=== PATIENT | male | born 1975 | race Caucasian/White ===

== ENCOUNTER 2023-06-23 09:43 | Day surgery (SDC) | payer OTHER, SELFPAY ==
[2023-06-18 10:35] VITALS: BMI 22.9
--- NOTE | 2023-06-20 07:56 | MHC.SHP ---
Pre-Procedural Eval Section A Date of Service: 06/20/23 The patient is an INPATIENT: No Changes since office visit: No Cold of Flu in the past 2 weeks, No New Medical Problems, No Changes in Medication and No Patient answered all questions The History & Physical has been completed within 30 days and I have reviewed it.: Yes Section B Chief Complaint: Age-related nuclear cataract, left eye Allergies: Allergies Allergy/AdvReac Type Severity Reaction Status Date / Time prochlorperazine Allergy Difficulty Verified 06/18/23 09:20 [From Compazine] Breathing risperidone [From Risperdal] Allergy Swelling Verified 06/18/23 09:20 Plan Diagnosis/Plan: Unchanged I have reviewed the history and physical and performed a pertinent physical examination on my patient. No changes have occurred unless specified. Time Spent With Patient Time: Total time managing care of this patient today ____ minutes.
--- NOTE | 2023-06-20 10:58 | P.CONAN_ITS ---
Documented by User: Cammy Wayne NP 06/20/23 11:00 HPI - Anesthesia Eval Consult details Narrative: 47yo M for Left Cataract Extraction IOL Insertion PCP cleared No previous cataract on record ESRD on HD Polysubstance abuse Methadone daily PMFSH Past Medical History Medical History Complication of AV dialysis fistula Back pain Hx of transfusion of packed red blood cells GERD (gastroesophageal reflux disease) Numbness Retroperitoneal abscess Venous ulcer of right leg Proliferative diabetic retinopathy Polysubstance dependence including opioid drug with daily use Overweight Lymphedema HTN (hypertension) ESRD (end stage renal disease) Diabetic neuropathy Diabetes Cocaine use disorder Chronic kidney disease Uriostegui's cyst Anemia Above-elbow amputation of left upper extremity ADHD (attention deficit hyperactivity disorder) Abscess Surgical History Surgical History S/P debridement History of skin graft Status post amputation of left upper extremity above elbow Hx of laser photocoagulation of retina History of esophagogastroduodenoscopy (EGD) H/O colonoscopy Social History Social History Are you a primary home health care coordinator to a significant other at home: No Do you presently have visiting nurse or other home services: No Patient Tobacco Use Status: Current someday Tobacco user Tobacco use type: Cigarette Cigarettes Per Day: 5 Use of substances other than those prescribed or required for medical reasons: No Have you been hit, kicked, punched, or otherwise hurt by someone within the past year? If so, by whom?: No Advance Directives: No Advance Directives Information Provided: Yes Advance Directives on File: No Recently lost weight without trying: No Eating poorly because of decreased appetite: No Nutrition Risks: No Nutritional Risk Poor oral hygiene: Yes (no teeth, does not use dentures) Meds Allergies Allergy/AdvReac Type Severity Reaction Status Date / Time prochlorperazine Allergy Difficulty Verified 06/23/23 10:52 [From Compazine] Breathing risperidone [From Risperdal] Allergy Swelling Verified 06/23/23 10:52 Home Medications Medication Instructions Recorded Confirmed Last Taken Type acetaminophen 325 mg tablet 650 mg PO TID PRN fever 06/18/23 06/18/23 Unknown History aspirin 162.5 mg capsule,extended 325 mg PO DAILY 06/18/23 06/18/23 06/23/23 History release 24 hr duloxetine 30 mg capsule,delayed 30 mg PO DAILY 06/18/23 06/18/23 Unknown History release famotidine 20 mg tablet 20 mg PO DAILY 06/18/23 06/18/23 Unknown History furosemide 40 mg tablet 120 mg PO BID 06/18/23 06/18/23 Unknown History methadone 10 mg tablet 50 mg PO DAILY 06/18/23 06/18/23 06/23/23 History sucroferric oxyhydroxide 500 mg 500 mg PO TID 06/18/23 06/18/23 Unknown History chewable tablet (Velphoro) Exam Exam Date and Time: June 20, 2023 1058 Height,Weight and Vital Signs: Height 5 ft 7 in Weight 66.224 kg Documented by User: Gaurav Moser MD 06/23/23 10:56 [facility] Past Medical History Medical History Complication of AV dialysis fistula Back pain Hx of transfusion of packed red blood cells GERD (gastroesophageal reflux disease) Numbness Retroperitoneal abscess Venous ulcer of right leg Proliferative diabetic retinopathy Polysubstance dependence including opioid drug with daily use Overweight Lymphedema HTN (hypertension) ESRD (end stage renal disease) Diabetic neuropathy Diabetes Cocaine use disorder Chronic kidney disease Uriostegui's cyst Anemia Above-elbow amputation of left upper extremity ADHD (attention deficit hyperactivity disorder) Abscess Family History Family history of problems with anesthesia: No Surgical History Surgical History S/P debridement History of skin graft Status post amputation of left upper extremity above elbow Hx of laser photocoagulation of retina History of esophagogastroduodenoscopy (EGD) H/O colonoscopy History of Problems with Anesthesia: No Social History Social History Are you a primary home health care coordinator to a significant other at home: No Do you presently have visiting nurse or other home services: No Patient Tobacco Use Status: Current someday Tobacco user Tobacco use type: Cigarette Cigarettes Per Day: 5 Use of substances other than those prescribed or required for medical reasons: No Have you been hit, kicked, punched, or otherwise hurt by someone within the past year? If so, by whom?: No Advance Directives: No Advance Directives Information Provided: Yes Advance Directives on File: No Recently lost weight without trying: No Eating poorly because of decreased appetite: No Nutrition Risks: No Nutritional Risk Poor oral hygiene: Yes (no teeth, does not use dentures) Meds Allergies Allergy/AdvReac Type Severity Reaction Status Date / Time prochlorperazine Allergy Difficulty Verified 06/23/23 10:52 [From Compazine] Breathing risperidone [From Risperdal] Allergy Swelling Verified 06/23/23 10:52 Home Medications Medication Instructions Recorded Confirmed Last Taken Type acetaminophen 325 mg tablet 650 mg PO TID PRN fever 06/18/23 06/18/23 Unknown History aspirin 162.5 mg capsule,extended 325 mg PO DAILY 06/18/23 06/18/23 06/23/23 History release 24 hr duloxetine 30 mg capsule,delayed 30 mg PO DAILY 06/18/23 06/18/23 Unknown History release famotidine 20 mg tablet 20 mg PO DAILY 06/18/23 06/18/23 Unknown History furosemide 40 mg tablet 120 mg PO BID 06/18/23 06/18/23 Unknown History methadone 10 mg tablet 50 mg PO DAILY 06/18/23 06/18/23 06/23/23 History sucroferric oxyhydroxide 500 mg 500 mg PO TID 06/18/23 06/18/23 Unknown History chewable tablet (Velphoro) Exam Airway Mallampati Class: II TM Dist: >3cm Neck ROM: Full Denture: Upper and Lower Loose/Missing/Broken Teeth: Yes Heart: [id number] Lungs: cta b/l Assessment and Plan Assessment Anesthesia Assessment: Anesthesia Plan Discussed and Chart Reviewed Final Anesthetic Review Family History of Problems with Anesthesia: No History of Problems with Anesthesia: No NPO: Yes ASA Class: III Final Preanesthetic Review: No Changes in Pt Med Stat, Meds/Allgs Chart Reviewed, Consent Obtained/Reviewed and Anes Risks/Benef Reviewed Patient Risk: Intermediate Procedure Risk: Intermediate Assessment/Block/Sedation in SS: Assess/Block/Sedation-SS Anesthetic Plan Anesthetic Plan: MAC: and Agree w/ Assess. and Plan Disposition: Standard PACU
--- OUTSIDE RECORDS SUMMARY | 2023-06-23 09:46 | XMS_ITS | Continuity of Care Document ---
Author Name Unknown Organization [facility] Address [address] [place] [id number] Care Team Providers Care Global Marketing Manager Name Role Phone Kristen Boudreaux DO Primary Care Physician Encounter [facility] Date(s): 04/01/22 - 05/01/22 [facility] [address] [place], [place] [address] Allergies, Adverse Reactions, Alerts Substance Reaction Severity Status Risperdal tongue swells Active Compazine difficulty breathing difficulty Active Immunizations Given and Recorded Vaccine Date Status Refusal Reason pneumococcal 20-valent conjugate vaccine 03/12/22 Given tetanus/diphtheria/pertussis, acel(Tdap) 12/17/21 Given tetanus/diphtheria/pertussis, acel(Tdap) 05/14/13 Given SARS-CoV-2 (COVID-19) mRNA BNT-162b2 vac 05/18/21 Recorded SARS-CoV-2 (COVID-19) mRNA BNT-162b2 vac 04/27/21 Recorded influenza virus vaccine, inactivated 09/19/15 Give n influenza virus vaccine, inactivated 07/03/09 Dany rded pneumococcal 23-valent vaccine 07/11/14 Given Not Given Vaccine Date Status Refusal Reason influenza virus vaccine, inactivated 08/20/16 Not Given Patient Refuses Medications acetaminophen 325 mg oral tablet 975 mg, 3, tablet, By Mouth, 3 times a day, PRN, # 180 tablet, Refills 0, Tot. Refills 0, Maintenance, as needed, 04/12/22 17:42:00 EDT, Route to Pharmacy Electronically, [facility]/pharmacy #[id number], Partial fill upon patient request if the prescription is for... Start Date: 04/12/22 Status: Ordered amLODIPine 10 mg oral tablet 1 tablet, By Mouth, Daily, # 90 tablet, 1 Refills, Maintenance, 04/08/22 10:06:00 EDT, [facility]/pharmacy#[id number], 170, cm, 04/04/22 15:17:00 EDT, Height, 81.75, kg, 03/21/22 15:54:00 EDT, Dry Weight Start Date: 04/08/22 Status: Ordered Artificial Tears 1.4% Eyes, Both, Every 4 hours, PRN Other, Dryness., 0 Refills, Maintenance, 03/29/22 11:49:00 EDT, Ophth Solution, Partial fill upon patient request if the prescription is for a schedule II opioid drug. Start Date: 03/29/22 Status: Ordered Aspirin Low Dose 81 mg oral delayed release tablet 1 tablet, By Mouth, Daily, # 30 tablet, 0 Refills, [id number], 170, cm, 04/04/22 15:17:00 EDT,Height, 81.75, kg, 03/21/22 15:54:00 EDT, Dry Weight Start Date: 04/08/22 Status: Ordered Basaglar KwikPen = 10 units, Subcutaneous Injection, Daily, 0 Refills, Maintenance, 03/18/22 12:33:00 EDT, ; Start Date: 03/18/22 Status: Ordered cloNIDine 0.1 mg oral tablet 1, tablet, By Mouth, 3 times a day, # 270 tablet, Refills 1, Tot. Refills 1, Maintenance, 04/26/22 14:29:00 EDT, Route to Pharmacy Electronically, [facility]/pharmacy #[id number], 170, cm, 04/12/22 15:12:00 EDT, Height, 81.75, kg, 03/21/22 15:54:00 EDT, Dry Weight Start Date: 04/26/22 Status: Ordered Compression Stockings See Instructions, # 1 each, Refills 1, Tot. Refills 1, Maintenance, Juxta Lite Circaid compression wraps bilateral 30-40 mm Hg, 03/05/22 14:53:00 EDT, Compound Start Date: 03/05/22 Status: Ordered duloxetine 30 mg oral enteric coated capsule 1 capsule = 30 mg, By Mouth, Daily, do not crush or chew, # 30 capsule, 1 Refills, Maintenance, 04/24/22 16:25:00 EDT, CR Capsule, [facility], Partial fill upon patient request if the prescription is for a schedule II opioid drug., 170,... Start Date: 04/24/22 Status: Ordered famotidine 20 mg oral tablet 1, tablet, By Mouth, Daily, # 90 tablet, Refills 0, Tot. Refills 0, Maintenance, 04/08/22 10:12:00 EDT, Route to Pharmacy Electronically, [facility]/pharmacy #[id number], 170, cm, 04/04/22 15:17:00 EDT, Height, 81.75, kg, 03/21/22 15:54:00 EDT, Dry Weight Start Date: 04/08/22 Status: Ordered hydrALAZINE 25 mg oral tablet 2, tablet, By Mouth, 3 times a day, for 30 days, # 180 tablet, Refills 0, Physician Stop, Route to Pharmacy Electronically, [id number], 170, cm, 04/04/22 15:17:00 EDT, Height, 81.75, kg, 03/21/22 15:54:00 EDT, Dry Weight Start Date: 04/08/22 Stop Date: 05/08/22 Status: Ordered Insulin Lispro KwikPen 100 units/mL injectable solution 2-10 units, Subcutaneous Injection, 3 times a day before meals, Maintenance, 03/21/22 11:54:00 EDT,; Start Date: 03/21/22 Status: Ordered lisinopril 20 mg oral tablet 20 mg, 1, tablet, By Mouth, Daily, # 30 tablet, Refills 6, Tot. Refills 6, Maintenance, 03/18/22 14:25:00 EDT, [id number], Partial fill upon patient request if the prescription is for a schedule II opioid drug... Start Date: 03/18/22 Status: Ordered Methadone = 80 mg, By Mouth, Daily, [facility] & took home 3 doses. Ro Dodd [phone], 0 Refills, Maintenance, 03/21/22 11:55:00 EDT, ; Start Date: 03/21/22 Status: Ordered Multivitamin 1 tablet, By Mouth, Daily, 0 Refills, Maintenance, 03/21/22 2:31:00 EDT, ; Start Date: 03/21/22 Status: Ordered nicotine 14 mg/24 hr transdermal film, extended release 1 patch, Topically, Daily, for 7 days, # 7 patch, 0 Refills, Acute 05/08/22 10:14:00 EDT, 05/01/22 10:14:00 EDT, Patch, [facility]/pharmacy #[id number], Partial fill upon patient request if the prescription is for a schedule II opioid drug., 1 patch Topically Kasi... Start Date: 05/01/22 Stop Date: 05/08/22 Status: Ordered Nicotine 2 mg gum 1 each = 2 mg, Chew, Every 2 hours, PRN for smoking cessation, # 50 each, 0 Refills, Acute 06/01/2210:14:00 EDT, 05/01/22 10:12:00 EDT, Gum, [facility]/pharmacy #[id number], Partial fill upon patient request if the prescription is for a schedule II opioid drug.,... Start Date: 05/01/22 Stop Date: 06/01/22 Status: Ordered Pen [place], 29 G x 12.7 mm BD Ultra Fine See Instructions, # 100 each, Refills 5, Tot. Refills 5, Maintenance, use as directed for Type 2 Diabetes Mellitus, 01/08/22 13:01:00 EDT, Supply, 169, cm, 01/07/22 14:19:00 EDT, Height, 89.9, kg, 12/25/21 7:54:00 EDT, Dry Weight Start Date: 01/08/22 Stop Date: 07/07/22 Status: Ordered torsemide 20 mg oral tablet 2 tablet = 40 mg, By Mouth, Daily, # 60 tablet, 0 Refills, Maintenance, 03/29/22 11:48:00 EDT, Tablet, [id number], Partial fill upon patient request if the prescription is for a schedule II opioid drug., 170, cm, 03/29/22 7:36:00 EDT, Height,... Start Date: 03/29/22 Status: Ordered Wheelchair See Instructions, # 1 each, Maintenance, Lymphedema 189.0, 04/12/22 17:43:00 EDT, Supply Start Date: 04/12/22 Status: Ordered Problem List Condition Effective Dates Status Health Status Inform ant Abscesses, recurrent, due to IVDU including admission to [facility] [place] [facility] 09/18/2015 to 10/29/2015 for retroperitoneal abscess, MSSA bacteremia(Confirmed) Active Amputation of left upper ext remity above elbow, h.o chronic osteomyelitis(Confirmed) 12/25/21 Active Anemia(Confirmed) Active ADHD (attention deficit hype ractivity disorder)(Confirmed) Active CKD (chronic kidney disease) stage 4, GFR 15-29 ml/min(Confirmed) Active Cocaine use disorder(Confirmed) Active Polysubstance dependence inc luding opioid drug with daily use(Confirmed) Active IDDM (insulin dependent diab etes mellitus)(Confirmed) Active Diabetic neuropathy(Confirmed) Active S/P amputation of limb(Confirmed) Active Hypertension(Confirmed) Active Lymphedema of left lower extremity(Confirmed) Active Overweight(Confirmed) Active Uriostegui's cyst of right knee(Confirmed) Active Venous ulcer, right lower ex tremity, followed by [facility] [phone](Confirmed) Active Venous ulcer of right leg(Confirmed) Active Social History Social History Type Response Tobacco Other: started smoki ng at 20 years old, now about 5 cigarettes. Sex
--- OUTSIDE RECORDS SUMMARY | 2023-06-23 09:46 | XMS_ITS | Continuity of Care Document ---
Author Name Unknown Organization [facility] Address [address] [place] [address]- Care Team Providers Care Fiberline Supervisor Name Role Phone Kristen Boudreaux DO Primary Care Physician [phone] Encounter [facility] Date(s): 04/24/22 - 05/24/22 [facility] [address], [place] [address] Allergies, Adverse Reactions, Alerts Substance Reaction [...] 0, Tot. Refills 0, Maintenance, as needed, 05/16/22 14:00:00 EDT, Route to Pharmacy Electronically, [facility]/pharmacy #[id number], Partial fill upon patient request if the prescription is for... Start Date: 05/16/22 Status: Ordered amLODIPine 10 mg oral tablet 1 tablet, By Mouth, Daily, # 90 tablet, 1 Refills, Maintenance, 04/08/22 10:06:00 EDT, [facility]/pharmacy#[id number], 170, cm, 04/04/22 15:17:00 EDT, Height, 81.75, [...] tablet, By Mouth, Daily, # 90 tablet, 3 Refills, 05/16/22 14:00:00 EDT, [facility]/pharmacy #[id number], 170.18, cm, 05/08/22 12:22:00 EDT, Height, 81.8, kg, 05/08/22 12:22:00 EDT, Dry Weight Start Date: 05/16/22 Status: Ordered Basaglar KwikPen = 10 units, Subcutaneous Injection, Daily, 0 Refills, Maintenance, 03/18/22 12:33:00 EDT, ; Start Date: 03/18/22 Status: Ordered cloNIDine 0.1 mg oral tablet 1, tablet, By Mouth, 3 times a day, # 270 tablet, Refills 1, Tot. Refills 1, Maintenance, 04/26/22 14:29:00 EDT, Route to Pharmacy Electronically, [facility]/pharmacy #[id number], 170, cm, 04/12/22 15:12:00 EDT, Height, 81.75, kg, 03/21/22 15:54:00 EDT, Dry Weight Start Date: 04/26/22 Status: Ordered Compression Stockings See Instructions, # 1 each, Refills 1, Tot. Refills 1, Maintenance, Juxta Lite Circaid compression wraps bilateral 30-40 mm Hg, 03/05/22 14:53:00 EDT, Compound Start Date: 03/05/22 Status: Ordered duloxetine 30 mg oral enteric coated capsule 1 capsule, By Mouth, Daily, DONT CRUSH. /CHEW., # 30 capsule, 5 Refills, [facility]ORE [id number], 170.18, cm, 05/08/22 12:22:00 EDT, Height, 81.8, kg, 05/08/22 12:22:00 EDT, Dry Weight Start Date: 05/15/22 Status: Ordered famotidine 20 mg oral tablet 1, tablet, By Mouth, Daily, # 90 tablet, Refills 3, Tot. Refills 3, Maintenance, 05/16/22 14:01:00 EDT, Route to Pharmacy Electronically, [facility]/pharmacy #[id number], 170.18, cm, 05/08/22 12:22:00 EDT, Height, 81.8, kg, 05/08/22 12:22:00 EDT, Dry Weight Start Date: 05/16/22 Status: Ordered hydrALAZINE 25 mg oral tablet 50 mg, 2, tablet, By Mouth, 3 times a day, # 180 tablet, Refills 3, Tot. Refills 3, Maintenance, 05/23/22 15:52:00 EDT, Route to Pharmacy Electronically, [facility]/pharmacy #[id number], Partial fill upon patientrequest if the prescription is for a schedule II op... Start Date: 05/23/22 Stop Date: 09/20/22 Status: Ordered Insulin Lispro KwikPen 100 units/mL injectable solution 2-10 units, Subcutaneous Injection, 3 times a day before meals, Maintenance, 03/21/22 11:54:00 EDT,; Start Date: 03/21/22 Status: Ordered lisinopril 20 mg oral tablet 20 mg, 1, tablet, By Mouth, Daily, # 30 tablet, Refills 6, Tot. Refills 6, Maintenance, 03/18/22 14:25:00 EDT, Route to Pharmacy Electronically, [facility]/pharmacy #[id number], Partial fill upon patient request if the prescription is for a schedule II opioid drug... Start Date: 03/18/22 Status: Ordered Methadone = 80 mg, By Mouth, Daily, last received from [facility] 03/19/22 & took home 3 doses. Ro Dodd [phone], 0 Refills, Maintenance, 03/21/22 11:55:00 EDT, ; Start Date: 03/21/22 Status: Ordered Multivitamin 1 tablet, By Mouth, Daily, 0 Refills, Maintenance, 03/21/22 2:31:00 EDT, ; Start Date: 03/21/22 Status: Ordered Nicotine 2 mg gum 1 each = 2 mg, Chew, Every 2 hours, PRN for smoking cessation, # 50 each, 0 Refills, Acute 06/01/2210:14:00 EDT, 05/01/22 10:12:00 EDT, Gum, [facility]/pharmacy #[id number], Partial fill upon patient request if the prescription is for a schedule II opioid drug.,... Start Date: 05/01/22 Stop Date: 06/01/22 Status: Ordered Pen [place], 29 G x 12.7 mm BD Ultra Fine See Instructions, # 100 each, Refills 5, Tot. Refills 5, Maintenance, use as directed for Type 2 Diabetes Mellitus, 05/16/22 14:00:00 EDT, Supply, 170.18, cm, 05/08/22 12:22:00 EDT, Height, 81.8, kg,05/08/22 12:22:00 EDT, Dry Weight Start Date: 05/16/22 Stop Date: 11/12/22 Status: Ordered torsemide 20 mg oral tablet 2 tablet = 40 mg, By Mouth, Daily, # 60 tablet, 3 Refills, Maintenance, 05/06/22 13:08:00 EDT, Tablet, [facility]/pharmacy #[id number], Partial fill upon patient request if the prescription is for a schedule II opioid drug., 170.18, cm, 05/06/22 10:27:00 EDT, Heig... Start Date: 05/06/22 Status: Ordered Wheelchair See Instructions, # 1 each, Maintenance, Lymphedema 189.0, 04/12/22 17:43:00 EDT, Supply Start Date: 04/12/22 Status: Ordered Problem List Condition Effective Dates Status Health Status Inform ant Abscesses, recurrent, due to IVDU including admission to [facility] for retroperitoneal abscess, MSSA [...] ex tremity, followed by [facility] [phone](Confirmed) Active Venous ulcer of right leg(Confirmed) Active Social History Social History Type Response Tobacco Other: started smoki ng at 20 years old, now about 5 cigarettes. Sex Care Team Personnel Name: Kristen Boudreaux DO Address: [address] [facility] [place] [address]
--- OUTSIDE RECORDS SUMMARY | 2023-06-23 09:46 | XMS_ITS | Continuity of Care Document ---
Author Name Unknown Organization [facility] Address [address] [place] [id number]- Care Team Providers Care Housekeeping Supervisor Name Role Phone Kristen Boudreaux DO Primary Care Physician [phone] Encounter [facility] Date(s): 02/21/23 - 04/16/23 [facility] [address] [place] [address]- Attending Physician: Carlos Arceo MD Admitting Physician: Carlos Arceo MD Referring Physician: Carlos Arceo MD Allergies, Adverse Reactions, Alerts Substance Reaction Severity Status Risperdal 1 tongue swells Active Compazine 2 difficulty breathing difficulty Active 1 MOUTH TIGHTNESS 2 MOUTH GETS TIGHT Immunizations Given and Recorded Vaccine Date Status Refusal Reason influenza virus vaccine, inactivated 09/14/22 Give n influenza virus vaccine, inactivated 09/14/22 Dany rded influenza virus vaccine, inactivated 09/19/15 Give n influenza virus vaccine, inactivated 07/03/09 Dany rded influenza virus vaccine, inactivated 07/03/09 Dany rded [id number] bivalent booster vax 07/17/22 Recorded [id number] bivalent booster vax 07/17/22 Recorded pneumococcal 20-valent conjugate vaccine 03/12/22 Given tetanus/diphtheria/pertussis, acel(Tdap) 12/17/21 Given tetanus/diphtheria/pertussis, acel(Tdap) 12/17/21 Recorded tetanus/diphtheria/pertussis, acel(Tdap) 05/14/13 Given tetanus/diphtheria/pertussis, acel(Tdap) 05/14/13 Recorded SARS-CoV-2 (COVID-19) mRNA BNT-162b2 vac 05/18/21 Recorded SARS-CoV-2 (COVID-19) mRNA BNT-162b2 vac 05/18/21 Recorded SARS-CoV-2 (COVID-19) mRNA BNT-162b2 vac 04/27/21 Recorded SARS-CoV-2 (COVID-19) mRNA BNT-162b2 vac 04/27/21 Recorded pneumococcal 23-valent vaccine 07/11/14 Given Not Given Vaccine Date Status Refusal Reason influenza virus vaccine, inactivated 08/20/16 Not Given Patient Refuses Medications acetaminophen 325 mg oral capsule 2 capsule = 650 mg, By Mouth, Every 8 hours, PRN as needed for pain, # 90 capsule, 0 Refills, Maintenance, 02/06/23 20:10:00 EDT, Capsule, Partial fill upon patient request if the prescription is fora schedule II opioid drug. Start Date: 02/06/23 Status: Ordered aspirin 162.5 mg oral capsule, extended release = 325 mg, By Mouth, Daily, 0 Refills, Maintenance, 02/20/23 11:40:00 EDT, ER Capsule, Partial fill upon patient request if the prescription is for a schedule II opioid drug. Start Date: 02/20/23 Status: Ordered carvedilol 25 mg oral tablet 25 mg, 1, tablet, By Mouth, 2 times a day, Refills 0, Maintenance, 02/20/23 10:46:00 EDT, Partial fill upon patient request if the prescription is for a schedule II opioid drug. Start Date: 02/20/23 Status: Ordered cloNIDine 0.1 mg oral tablet 0.2 mg, 2, tablet, By Mouth, TAKE 2 TABLETS BY MOUTH EVERY MORNING, 2 TABLETS AT NOON, AND 2 TABLETS EVERY EVENING ONLY IF BP > 160 Start Date: 02/20/23 Status: Ordered duloxetine 30 mg oral enteric coated capsule 1 capsule, By Mouth, Daily, DONT CRUSH. /CHEW., # 30 capsule, 8 Refills, Maintenance, 11/25/22 8:27:00 EST, [facility] STORE [id number], 170, cm, 10/09/22 16:43:00 EST, Height, 69.1, kg, 11/14/22 7:40:00 EST, Dry Weight Start Date: 11/25/22 Status: Ordered famotidine 20 mg oral tablet 1, tablet, By Mouth, Daily, # 90 tablet, Refills 0, Maintenance, 03/14/23 13:30:00 EDT, Route to Pharmacy Electronically, [facility] STORE [id number], 170.1, cm, 03/14/23 9:45:00 EDT, Height, 68.4, kg, 03/14/23 9:45:00 EDT, Dry Weight Start Date: 03/14/23 Status: Ordered furosemide 40 mg oral tablet 3, tablet, By Mouth, 2 times a day, REFILL PER PCP OR NEPHROLOGY., # 180 tablet, Refills 2, Maintenance, 12/19/22 17:33:00 EDT, Route to Pharmacy Electronically, [facility] STORE [id number], 170, cm, 12/19/22 10:06:00 EDT, Height, 71.6, kg, 12/19/22 10:06:00 EDT,... Start Date: 12/19/22 Status: Ordered Left arm, above the elbow prosthetic Left arm, above the elbow prosthetic, See Instructions, # 1 each, Refills 0, Tot. Refills 0, Maintenance, Dx: left arm above the elbow amputation, 03/13/23 10:05:00 EDT, Supply Start Date: 03/13/23 Status: Ordered methadone 10 mg oral tablet = 60 mg, By Mouth, Daily, liquid form., 0 Refills, Maintenance, 02/20/23 11:29:00 EDT, Tablet, Partial fill upon patient request if the prescription is for a schedule II opioid drug. Start Date: 02/20/23 Status: Ordered ofloxacin 0.3% ophthalmic solution PLEASE SEE ATTACHED FOR DETAILED DIRECTIONS Start Date: 03/06/23 Status: Ordered PEG-3350 with Electrolytes (Eqv-GoLYTELY) oral powder for reconstitution See Instructions, 1 glass every 15-30 minutes until finished, # 4,000 mL, 0 Refills, Maintenance, 04/09/23 10:56:00 EDT, [facility]/pharmacy #1130, Partial fill upon patient request if the prescription is for a schedule II opioid drug., 1 glass every 15-30 m... Start Date: 04/09/23 Status: Ordered prednisolone ophthalmic acetate 1% suspension INSTILL ONE DROP INTO THE LEFT EYE 4 TIMES A DAY STARTING THE DAY AFTER SURGERY AND CONTINUING. Start Date: 03/06/23 Status: Ordered Velphoro 2500 mg (500 mg elemental iron) oral tablet, chewable 1 tablet = 500 mg, Chew, 3 times a day with meals, # 90 tablet, 0 Refills, Maintenance, 03/14/23 15:43:00 EDT, Chew Tablet, Partial fill upon patient request if the prescription is for a schedule II opioid drug. 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, h.o chronic osteomyelitis Confirmed 12/25/21 Active Anemia Confirmed Active ADHD (attention deficit hyperactivity disorder) Confirmed Active CKD (chronic kidney disease) stage 4, GFR 15-29 ml/min Confirmed Active CKD (chronic kidney disease), stage IV Confirmed Active Cocaine use disorder Confirmed Active Polysubstance dependence including opioid drug with daily use Confirmed Active IDDM (insulin dependent diabetes mellitus) Confirmed Active Diabetes mellitus Confirmed Active Diabetic neuropathy Confirmed Active ESRD (end stage renal disease) on dialysis Confirmed Active S/P amputation of limb Confirmed Active History of amputation of left arm Confirmed 09/23/22 Active Hypertension Confirmed Active Insulin dependent type 2 diabetes mellitus Confirmed Active Lymphedema of left lower extremity Confirmed Active Overweight Confirmed Active Proliferative diabetic retinopathy Confirmed Active Uriostegui's cyst of right knee Confirmed Active Venous ulcer, right lower extremity, followed by Karen[facility] [phone] Confirmed Active Venous ulcer of right leg Confirmed Active Social History Social History Type Response Tobacco Other: started smoki ng at 20 years old, now about 5 cigarettes. Sex Male Implantable Device List Procedure Provider Procedure Date Device Type Site Removal Hemodialysis Catheter Bill White MD 12/19/22 Unknown Arm Right Device Identifier Serial Number Lot or Batch Number Manufacturing Date Expiration Date Distinct Identification Code MRI Safety Implantable Status Assigning Authority Unknown Unknown [id number] Unknown 07/25/23 Unknown Unknown Active Unknown Procedure Provider Procedure Date Device Type Site Insertion Hemodialysis Catheter Tyshawn Milian MD Unknown Chest Device Identifier Serial Number Lot or Batch Number Manufacturing Date Expiration Date Distinct Identification Code MRI Safety Implantable Status Assigning Authority Unknown Unknown [id number] Unknown 06/26/24 Unknown Unknown Active Unknown Patient Care team information Care Team Personnel Name: Maryam Fox RN Position: S RN Member Role: Primary Care Nurse Name: Jana Monte RN Position: S RN Member Role: Primary Care Nurse Name: Franchesca Ward RN Position: [facility] RN Member Role: Primary Care Nurse Name: Carolina Camacho RN Position: [facility] SN RN Member Role: Primary Care Nurse Name: Linda Hathaway Position: [facility] Outreach Member Role: Lifetime Consulting Physician Name: Cynthia Hathaway RN Position: [facility] RN Member Role: Primary Care Nurse Name: Delaney Huber RN Position: [facility] RN Member Role: Primary Care Nurse Name: Juanita Main RN Position: [facility] RN Member Role: Primary Care Nurse Name: China Sutherland Position: [facility] Outreach Member Role: Lifetime Consulting Physician Name: Tayler Harris RN Position: [facility] RN Member Role: Primary Care Nurse Name: Sophie Bejarano NP Position: [facility] Associate Professional Member Role: Lifetime Consulting Provider Address: Address: [address] [place] [address] [address] [facility] [address] Name: Vasile Byers MD Position: [facility] Renal MD Member Role: Lifetime Consulting Physician Address: Address: [address] [place] [address] [address] [facility] [address] Name: Edgar Mascorro RN Position: [facility] RN Member Role: Primary Care Nurse Name: Katalina Jorge RN Position: [facility] OB RN Member Role: Primary Care Nurse Name: Sophia Adan LPN Position: [facility] RN Member Role: Primary Care Nurse Name: Lorene Davenport RN Position: [facility] RN Member Role: Primary Care Nurse Name: Meryl Saini RN Position: [facility] SN RN Member Role: Primary Care Nurse Name: Allison Montez RN Position: [facility] RN Member Role: Primary Care Nurse Name: Guillermo Encinas DO Position: [facility] Renal MD Member Role: Lifetime Consulting Physician Address: Address: [address] [place] [address] [address] [facility] [place] [address]- Name: Christiano Parish RN Position: [facility] RN Member Role: Primary Care Nurse Name: Lorene Billingsley RN Position: [facility] Onco RN Member Role: Primary Care Nurse Name: Kathy Nieves RN Position: [facility] ED RN W/OE and Tasks Member Role: Primary Care Nurse Name: Nita Garcias RN Position: [facility] RN Member Role: Primary Care Nurse Name: Tyshawn Cook III, RN Position: [facility] RN Member Role: Primary Care Nurse Name: Mayuri England RN Position: [facility] RN Member Role: Primary Care Nurse Name: Sophia Johnson Position: [facility] RN Member Role: Primary Care Nurse Name: Paradise Linder RN Position: [facility] RN Member Role: Primary Care Nurse Name: Noemi Bustos RN Position: [facility] RN Member Role: Primary Care Nurse Name: Jennifer Song RN Position: [facility] RN Supv Member Role: Primary Care Nurse Name: Pina Mcgill RN Position: [facility] RN Member Role: Primary Care Nurse Name: Reina Franklin RN Position: [facility] RN Member Role: Primary Care Nurse Name: Yumiko Lindsay RN Position: [facility] RN Member Role: Primary Care Nurse Name: Vincent Thapa RN Position: [facility] RN Member Role: Primary Care Nurse Name: Kristen Boudreaux DO Position: [facility] Resident Member Role: PCP Address: Address: [address] [place] [address] [place] [address]- Name: Nicole Guzman RN Position: [facility] RN Member Role: Primary Care Nurse Name: Neil Bobby RN Position: [facility] ED RN W/OE and Tasks Member Role: Primary Care Nurse Name: Joellen Pineda RN Position: [facility] RN Member Role: Primary Care Nurse Name: Litzy Marin RN Position: [facility] RN Member Role: Primary Care Nurse Name: Crystal Robles RN Position: [facility] RN Member Role: Primary Care Nurse Name: Ruth Stevens LPN Position: [facility] RN Member Role: Primary Care Nurse Name: Nohemi Grande RN Position: [facility] Nut Roaster Helper Member Role: Primary Care Nurse Name: Yolanda Tyler RN Position: [facility] Nut Roaster Helper Member Role: Primary Care Nurse Care Team Related Persons Name: TAWNY BUTLER Address: home [address] [place] [address]
--- OUTSIDE RECORDS SUMMARY | 2023-06-23 09:46 | XMS_ITS | Continuity of Care Document ---
Author Name Unknown Organization [facility] Address [address] [place] [address]- Care Team Providers Care Pipeline Welder Name Role Phone Kristen Boudreaux DO Primary Care Physician [phone] Encounter [facility] Date(s): 04/26/22 - 05/26/22 [facility] [address] [place], [place] [address] Allergies, Adverse Reactions, Alerts Substance Reaction Severity [...] 14:00:00 EDT, Route to Pharmacy Electronically, [facility]/pharmacy #[id number], Partial fill upon patient request if the prescription is for... Start Date: 05/16/22 Status: Ordered amLODIPine 10 mg oral tablet 1 tablet, By Mouth, Daily, # 90 tablet, 1 Refills, Maintenance, 04/08/22 10:06:00 EDT, [facility]/pharmacy#1130, 170, cm, 04/04/22 15:17:00 EDT, Height, [...] tablet, 3 Refills, 05/16/22 14:00:00 EDT, [facility]/pharmacy #1130, 170.18, cm, 05/08/22 12:22:00 EDT, Height, [...] 14:29:00 EDT, Route to Pharmacy Electronically, [facility]/pharmacy #[id number], 170, cm, 04/12/22 15:12:00 EDT, [...] /CHEW., # 30 capsule, 5 Refills, [facility] STORE [id number], 170.18, cm, 05/08/22 12:22:00 EDT, Height, 81.8, kg, 05/08/22 12:22:00 EDT, Dry Weight Start Date: 05/15/22 Status: Ordered famotidine 20 mg oral tablet 1, tablet, By Mouth, Daily, # 90 tablet, Refills 3, Tot. Refills 3, Maintenance, 05/16/22 14:01:00 EDT, Route to Pharmacy Electronically, [facility]/pharmacy #1130, 170.18, cm, 05/08/22 12:22:00 EDT, Height, 81.8, kg, 05/08/22 12:22:00 EDT, Dry Weight Start Date: 05/16/22 Status: Ordered hydrALAZINE 25 mg oral tablet 50 mg, 2, tablet, By Mouth, 3 times a day, # 180 tablet, Refills 3, Tot. Refills 3, Maintenance, 05/23/22 15:52:00 EDT, Route to Pharmacy Electronically, [facility]/pharmacy #[id number], Partial fill upon patientrequest if the [...] 14:25:00 EDT, Route to Pharmacy Electronically, [facility]/pharmacy #1130, Partial fill upon patient request if the prescription is for a schedule II opioid drug... Start Date: 03/18/22 Status: Ordered Methadone = 80 mg, By Mouth, Daily, [facility] & took home 3 doses. Ro Confirmed [phone], 0 Refills, Maintenance, 03/21/22 11:55:00 EDT, ; Start Date: 03/21/22 Status: Ordered Multivitamin 1 tablet, By Mouth, Daily, 0 Refills, Maintenance, 03/21/22 2:31:00 EDT, ; Start Date: 03/21/22 Status: Ordered Nicotine 2 mg gum 1 each = 2 mg, Chew, Every 2 hours, PRN for smoking cessation, # 50 each, 0 Refills, Acute 06/01/2210:14:00 EDT, 05/01/22 10:12:00 EDT, Gum, [facility]/pharmacy #1130, Partial fill upon patient request if the prescription is for a schedule II opioid drug.,... Start Date: 05/01/22 Stop Date: 06/01/22 Status: Ordered Pen [place], 29 G x 12.7 mm BD Ultra [...] Refills, Maintenance, 05/06/22 13:08:00 EDT, Tablet, [facility]/pharmacy #1130, Partial fill upon patient request [...] recurrent, due to IVDU including admission to [facility] --> [facility] 09/18/2015 to 10/29/2015 for retroperitoneal [...] right lower ex tremity, followed by [facility] [phone](Confirmed) Active Venous ulcer of right leg(Confirmed) Active Social History Social History Type Response Tobacco Other: started smoki ng at 20 years old, now about 5 cigarettes. Sex Care Team Personnel Name: Kristen Boudreaux DO Address: [address] [facility] [place] [address]-
--- OUTSIDE RECORDS SUMMARY | 2023-06-23 09:46 | XMS_ITS | Continuity of Care Document ---
Author Name Unknown Organization [facility] Address [address] [place] [address]- Care Team Providers Care Food Beverage Server Name Role Phone Kristen Boudreaux DO Primary Care Physician [phone] Encounter [facility] Date(s): 03/13/22 - 05/18/22 [facility] [address] [place], [place] [address] Attending Physician: Not on Staff, Attending MD Allergies, Adverse Reactions, Alerts Substance Reaction [...] Give n influenza virus vaccine, inactivated 07/03/09 Adny rded pneumococcal 23-valent vaccine 07/11/14 Given Not Given Vaccine Date Status Refusal Reason influenza virus vaccine, inactivated 08/20/16 Not Given Patient Refuses Medications acetaminophen 325 mg oral tablet 975 mg, 3, tablet, By Mouth, 3 times a day, PRN, # 180 tablet, Refills 0, Tot. Refills 0, Maintenance, as needed, 05/16/22 14:00:00 EDT, Route to Pharmacy Electronically, [facility]/pharmacy #[id number], Partial fill upon patient request if the prescription is for... Start Date: 05/16/22 Status: Ordered amLODIPine 10 mg oral tablet 1 tablet, By Mouth, Daily, # 90 tablet, 1 Refills, Maintenance, 04/08/22 10:06:00 EDT, [facility]/pharmacy#1130, 170, cm, 04/04/22 15:17:00 EDT, Height, [...] 90 tablet, 3 Refills, 05/16/22 14:00:00 EDT, [facility]/pharmacy #1130, 170.18, cm, 05/08/22 12:22:00 EDT, [...] 14:29:00 EDT, Route to Pharmacy Electronically, [facility]/pharmacy #1130, 170, cm, 04/12/22 15:12:00 EDT, [...] CRUSH. /CHEW., # 30 capsule, 5 Refills, [facility] STORE 23218, 170.18, cm, 05/08/22 12:22:00 EDT, Height, 81.8, kg, 05/08/22 12:22:00 EDT, Dry Weight Start Date: 05/15/22 Status: Ordered famotidine 20 mg oral tablet 1, tablet, By Mouth, Daily, # 90 tablet, Refills 3, Tot. Refills 3, Maintenance, 05/16/22 14:01:00 EDT, Route to Pharmacy Electronically, [facility]/pharmacy #1130, 170.18, cm, 05/08/22 12:22:00 EDT, Height, 81.8, kg, 05/08/22 12:22:00 EDT, Dry Weight Start Date: 05/16/22 Status: Ordered Insulin Lispro KwikPen 100 units/mL injectable solution 2-10 units, Subcutaneous Injection, 3 times a day before meals, Maintenance, 03/21/22 11:54:00 EDT,; Start Date: 03/21/22 Status: Ordered lisinopril 20 mg oral tablet 20 mg, 1, tablet, By Mouth, Daily, # 30 tablet, Refills 6, Tot. Refills 6, Maintenance, 03/18/22 14:25:00 EDT, Route to Pharmacy Electronically, [facility]/pharmacy #1130, Partial fill upon patient request if the prescription is for a schedule II opioid drug... Start Date: 03/18/22 Status: Ordered Methadone = 80 mg, By Mouth, Daily, [facility] received from [facility] 03/19/22 & took home 3 doses. Ro Confirmed [phone], 0 Refills, Maintenance, 03/21/22 11:55:00 EDT, ; Start Date: 03/21/22 Status: Ordered Multivitamin 1 tablet, By Mouth, Daily, 0 Refills, Maintenance, 03/21/22 2:31:00 EDT, ; Start Date: 03/21/22 Status: Ordered Nicotine 2 mg gum 1 each = 2 mg, Chew, Every 2 hours, PRN for smoking cessation, # 50 each, 0 Refills, Acute 06/01/2210:14:00 EDT, 05/01/22 10:12:00 EDT, Gum, [facility]/pharmacy #1130, Partial fill upon patient request if the prescription is for a schedule II opioid drug.,... Start Date: 05/01/22 Stop Date: 06/01/22 Status: Ordered Pen [place], 29 G x 12.7 mm BD Ultra [...] 3 Refills, Maintenance, 05/06/22 13:08:00 EDT, Tablet, [facility]/pharmacy #1130, Partial fill upon patient request [...] due to IVDU including admission to [facility] --> [facility] 09/18/2015 to 10/29/2015 for retroperitoneal [...] right lower ex tremity, followed by [facility] [phone](Confirmed) Active Venous ulcer of right leg(Confirmed) Active Social History Social History Type Response Tobacco Other: started smoki ng at 20 years old, now about 5 cigarettes. Sex Care Team Personnel Name: Kristen Boudreaux DO Address: [address] [place] [address] [place] [address]-
--- OUTSIDE RECORDS SUMMARY | 2023-06-23 09:46 | XMS_ITS | Continuity of Care Document ---
Author Name Unknown Organization [facility] Address [address] [place] [address]- Care Team Providers Care Foreign Diplomat Name Role Phone Kristen Boudreaux DO Primary Care Physician [phone] Encounter [facility] Date(s): 04/22/22 - 05/22/22 [facility] [address] [place] [address]- Allergies, Adverse Reactions, Alerts Substance Reaction Severity [...] 05/16/22 14:00:00 EDT, Route to Pharmacy Electronically, [facility]/pharmacy #[id number], Partial fill upon patient request if the prescription is for... Start Date: 05/16/22 Status: Ordered amLODIPine 10 mg oral tablet 1 tablet, By Mouth, Daily, # 90 tablet, 1 Refills, Maintenance, 04/08/22 10:06:00 EDT, [facility]/pharmacy#1130, 170, cm, 04/04/22 15:17:00 EDT, [...] 90 tablet, 3 Refills, 05/16/22 14:00:00 EDT, [facility]/pharmacy #1130, 170.18, cm, 05/08/22 12:22:00 [...] 04/26/22 14:29:00 EDT, Route to Pharmacy Electronically, [facility]/pharmacy #1130, 170, cm, 04/12/22 15:12:00 [...] CRUSH. /CHEW., # 30 capsule, 5 Refills, [facility] STORE 26385, 170.18, cm, 05/08/22 12:22:00 EDT, Height, 81.8, kg, 05/08/22 12:22:00 EDT, Dry Weight Start Date: 05/15/22 Status: Ordered famotidine 20 mg oral tablet 1, tablet, By Mouth, Daily, # 90 tablet, Refills 3, Tot. Refills 3, Maintenance, 05/16/22 14:01:00 EDT, Route to Pharmacy Electronically, [facility]/pharmacy #1130, 170.18, cm, 05/08/22 12:22:00 [...] 03/18/22 14:25:00 EDT, Route to Pharmacy Electronically, [facility]/pharmacy #1130, Partial fill upon patient request if the prescription is for a schedule II opioid drug... Start Date: 03/18/22 Status: Ordered Methadone = 80 mg, By Mouth, Daily, last received from [facility] 03/19/22 & took home 3 doses. Ro Confirmed [phone], 0 Refills, Maintenance, 03/21/22 11:55:00 EDT, ; [...] 05/01/22 Stop Date: 06/01/22 Status: Ordered Pen [place], 29 G x 12.7 mm BD Ultra [...] 3 Refills, Maintenance, 05/06/22 13:08:00 EDT, Tablet, [facility]/pharmacy #1130, Partial fill upon [...] recurrent, due to IVDU including admission to [facility] --> [facility] 09/18/2015 to 10/29/2015 for [...] [facility], [phone] Active Venous ulcer of right leg(Confirmed) Active Social History Social History Type Response Tobacco Other: started smoki ng at 20 years old, now about 5 cigarettes. Sex Care Team Personnel Name: Kristen Boudreaux DO Address: [address] [place] [address]
--- OUTSIDE RECORDS SUMMARY | 2023-06-23 09:46 | XMS_ITS | Continuity of Care Document ---
Author Name Unknown Organization [facility] ter Address [address] [place] [id number] Care Team Providers Care Harbor Engineer Name Role Phone Kristen Boudreaux DO Primary Care Physician [phone] Encounter [facility] Date(s): 02/16/23 - 02/20/[address] [address]- Encounter Diagnosis Hypotension(Final) - 02/16/23 Discharge Disposition: A-D/C Home Attending Physician: Carlos Arceo MD Admitting Physician: Carlos Arceo MD Referring Physician: Not on Staff, Referring MD Allergies, Adverse Reactions, Alerts Substance Reaction [...] influenza virus vaccine, inactivated 07/03/09 Dany rded [id number] bivalent booster vax 07/17/22 Recorded [id number] bivalent booster vax 07/17/22 Recorded pneumococcal 20-valent [...] opioid drug. Start Date: 02/06/23 Status: Ordered acetaminophen 325 mg oral tablet TAKE 2 TABLETS BY MOUTH 3 TIMES A DAY NEEDED FOR FEVER Start Date: 02/20/23 Status: Ordered aspirin 162.5 mg oral capsule, extended release = 325 mg, By Mouth, Daily, 0 Refills, Maintenance, 02/20/23 11:40:00 EDT, ER Capsule, Partial fill upon patient request if the prescription is for a schedule II opioid drug. Start Date: 02/20/23 Status: Ordered Aspirin Low Dose 81 mg oral delayed release tablet 1 tablet, By Mouth, Daily, # 90 tablet, 3 Refills, 05/16/22 14:00:00 EDT, [facility]acy #[id number], 170.18, cm, 05/08/22 12:22:00 EDT, Height, 81.8, kg, 05/08/22 12:22:00 EDT, Dry Weight Start Date: 05/16/22 Status: Ordered BD PARMINDER 2 GEN PEN NDL 32G 4MM USE TO INJECT INSULIN 4 TIMES A DAY Start Date: 02/20/23 Status: Ordered BD PARMINDER 2 GEN PEN NDL [id number] USE TO INJECT INSULIN 4 TIMES A DAY Start Date: 02/20/23 Status: Ordered BD PARMINDER PEN NDL [id number] USE TO INJECT INSULIN FOUR TIMES A DAY Start Date: 02/20/23 Status: Ordered carvedilol 25 mg oral tablet 25 mg, Tablet, By Mouth, 02/20/23 9:00:00 EDT Start Date: 02/20/23 Stop Date: 02/20/23 Status: Completed carvedilol 25 mg oral tablet Refills 0, Maintenance, 02/20/23 10:46:00 EDT, Partial fill upon patient request if the prescription is for a schedule II opioid drug. Start Date: 02/20/23 Status: Ordered cefepime 1 g intravenous injection = 1,000 mg, IVPB, Every Friday, Friday and Friday, to be given during dialysis, 0 Refills, Maintenance, 02/20/23 11:30:00 EDT, Injection, Partial fill upon patient request if the prescription is for a schedule II opioid drug. Start Date: 02/20/23 Status: Ordered cloNIDine 0.1 mg oral tablet TAKE 2 TABLETS BY MOUTH EVERY MORNING, 2 TABLETS AT NOON, AND 2 TABLETS EVERY EVENING Start Date: 02/20/23 Status: Ordered cloNIDine 0.1 mg oral tablet 0.2 mg, 2, tablet, By Mouth, 3 times a day, # 270 tablet, Refills 1, Tot. Refills 1, Maintenance, 04/26/22 14:29:00 EDT, Route to Pharmacy Electronically, [facility]/pharmacy #[id number], 170, cm, 04/12/22 15:12:00 EDT, Height, 81.75, kg, 03/21/22 15:54:00 EDT, Start Date: 04/26/22 Status: Ordered Colace sodium 100 mg oral capsule 100 mg, 1, capsule, By Mouth, 2 times a day, PRN, # 60 capsule, Refills 0, Tot. Refills 0, Maintenance, for constipation, 12/19/22 14:25:00 EDT, Route to Pharmacy Electronically, [facility]/pharmacy #[id number], Partial fill upon patient request if the prescriptio... Start Date: 12/19/22 Stop Date: 01/18/23 Status: Ordered Compression Stockings See Instructions, # 1 each, Refills 1, Tot. Refills 1, Maintenance, Juxta Lite Circaid compression wraps bilateral 30-40 mm Hg, 03/05/22 14:53:00 EDT, Compound Start Date: 03/05/22 Status: Ordered Coreg 25 mg oral tablet 25 mg, 1, tablet, By Mouth, 2 times a day, # 60 tablet, Refills 0, Maintenance, 09/13/22 1:01:00 EST, Partial fill upon patient request if the prescription is for a schedule II opioid drug. Start Date: 09/13/22 Status: Ordered duloxetine 30 mg oral enteric coated capsule 1 capsule, By Mouth, Daily, DONT CRUSH. /CHEW., # 30 capsule, 8 Refills, Maintenance, 11/25/22 8:27:00 EST, [id number], 170, cm, 10/09/22 16:43:00 EST, Height, 69.1, kg, 11/14/22 7:40:00 EST, Dry Weight Start Date: 11/25/22 Status: Ordered duloxetine 30 mg oral enteric coated capsule 0 Refills, Maintenance, 02/20/23 10:46:00 EDT, Partial fill upon patient request if the prescription is for a schedule II opioid drug. Start Date: 02/20/23 Status: Ordered famotidine 20 mg oral tablet 1, tablet, By Mouth, Daily, # 90 tablet, Refills 3, Tot. Refills 3, Maintenance, 05/16/22 14:01:00 EDT, Route to Pharmacy Electronically, [facility]/pharmacy #[id number], 170.18, cm, 05/08/22 12:22:00 EDT, Height, 81.8, kg, 05/08/22 12:22:00 EDT, Dry Weight Start Date: 05/16/22 Status: Ordered furosemide 40 mg oral tablet 3, tablet, By Mouth, 2 times a day, REFILL PER PCP OR NEPHROLOGY., # 180 tablet, Refills 2, Maintenance, 12/19/22 17:33:00 EDT, Route to Pharmacy Electronically, [id number], 170, cm, 12/19/22 10:06:00 EDT, Height, 71.6, kg, 12/19/22 10:06:00 EDT,... Start Date: 12/19/22 Status: Ordered furosemide 40 mg oral tablet TAKE 3 TABLETS BY MOUTH 2 TIMES A DAY, REFILL PER PCP OR NEPHROLOGY Start Date: 02/20/23 Status: Ordered hydrALAZINE 25 mg oral tablet 50 mg, 2, tablet, By Mouth, 3 times a day, # 180 tablet, Refills 3, Tot. Refills 3, Maintenance, 10/17/22 17:13:00 EST, Route to Pharmacy Electronically, [facility]/pharmacy #[id number], Partial fill upon patientrequest if the prescription is for a schedule II op... Start Date: 10/17/22 Stop Date: 02/14/23 Status: Ordered hydrALAZINE 25 mg oral tablet TAKE 2 TABLETS BY MOUTH 3 TIMES A DAY Start Date: 02/20/23 Status: Ordered lisinopril 20 mg oral tablet 20 mg, 1, tablet, By Mouth, Daily, Refill per PCP or Nephrology, # 30 tablet, Refills 6, Tot. Refills 6, Maintenance, 10/17/22 17:13:00 EST, [id number] Partial fill upon patient request if the prescription is... Start Date: 10/17/22 Stop Date: 05/15/23 Status: Ordered lisinopril 20 mg oral tablet 40 mg, Tablet, By Mouth, 02/20/23 9:00:00 EDT Start Date: 02/20/23 Stop Date: 02/20/23 Status: Completed lisinopril 40 mg oral tablet TAKE 1 TABLET BY MOUTH ONCE A DAY FOR HIGH BLOOD PRESSURE Start Date: 02/20/23 Status: Ordered Methadone = 70 mg, By Mouth, Daily, 0 Refills, Maintenance, 12/17/22 11:12:00 EDT, Partial fill upon patient request if the prescription is for a schedule II opioid drug. Start Date: 12/17/22 Status: Ordered methadone 10 mg oral tablet = 60 mg, By Mouth, Daily, 0 Refills, Maintenance, 02/20/23 11:29:00 EDT, Tablet, Partial fill upon patient request if the prescription is for a schedule II opioid drug. Start Date: 02/20/23 Status: Ordered Methadone Tablet 60 mg, Tablet, By Mouth, 02/20/23 9:00:00 EDT Start Date: 02/20/23 Stop Date: 02/20/23 Status: Completed oxyCODONE 5 mg oral tablet 5 mg, 1, tablet, By Mouth, Every 6 hours, PRN, for 3 days, # 12 tablet, Refills 0, Tot. Refills 0, Acute 02/23/23 11:31:00 EDT, Pain , Moderate, 02/20/23 11:31:00 EDT, Route to Pharmacy Electronically, [facility], Partial fill upon patie... Start Date: 02/20/23 Stop Date: 02/23/23 Status: Ordered Pen [place], 29 G x 12.7 mm BD Ultra Fine See Instructions, # 100 each, Refills 5, Tot. Refills 5, Maintenance, use as directed for Type 2 Diabetes Mellitus, 05/16/22 14:00:00 EDT, Supply, 170.18, cm, 05/08/22 12:22:00 EDT, Height, 81.8, kg,05/08/22 12:22:00 EDT, Dry Weight Start Date: 05/16/22 Stop Date: 11/12/22 Status: Ordered Wheelchair See Instructions, # 1 each, Maintenance, Lymphedema 189.0, 04/12/22 17:43:00 EDT, Supply Start Date: 04/12/22 Status: Ordered Problem List Condition Confirmation Course Effective Dates Status H ealth Status Informant Abscesses, recurrent, due to IVDU including admission to [facility] --> [facility] 09/18/2015 [...] Active S/P amputation of limb Confirmed Active Hypertension Confirmed Active Insulin dependent type 2 diabetes mellitus Confirmed Active Lymphedema of left lower extremity Confirmed Active Overweight Confirmed Active Proliferative diabetic retinopathy Confirmed Active Uriostegui's cyst of right knee Confirmed Active Venous ulcer, right lower extremity, followed by Karena Olivas [facility] [phone] Confirmed Active Venous ulcer of right leg Confirmed Active Results Orders for Microbiology Reports Name Date Anaerobic Culture (ANAEROBIC CULTURE) Tissue Culture w/ Gram Smear (TISSUE/BIO PSY CULT.) 02/16/23 Microbiology Reports TEST:Anaerobic Culture STATUS:Unauthenticated BODY SITE: SOURCE:TISSUE1 COLLECTED DATE/TIME:02/16/23 5:25 PM Anaerobic Culture SPECIMEN DESCRIPTION : TISSUE RIGHT ARM AXILLARY ARTERY SPECIAL REQUESTS : NONE CULTURE : PSEUDOMONAS AERUGINOSA This isolate was identified using Maldi-TOF system ISOLATED FROM BROTH ONLY CRITICAL VALUE CALLED AND VERIFIED BY READBACK FOR: PSEUDOMONAS AERUGINOSA IN ANAEROBIC CULTURE TO [id number], M6, ON 02/20/2023 AT 11:43 BY [employer] [id number] REPORT STATUS : PRELIMINARY REPORT TEST:Tissue/Biopsy Culture STATUS:Auth (Verified) BODY SITE: SOURCE:TISSUE1 COLLECTED DATE/TIME:02/16/23 5:25 PM Tissue/Biopsy Culture SPECIMEN DESCRIPTION : TISSUE RIGHT ARM AXILLARY ARTERY SPECIAL REQUESTS : NONE GRAM STAIN : 2+ WHITE BLOOD CELLS 3+ RBC'S NO ORGANISMS SEEN CULTURE : NO GROWTH 2 DAYS REPORT STATUS : FINAL 02/19/2023 Radiology Reports * Exam Date Time Procedure Performing Provider Status 02/16/23 9:47 PM Chest Portable Scar Bill; Auth (Ve rified) Notes: (Chest Portable) Reason For Exam: Tube Placement RESULT: Chest Portable Chest Portable Reason: Tube Placement COMPARISON: X-ray 02/16/2023 FINDINGS: LINES AND TUBES: Endotracheal tube tip 2.7 cm above the dajuan. Enterogastric tube tip and side-port are in the stomach. The right internal jugular approach dialysis catheter tip terminating in the superior right atrium. LUNGS AND PLEURA: Lung volumes are low. No focal opacity or volume loss. No pleural effusion. No pneumothorax. HEART, MEDIASTINUM AND DIANN: Heart is normal in size. Normal mediastinal and hilar contour. BONES AND SOFT TISSUES: No acute abnormality. IMPRESSION: Adequate positioning of supporting lines and tubes. No acute cardiopulmonary pathology. WSN: [id number] Ordering Physician: Anabela Rodriguez Dictated By: Asim Elias MD Dictated Date/Time: 02/16/23 10:25 p Reviewed By: Asim Elias MD Signed By: Asim Elias MD Signed Date/Time: 02/16/23 10:25 pm Transcribed By: OLGA Transcribed Date/Time: 02/16/23 10:24 pm * Exam Date Time Procedure Performing Provider Status 02/16/23 4:06 PM Chest Portable Aleshia Dean; Auth (V erified) Notes: (Chest Portable) Reason For Exam: Pain;Other: RESULT: Chest Portable Chest Portable Reason: Other:; Pain; Clinical Question(s): Other:; Fracture, pneumothorax, pulmonary contusion COMPARISON: None. FINDINGS: LINES AND TUBES: Right IJ tunneled hemodialysis catheter with the catheter tip appropriately positioned in the rightatrium. Additional monitoring leads project over the chest. LUNGS AND PLEURA: Clear lungs. Normal pulmonary vascularity. No large pleural effusion. No pneumothorax. HEART, MEDIASTINUM AND DIANN: Heart is normal in size. Normal mediastinal and hilar contour. BONES AND SOFT TISSUES: No acute abnormality. IMPRESSION: No acute abnormality. WSN: [id number] Ordering Physician: Pina Browning Dictated By: Dominick Johnson MD Dictated Date/Time: 02/16/23 4:10 pm Reviewed By: Dominick Johnson MD Signed By: Dominick Johnson MD Signed Date/Time: 02/16/23 4:10 pm Transcribed By: OLGA Transcribed Date/Time: 02/16/23 4:09 pm Vital Signs Most recent to oldest [Reference Range]: 1 2 3 Weight 71.1 kg (02/20/23 5:52 AM) 71.2 kg (02/19/23 4:21 AM) Oxygen Saturation [94-100 %] 100 % (02/20/23 11:27 AM) 99 % (02/20/23 7:49 AM) 97 % (02/20/23 4:00 AM) Pulse Rate [55-90 bpm] 70 bpm (02/20/23 11:27 AM) 75 bpm (02/20/23 9:18 AM) 75 bpm (02/20/23 7:49 AM) Blood Pressure [90-138/55-84 mm Hg] 134/66mm Hg (02/20/23 11:27 AM) 148/68mm Hg *H* (02/20/23 9:18 AM) 148/68mm Hg *H* (02/20/23 9:18 AM) Respiratory Rate [16-30 br/min] 18 br/min (02/20/23 11:27 AM) 18 br/min (02/20/23 10:18 AM) 22 br/min (02/20/23 9:18 AM) Temperature [96.8-100.4 DegF] 98.8 DegF (02/20/23 11:27 AM) 98.2 DegF (02/20/23 7:49 AM) 98.2 DegF (02/20/23 4:00 AM) Liters per Minute 2 L/min (02/17/23 11:00 AM) 2 L/min (02/17/23 10:00 AM) 2 L/min (02/17/23 9:00 AM) Mode of Delivery (Oxygen) Room air (02/20/23 11:27 AM) Room air (02/20/23 7:49 AM) Room air (02/20/23 4:00 AM) Blood pressure sites Arm, left (02/20/23 11:27 AM) Arm, left (02/20/23 7:49 AM) Arm, left (02/20/23 4:00 AM) Temperature Route Oral (02/20/23 11:27 AM) Oral (02/20/23 7:49 AM) Oral (02/20/23 4:00 AM) Dry Weight 70.4 kg (02/16/23 9:03 PM) Weight Obtained Via Bed scale (02/20/23 5:52 AM) Bed scale (02/19/23 4:21 AM) Social History Social History Type Response Tobacco Other: started Populr at 20 years old, now about 5 cigarettes. Sex Male Implantable Device List Procedure Provider Procedure Date Device Type Site Removal Hemodialysis Catheter Bill White MD 12/19/22 Unknown Arm Right Device Identifier Serial Number Lot or Batch Number Manufacturing Date Expiration Date Distinct Identification Code MRI Safety Implantable Status Assigning Authority Unknown Unknown [id number] Unknown 07/25/23 Unknown Unknown Active Unknown Procedure Provider Procedure Date Device Type Site Insertion Hemodialysis Catheter Tyshawn Milian MD Unknown Chest Device Identifier Serial Number Lot or Batch Number Manufacturing Date Expiration Date Distinct Identification Code MRI Safety Implantable Status Assigning Authority Unknown Unknown [id number] Unknown 06/26/24 Unknown Unknown Active Unknown History and physical note * Pina Browning MD: MODIFY, SIGN, VERIFY, PERFORM, MODIFY, MODIFY Event Display: History and Physical Hospital Authored Date: [id number] Patient: RADHA, [id number] Age: 89 years Sex: Male : Associated Diagnoses: None Author: Pina Browning MD Trauma Activation Category: Category 1. Trauma History 47yoM cat1 trauma s/p RUE bleeding s/p HeRO graft removal last week with R brachial artery to SVC. ?LOC, ?EtOH, GCS 15. Per EMS, had a catheter infected with Pseudomonas that was removed from his armlast week. Was found to be bleeding 1L blood loss on scene, unclear from where. Hypotensive to SBP 60's, tachy 120's. TXA given, turnkit applied down at 3:35 pm, given 1 u prbc Upon arrival, primary survey was completed and is as follows: airway patent, breath sounds present equal bilaterally, BP 60/47, pupils _mm and reactive, GCS 15 (E4 V5 M6). Secondary survey was completed and is documented below. IV fluids were administered. 1 unit blood, right femoral cortis, right femoral arterial line. Following CXR, the patient was taken to CT for further workup. Past Medical History ESRD Past Surgical History NA Medications NA Allergies NA Family History NA Social History NA Review of Systems A 14-point review of systems was negative except as documented above Past Medical History Allergies No active allergies have been recorded. Social History Social History No qualifying data available. . Physical Examination Vital Signs: T 97.2 , BP 62/37, HR82, RR 18, SpO2 100% on 15L General: no acute distress, alert, awake Head: normocephalic, atraumatic, no hematomas, no abrasions, no wounds, no deformities Face: no ecchymosis, no abrasions, no wounds Eyes: pupils are ?mm, equal, round, and reactive; extraocular movement intact Ears: no hemotympanum, no blood in external auditory canal, no abrasions, no gonzalez's sign Nose: no epistaxis, no deformity Mandible: no deformity, no malocclusion Neck: cervical-collar in place, no hematoma, no ecchymosis, no wounds, trachea midline Chest: symmetric, no deformity, sternum, chest wall, and clavicles are nontender to palpation, no crepitus appreciated, R axillary linear surgical incision open with active arterial bleed, clavicularcatheter in place Heart: regular rate and rhythm Lungs: clear to auscultation bilaterally Abdomen: soft, nondistended, nontender, no wounds, no ecchymosis, no hematoma Pelvis: stable, nontender Back: no ecchymosis, no abrasions, no hematoma, no wounds Cervical spine: no midline deformities or stepoffs, no tenderness Thoracic spine: no midline deformities or stepoffs, no tenderness Lumbar spine: no midline deformities or stepoffs, no tenderness Extremities: no long bone deformities, no wounds, no abrasions, no ecchymosis, no hematomas, full active range of motion, 2 right brachial incisions Neurologic: GCS 15; 5/5 strength and sensation to light touch intact in the right upper and bilateral lower extremities, well healed amputated left forearm Vascular: palpable dorsalis pedis bilaterally and radial pulse on the right Results Review 7 day results Labs & Documents Laboratory : LABORATORY 02/16/2023 19:28 EDT RBC Unit ID [id number] (Modified) RBC Available PI (Modified) 02/16/2023 17:07 EDT RBC Unit ID [id number] (Modified) RBC Available IS (Modified) 02/16/2023 15:49 EDT COVID-19 PCR Specimen Source NASAL COVID-19 PCR Result NEGATIVE 02/16/2023 15:48 EDT WBC 6.3 k/mm3 RBC 2.58 m/mm3 L Hgb 6.8 Gm/dL L Hct 22.8 % L MCV 88.4 femtoliters MCH 26.4 pg L MCHC 29.8 g/dL L Platelet Count 309 k/mm3 RDW-SD 46.8 femtoliters MPV 9.3 femtoliters L Nucleated RBC (Automated) 0.0 #/100 WBC'S Abs. NRBC 0.0 k/mm3 Abs. Neut 3.2 k/mm3 Abs. Lymph 2.4 k/mm3 Abs. Mccreary 0.5 k/mm3 Abs. Eo 0.1 k/mm3 Abs. Baso 0.1 k/mm3 Neut % 50.5 % Lymph % 38.2 % Mccreary % 7.6 % Eos % 1.8 % Baso % 0.8 % Imm Gran 1.1 % Abs. Imm Gran 0.1 k/mm3 INR 1.1 Protime (PT) 11.6 seconds H APTT 23.1 seconds L Sodium 135 mmol/L Potassium 6.4 mmol/L C Chloride 98 mmol/L Bicarbonate Level 19 mmol/L L Anion Gap 18 H Glucose Level 445 mg/dL H BUN 64 mg/dL H Creatinine-Blood 6.9 mg/dL H Estimated GFR Creatinine 6 ML/MIN/1.73 M2 Calcium 9.2 mg/dL Amylase 23 units/L L Lactate 3.7 mmol/L H Ethanol, Serum or Plasma NONE DETECTED mg/dL Hold Red Top SPECIMEN DISCARDED AFTER 1 WEEK 02/16/2023 15:34 EDT Blood Type A Positive Antibody Screen Negative Imaging : RADIOLOGY 02/16/2023 16:06 EDT Chest Portable Chest Portable Chest Portable Event Date: 02/16/2023 16:06:22 EDT Updated: 02/16/2023 16:13 EDT XR Chest Portable This document has an image Reason For Exam Pain;Other: RESULT: Chest Portable Chest Portable Reason: Other:; Pain; Clinical Question(s): Other:; Fracture, pneumothorax, pulmonary contusion COMPARISON: None. FINDINGS: LINES AND TUBES: Right IJ tunneled hemodialysis catheter with the catheter tip appropriately positioned in the rightatrium. Additional monitoring leads project over the chest. LUNGS AND PLEURA: Clear lungs. Normal pulmonary vascularity. No large pleural effusion. No pneumothorax. HEART, MEDIASTINUM AND DIANN: Heart is normal in size. Normal mediastinal and hilar contour. BONES AND SOFT TISSUES: No acute abnormality. IMPRESSION: No acute abnormality. WSN: [id number] Ordering Physician: Pina Browning Signature Line Dictated By: Dominick Johnson MD Dictated Date/Time: 02/16/23 4:10 pm Reviewed By: Dominick Johnson MD Signed By: Dominick Johnson MD Signed Date/Time: 02/16/23 4:10 pm Transcribed By: OLGA Transcribed Date/Time: 02/16/23 4:09 pm Chest Portable Procedure FAST Exam Normal - no fluid x 4 quadrants. Impression and Plan 47yoM cat1 trauma s/p bleeding RUE s/p catheter removal. ?LOC, ?EtOH, GCS 15. Patient taken directly to OR for surgical control of arterial bleed Injuries None Interventions R femoral cortis Right femoral arterial line Transfused 2 unit prbc 2 grams calcium [facility] Transplant Vascular Plan Patient taken directly to OR Vascular surgery to take over care Trauma surgery will no longer follow given no traumatic injury Discussed with Dr. Dexter [facility] Progress note * Darci JERRY, Sophie: SIGN, VERIFY, PERFORM Event Display: Progress Note Hospital Authored Date: Patient: MICHAEL PARMAR Age: 47 years Sex: Male : 1975 Associated Diagnoses: None Author: Darci DICE TABLE OPERATOR, Sophie Pt seen and examined; off all pressors. HD yesterday with 1L removed. Review of Systems Review of Systems Constitutional: no complaints. Respiratory: no shortness of breath. Cardiovascular: no orthopnea, no peripheral edema. Gastrointestinal: no abdominal pain. Physical Examination Vitals Today's visit vitals : RENAL FLOWSHEET(Posting Range: 02/17/2023 0:00 EDT - 02/20/2023 7:10 EDT) 02/20/2023 1:55 EDT Creatinine-Blood 4.4 mg/dL H BUN 33 mg/dL H Estimated GFR Creatinine 16 ML/MIN/1.73 M2 Sodium 136 mmol/L Potassium 4.1 mmol/L Chloride 99 mmol/L Bicarbonate Level 23 mmol/L Anion Gap 14 Magnesium 2.0 mg/dL Phosphorus 3.8 mg/dL . Vitals : VITAL SIGNS SECTION 02/20/2023 4:00 EDT Temperature 98.2 DegF Temperature Route Oral Pulse Rate 72 bpm Respiratory Rate 18 br/min Systolic Blood Pressure 135 mm Hg Diastolic Blood Pressure 63 mm Hg Blood pressure sites Arm, left Pulse Pressure 72 mm Hg Oxygen Saturation 97 % Mode of Delivery (Oxygen) Room air . General Appearance HEENT Moist mucous membranes. Respiratory Lungs: CTA. Cardiac No murmur/gallop/rub. Rhythms: RRR. Abdomen/GI Soft. Extremities Normal. Neurologic Alert. Oriented x 3 . Impression and Plan Mr. Parmar is a 47-year-old male with a history of ESRD secondary to diabetic nephropathy who dialyzes on a M/W/F schedule at [facility] via a R IJ PermCath. He presented to [facility] on 02/16as a category 1 trauma after being found down in a pool of blood by his mother. It was reported that pt had pulsatile blood from his recent surgical incision. Pt was recently admitted 02/07-02/12 wherehe underwent R axillary artery to superior vena cava HERO graft explantation, and cultures showed the wound to be infection with Pseudomonas. Pt was given a PermCath at the time due to ongoing needs for dialysis access. After his cultures cleared, it was recommend that pt have PermCath exchanged due to the possibility of bacterial seeding, but he refused and was discharged home. When EMS found pt, he was hypotensive to 70s systolic and tachycardic to 120s. Pt was temporarily stabilized with tourniquet, but after removal he began to have profuse arterial bleeding again and was taken to the OR emergently for repair of axial artery injury. 1. ESRD on HD - schedule: M/W/F at [facility] - access: R IJ PermCath 2. R Axial Artery Injury - thought to be secondary to recent Pseudomonas infection - on Cefepime through 02/27 Plan - HD on // schedule - continue Cefepime post-HD through 02/[address] Byers. Thank you for allowing us to participate in your patient's care. * Nicole Guzman RN: PERFORM, SIGN, VERIFY Event Display: Progress Note Hospital Authored Date: Patient: MICHAEL PARMAR Age: 47 years Sex: Male : 1975 Associated Diagnoses: None Author: Nicole Guzman RN Findings Narrative/Incidental pt tolerated 3 hrs of hd tx via rcvc well, 1.0 kg removed no s/s of hypot/hypertension , vss s/p tx171/66 hr 66 rr 11 temp 97.9 . Discharge Information Pulmonary Rehab Discharge : Pulmonary Rehab Discharge Status 02/16/2023 20:32 EDT PEEP 5 * Priest JERRY, Rick Burnett: PERFORM, MODIFY Event Display: Progress Note Hospital Authored Date: Patient: ??MICHAEL PARMAR ? Age:??47 Years?Sex:??Male?:??1975?? Subjective No acute events overnight.?? Denies chest pain, shortness of breath, nausea or vomiting.?? Pain controlled.?? Review of Systems Constitutional:??No weight loss, fever, chills, weakness or fatigue. Allergy/Immune: Denies any??Eczema or hives Eyes:??No visual loss, blurred vision, double vision or yellow sclera ENT:??No hearing loss, sneezing, congestion, runny nose or sore throat. Respiratory:??No shortness of breath, cough or sputum production. Cardiovascular:??No chest pain, chest pressure or chest discomfort. No palpitations or pedal edema. Gastrointestinal:??No anorexia, nausea, vomiting or diarrhea. No abdominal pain or blood in stool. Genitourinary:??No burning micturition. No urinary frequency or incontinence. Neurologic:??No headache, dizziness, syncope, unilateral weakness, ataxia, numbness or tingling in the extremities. Musculoskeletal:??No muscle pain, back pain, joint pain or stiffness. Hematologic/Lymphatics:??No bleeding or bruising. No painful lymph nodes. Skin:??No rash or itching. Endocrine:??No reports of sweating. No cold or heat intolerance. No polyuria or polydipsia. Psychiatric:??No depression or anxiety. Physical Exam Vitals & Measurements T:??98.0?F?? HR:??74??(Peripheral)?? RR:??18?? BP:??166/60?? BP:??141/121(Line)?? SpO2:??100%?? WT:??71.2??kg?? Patient is: in no acute distress, alert, awake HEENT: Atraumatic, normocephalic Cardiac: RRR. ? Respiratory: CTA. ? Abdomen: Abdomen is soft, non-tender, non-distended Neurologic: alert & oriented x 3. ? Extremities: right axillary incision is partially closed, proximal aspect is open wound, with a clean base/pink, no purulent discharge Soft compartments, no hematoma; palpable radial/ulnar Unable to fully close hand; R 1,2 partially flexed, able to fully extend fingers Vascular: Palpable radial/ulnar pulses Assessment/Plan Michael Parmar is a 47-year-old man with a history of ESRD on HD via right IJ PermCath after recent excision of an infected hero graft on 02/06, who presented ??on 02/16/23 to [facility] after rupture of his right axillary artery at home. ??He was activated as a trauma and was taken emergently to the operating room and is now s/p right axillary???brachial interposition bypass with ipsilateral basilic vein (02/16, Adis). ??Postoperatively, he was transferred to the SICU intubated and on pressors. ??Since then, he has been weaned off pressors, extubated, and started on CRRT. ??OR Cultures 02/16- no org, NGTD; ID on board and he remains on broad-spectrum IV antibiotics(Cefepime till 02/27). Feels tired but off pressors, hypertensive, H/H 6.11/10.?? Pt was transfused RBCs for acute blood loss??anemia02/18 with good response.?? H&H low again this??AM and will transfuse a unit of RBCs today.?? Numbness in right thumb, index and middle fingers.? Plan: Renal diet Transfuse 1u RBC today Wound Care: pack the open right upper extremity wounds with saline damp Kerlix, cover with DSD Monitor pulses in the right upper extremity Continue ASA DVT ppx (SQH) Encourage OOB/ambulation Appreciate ID input- Cont cefepime 1g daily while inpatient (transition to 2g with dialysis - end date 02/27) Appreciate renal for HD needs ?? [place] [phone] with any questions or concerns. ?? Discussed with attending surgeon, Dr. Arceo.?? Intake and Output Intake and Output Results?? This visit (24 hour periods starting at 07:00 EDT)? 02/19/23 *?? 02/18/23?? 02/17/23?? Total Summary?Intake mL?? --?? 771?? 462.555?Output mL?? --?? 400?? 959?Fluid Balance ?? --?? 371?? -496.445?? Intake (6)?Cefepime mL?? --?? --?? 99.99?Insulin Regular Human 100 units [1 units/hr] + Sodium Chloride 0.9% 100 mL mL?? --?? --?? 22.565?Lactated Ringers Injection 1,000 mL mL?? --?? --?? 100?Oral Fluids mL?? --?? 390?? 60?RBC (vol) mL?? --?? 321?? --?Sodium Chloride 0.9% 250 mL mL?? --?? 60?? 180?Total?? --?? 771?? 462.555?? Output (3)?CRRT Actual Fluid Removal Rate mL?? --?? --?? 59?Dialysis Negative Balance mL?? --?? --?? 900?Urine Voided mL?? --?? 400?? --?Total?? --?? 400?? 959?? Counts (2)?Oral Fluids mL?? --?? 390?? 60?Urine Voided mL?? --?? 400?? --? * This column has not completed the indicated time period.?? Labs Last 24 Hours BLOOD COUNT & DIFF ? Event Name?? Event Result?? Date/Time?? WBC 9.6 k/mm3 02/19/23 06:53:00 RBC 2.31 m/mm3??Low 02/19/23 06:53:00 Hgb 6.3 Gm/dL??Critical 02/19/23 06:53:00 Hct 20 %??Low 02/19/23 06:53:00 MCV 86.6 femtoliters 02/19/23 06:53:00 MCH 27.3 pg 02/19/23 06:53:00 MCHC 31.5 g/dL??Low 02/19/23 06:53:00 Platelet Count 224 k/mm3 02/19/23 06:53:00 MPV 8.7 femtoliters??Low 02/19/23 06:53:00 Nucleated RBC (Automated) 0 #/100 WBC'S 02/19/23 06:53:00 ? CHEM GENERAL ? Event Name?? Event Result?? Date/Time?? Sodium 136 mmol/L 02/19/23 06:50:00 Chloride 101 mmol/L 02/19/23 06:50:00 Bicarbonate Level 28 mmol/L 02/19/23 06:50:00 Anion Gap 7 02/19/23 06:50:00 BUN 47 mg/dL??High 02/18/23 23:46:00 Creatinine-Blood 5.1 mg/dL??High 02/18/23 23:46:00 Calcium, Ionized pH Corrected 1.17 mmol/L 02/18/23 23:46:00 Phosphorus 5.3 mg/dL??High 02/18/23 23:46:00 Magnesium 2.2 mg/dL 02/18/23 23:46:00 ? Note * Heena Lewis RN: PERFORM Event Display: Discharge/Transfer Note Hospital Authored Date: Nursing Discharge Note Entered On: 02/20/2023 15:40 EDT Performed On: 02/20/2023 15:40 EDT by Heena Lewis RN Nursing Discharge Note 2 Discharge Time : 02/20/2023 15:39 EDT Discharge Level of Care at Discharge : Homehealth/VNA Discharge VNA/Hospice/Home Care(v001) : [facility] [phone] Patient Left Unit Via : Wheelchair Patient Accompanied Off Unit with : Responsible adult DC Instructions Provided & Signed by Pt : Yes Patient Understands D/C Instructions : Yes Patient Instructions Discharge Signed : Yes Did Pt have Specialty Bed or Wound Vac : No Heena Lewis RN - 02/20/2023 15:40 EDT * Litzy De La Rosa NP: MODIFY Litzy De La Rosa NP: MODIFY, SIGN Estrella JERRY, Litzy Rios: SIGN, PERFORM Litzy De La Rosa NP: PERFORM, MODIFY Litzy De La Rosa NP: MODIFY, SIGN Litzy De La Rosa NP: SIGN, VERIFY Litzy De La Rosa NP: VERIFY Event Display: Discharge/Transfer Note Hospital Authored Date: Patient: MICHAEL PARMAR Age: 47 years Sex: Male : 1975 Associated Diagnoses: None Author: Galien[place]urgos DICE TABLE OPERATOR, Litzy D Discharge Information Admission Date: 02/16/2023 Discharge Date 02/20/2023 Principal Discharge Diagnosis Laceration of right arm with complication. Secondary Discharge Diagnoses Diabetes mellitus: Present on admission - yes. ESRD (end stage renal disease) on dialysis: Present on admission - yes. Medications MEDICATION LIST (Selected) Prescriptions Prescribed oxyCODONE 5 mg oral tablet: 5 mg, 1, tablet, By Mouth, Every 6 hours, PRN, for 3 days, # 12 tablet,Refills 0, Tot. Refills 0, Acute 02/23/23 11:31:00 EDT, Pain , Moderate, 02/20/23 11:31:00 EDT, Route to Pharmacy Electronically, [facility], Partial fill upon patie... Documented Medications Documented BD PARMINDER 2 GEN PEN NDL 32G 4MM: USE TO INJECT INSULIN 4 TIMES A DAY BD PARMINDER 2 GEN PEN NDL 36MG6FA: USE TO INJECT INSULIN 4 TIMES A DAY BD PARMINDER PEN NDL [id number]: USE TO INJECT INSULIN FOUR TIMES A DAY acetaminophen 325 mg oral tablet: TAKE 2 TABLETS BY MOUTH 3 TIMES A DAY NEEDED FOR FEVER aspirin 162.5 mg oral capsule, extended release: = 325 mg, By Mouth, Daily, 0 Refills, Maintenance,02/20/23 11:40:00 EDT, ER Capsule, Partial fill upon patient request if the prescription is for a schedule II opioid drug. carvedilol 25 mg oral tablet: Refills 0, Maintenance, 02/20/23 10:46:00 EDT, Partial fill upon patient request if the prescription is for a schedule II opioid drug. cefepime 1 g intravenous injection: = 1,000 mg, IVPB, Every Friday, Friday and Friday, to be given during dialysis, 0 Refills, Maintenance, 02/20/23 11:30:00 EDT, Injection, Partial fill upon patient request if the prescription is for a schedule II opioid drug. cloNIDine 0.1 mg oral tablet: TAKE 2 TABLETS BY MOUTH EVERY MORNING, 2 TABLETS AT NOON, AND 2 TABLETS EVERY EVENING duloxetine 30 mg oral enteric coated capsule: 0 Refills, Maintenance, 02/20/23 10:46:00 EDT, Partial fill upon patient request if the prescription is for a schedule II opioid drug. furosemide 40 mg oral tablet: TAKE 3 TABLETS BY MOUTH 2 TIMES A DAY, REFILL PER PCP OR NEPHROLOGY hydrALAZINE 25 mg oral tablet: TAKE 2 TABLETS BY MOUTH 3 TIMES A DAY lisinopril 40 mg oral tablet: TAKE 1 TABLET BY MOUTH ONCE A DAY FOR HIGH BLOOD PRESSURE methadone 10 mg oral tablet: = 60 mg, By Mouth, Daily, 0 Refills, Maintenance, 02/20/23 11:29:00 EDT, Tablet, Partial fill upon patient request if the prescription is for a schedule II opioid drug.. Chief Complaint/Reason for Admission right axillary artery injury requiring emergent repair Aware of diagnosis: patient, family. Procedures Surgical Operative Note Patient: MICHAEL PARMAR Age: 47 years Sex: Male : 1975 Associated Diagnoses: None Author: Gerardo VILLATORO, December Operative Information Procedure Date: 02/16/2023. Preoperative Diagnosis: Right axillary artery injury. Postoperative Diagnosis: Same as Preoperative Diagnosis. Procedure Performed: Right axillary to brachial bypass with ipsilateral basilic vein interposition bypass graft. Surgeon: Carlos Arceo MD Co-Surgeon: Leelee Dexter MD Assistants: Gerardo VILLATORO December. Anesthesia Type: General. Operative Note Specimen Axillary arterial wall Estimated Blood Loss 500cc Description of Procedure The patient had been brought to the operating room by the Trauma team from the emergency department. They performed exposure and obtained proximal and distal control. The distal axillary artery had been clamped en graham with surrounding tissue, so this was circumferentially dissected then controlled with a bulldog clamp. The proximal artery was controlled with a carotid clamp. We examined the defect in the artery, which was greater than 50% circumference and the edges were quite macerated. The decision was made to perform an interposition bypass, so the segment of damaged artery, measuring approximately 4cm, was excised with Phan scissors. This specimen was sent for culture. The ends were spatulated and heparinized saline was flushed into the distal end. Intra-operative ultrasound was employed to examine the ipsilateral basilic vein. It appeared to be of adequate caliber just superior to the antecubital fossa, so it was traced cephalad with the ultrasound and marked out. An incision was made with a 15 blade over the tracing at the medial upper arm.Subcutaneous tissue was dissected with electrocautery until we approached a fascial layer, and the b asilic vein was encountered immediately deep to that. It was dissected free with Metzenbaum scissors, then the proximal and distal ends were ligated with 2-0 silk ties. The distal end of the harvested basilic vein was occluded with a bulldog clamp, then heparinized saline was infused through a blunt needle. No leakage of saline was noted and the vein dilated to an adequate size. The vein was cut to fit the 4cm length needed, then the ends were spatulated with Phan scissors. The proximal anastomosis was performed first with running 6-0 Prolene suture. The distal anastomosis was completed in a similar fashion with 6-0 Prolene suture, but just prior to completion the interposition bypass graft was forward flushed, back bled, and irrigated with heparinized saline. Once the anastomoses were finished the proximal and distal clamps were released and checked for hemostasis,which was adequate. A distal radial pulse was palpable and intra- operative Doppler confirmed good signal at the radial and brachial arteries. The wounds were then copiously irrigated. The previous axillary wound still appeared to contain sections of unhealthy, scarred, and partially necrotic tissue in the middle portion. This was excised with electrocautery, including a rim of skin on either side of the incision. The basilic vein harvestsite was then closed with 3-0 Vicryl deep dermal sutures and 4-0 Monocryl running subcuticular. Thefascial layer of the axillary incision was closed with 2-0 Vicryl simple interrupted sutures to protect the interposition bypass. 3-0 Vicryl deep dermal sutures were placed, then the axillary incision was partially closed at the superior and inferior aspects of the incision with 4-0 Monocryl running subcuticular. The middle portion was left open and packed gently with a wet to dry dressing. The other incisions were dressed with dry sterile dressing and a Kerlix roll. Due to acid-base changes and significant electrolyte abnormalities, the patient remained intubated.He was brought to the STICU in critical but stable condition.. Attending Consultants Sophie Bejarano NP. Zeeshan VILLATORO, Vasile. Primo VILLATORO, Cheryle. Henrry VILLATORO, Koki Stephenson Allergies Allergic Reactions (Selected) Severity Not Documented Compazine- No reactions were documented. RisperDAL- No reactions were documented. Discharge condition: good Compared to admission: improved Code status: Full Hospital Course Hospital course Michael Parmar is a 47-year-old man with a history of ESRD on HD via right IJ PermCath after recent excision of an infected hero graft on 02/06, who presented on 02/16/23 to [facility] after rupture of his right axillary artery at home. He was activated as a trauma and was taken emergently to the operating room and is now s/p right axillary???brachial interposition bypass with ipsilateral basilic vein(02/16, Adis). Postoperatively, he was transferred to the SICU intubated and on pressors. Since then, he has been weaned off pressors, extubated, and started on CRRT. OR Cultures 02/16- no org, NGTD;ID on board and he remains on broad-spectrum IV antibiotics(Cefepime till 02/27). Feels tired but offpressors, hypertensive, H/H 6.11/10. Pt was transfused RBCs for acute blood loss anemia 02/18 with good response. H&H low again this AM and will transfuse a unit of RBCs today. Numbness in right thumb, index and middle fingers. H/H stable morning of 02/20, denies dizziness or lightheadedness. Patient saw OT on AM of discharge, who recommended home services, a referral made in face to face. Patient will be sent home on 325 of ASA. General appearance: No apparent distress, appears stated age, well developed. Head: Normocephalic, atraumatic. Cardiac: RRR, no murmurs or gallops. Respiratory: Clear to auscultation bilaterally. Abdomen: Soft, nontender, nondistended. No guarding or rebound. No palpable mass. Incisions/Dressings: WTD packing in the right axillary wound, DSD to cover Extremities: Able to move all extremities without difficulty. Warm and well perfused. Neurologic status: Alert and oriented x 3. No focal deficits. Psych: Mood and affect normal. Vascular: Right: RUE with faintly palpable radial and ulnar pulse, open incision at axilla with healthy tissue in the wound bed Left: LUE amputation above the elbow Postoperative Events Unexpected Return to the OR: no. Bleeding required re-operation: no. Significant Results Results: Vital signs : VITAL SIGNS SECTION 02/20/2023 7:49 EDT Early Warning Score 0.00 02/20/2023 7:49 EDT Temperature 98.2 DegF Temperature Route Oral Pulse Rate 75 bpm Respiratory Rate 18 br/min Systolic Blood Pressure 148 mm Hg H Diastolic Blood Pressure 68 mm Hg Blood pressure sites Arm, left Mean Arterial Pressure 95 mm Hg Pulse Pressure 80 mm Hg Oxygen Saturation 99 % Mode of Delivery (Oxygen) Room air , Laboratory : LABORATORY 02/20/2023 1:56 EDT WBC 9.2 k/mm3 RBC 3.05 m/mm3 L Hgb 8.2 Gm/dL L Hct 26.5 % L MCV 86.9 femtoliters MCH 26.9 pg L MCHC 30.9 g/dL L Platelet Count 201 k/mm3 RDW-SD 50.7 femtoliters H MPV 9.7 femtoliters Nucleated RBC (Automated) 0.0 #/100 WBC'S Abs. NRBC 0.0 k/mm3 02/20/2023 1:55 EDT Sodium 136 mmol/L Potassium 4.1 mmol/L Chloride 99 mmol/L Bicarbonate Level 23 mmol/L Anion Gap 14 BUN 33 mg/dL H Creatinine-Blood 4.4 mg/dL H Estimated GFR Creatinine 16 ML/MIN/1.73 M2 Calcium, Ionized pH Corrected 1.17 mmol/L Phosphorus 3.8 mg/dL Magnesium 2.0 mg/dL . 40 minutes spent on discharge Discharge Plan Discharge Disposition Discharge: home with VNA. Home Health Face to Face I certify that this patient is under my care and that I or an allowed non- physician practitioner working with me, had a [id number] encounter with the patient on this date: 02/20/2023. The encounter with the patient was in whole, or in part, for the following medical condition, whichis the primary reason for home health care: Laceration of right arm with complication. Nursing: Medication management (reconciliation, teaching), Chronic disease management, Wound care and treatment, Home safety evaluation, WTD packing in the RUE axillary wound, cover with DSD, and adhesive. Distal punctate wounds on right upper extremity can be left open to air.. Occupational Therapy: ADL Management, Fall prevention training. Physician Signature: Adis VILLATORO, Carlos Keller * Joshua VILLAVICENCIO, Heena: PERFORM, MODIFY Event Display: Patient Education/Instruction Authored Date: [id number] Inpatient Adult Discharge Instructions [address] [address] Name: MICHAEL PARMAR : 1975 Visit: 02/16/2023 19:32:00 Current Date: 02/20/2023 12:31 Account: [id number] Inpatient Adult Discharge Instructions We would like to thank you for allowing us to assist you with your healthcare needs. The following includes patient education materials and information regarding your injury/illness. Our entire staffstrives to provide an excellent experience for our patients and their families. PLEASE ENSURE YOU FOLLOW-UP PER THE INSTRUCTIONS BELOW! ?? YOUR OPINION IS IMPORTANT TO US! Please complete the survey you may receive by mail or email. Your feedback will be used to make improvements to the healthcare experiences of our patients and their families. Surveys are administered by [employer]. ?? If further treatment with your primary care physician or another doctor is recommended, it is important for you to keep the appointment. Call your primary care physician or return to the Emergency Department immediately if your condition worsens, fails to improve, or new symptoms develop. If you need to find a doctor, you can call [facility] for a referral at [phone] or toll free at [phone] or log in to [email or web address] ?? You can view and manage your care through the patient portal or by using a health care allison of your choosing. [facility] is a website that allows you to securely view your medical information including your hospital discharge summary, office visit summaries, medications and follow-up visits. You can also request appointments, renew medications, and request access to your medical information using a health care allison of your choosing, or just ask a question. You can enroll at [email or web address] or register during your next office visit. You have been discharged from [facility], Patient Care Unit: M6. If you have any questions regarding these instructions after you leave, please call us and we will be happy to assist you. [facility] Your Care Team Attending Physician Adis VILLATORO, Carlos Naik Consulting Providers Cash VILLATORO, Clarke Rios Discharging Providers Estrella JERRY, Litzy Rios Reason for Your Visit ARM LACERATION Your Diagnosis Diabetes mellitus ESRD (end stage renal disease) on dialysis Tests Performed Below is a partial list of the tests performed during your hospitalization. You may have had other tests and procedures not included in this list. Please discuss all test results with your provider. ABG ABG POC CARTRIDGE Alcohol Level Amylase BASE EXCESS POC CARTRIDGE Basic Metabolic Panel BUN CALCIUM IONIZED POC CART CBC CBC w/ Differential COVID-19 (2019 Novel Coronavirus) PCR Creatinine Electrolytes GLUCOSE POC GLUCOSE POC CARTRIDGE HEMATOCRIT POC CARTRIDGE HEMOGLOBIN POC CARTRIDGE Hepatitis Panel Dial Hold Red Top Tube Ionized Calcium Lactate Level Lactic Acid Level Lytes Magnesium Level Phosphorus Level Potassium Level POTASSIUM POC CARTRIDGE PT (INR) PTT SODIUM POC CARTRIDGE Type and Screen Vancomycin Random CXR Portable XR Chest Portable Primary Care Provider Not on Staff, PCP Advance Directive . Discharge Vitals Temperature: 98.8 DegF Weight: 71.1 kg Pulse Rate: 70 bpm ?? Respiratory Rate: 18 br/min ?? Systolic Blood Pressure: 134 mm Hg ?? Diastolic Blood Pressure: 66 mm Hg ?? Oxygen Saturation: 100 % ?? Studies Pending All tests and labs ordered during this hospital stay have been completed unless listed below. Please discuss all pending results with your provider listed above in these instructions. ?? Anaerobic Culture BUN CBC Creatinine Electrolytes Ionized Calcium Magnesium Level PTT Phosphorus Level RBCs for Surgery Transfuse RBCs What to do next Instructions From Your Doctor It will take time for the numbness, tingling to go away and motor skills to return to??your right upper extremity. Continue with the exercises provided and a referral was made to occupational therapyfor home services. Discharge Orders You Need to Schedule the Following Appointments Follow Up with??[facility] [phone] When:??Within 2 to 5 weeks Why: The office will call to arrange a post op appointment Discharge Medications MICHAEL PARMAR :1975 Visit Date:02/16/2023 Medications: Please continue your medications until treatment is completed or stopped by your provider. Medications not listed below should be discontinued. Discuss any questions related to medications with your provider. What How Much When Instructions Next Dose Changed Aspirin (aspirin 162.5 mg oral capsule, extended release) 325 Milligram Oral Daily Tomorrow morning Changed Cefepime (cefepime 1 g intravenous injection) 1,000 Milligram IV Piggyback Friday, Friday and Friday to be given during dialysis ?? to be given during dialysis Changed Oxycodone (oxyCODONE 5 mg oral tablet) 1 tab(s) Oral Every 6 hours as needed for Pain , Moderate Duration: 3 Days Pickup at [facility] 3 as needed Unchanged Acetaminophen (acetaminophen 325 mg oral tablet) TAKE 2 TABLETS BY MOUTH 3 TIMES A DAY NEEDED FOR FEVER ?? as needed Unchanged Carvedilol (carvedilol 25 mg oral tablet) Tonight at bedtime Unchanged Clonidine (cloNIDine 0.1 mg oral tablet) TAKE 2 TABLETS BY MOUTH EVERY MORNING, 2 TABLETS AT NOON, AND 2 TABLETS EVERY EVENING ?? continue home regimen Unchanged Duloxetine (duloxetine 30 mg oral enteric coated capsule) continue home regimen Unchanged Furosemide (furosemide 40 mg oral tablet) TAKE 3 TABLETS BY MOUTH 2 TIMES A DAY, REFILL PER PCP OR NEPHROLOGY ?? continue home regimen Unchanged hydrALAZINE (hydrALAZINE 25 mg oral tablet) TAKE 2 TABLETS BY MOUTH 3 TIMES A DAY ?? continue home regimen Unchanged Lisinopril (lisinopril 40 mg oral tablet) TAKE 1 TABLET BY MOUTH ONCE A DAY FOR HIGH BLOOD PRESSURE ?? continue home regimen Unchanged Methadone (methadone 10 mg oral tablet) 60 Milligram Oral Daily Tomorrow morning Pharmacy Information [facility] 3: [address], [place] [id number] [phone] ?? What When Comments Stop Taking AcetaZOLAMIDE (acetaZOLAMIDE 500 mg oral capsule, extended release) TAKE 1 CAPSULE BY MOUTH EACH MORNING ?? Stop Taking Amlodipine (amLODIPine 10 mg oral tablet) TAKE 1 TABLET BY MOUTH EVERY DAY ?? Stop Taking Brimonidine Ophthalmic (brimonidine 0.2% ophthalmic solution) INSTILL 1 DROP INTO LEFT EYE 3 TIMES A DAY ?? Stop Taking Docusate (docusate sodium 100 mg oral capsule) TAKE 1 CAPSULE BY MOUTH TWICE A DAY NEEDED FOR CONSTIPATION ?? Stop Taking Dorzolamide-Timolol Ophthalmic (dorzolamide-timolol 2.23%-0.68% ophthalmic solution) PUT 1 DROP INTO LEFT EYE 3 TIMES A DAY ?? Stop Taking Famotidine (famotidine 20 mg oral tablet) Stop Taking Latanoprost Ophthalmic (latanoprost 0.005% ophthalmic solution) PUT 1 DROP INTO LEFT EYE AT BEDTIME ?? Stop Taking Methazolamide (methazolAMIDE 50 mg oral tablet) TAKE 2 TABLETS (100 MG TOTAL) BY MOUTH ONCE FOR 1 DOSE. ?? Stop Taking Nicotine (nicotine 2 mg oral transmucosal lozenge) DISSOLVE 1 LOZENGE (2 MG TOTAL) IN THE MOUTH EVERY 2 (TWO) HOURS IF NEEDED FOR SMOKING CESSATION ?? Stop Taking Ofloxacin Ophthalmic (ofloxacin 0.3% ophthalmic solution) INSTILL 1 DROP INTO LEFT EYE 4 TIMES A DAY AFTER SURGERY ?? Stop Taking PrednisoLONE Ophthalmic (prednisolone ophthalmic acetate 1% suspension) PLACE 1 DROP INTO THE LEFT EYE EVERY TWO HOURS. ?? Stop Taking PredniSONE (predniSONE 20 mg oral tablet) TAKE 2 TABLETS BY MOUTH EVERY DAY FOR 3 DAYS ?? Stop Taking Sodium Polystyrene Sulfonate (sodium polystyrene sulfonate oral and rectal powder) DISSOLVE 15 GRAMS IN WATER AND DRINK 3 TIMES WEEKLY ON Friday AND FRIDAY ?? Stop Taking torsemide (torsemide 20 mg oral tablet) TAKE 2 TABLETS (40 MG TOTAL) BY MOUTH IN THE MORNING AND 2 TABLETS (40 MG TOTAL) IN THE EVENING. ?? Test Results Below is a partial list of the most recent Laboratory test results done prior to this discharge. You may have had other tests and procedures not included in this list. Please discuss all test resultswith your provider. RBC Available - PT (02/19/2023) RBC Unit ID - [id number] (02/19/2023) ABG (02/16/2023) ???pH - 7.37???pCO2 - 33 mm Hg???pO2 - 257 mm Hg???Bicarbonate, Estimated - 19 mmol/L???Specimen Type - Blood Gas - ARTERIAL ABG POC CARTRIDGE (02/16/2023) ???pH (POC) POC Cartridge - 7.35???pCO2 (POC) POC Cartridge - 36.7 mm Hg???pO2 (POC) POC Cartridge - 148 mm Hg???Estimated Bicarbonate (POC) POC Cart - 20.4 mmol/L???% O2 Sat Arterial (POC) POC Cartridge - 99 %???Specimen Type - Blood Gas - ARTERIAL Alcohol Level (02/16/2023) ???Ethanol, Serum or Plasma - NONE DETECTED Amylase (02/16/2023) ???Amylase - 23 units/L BASE EXCESS POC CARTRIDGE (02/16/2023) ???Base Excess (POC) POC Cartridge - NEGATIVE 5 Basic Metabolic Panel (02/16/2023) ???Sodium - 135 mmol/L???Potassium - 6.4 mmol/L???Chloride - 98 mmol/L???Bicarbonate Level - 19 mmol/L???Anion Gap - 18???Glucose Level - 445 mg/dL???BUN - 64 mg/dL???Creatinine-Blood - 6.9 mg/dL???Estimated GFR Creatinine - 6 ML/MIN/1.73 M2???Calcium - 9.2 mg/dL BUN (02/20/2023) ???BUN - 33 mg/dL CALCIUM IONIZED POC CART (02/16/2023) ???Ionized Calcium (POC) POC Cartridge - 1.38 mmol/L CBC (02/20/2023) ???WBC - 9.2 k/mm3???RBC - 3.05 m/mm3???Hgb - 8.2 Gm/dL???Hct - 26.5 %???MCV - 86.9 femtoliters???MCH - 26.9 pg???MCHC - 30.9 g/dL???Platelet Count - 201 k/mm3???RDW-SD - 50.7 femtoliters???MPV - 9.7femtoliters???Nucleated RBC (Automated) - 0.0 #/100 WBC'S???Abs. NRBC - 0.0 k/mm3 CBC w/ Differential (02/16/2023) ???WBC - 6.3 k/mm3???RBC - 2.58 m/mm3???Hgb - 6.8 Gm/dL???Hct - 22.8 %???MCV - 88.4 femtoliters???MCH - 26.4 pg???MCHC - 29.8 g/dL???Platelet Count - 309 k/mm3???RDW-SD - 46.8 femtoliters???MPV - 9.3femtoliters???Nucleated RBC (Automated) - 0.0 #/100 WBC'S???Abs. NRBC - 0.0 k/mm3???Abs. Neut - 3.2 k/mm3???Abs. Lymph - 2.4 k/mm3???Abs. Mccreary - 0.5 k/mm3???Abs. Eo - 0.1 k/mm3???Abs. Baso - 0.1 k/mm3???Neut % - 50.5 %???Lymph % - 38.2 %???Mccreary % - 7.6 %???Eos % - 1.8 %???Baso % - 0.8 %???Imm Gran - 1.1 %???Abs. Imm Gran - 0.1 k/mm3 COVID-19 (2019 Novel Coronavirus) PCR (02/16/2023) ???COVID-19 PCR Specimen Source - NASAL???COVID-19 PCR Result - NEGATIVE Creatinine (02/20/2023) ???Creatinine-Blood - 4.4 mg/dL???Estimated GFR Creatinine - 16 ML/MIN/1.73 M2 Electrolytes (02/20/2023) ???Sodium - 139 mmol/L???Potassium - 4.0 mmol/L???Chloride - 100 mmol/L???Bicarbonate Level - 28 mmol/L???Anion Gap - 11 GLUCOSE POC (02/20/2023) ???Glucose, POC - 106 mg/dL GLUCOSE POC CARTRIDGE (02/16/2023) ???Glucose (POC) POC Cartridge - 186 HEMATOCRIT POC CARTRIDGE (02/16/2023) ???Hematocrit (POC) POC Cartridge - 26 % HEMOGLOBIN POC CARTRIDGE (02/16/2023) ???Hemoglobin (POC) POC Cartridge - 8.8 Gm/dL Hepatitis Panel Dial (02/16/2023) ???Hepatitis B Surface Antigen - NEGATIVE???Hepatitis C Ab - NEGATIVE???Anti-HBS Quant - 1.55 mIU/mL Hold Red Top Tube (02/16/2023) ???Hold Red Top - SPECIMEN DISCARDED AFTER 1 WEEK Ionized Calcium (02/20/2023) ???Calcium, Ionized pH Corrected - 1.17 mmol/L Lactate Level (02/16/2023) ???Lactate - 1.9 mmol/L Lactic Acid Level (02/16/2023) ???Lactate - 3.7 mmol/L Lytes (02/19/2023) ???Sodium - 136 mmol/L???Potassium - 3.8 mmol/L???Chloride - 101 mmol/L???Bicarbonate Level - 28 mmol/L???Anion Gap - 7 Magnesium Level (02/20/2023) ???Magnesium - 2.0 mg/dL Phosphorus Level (02/20/2023) ???Phosphorus - 3.8 mg/dL Potassium Level (02/17/2023) ???Potassium - 5.1 mmol/L POTASSIUM POC CARTRIDGE (02/16/2023) ???Potassium (POC) POC Cartridge - 4.6 mmol/L PT (INR) (02/16/2023) ???INR - 1.2???Protime (PT) - 12.4 seconds PTT (02/18/2023) ???APTT - 22.0 seconds SODIUM POC CARTRIDGE (02/16/2023) ???Sodium (POC) POC Cartridge - 137 mmol/L Type and Screen (02/16/2023) ???Blood Type - A Positive???Antibody Screen - Negative Vancomycin Random (02/17/2023) ???Vancomycin Level, Random - 16.7 mg/L Allergies (NKA means No Known Allergies) Compazine RisperDAL Problems Active Problems??(2) Diabetes mellitus?? ESRD (end stage renal disease) on dialysis?? Education Materials Below is the list of Educational Leaflet Providered with your Discharge Instructions. BVS-Vascular Activity Instructions?? Valuables and Belongings I fully understand and agree that [facility] accepts no responsibility for all my personal property including clothing, toilet articles, radios, jewelry, dentures, hearing aids, rings, money, or any other property that is in my possession or is brought to me after admission. I understand certain valuables may be placed in a hospital safe for a short period of time. I understand that the hospital is not liable for loss or damage due to accident, fire, or other natural occurrence while said property is in the safe. I accept full responsibility for any personal property that I keep with me, and will not hold the hospital responsible in case of loss or disappearance. I acknowledge that i have been encouraged to send valuables and belongings home. ?? Review of Valuable and Belonging List: With witness Date for Pt to Sign Valuables/Belongings: 02/16/23 16:26:00 ?? Other Discharge Information ?? Wound Assessment?? Wound Assessment?? Wound Location I: Arm, Right Upper Wound Type I: Surgical Wound I, Present on Admission: No Surgical Incision Type I: Surgical Surgical Incision Assessment I: Clean, dry, intact Surgical Incision I, Drainage Amount: Small Surgical Incision I, Drainage Color: Bloody ? Case Management Discharge Plan?? Discharge Plan?? Discharge Agency Information?? Discharge Level of Care at Discharge: Homehealth/VNA Name of Agency #1: [facility] Discharge Rx Program: Discharge Prescription Program Agency Degree Clerk #1: intake Discharge VNA/Hospice/Home Care: [facility] [phone] Service Categories #1: Occupational Therapy, Longterm ?? Service Comments #1: Referral place to [facility]. VNA will call to schedule a home visit; if you dont hear from them please call them directly. ?? Pulmonary Rehab Status?? Pulmonary Rehab Discharge Status?? Respiratory Rate: 18 br/min PEEP: 5 ? Common Emergency Awareness Tips IS IT A STROKE? Act FAST and Check for these signs: FACE Does the face look uneven? ARM Does one arm drift down? SPEECH Does their speech sound strange? TIME Call at any sign of stroke ?? Heart Attack Signs Chest discomfort: Most heart attacks involve discomfort in the center of the chest and lasts more than a few minutes, or goes away and comes back. It can feel like uncomfortable pressure, squeezing, fullness or pain. Discomfort in upper body: Symptoms can include pain or discomfort in one or both arms, back, neck, jaw or stomach. Shortness of breath: With or without discomfort. Other signs: Breaking out in a cold sweat, nausea, or lightheaded. Remember, MINUTES DO MATTER. If you experience any of these heart attack warning signs, call to get immediate medical attention! ?? Smoking can increase your chances of developing chronic health problems and can cause harmful effects to other family members in your house. If you smoke, you are strongly encouraged to quit. Please call [facility] at [phone] or [phone] ([phone]) or log in to [email or web address] for referrals to smoking cessation programs. ?? 988 Suicide & Crisis Lifeline is available 24/7 if you or someone you know needs to find a reason to keep living. By calling 988 you'll be connected to a skilled, trained counselor at a crisis center in your area. INPATIENT DISCHARGE INSTRUCTIONS SIGNATURE PAGE MICHAEL PARMAR Location:[facility] Registration Date and Time:02/16/2023 19:32 EDT Primary Care Physician: Not on Staff, PCP Attending Physician: Adis VILLATORO, Carlos Naik, I MICHAEL PARMAR, have received the above patient education materials/instructions and have verbalized understanding. If ambulance or transport services are being used I further acknowledge being given a choice of service. ?? If you need to contact me, please call me at this number: . Patient/Office Technician Name: Patient/Office Technician Signature: Relationship to Patient: Witness Name/Signature: Date: * Heena Lewis RN: PERFORM Event Display: Patient Education Leaflets Authored Date: [id number] BVS-Vascular Activity Instructions ?? 63 Vascular Activity Instructions ?? -No heavy lifting >10 lbs -Increase activity as tolerated -Encourage coughing and deep breathing, use of incentive spirometer -No tub baths until incision(s) has/have healed -May shower on postop day #3 -No driving until off narcotics and cleared by Vascular Surgery ? Portable XR Chest Views * BHSPowerscribe , CIS S: TRANSCRIDominick Plunkett MD: VERIFY Event Display: Result: Authored Date: [id number] Chest Portable Reason: Other:; Pain; Clinical Question(s): Other:; Fracture, pneumothorax, pulmonary contusion COMPARISON: None. FINDINGS: LINES AND TUBES: Right IJ tunneled hemodialysis catheter with the catheter tip appropriately positioned in the rightatrium. Additional monitoring leads project over the chest. LUNGS AND PLEURA: Clear lungs. Normal pulmonary vascularity. No large pleural effusion. No pneumothorax. HEART, MEDIASTINUM AND DIANN: Heart is normal in size. Normal mediastinal and hilar contour. BONES AND SOFT TISSUES: No acute abnormality. IMPRESSION: No acute abnormality. WSN: [id number] Ordering Physician: Pina Browning Dictated By: Dominick Johnson MD Dictated Date/Time: 02/16/23 4:10 pm Reviewed By: Dominick Johnson MD Signed By: Dominick Johnson MD Signed Date/Time: 02/16/23 4:10 pm Transcribed By: OLGA Transcribed Date/Time: 02/16/23 4:09 pm * GlySureSPowerscribe , CIS S: TRANSCRIAsim Garcia MD: VERIFY Event Display: Result: Authored Date: [id number] Chest Portable Reason: Tube Placement COMPARISON: X-ray 02/16/2023 FINDINGS: LINES AND TUBES: Endotracheal tube tip 2.7 cm above the dajuan. Enterogastric tube tip and side-port are in the stomach. The right internal jugular approach dialysis catheter tip terminating in the superior right atrium. LUNGS AND PLEURA: Lung volumes are low. No focal opacity or volume loss. No pleural effusion. No pneumothorax. HEART, MEDIASTINUM AND DIANN: Heart is normal in size. Normal mediastinal and hilar contour. BONES AND SOFT TISSUES: No acute abnormality. IMPRESSION: Adequate positioning of supporting lines and tubes. No acute cardiopulmonary pathology. WSN: [id number] Ordering Physician: Anabela Rodriguez Dictated By: Asim Elias MD Dictated Date/Time: 02/16/23 10:25 p Reviewed By: Asim Elias MD Signed By: Asim Elias MD Signed Date/Time: 02/16/23 10:25 pm Transcribed By: CSRocco Transcribed Date/Time: 02/16/23 10:24 pm Patient Care team information Care Team Personnel Name: Maryam Fox RN Position: [facility] RN Member Role: Primary Care Nurse Name: Jana Monte RN Position: [facility] RN Member Role: Primary Care Nurse Name: Franchesca Ward RN Position: [facility] RN Member Role: Primary Care Nurse Name: Carolina Camacho RN Position: [facility] SN RN Member Role: Primary Care Nurse Name: Linda Hathaway Position: [facility] Outreach Member Role: Lifetime Consulting Physician Name: Cynthia Hathaway RN Position: [facility] RN Member Role: Primary Care Nurse Name: Delaney Huber RN Position: [facility] RN Member Role: Primary Care Nurse Name: Juanita Main RN Position: [facility] RN Member Role: Primary Care Nurse Name: China Sutherland Position: [facility] AMB Nurse Member Role: Lifetime Consulting Physician Name: Tayler Harris RN Position: [facility] RN Member Role: Primary Care Nurse Name: Sophie Bejarano NP Position: [facility] Associate Professional Member Role: Lifetime Consulting Provider Address: Address: [address] [place] [address] [address] [address] Name: Vasile Byers MD Position: [facility] Renal MD Member Role: Lifetime Consulting Physician Address: Address: [address] [place] [address] [address] [facility] [address] Name: Edgar Mascorro RN Position: [facility] RN Member Role: Primary Care Nurse Name: Katalina Jorge RN Position: [facility] OB RN Member Role: Primary Care Nurse Name: Sophia Adan LPN Position: [facility] RN Member Role: Primary Care Nurse Name: Lorene Davenport RN Position: [facility] RN Member Role: Primary Care Nurse Name: Meryl Saini RN Position: [facility] SN RN Member Role: Primary Care Nurse Name: Annie Langston RN Position: [facility] RN Member Role: Primary Care Nurse Name: Allison Montez RN Position: [facility] RN Member Role: Primary Care Nurse Name: Guillermo Encinas DO Position: [facility] Renal MD Member Role: Lifetime Consulting Physician Address: Address: [address] [place], [place] [address] [place] [address]- Name: Christiano Parish RN Position: [facility] RN Member Role: Primary Care Nurse Name: Lorene Billingsley RN Position: [facility] Onco RN Member Role: Primary Care Nurse Name: Kathy Nieves RN Position: [facility] ED RN W/OE and Tasks Member Role: Primary Care Nurse Name: Nita Garcias RN Position: [facility] RN Member Role: Primary Care Nurse Name: Tyshawn Cook III, RN Position: [facility] RN Member Role: Primary Care Nurse Name: Mayuri England RN Position: [facility] RN Member Role: Primary Care Nurse Name: Sophia Johnson Position: [facility] RN Member Role: Primary Care Nurse Name: Paradise Linder RN Position: [facility] RN Member Role: Primary Care Nurse Name: Noemi Bustos RN Position: [facility] RN Member Role: Primary Care Nurse Name: Jennifer Song RN Position: [facility] RN Suppooja Member Role: Primary Care Nurse Name: Pina Mcgill RN Position: [facility] RN Member Role: Primary Care Nurse Name: eRina Franklin RN Position: [facility] RN Member Role: Primary Care Nurse Name: Yumiko Lindsay RN Position: [facility] RN Member Role: Primary Care Nurse Name: Vincent Thapa RN Position: [facility] RN Member Role: Primary Care Nurse Name: Kristen Boudreaux DO Position: [facility] Resident Member Role: PCP Address: Address: [address] [place] [address]- [place] Name: Nicole Guzman RN Position: [facility] RN Member Role: Primary Care Nurse Name: Neil Bobby RN Position: [facility] ED RN W/OE and Tasks Member Role: Primary Care Nurse Name: Joellen Pineda RN Position: [facility] RN Member Role: Primary Care Nurse Name: Litzy Marin RN Position: [facility] RN Member Role: Primary Care Nurse Name: Crystal Robles RN Position: [facility] RN Member Role: Primary Care Nurse Name: Ruth Stevens LPN Position: [facility] RN Member Role: Primary Care Nurse Name: Nohemi Grande RN Position: [facility] Railcar Switcher Member Role: Primary Care Nurse Name: Yolanda Tyler RN Position: [facility] Railcar Switcher Member Role: Primary Care Nurse Name: *[facility], Trauma Attending Position: [facility] ED Attendings Patient Name: Tiki Bryant DO Position: [facility] Resident Address: Address: [address] [place] [address] [place] [address]- Name: Viktoria Evans Position: [facility] ED OA Charge Member Role: ED Associate Care Team Related Persons Name: TAWNY PARMAR Address: [address] [address]
--- OUTSIDE RECORDS SUMMARY | 2023-06-23 09:46 | XMS_ITS | Continuity of Care Document ---
Author Name Unknown Organization [facility] Address [address] [place] [id number] Care Team Providers Care Commercial Green Retrofit Architect Name Role Phone Kristen Boudreaux DO Primary Care Physician [phone] [place] [facility] [place]15/22 [facility] [address] [place], [place] [address] Allergies, Adverse Reactions, Alerts Substance Reaction [...] 04/12/22 17:42:00 EDT, Route to Pharmacy Electronically, [facility]/pharmacy #[id number], Partial fill upon patient request if the prescription is for... Start Date: 04/12/22 Status: Ordered amLODIPine 10 mg oral tablet 1 tablet, By Mouth, Daily, # 90 tablet, 1 Refills, Maintenance, 04/08/22 10:06:00 EDT, [facility]/pharmacy#[id number], 170, cm, 04/04/22 15:17:00 EDT, Height, [...] Mouth, Daily, # 30 tablet, 0 Refills, [id number], 170, cm, 04/04/22 15:17:00 EDT,Height, 81.75, kg, [...] 04/26/22 14:29:00 EDT, Route to Pharmacy Electronically, [facility]/pharmacy #[id number], 170, cm, 04/12/22 15:12:00 EDT, [...] CRUSH. /CHEW., # 30 capsule, 5 Refills, [id number], 170.18, cm, 05/08/22 12:22:00 EDT, Height, 81.8, kg, 05/08/22 12:22:00 EDT, Dry Weight Start Date: 05/15/22 Status: Ordered famotidine 20 mg oral tablet 1, tablet, By Mouth, Daily, # 90 tablet, Refills 0, Tot. Refills 0, Maintenance, 04/08/22 10:12:00 EDT, Route to Pharmacy Electronically, [facility]/pharmacy #[id number], 170, cm, 04/04/22 15:17:00 EDT, Height, 81.75, kg, 03/21/22 15:54:00 EDT, Dry Weight Start Date: 04/08/22 Status: Ordered Insulin Lispro KwikPen 100 units/mL injectable solution 2-10 units, Subcutaneous Injection, 3 times a day before meals, Maintenance, 03/21/22 11:54:00 EDT,; Start Date: 03/21/22 Status: Ordered lisinopril 20 mg oral tablet 20 mg, 1, tablet, By Mouth, Daily, # 30 tablet, Refills 6, Tot. Refills 6, Maintenance, 03/18/22 14:25:00 EDT, Route to Pharmacy Electronically, [facility]/pharmacy #[id number], Partial fill upon patient request if the prescription is for a schedule II opioid drug... Start Date: 03/18/22 Status: Ordered Methadone = 80 mg, By Mouth, Daily, last received from [facility] 03/19/22 & took home 3 doses. Ro Confirmed [phone], 0 Refills, Maintenance, 03/21/22 11:55:00 EDT, ; [...] 05/01/22 Stop Date: 06/01/22 Status: Ordered Pen Petros, 29 G x 12.7 mm BD Ultra [...] recurrent, due to [place] [facility] [place] [facility] [place] [...] right lower ex tremity, [phone](Confirmed) Active Venous ulcer of right leg(Confirmed) Active Social History Social History Type Response Tobacco Other: started smoki ng at 20 years old, now about 5 cigarettes. Sex
--- OUTSIDE RECORDS SUMMARY | 2023-06-23 09:46 | XMS_ITS | Continuity of Care Document ---
Author Name Unknown Organization [facility] Address [address] [place] [address]- Care Team Providers Care Air Pollution Inspector Name Role Phone Kristen Boudreaux DO Primary Care Physician [phone] Encounter [facility] Date(s): 05/29/22 - 08/03/22 [facility] [address], [place] [address] Attending Physician: Not on [...] 14:00:00 EDT, Route to Pharmacy Electronically, [facility]/pharmacy #[id number], Partial fill upon patient request if the prescription is for... Start Date: 05/16/22 Status: Ordered amLODIPine 10 mg oral tablet 1 tablet, By Mouth, Daily, # 90 tablet, 1 Refills, Maintenance, 04/08/22 10:06:00 EDT, [facility]/pharmacy#[id number], 170, cm, 04/04/22 15:17:00 EDT, Height, 81.75, [...] tablet, 3 Refills, 05/16/22 14:00:00 EDT, [facility]/pharmacy #[id number], 170.18, cm, 05/08/22 12:22:00 EDT, Height, [...] EDT, Route to Pharmacy Electronically, [facility]/pharmacy #[id number], 170, cm, 04/12/22 15:12:00 EDT, Height, [...] /CHEW., # 30 capsule, 5 Refills, [facility] STORE [id number], 170.18, cm, 05/08/22 12:22:00 EDT, Height, 81.8, kg, 05/08/22 12:22:00 EDT, Dry Weight Start Date: 05/15/22 Status: Ordered famotidine 20 mg oral tablet 1, tablet, By Mouth, Daily, # 90 tablet, Refills 3, Tot. Refills 3, Maintenance, 05/16/22 14:01:00 EDT, Route to Pharmacy Electronically, [facility]/pharmacy #[id number], 170.18, cm, 05/08/22 12:22:00 EDT, Height, 81.8, kg, 05/08/22 12:22:00 EDT, Dry Weight Start Date: 05/16/22 Status: Ordered hydrALAZINE 25 mg oral tablet 50 mg, 2, tablet, By Mouth, 3 times a day, # 180 tablet, Refills 3, Tot. Refills 3, Maintenance, 05/23/22 15:52:00 EDT, [id number] fill upon patientrequest if the [...] 14:25:00 EDT, Route to Pharmacy Electronically, [facility]/pharmacy #[id number], Partial fill upon patient request if the prescription is for a schedule II opioid drug... Start Date: 03/18/22 Status: Ordered Methadone = 80 mg, By Mouth, Daily, last received from [facility] 03/19/22 & took home 3 doses. 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, h.o chronic osteomyelitis Confirmed 12/25/21 Active Anemia Confirmed Active ADHD (attention deficit hyperactivity disorder) Confirmed Active CKD (chronic kidney disease) stage 4, GFR 15-29 ml/min Confirmed Active Cocaine use disorder Confirmed Active Polysubstance dependence including opioid drug with daily use Confirmed Active IDDM (insulin dependent diabetes mellitus) Confirmed Active Diabetic neuropathy Confirmed Active S/P amputation of limb Confirmed Active Hypertension Confirmed Active Lymphedema of left lower extremity Confirmed Active Overweight Confirmed Active Proliferative diabetic retinopathy Confirmed Active Uriostegui's cyst of right knee Confirmed Active Venous ulcer, right lower extremity, followed by [facility] [id number] Confirmed Active Venous ulcer of right leg Confirmed Active Social History Social History Type Response Tobacco Other: started [employer] at 20 years old, now about 5 cigarettes. Sex Patient Care team information Care Team Personnel Name: Maryam Fox RN Position: [facility] RN Member Role: Primary Care Nurse Name: Franchesca Ward RN Position: [facility] RN Member Role: Primary Care Nurse Name: Carolina Camacho RN Position: [facility] SN RN Member Role: Primary Care Nurse Name: Linda Hathaway Position: [facility] Outreach Member Role: Lifetime Consulting Physician Name: Delaney Huber RN Position: [facility] RN Member Role: Primary Care Nurse Name: Juanita Main RN Position: [facility] RN Member Role: Primary Care Nurse Name: Tayler Harris RN Position: [facility] RN Member Role: Primary Care Nurse Name: Carline Cantu RN Position: [facility] RN Member Role: Primary Care Nurse Name: Katalina Jorge RN Position: [facility] OB RN Member Role: Primary Care Nurse Name: Lorene Davenport RN Position: [facility] RN Member Role: Primary Care Nurse Name: Meryl Saini RN Position: [facility] SN RN Member Role: Primary Care Nurse Name: Guillermo Encinas DO Position: [facility] Renal MD Member Role: Lifetime Consulting Physician Address: Address: [address] [place], [place] [address] [place] [address]- Name: Lorene Billingsley RN Position: [facility] Onco RN Member Role: Primary Care Nurse Name: Kathy Nieves RN Position: [facility] ED RN W/OE and Tasks Member Role: Primary Care Nurse Name: Sophia Johnson Position: [facility] RN Member Role: Primary Care Nurse Name: Awais Brenner RN Position: [facility] RN Member Role: Primary Care Nurse Name: Paradise Linder RN Position: [facility] RN Member Role: Primary Care Nurse Name: Pina Mcgill RN Position: [facility] RN Member Role: Primary Care Nurse Name: Yumiko Lindsay RN Position: [facility] RN Member Role: Primary Care Nurse Name: Vincent Thapa RN Position: [facility] RN Member Role: Primary Care Nurse Name: Kristen Boudreaux DO Position: [facility] Resident Member Role: PCP Address: Address: [address] [place] [address]- [place] Name: Neil Bobby RN Position: [facility] ED RN W/OE and Tasks Member Role: Primary Care Nurse Name: Joellen Pineda RN Position: [facility] RN Member Role: Primary Care Nurse Name: Litzy Marin RN Position: [facility] RN Member Role: Primary Care Nurse Name: Nohemi Grande RN Position: [facility] Cds Sales Advisor Member Role: Primary Care Nurse Name: Yolanda Tyler RN Position: [facility] [employer]ds Sales Advisor Member Role: Primary Care Nurse Care Team Related Persons Name: TAWNY BUTLER Address: [address] [address]
--- OUTSIDE RECORDS SUMMARY | 2023-06-23 09:46 | XMS_ITS | Continuity of Care Document ---
Author Name Unknown Organization [facility] Address [address] [place] [address]- Care Team Providers Care Liability Analyst Name Role Phone Kristen Boudreaux DO Primary Care Physician [phone] Encounter [facility] Date(s): 07/04/22 - 09/13/22 [facility] [address], [place] [address] Attending Physician: Not on Staff, Attending [...] Refuses Medications acetaminophen 325 mg oral tablet 650 mg, 2, tablet, By Mouth, 3 times a day, PRN, # 12 tablet, Refills 0, Tot. Refills 0, Maintenance, as needed, 05/16/22 14:00:00 EDT, Route to Pharmacy Electronically, [facility]/pharmacy #[id number], Partial fill upon patient request if the prescription is for... Start Date: 05/16/22 Status: Ordered amLODIPine 10 mg oral tablet 1 tablet, By Mouth, Daily, # 90 tablet, 1 Refills, Maintenance, 04/08/22 10:06:00 EDT, [facility]/pharmacy#[id number], 170, cm, 04/04/22 15:17:00 EDT, Height, 81.75, kg, 03/21/22 15:54:00 EDT, Dry Weight Start Date: 04/08/22 Status: Ordered Aspirin Low Dose 81 mg oral delayed release tablet 1 tablet, By Mouth, Daily, # 90 tablet, 3 Refills, 05/16/22 14:00:00 EDT, [facility]/pharmacy #[id number], 170.18, cm, 05/08/22 12:22:00 EDT, [...] 04/26/22 14:29:00 EDT, Route to Pharmacy Electronically, [facility]/pharmacy #[id number], 170, cm, 04/12/22 15:12:00 EDT, Height, 81.75, kg, 03/21/22 15:54:00 EDT, . Start Date: 04/26/22 Status: Ordered Compression Stockings [...] CRUSH. /CHEW., # 30 capsule, 5 Refills, [facility] STORE [id number], 170.18, cm, 05/08/22 12:22:00 EDT, Height, 81.8, kg, 05/08/22 12:22:00 EDT, Dry Weight Start Date: 05/15/22 Status: Ordered famotidine 20 mg oral tablet 1, tablet, By Mouth, Daily, # 90 tablet, Refills 3, Tot. Refills 3, Maintenance, 05/16/22 14:01:00 EDT, Route to Pharmacy Electronically, [facility]/pharmacy #[id number], 170.18, cm, 05/08/22 12:22:00 EDT, Height, 81.8, kg, 05/08/22 12:22:00 EDT, Dry Weight Start Date: 05/16/22 Status: Ordered hydrALAZINE 25 mg oral tablet 50 mg, 2, tablet, By Mouth, 3 times a day, # 180 tablet, Refills 3, Tot. Refills 3, Maintenance, 05/23/22 15:52:00 EDT, [id number] Partial fill upon patientrequest if the prescription is for a schedule II op... Start Date: 05/23/22 Stop Date: 09/20/22 Status: Ordered Insulin Lispro KwikPen 100 units/mL injectable solution 2-10 units, Subcutaneous Injection, 3 times a day before meals, Maintenance, 03/21/22 11:54:00 EDT,; Start Date: 03/21/22 Status: Ordered Methadone = 75 mg, By Mouth, Daily, last received from [facility] 03/19/22 & took home 3 doses. Ro Confirmed [phone], 0 Refills, Maintenance, 03/21/22 11:55:00 EDT, ; Start Date: 03/21/22 Status: Ordered Pen [place], 29 G x 12.7 mm BD Ultra Fine See Instructions, # 100 each, Refills 5, Tot. Refills 5, Maintenance, use as directed for Type 2 Diabetes Mellitus, 05/16/22 14:00:00 EDT, Supply, 170.18, cm, 05/08/22 12:22:00 EDT, Height, 81.8, kg,05/08/22 12:22:00 EDT, Dry Weight Start Date: 05/16/22 Stop Date: 2/21/23 Status: Ordered sodium polystyrene sulfonate 15 g/60 mL oral and rectal suspension See Instructions, 60 mL By Mouth on Friday, Fri, Friday, 0 Refills, Maintenance, 09/13/22 0:23:00EST, Suspension, Partial fill upon patient request if the prescription is for a schedule II opioid drug. Start Date: 09/13/22 Status: Ordered torsemide 40 mg oral tablet 2 tablet = 80 mg, By Mouth, 2 times a day, 0 Refills, Maintenance, 09/13/22 0:21:00 EST, Partial fill upon patient request if the prescription is for a schedule II opioid drug. Start Date: 09/13/22 Status: Ordered Wheelchair See Instructions, # 1 each, Maintenance, Lymphedema 189.0, 04/12/22 17:43:00 EDT, Supply Start Date: 04/12/22 Status: Ordered Problem List Condition Confirmation Course Effective Dates Status H ealth Status Informant Abscesses, recurrent, due to IVDU including admission to [facility] --> [facility] 09/18/2015 to [...] ulcer, right lower extremity, followed by [facility] [id number] Confirmed Active Venous ulcer of right leg Confirmed Active Social History Social History Type Response Tobacco Other: started smoki ng at 20 years old, now about 5 cigarettes. Sex Patient Care team information Care Team Personnel Name: Maryam Fox RN Position: S RN Member Role: Primary Care Nurse Name: Franchesca Ward RN Position: S RN Member Role: Primary Care Nurse Name: Carolina Camacho RN Position: [facility] RN Member Role: Primary Care Nurse Name: Linda Hathaway Position: [facility] Outreach Member Role: Lifetime Consulting Physician Name: Delaney Huber RN Position: [facility] RN Member Role: Primary Care Nurse Name: Juanita Main RN Position: [facility] RN Member Role: Primary Care Nurse Name: Tayler Harris RN Position: [facility] RN Member Role: Primary Care Nurse Name: Carline Cantu RN Position: [facility] RN Member Role: Primary Care Nurse Name: Vasile Byers MD Position: [facility] Renal MD Member Role: Lifetime Consulting Physician Address: Address: [address] [place], [place] [address] [place] [address]- Name: Katalina Jorge RN Position: [facility] OB RN Member Role: Primary Care Nurse Name: Lorene Davenport RN Position: [facility] RN Member Role: Primary Care Nurse Name: Meryl Saini RN Position: [facility] SN RN Member Role: Primary Care Nurse Name: Guillermo Encinas DO Position: [facility] Renal MD Member Role: Lifetime Consulting Physician Address: Address: [address] [place], [place] [address] [place] [address]- Name: Lorene Billingsley RN Position: [facility] Onco RN Member Role: Primary Care Nurse Name: Kathy Nieves RN Position: [facility] ED RN W/OE and Tasks Member Role: Primary Care Nurse Name: Sophia Johnson Position: [facility] RN Member Role: Primary Care Nurse Name: Awais Brenner RN Position: [facility] RN Member Role: Primary Care Nurse Name: Paradise Linder RN Position: [facility] RN Member Role: Primary Care Nurse Name: Pina Mcgill RN Position: [facility] RN Member Role: Primary Care Nurse Name: Yumiko Lindsay RN Position: [facility] RN Member Role: Primary Care Nurse Name: Vincent Thapa RN Position: [facility] RN Member Role: Primary Care Nurse Name: Kristen Boudreaux DO Position: [facility] Resident Member Role: PCP Address: Address: [address] [place] [address]- Name: Neil Bobby RN Position: [facility] ED RN W/OE and Tasks Member Role: Primary Care Nurse Name: Joellen Pineda RN Position: [facility] RN Member Role: Primary Care Nurse Name: Litzy Marin RN Position: [facility] RN Member Role: Primary Care Nurse Name: Ruth Stevens LPN Position: [facility] RN Member Role: Primary Care Nurse Name: Nohemi Grande RN Position: [facility] Secretary Member Role: Primary Care Nurse Name: Yolanda Tyler RN Position: [facility] Secretary Member Role: Primary Care Nurse Care Team Related Persons Name: TAWNY BUTLER Address: [address] [address]
--- OUTSIDE RECORDS SUMMARY | 2023-06-23 09:46 | XMS_ITS | Continuity of Care Document ---
Author Name Unknown Organization [facility] ter Address [address] [place] [address]- Care Team Providers Care Life Cycle Assessment Analyst Name Role Phone Kristen Boudreaux DO Primary Care Physician Encounter [facility] Date(s): 12/12/22 - 12/12/[address] [address] Discharge Disposition: A-D/C Home Attending Physician: Shaan Morelos MD Admitting Physician: Shaan Morelos MD Referring Physician: Shaan Morelos MD Allergies, Adverse Reactions, Alerts Substance Reaction Severity Status Risperdal tongue swells Active Compazine difficulty breathing difficulty Active Immunizations Given and Recorded Vaccine Date Status Refusal Reason influenza virus vaccine, inactivated 09/14/22 Give n influenza virus vaccine, inactivated 09/19/15 Give n influenza virus vaccine, inactivated 07/03/09 Dany rded [id number] bivalent booster vax 07/17/22 Recorded pneumococcal 20-valent conjugate vaccine 03/12/22 Given tetanus/diphtheria/pertussis, acel(Tdap) 12/17/21 Given tetanus/diphtheria/pertussis, acel(Tdap) 05/14/13 Given SARS-CoV-2 (COVID-19) mRNA BNT-162b2 vac 05/18/21 Recorded SARS-CoV-2 (COVID-19) mRNA BNT-162b2 vac 04/27/21 Recorded pneumococcal 23-valent vaccine 07/11/14 Given Not Given Vaccine Date Status Refusal Reason influenza virus vaccine, inactivated 08/20/16 Not Given Patient Refuses Medications Aspirin Low Dose 81 mg oral delayed release tablet 1 tablet, By Mouth, Daily, # 90 tablet, 3 Refills, 05/16/22 14:00:00 EDT, [facility]/pharmacy #[id number], 170.18, cm, 05/08/22 12:22:00 EDT, Height, 81.8, kg, 05/08/22 12:22:00 EDT, Dry Weight Start Date: 05/16/22 Status: Ordered cloNIDine 0.1 mg oral tablet 0.2 mg, 2, tablet, By Mouth, 3 times a day, # 270 tablet, Refills 1, Tot. Refills 1, Maintenance, 04/26/22 14:29:00 EDT, Route to Pharmacy Electronically, [facility]/pharmacy #[id number], 170, cm, 04/12/22 15:12:00 [...] capsule, 8 Refills, Maintenance, 11/25/22 8:27:00 EST, [facility] STORE [id number], 170, cm, 10/09/22 16:43:00 EST, Height, 69.1, kg, 11/14/22 7:40:00 EST, Dry Weight Start Date: 11/25/22 Status: Ordered famotidine 20 mg oral tablet 1, tablet, By Mouth, Daily, # 90 tablet, Refills 3, Tot. Refills 3, Maintenance, 05/16/22 14:01:00 EDT, Route to Pharmacy Electronically, [facility]/pharmacy #[id number], 170.18, cm, 05/08/22 12:22:00 EDT, Height, 81.8, kg, 05/08/22 12:22:00 EDT, Dry Weight Start Date: 05/16/22 Status: Ordered hydrALAZINE 25 mg oral tablet 50 mg, 2, tablet, By Mouth, 3 times a day, # 180 tablet, Refills 3, Tot. Refills 3, Maintenance, 10/17/22 17:13:00 EST, Route to Pharmacy Electronically, [facility]/pharmacy #[id number], Partial fill upon patientrequest if the prescription is for a schedule II op... Start Date: 10/17/22 Stop Date: 02/14/23 Status: Ordered Lasix 40 mg oral tablet 120 mg, 3, tablet, By Mouth, 2 times a day, Refill per PCP or Nephrology, # 180 tablet, Refills 1, Tot. Refills 1, Maintenance, 10/25/22 17:02:00 EST, Route to Pharmacy Electronically, [facility]/pharmacy #[id number], Partial fill upon patient request if the presc... Start Date: 10/25/22 Status: Ordered lisinopril 20 mg oral tablet 20 mg, 1, tablet, By Mouth, Daily, Refill per PCP or Nephrology, # 30 tablet, Refills 6, Tot. Refills 6, Maintenance, 10/17/22 17:13:00 EST, Route to Pharmacy Electronically, [facility]/pharmacy #[id number], Partial fill upon patient request if the prescription is... Start Date: 10/17/22 Stop Date: 05/15/23 Status: Ordered Methadone = 70 mg, By Mouth, Daily, last received from [facility] 03/19/22 & took home 3 doses. Ro Confirmed [phone], 0 Refills, Maintenance, 03/21/22 11:55:00 EDT, ; Start Date: 03/21/22 Status: Ordered Pen Tustin, 29 G x 12.7 mm BD Ultra [...] recurrent, due to IVDU including admission to [facility] --> [facility] 09/18/2015 to 10/29/2015 for retroperitoneal [...] lower extremity, followed by Karena [facility]ivas [facility] [id number] Confirmed Active Venous ulcer of right leg Confirmed Active Vital Signs Most recent to oldest [Reference Range]: 1 2 3 Height 170 cm (12/12/22 8:02 AM) 170 cm (12/10/22 4:01 PM) Weight 68.2 kg (12/12/22 8:02 AM) 68.4 kg (12/10/22 4:01 PM) Oxygen Saturation [94-100 %] 100 % (12/12/22 10:45 AM) 99 % (12/12/22 10:30 AM) 100 % (12/12/22 10:15 AM) Pulse Rate [55-90 bpm] 72 bpm (12/12/22 8:02 AM) Body Mass Index [18.5-24.99 kg/m2] 23.6 kg/m2 (12/12/22 8:02 AM) 23.67 kg/m2 (12/10/22 4:01 PM) Blood Pressure [90-138/55-84 mm Hg] 147/83mm Hg *H* (12/12/22 10:45 AM) 131/81mm Hg (12/12/22 10:30 AM) 136/81mm Hg (12/12/22 10:15 AM) Respiratory Rate [16-30 br/min] 11 br/min *L* (12/12/22 10:45 AM) 21 br/min (12/12/22 10:30 AM) 10 br/min *L* (12/12/22 10:15 AM) Temperature [96.8-100.4 DegF] 97.2 DegF (12/12/22 10:15 AM) 98.1 DegF (12/12/22 8:02 AM) Mode of Delivery (Oxygen) Room air (12/12/22 10:45 AM) Room air (12/12/22 10:30 AM) Room air (12/12/22 10:15 AM) Blood pressure sites Arm, left (12/12/22 10:15 AM) Arm, left (12/12/22 8:02 AM) Temperature Route Temporal (12/12/22 10:15 AM) Temporal (12/12/22 8:02 AM) Dry Weight 68.2 kg (12/12/22 8:02 AM) 68.4 kg (12/10/22 4:01 PM) Weight Obtained Via Standing scale (12/12/22 8:02 AM) Patient/family stated (12/10/22 4:01 PM) Dry Weight Obtained Via Standing scale (12/12/22 8:02 AM) Patient/family stated (12/10/22 4:01 PM) Social History Social History Type Response Tobacco Other: started smoki ng at 20 years old, now about 5 cigarettes. Sex Implantable Device List Procedure Provider Procedure Date Device Type Site Insertion Hemodialysis Catheter Maicol VILLATORO, Tyshawn Blake Unknown Chest Device Identifier Serial Number Lot or Batch Number Manufacturing Date Expiration Date Distinct Identification Code MRI Safety Implantable Status Assigning Authority Unknown Unknown [id number] Unknown 06/26/24 Unknown Unknown Active Unknown Note * Litzy Sánchez RN: PERFORM Event Display: Discharge/Transfer Note Hospital Authored Date: [id number] Nursing Discharge Note Entered On: 12/12/2022 11:28 EDT Performed On: 12/12/2022 11:27 EDT by Litzy Sánchez RN Nursing Discharge Note 2 Discharge Time : 12/12/2022 11:24 EDT Discharge Level of Care at Discharge : Home/Intermediate/Foster Care Patient Left Unit Via : Wheelchair Patient Accompanied Off Unit with : Responsible adult DC Instructions Provided & Signed by Pt : Yes Patient Understands D/C Instructions : Yes Patient Instructions Discharge Signed : Yes Did Pt have Specialty Bed or Wound Vac : No Litzy Sánchez RN - 12/12/2022 11:27 EDT * Litzy Sánchez RN: PERFORM Event Display: Patient Education/Instruction Authored Date: Inpatient Adult Discharge Instructions [address] [address] Name: MICHAEL BUTLER : 1975 Visit: 12/12/2022 07:03:00 Current Date: 12/12/2022 10:52 Account: [id number] Inpatient Adult Discharge Instructions We would like [...] and their families. Surveys are administered by [employer] ?? If further treatment with your primary care physician or another doctor is recommended, it is important for you to keep the appointment. Call your primary care physician or return to the Emergency Department immediately if your condition worsens, fails to improve, or new symptoms develop. If you need to find a doctor, you can call [facility] [employer] [facility] for a referral at [phone] or toll free at [phone]) or log in to [email or web address].. ?? You can view and manage your care through the patient portal or by using a health care allison of your choosing. [employer] is a website that allows you to securely view your medical information including your hospital discharge summary, office visit summaries, medications and follow-up visits. You can also request appointments, renew medications, and request access to your medical information using a health care allison of your choosing, or just ask a question. You can enroll at [email or web address] or register during your next office visit. You have been discharged from [facility], Patient Care Unit: [facility]. If you have any questions regarding these instructions after you leave, please call us and we will be happy to assist you. [facility] Your Care Team Attending Physician Shaan Morelos MD Discharging Providers Shaan Morelos MD Reason for Admission ESRD FISTULAGRAM DS CS Tests Performed Below is a partial list of the tests performed during your hospitalization. You may have had other tests and procedures not included in this list. Please discuss all test results with your provider. BUN POC CARTRIDGE CALCIUM IONIZED POC CART CHLORIDE POC CARTRIDGE CREATININE POC CARTRIDGE GLUCOSE POC GLUCOSE POC CARTRIDGE HEMATOCRIT POC CARTRIDGE HEMOGLOBIN POC CARTRIDGE POTASSIUM POC CARTRIDGE SODIUM POC CARTRIDGE Primary Care Provider Kristen Boudreaux DO Advance Directive Health Care Proxy on File Yes - Health Care Proxy Discharge Vitals Temperature: 97.2 DegF Height: 170 cm Pulse Rate: 72 bpm Weight: 68.2 kg Respiratory Rate:??11 br/min??Low Body Mass Index: 23.6 kg/m2 Systolic Blood Pressure:??147 mm Hg??High Body surface area: 1.79 Diastolic Blood Pressure: 83 mm Hg ?? Oxygen Saturation: 100 % ?? Studies Pending All tests and labs ordered during this hospital stay have been completed unless listed below. Please discuss all pending results with your provider listed above in these instructions. ?? C-Arm < 1 Hour What to do next Instructions From Your Doctor Discharge Orders Scheduled Follow-Up Appointments Friday. 2022 2:30 PM EDT ?? Where: [facility] [address] [place] [id number]- You Need to Schedule the Following Appointments Follow Up with??Shaan Morelos MD When?? Where: [address] [place] [address] [address] [facility] [place] [address]- Discharge Medications TSERINGMICHALE JASON :1975 Visit Date:12/12/2022 Medications: Please continue your medications until treatment is completed or stopped by your provider. Medications not listed below should be discontinued. Discuss any questions related to medications with your provider. What How Much When Why Instructions Next Dose Unchanged Aspirin (Aspirin Low Dose 81 mg oral delayed release tablet) 1 tab(s) Oral Daily Unchanged Carvedilol (Coreg 25 mg oral tablet) 1 tab(s) Oral Twice a day Unchanged Clonidine (cloNIDine 0.1 mg oral tablet) 2 tab(s) Oral 3 times a day Unchanged Duloxetine (duloxetine 30 mg oral enteric coated capsule) 1 capsule Oral Daily DONT CRUSH. / CHEW. ?? Unchanged Durable Medical Equipment (Compression Stockings) See instructions Chronic venous hypertension with ulcer and inflammation involving right side Chronic venous hypertension with ulcer and inflammation involving left side Lymphedema Juxta Lite Circaid compression wraps bilateral 30-40 mm Hg ?? Unchanged Durable Medical Equipment (Pen [place]in, 29 G x 12.7 mm BD Ultra Fine) See instructions Duration: 30 Days use as directed for Type 2 Diabetes Mellitus ?? Unchanged Durable Medical Equipment (Wheelchair) See instructions Lymphedema of left lower extremity Lymphedema 189.0 ?? Unchanged Famotidine (famotidine 20 mg oral tablet) 1 tab(s) Oral Daily Unchanged Furosemide (Lasix 40 mg oral tablet) 3 tab(s) Oral Twice a day Refill per PCP or Nephrology ?? Unchanged hydrALAZINE (hydrALAZINE 25 mg oral tablet) 2 tab(s) Oral 3 times a day Duration: 30 Days Unchanged Lisinopril (lisinopril 20 mg oral tablet) 1 tab(s) Oral Daily Duration: 30 Days Refill per PCP or Nephrology ?? Unchanged Methadone 70 Milligram Oral Daily [facility] took [facility] 3 doses. Ro Confirmed [phone] ?? Test Results Below is a partial list of the most recent Laboratory test results done prior to this discharge. You may have had other tests and procedures not included in this list. Please discuss all test resultswith your provider. BUN POC CARTRIDGE (12/12/2022) ???BUN (POC) POC Cartridge - 30 mg/dL CALCIUM IONIZED POC CART (12/12/2022) ???Ionized Calcium (POC) POC Cartridge - 1.27 mmol/L CHLORIDE POC CARTRIDGE (12/12/2022) ???Chloride (POC) POC Cartridge - 108 mmol/L CREATININE POC CARTRIDGE (12/12/2022) ???Creatinine (POC) POC Cartridge - 4.5 mg/dL GLUCOSE POC (12/12/2022) ???Glucose, POC - 116 mg/dL GLUCOSE POC CARTRIDGE (12/12/2022) ???Glucose (POC) POC Cartridge - 131 HEMATOCRIT POC CARTRIDGE (12/12/2022) ???Hematocrit (POC) POC Cartridge - 35 % HEMOGLOBIN POC CARTRIDGE (12/12/2022) ???Hemoglobin (POC) POC Cartridge - 11.9 Gm/dL POTASSIUM POC CARTRIDGE (12/12/2022) ???Potassium (POC) POC Cartridge - 4.8 mmol/L SODIUM POC CARTRIDGE (12/12/2022) ???Sodium (POC) POC Cartridge - 143 mmol/L Allergies (NKA means No Known Allergies) Compazine??(difficulty breathing, difficulty) Risperdal??(tongue swells) Problems Active Problems??(21) Abscesses, recurrent, due to IVDU including admission to [facility] --> [facility] 09/18/2015 to 10/29/2015 for re?? ADHD (attention deficit hyperactivity disorder)?? 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 Anemia?? Uriostegui's cyst of right knee?? CKD (chronic kidney disease) stage 4, GFR 15-29 ml/min?? CKD (chronic kidney disease), stage IV?? Cocaine use disorder?? Depression/Anxiety?? Diabetic neuropathy?? Heroin addiction?? Hypertension?? IDDM (insulin dependent diabetes mellitus)?? Insulin dependent type 2 diabetes mellitus?? Lymphedema of left lower extremity?? Overweight?? Polysubstance dependence including opioid drug with daily use?? Proliferative diabetic retinopathy?? S/P amputation of limb?? Venous ulcer of right leg?? Venous ulcer, right lower extremity, followed by Karena Olivas [facility] [id number]?? Education Materials Below is the list of Educational Leaflet Providered with your Discharge Instructions. Surgery Medical Daystay Surgical Overnight Discharge Instructions?? Valuables and Belongings I fully understand and agree that [facility] accepts no responsibility for all my personal [...] Review of Valuable and Belonging List: With patient Date for Pt to Sign Valuables/Belongings: 12/12/22 08:02:00 ?? Valuables & Belongings ?? Clothes Electronic devices Jewelry Monetary Items Personal devices Miscellaneous Medications (Valuables) Valuables at Bedside Pants, Shirt, Shoes, Suit Cell phone ? Glasses ? Valuables Sent Home ? Valuables Sent to Security ? Other Discharge Information ? Pulmonary Rehab Status?? Pulmonary Rehab Discharge Status?? Respiratory Rate:??11 br/min??Low ? Common Emergency Awareness Tips IS IT [...] are strongly encouraged to quit. Please call [employer] at [phone] or [phone]) or log in to [email or web address] for referrals to smoking cessation programs. ?? The National Suicide Prevention Hotline is available 14/04 if you or someone you know needs to find a reason to keep living. By calling 8-495-768-jmux (3618) you'll be connected to a skilled, trained counselor at a crisis center in your area. INPATIENT DISCHARGE INSTRUCTIONS SIGNATURE PAGE MICHAEL BUTLER Location:[facility] Registration Date and Time:12/12/2022 07:03 EDT Primary Care Physician: Kristen Boudreaux DO, I MICHAEL BUTLER, have received the above patient education materials/instructions and have verbalized understanding. If ambulance or transport services are being used I further acknowledge being given a choice of service. ?? If you need to contact me, please call me at this number: . Patient/Ehs Specialist Name: Patient/Ehs Specialist Signature: Relationship to Patient: Witness Name/Signature: Date: * Litzy Sánchez RN: PERFORM Event Display: Patient Education Leaflets Authored Date: [id number] Surgery Medical Daystay Surgical Overnight Discharge Instructions ?? 295 Medical Daystay/Surgical Overnight Discharge Instructions ? Since your coordination and judgment may be altered by medication and/or anesthesia, a responsible adult must drive you home from the hospital. ? If you have received medication for pain or sedation while under our care, you should not drive, operate machinery, drink alcohol, or sign any legal documents for 24 hours.?? You should have someone with you at home tonight. ? Remain at home the day of discharge.?? You may be up and about unless otherwise instructed by your physician. ? You may resume your daily prescription medication schedule.?? Any depressant medication should be avoided for 24 hours unless otherwise instructed by your surgeon or anesthesiologist. ? Call your physician for a follow-up appointment.? If you experience unusual or severe pain not relied by your pain medication, excessive bleedingor drainage, persistent nausea and vomiting, excessive swelling or redness, foul odor from incisionsite or fever over 100.6F, you need to call your physician. ? A follow-up phone call by a nurse will be made the day after your procedure.?? If you have stayed with us over night, you will not be receiving a follow-up phone call. ? Nausea and vomiting are a common side effect of prescription pain medication.?? We recommend that pills are not taken on an empty stomach.?? While taking any prescription pain medication you should not drive or drink alcohol. ? Patient Care team information Care Team Personnel Name: Maryam Fox RN Position: [facility] RN Member Role: Primary Care Nurse Name: Franchesca Ward RN Position: S RN Member Role: Primary Care Nurse Name: Carolina Camacho RN Position: [facility] SN RN Member Role: Primary Care Nurse Name: Linda Hathaway Position: [facility] Outreach Member Role: Lifetime Consulting Physician Name: Delaney Huber RN Position: [facility] RN Member Role: Primary Care Nurse Name: Juanita Main RN Position: [facility] RN Member Role: Primary Care Nurse Name: China Sutherland RN Position: [facility] Outreach Member Role: Lifetime Consulting Physician Name: Tayler Harris RN Position: [facility] RN Member Role: Primary Care Nurse Name: Sophie Bejarano NP Position: [facility] Associate Professional Member Role: Lifetime Consulting Provider Address: Address: [address] [place], [place] [address] [address] Name: Vasile Byers MD Position: [facility] Renal MD Member Role: Lifetime Consulting Physician Address: Address: [address] [place], [place] [address] [address] Name: Katalina Jorge RN Position: [facility] OB RN Member Role: Primary Care Nurse Name: Lorene Davenport RN Position: [facility] RN Member Role: Primary Care Nurse Name: Meryl Saini RN Position: [facility] SN RN Member Role: Primary Care Nurse Name: Annie Langston RN Position: [facility] RN Member Role: Primary Care Nurse Name: Guillermo Encinas DO Position: [facility] Renal MD Member Role: Lifetime Consulting Physician Address: Address: [address] [place], [place] [address]E [facility] [address] Name: Lorene Billingsley RN Position: [facility] Onco RN Member Role: Primary Care Nurse Name: Kathy Nieves RN Position: [facility] ED RN W/OE and Tasks Member Role: Primary Care Nurse Name: Sophia Johnson Position: [facility] RN Member Role: Primary Care Nurse Name: Paradise Linder RN Position: [facility] RN Member Role: Primary Care Nurse Name: Pina Mcgill RN Position: [facility] RN Member Role: Primary Care Nurse Name: Vincent Thapa RN Position: [facility] RN Member Role: Primary Care Nurse Name: Kristen Boudreaux DO Position: [facility] Resident Member Role: PCP Address: Address: [address] [facility] [place] [address]- Name: Nicole Guzman RN Position: [facility] RN Member Role: Primary Care Nurse Name: Neil Bobby RN Position: [facility] ED RN W/OE and Tasks Member Role: Primary Care Nurse Name: Joellen Pineda RN Position: [facility] RN Member Role: Primary Care Nurse Name: Litzy Marin RN Position: [facility] RN Member Role: Primary Care Nurse Name: Crystal Robles RN Position: [facility] RN Member Role: Primary Care Nurse Name: Ruth Stevens LPN Position: [facility] RN Member Role: Primary Care Nurse Name: Nohemi Grande RN Position: [facility] Body Recall Instructor Member Role: Primary Care Nurse Name: Yolanda Tyler RN Position: [facility] Body Recall Instructor Member Role: Primary Care Nurse Care Team Related Persons Name: TAWNY BUTLER Address: home [address] [place] [address]
--- OUTSIDE RECORDS SUMMARY | 2023-06-23 09:46 | XMS_ITS | Continuity of Care Document ---
Author Name Unknown Organization [facility] ter Address [address] [place] [id number]- Care Team Providers Care Sports Book Writer Name Role Phone Kirsten Boudreaux DO Primary Care Physician Encounter [facility] Date(s): 01/08/22 - 02/07/[address] [id number] Attending Physician: Not on Staff, Attending MD Admitting Physician: Not on Staff, Admitting MD Referring Physician: Not on Staff, Referring MD Allergies, Adverse Reactions, Alerts Substance Reaction Severity Status Risperdal tongue swells Active Compazine difficulty breathing difficulty Active Immunizations Given and Recorded Vaccine Date Status Refusal Reason tetanus/diphtheria/pertussis, acel(Tdap) 12/17/21 Given tetanus/diphtheria/pertussis, acel(Tdap) 05/14/13 Given SARS-CoV-2 (COVID-19) mRNA BNT-162b2 vac 05/18/21 Recorded SARS-CoV-2 (COVID-19) mRNA BNT-162b2 vac 04/27/21 Recorded influenza virus vaccine, inactivated 09/19/15 Give n influenza virus vaccine, inactivated 07/03/09 Dany rded pneumococcal 23-valent vaccine 07/11/14 Given Not Given Vaccine Date Status Refusal Reason influenza virus vaccine, inactivated 08/20/16 Not Given Patient Refuses Medications . ., See Instructions, # 1 application, Refills 0, Tot. Refills 0, Maintenance, please check weekly cbc, chem7, bun,cr, LFTs while on ceftriaxone and send results to Dr Burnett.fax [phone], 08/23/16 15:40:34, Compound Start Date: 08/23/16 Status: Ordered . ., See Instructions, # 1 application, Refills 0, Tot. Refills 0, Maintenance, please make sure pt gets wound vac change every 4d. Next change will be in 08/26., 08/23/16 15:46:01, Compound Start Date: 08/23/16 Status: Ordered amLODIPine 10 mg oral tablet 10 mg, 1, tablet, By Mouth, Daily, # 30 tablet, Refills 0, Tot. Refills 0, Maintenance, 02/06/22 15:08:00 EDT, Route to Pharmacy Electronically, [id number], Partial fill upon patient request if the prescription is for a schedule II opioid drug... Start Date: 02/06/22 Stop Date: 03/08/22 Status: Ordered aspirin 81 mg oral delayed release tablet 81 mg, 1, tablet, By Mouth, Daily, # 30 tablet, Refills 0, Tot. Refills 0, Maintenance, 02/06/22 15:08:00 EDT, Route to Pharmacy Electronically, [id number], Partial fill upon patient request if the prescription is for a schedule II opioid drug... Start Date: 02/06/22 Status: Ordered Basaglar KwikPen 100 units/mL subcutaneous solution = 12 units, Subcutaneous Injection, Daily, # 10 mL, 0 Refills, Maintenance, 02/06/22 15:05:00 EDT, Solution, [id number], Partial fill upon patient request if the prescription is for a schedule II opioid drug., 169, cm, 02/06/22 13:31:00 EDT, H... Start Date: 02/06/22 Status: Ordered betamethasone topical dipropionate 0.05% ointment 1 application, Topically, 2 times a day, for 30 days, apply to affected area, # 15 Gm, 0 Refills, Acute 02/16/22 14:54:00 EDT, 01/17/22 14:54:00 EDT, Ointment, [id number], Partial fill upon patient request if the prescription is for a schedule... Start Date: 01/17/22 Stop Date: 02/16/22 Status: Ordered cloNIDine 0.1 mg oral tablet 0.1 mg, 1, tablet, By Mouth, 3 times a day, # 90 tablet, Refills 0, Tot. Refills 0, Maintenance, 02/06/22 15:06:00 EDT, Route to Pharmacy Electronically, [id number], Partial fill upon patientrequest if the prescription is for a schedule II op... Start Date: 02/06/22 Stop Date: 03/08/22 Status: Ordered famotidine 20 mg oral tablet 20 mg, 1, tablet, By Mouth, Daily, # 30 tablet, Refills 0, Tot. Refills 0, Maintenance, 02/06/22 15:07:00 EDT, Route to Pharmacy Electronically, [id number], Partial fill upon patient request if the prescription is for a schedule II opioid drug... Start Date: 02/06/22 Stop Date: 03/08/22 Status: Ordered furosemide 40 mg oral tablet 40 mg, 1, tablet, By Mouth, 2 times a day, # 60 tablet, Refills 0, Tot. Refills 0, Maintenance, 02/06/22 15:06:00 EDT, Route to Pharmacy Electronically, [facility][id number], Partial fill upon patient request if the prescription is for a schedule II opi... Start Date: 02/06/22 Stop Date: 03/08/22 Status: Ordered Home Blood Pressure Monitor See Instructions, # 1 each, Maintenance, Check blood pressure. Keep log and bring to doctor visits.Dx: I10, essential hypertension. Duration: lifetime., 01/17/22 16:50:00 EDT, Supply Start Date: 01/17/22 Status: Ordered HumaLOG Cesar KwikPen 100 units/mL injectable solution See Instructions, Three times a day before meals << Sliding Scale Comments >> 150 - 1992 units Call if less than 70 200 - 249 4 units 250 - 299 6 units 300 - 349 8 units 350 - 399 10 units Call if greater than 400 << Sliding Sc... Start Date: 02/06/22 Status: Ordered hydrALAZINE 25 mg oral tablet 25 mg, 1, tablet, By Mouth, 3 times a day, # 90 tablet, Refills 0, Tot. Refills 0, Maintenance, 02/06/22 15:07:00 EDT, Route to Pharmacy Electronically, [id number], Partial fill upon patient request if the prescription is for a schedule II opi... Start Date: 02/06/22 Stop Date: 03/08/22 Status: Ordered lidocaine 5% topical film 2 film, Topically, Daily, # 30 patch, 0 Refills, Maintenance, 01/08/22 11:22:00 EDT, Patch, [facility], Partial fill upon patient request if the prescription is for a schedule II opioiddrug., 2 film Topically Daily, 169, cm, 01/07/22 14... Start Date: 01/08/22 Status: Ordered lisinopril 10 mg oral tablet 10 mg, 1, tablet, By Mouth, Daily, # 30 tablet, Refills 0, Tot. Refills 0, Maintenance, 02/06/22 15:07:00 EDT, Route to Pharmacy Electronically, [facility][id number], Partial fill upon patient request if the prescription is for a schedule II opioid drug... Start Date: 02/06/22 Stop Date: 03/08/22 Status: Ordered methadone 10 mg/5 mL oral solution 35 mL = 70 mg, By Mouth, Daily, will get at methadone clinic, 0 Refills, Maintenance, 01/08/22 11:23:00 EDT, Solution, Partial fill upon patient request if the prescription is for a schedule II opioid drug. Start Date: 01/08/22 Status: Ordered multivitamin with minerals Vitamin B Complex with C and Zinc oral tablet 1 tablet, By Mouth, Daily, # 30 tablet, 0 Refills, Maintenance, 08/23/16 16:16:28, Tablet Start Date: 08/23/16 Stop Date: 09/22/16 Status: Ordered Pen [place], 29 G x 12.7 mm BD Ultra Fine See Instructions, # 100 each, Refills 5, Tot. 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 including admission to [facility] --> [facility] 09/18/2015 to 10/29/2015 for retroperitoneal abscess, MSSA bacteremia(Confirmed) Active ADHD (attention deficit hype ractivity disorder)(Confirmed) Active Polysubstance dependence inc luding opioid drug with daily use(Confirmed) Active IDDM (insulin dependent diab etes mellitus)(Confirmed) Active Diabetic neuropathy(Confirmed) Active S/P amputation of limb(Confirmed) Active Hypertension(Confirmed) Active Overweight(Confirmed) Active Right LE venous ulcer, follo wed by Karena [facility] [phone](Confirmed) Active Venous ulcer of right leg(Confirmed) Active Social History Social History Type Response Tobacco Other: started smoki ng at 20 years old, now about 5 cigarettes. Sex
--- OUTSIDE RECORDS SUMMARY | 2023-06-23 09:46 | XMS_ITS | Continuity of Care Document ---
Author Name Unknown Organization [facility] Address [address] [place] [address]- Care Team Providers Care Electronic Warfare Officer Name Role Phone Kristen Boudreaux DO Primary Care Physician [phone] [place] [facility] [facility] [address] [place] [id number] Allergies, Adverse Reactions, Alerts Substance Reaction [...] ceftriaxone and send results to Dr Burnett.fax [phone], 08/23/16 15:40:34, Compound Start Date: 08/23/16 Status: Ordered . ., See Instructions, # 1 application, Refills 0, Tot. Refills 0, Maintenance, please make sure pt gets wound vac change every 4d. Next change will be in 08/26., 08/23/16 15:46:01, Compound Start Date: 08/23/16 Status: Ordered amLODIPine 10 mg oral tablet See Instructions, TAKE 1 TABLET BY MOUTH EVERY DAY, # 30 tablet, 0 Refills, [id number], 170, cm, 03/06/22 9:11:00 EDT, Height, 89.9, kg, 12/25/21 7:54:00 EDT, Dry Weight Start Date: 03/08/22 Status: Ordered amLODIPine 10 mg oral tablet [...] opioid drug... Start Date: 02/06/22 Status: Ordered Aspirin Low Dose 81 mg oral delayed release tablet See Instructions, TAKE 1 TABLET BY MOUTH EVERY DAY, # 30 tablet, 0 Refills, [id number], 170, cm, 03/06/22 9:11:00 EDT, Height, 89.9, kg, 12/25/21 7:54:00 EDT, Dry Weight Start Date: 03/08/22 Status: Ordered Basaglar KwikPen 100 units/mL subcutaneous solution = 12 units, Subcutaneous Injection, Daily, # 10 mL, 5 Refills, Maintenance, 03/08/22 14:40:00 EDT, Solution, [id number], Partial fill upon patient request if the prescription is for a schedule II opioid drug., 170, cm, 03/06/22 9:11:00 EDT, He... Start Date: 03/08/22 Status: Ordered cloNIDine 0.1 mg oral tablet See Instructions, TAKE 1 TABLET BY MOUTH 3 TIMES A DAY, # 90 tablet, Refills 0, Instructions Replace Required Details, Route to Pharmacy Electronically, [facility] [id number], 170, cm, 03/06/22 9:11:00 EDT, Height, 89.9, kg, 12/25/21 7:54:00 EDT, Dry Weight Start Date: 03/08/22 Status: Ordered cloNIDine 0.1 mg oral tablet 0.1 mg, 1, tablet, By Mouth, 3 times a day, # 90 tablet, Refills 0, Tot. Refills 0, Maintenance, 02/06/22 15:06:00 EDT, Route to Pharmacy Electronically, [facility]acy #[id number], Partial fill upon patientrequest if the prescription is for a schedule II op... Start Date: 02/06/22 Stop Date: 03/08/22 Status: Ordered Compression Stockings See Instructions, # 1 each, Refills 1, Tot. Refills 1, Maintenance, [employer]ite Circaid compression wraps bilateral 30-40 mm Hg, 03/05/22 14:53:00 EDT, Compound Start Date: 03/05/22 Status: Ordered famotidine 20 mg oral tablet See Instructions, TAKE 1 TABLET BY MOUTH EVERY DAY, # 30 tablet, Refills 0, Instructions Replace Required Details, Route to Pharmacy Electronically, [facility] [id number], 170, cm, 03/06/22 9:11:00 EDT, Height, 89.9, kg, 12/25/21 7:54:00 EDT, Dry Weight Start Date: 03/08/22 Status: Ordered famotidine 20 mg oral tablet 20 mg, 1, tablet, By Mouth, Daily, # 30 tablet, Refills 0, Tot. Refills 0, Maintenance, 02/06/22 15:07:00 EDT, Route to Pharmacy Electronically, [facility]/pharmacy #[id number], Partial fill upon patient request if the prescription is for a schedule II opioid drug... Start Date: 02/06/22 Stop Date: 03/08/22 Status: Ordered furosemide 40 mg oral tablet See Instructions, TAKE 1 TABLET BY MOUTH TWICE A DAY FOR 30 DAYS, # 60 tablet, Refills 0, Instructions Replace Required Details, Route to Pharmacy Electronically, [facility] [id number], 170, cm, 03/06/22 9:11:00 EDT, Height, 89.9, kg, 12/25/21 7:54:00 EDT,... Start Date: 03/08/22 Status: Ordered furosemide 40 mg oral tablet 40 mg, 1, tablet, By Mouth, 2 times a day, # 60 tablet, Refills 0, Tot. Refills 0, Maintenance, 02/06/22 15:06:00 EDT, Route to Pharmacy Electronically, [facility] #[id number], Partial fill upon patient request if [...] than 400 << Sliding Sc... Start Date: 03/08/22 Status: Ordered hydrALAZINE 25 mg oral tablet 2, tablet, By Mouth, 3 times a day, for 30 days, # 180 tablet, Refills 0, Physician Stop, Route to Pharmacy Electronically, [id number], 170, cm, 03/06/22 9:11:00 EDT, Height, 89.9, kg, 12/25/21 7:54:00 EDT, Dry Weight Start Date: 03/08/22 Stop Date: 04/07/22 Status: Ordered lidocaine 5% topical film 2 film, Topically, Daily, # 30 patch, 0 Refills, Maintenance, 01/08/22 11:22:00 EDT, Patch, [facility], Partial fill upon patient request if the prescription is for a schedule II opioiddrug., 2 film Topically Daily, 169, cm, 01/07/22 14... Start Date: 01/08/22 Status: Ordered lisinopril 10 mg oral tablet 10 mg, 1, tablet, By Mouth, Daily, # 30 tablet, Refills 0, Tot. Refills 0, Maintenance, 03/08/22 14:41:00 EDT, Route to Pharmacy Electronically, [facility]acy #[id number], Partial fill upon patient request if the prescription is for a schedule II opioid drug... Start Date: 03/08/22 Stop Date: 04/07/22 Status: Ordered methadone 10 mg/5 mL oral [...] 08/23/16 Stop Date: 09/22/16 Status: Ordered Pen [place], 29 G x 12.7 mm BD Ultra [...] due to I VDU [place] [facility] [place] [facility] [place]18[place] 10/29/2015 for retroperitoneal abscess, MSSA bacteremia(Confirmed) Active ADHD (attention deficit hype ractivity disorder)(Confirmed) Active Polysubstance dependence inc luding opioid drug with daily use(Confirmed) Active IDDM (insulin dependent diab etes mellitus)(Confirmed) Active Diabetic neuropathy(Confirmed) Active S/P amputation of limb(Confirmed) Active Hypertension(Confirmed) Active Overweight(Confirmed) Active Right LE venous ulcer, follo wed by Karena [facility] [phone](Confirmed) Active Venous ulcer of right leg(Confirmed) Active Social History Social History Type Response Tobacco Other: started smoki ng at 20 years old, now about 5 cigarettes. Sex
--- OUTSIDE RECORDS SUMMARY | 2023-06-23 09:46 | XMS_ITS | Continuity of Care Document ---
Author Name Unknown Organization [facility] Address [address] [place] [address]- Care Team Providers Care Call Or Contact Centre Team Leader Name Role Phone Kristen Boudreaux DO Primary Care Physician Encounter [facility] Date(s): 04/01/22 - 05/01/22 [facility] [address] [place] [address]- Allergies, Adverse Reactions, Alerts Substance Reaction Severity [...] 04/12/22 17:42:00 EDT, Route to Pharmacy Electronically, [facility] #[id number], Partial fill upon patient request if the prescription is for... Start Date: 04/12/22 Status: Ordered amLODIPine 10 mg oral tablet 1 tablet, By Mouth, Daily, # 90 tablet, 1 Refills, Maintenance, 04/08/22 10:06:00 EDT, [facility][id number], 170, cm, 04/04/22 15:17:00 EDT, Height, [...] Mouth, Daily, # 30 tablet, 0 Refills, [id number], 170, cm, 04/04/22 15:17:00 EDT,Height, 81.75, kg, [...] 04/26/22 14:29:00 EDT, Route to Pharmacy Electronically, [facility][id number], 170, cm, 04/12/22 15:12:00 EDT, [...] Refills, Maintenance, 04/24/22 16:25:00 EDT, CR Capsule, [facility], Partial fill upon patient request if the prescription is for a schedule II opioid drug., 170,... Start Date: 04/24/22 Status: Ordered famotidine 20 mg oral tablet 1, tablet, By Mouth, Daily, # 90 tablet, Refills 0, Tot. Refills 0, Maintenance, 04/08/22 10:12:00 EDT, Route to Pharmacy Electronically, [facility][id number], 170, cm, 04/04/22 15:17:00 EDT, Height, 81.75, kg, 03/21/22 15:54:00 EDT, Dry Weight Start Date: 04/08/22 Status: Ordered hydrALAZINE 25 mg oral tablet 2, tablet, By Mouth, 3 times a day, for 30 days, # 180 tablet, Refills 0, Physician Stop, Route to Pharmacy Electronically, [id number], 170, cm, 04/04/22 15:17:00 EDT, Height, 81.75, [...] 03/18/22 14:25:00 EDT, Route to Pharmacy Electronically, [facility] #[id number], Partial fill upon patient request if the prescription is for a schedule II opioid drug... Start Date: 03/18/22 Status: Ordered Methadone = 80 mg, By Mouth, Daily, last received from [facility] 03/19/22 & took home 3 doses. Ro Dodd [phone], 0 Refills, Maintenance, 03/21/22 11:55:00 EDT, ; Start Date: 03/21/22 Status: Ordered Multivitamin 1 tablet, By Mouth, Daily, 0 Refills, Maintenance, 03/21/22 2:31:00 EDT, ; Start Date: 03/21/22 Status: Ordered nicotine 14 mg/24 hr transdermal film, extended release 1 patch, Topically, Daily, for 7 days, # 7 patch, 0 Refills, Acute 05/08/22 10:14:00 EDT, 05/01/22 10:14:00 EDT, Patch, [facility]acy #[id number], Partial fill upon patient request [...] 05/01/22 Stop Date: 06/01/22 Status: Ordered Pen [place], 29 G x 12.7 mm BD Ultra [...] recurrent, due to IVDU including admission to [facility] [place] --> [facility] 09/18/2015 to 10/29/2015 for retroperitoneal [...] ex tremity, followed by Karena [facility] [phone](Confirmed) Active Venous ulcer of right leg(Confirmed) Active Social History Social History Type Response Tobacco Other: started smoki ng at 20 years old, now about 5 cigarettes. Sex
--- OUTSIDE RECORDS SUMMARY | 2023-06-23 09:47 | XMS_ITS | Continuity of Care Document ---
Author Name Unknown Organization [facility] Address [address] [place] [address]- Care Team Providers Care Supervisor Cutting And Sewing Room Name Role Phone Kristen Boudreaux DO Primary Care Physician [phone] Encounter [facility] Date(s): 02/02/23 - 04/03/23 [facility] [address] [place], [place] [address] Attending Physician: Gaurav Dumont MD Admitting Physician: Gaurav Dumont MD Referring Physician: López Iqbal MD Allergies, Adverse Reactions, Alerts Substance Reaction [...] influenza virus vaccine, inactivated 07/03/09 Dany rded [id number] bivalent booster vax 07/17/22 Recorded [id number] bivalent booster vax 07/17/22 Recorded pneumococcal 20-valent [...] capsule, 8 Refills, Maintenance, 11/25/22 8:27:00 EST, [id number], 170, cm, 10/09/22 16:43:00 EST, Height, 69.1, kg, 11/14/22 7:40:00 EST, Dry Weight Start Date: 11/25/22 Status: Ordered famotidine 20 mg oral tablet 1, tablet, By Mouth, Daily, # 90 tablet, Refills 0, Maintenance, 03/14/23 13:30:00 EDT, Route to Pharmacy Electronically, [id number], 170.1, cm, 03/14/23 9:45:00 EDT, Height, 68.4, kg, 03/14/23 9:45:00 EDT, Dry Weight Start Date: 03/14/23 Status: Ordered furosemide 40 mg oral tablet 3, tablet, By Mouth, 2 times a day, REFILL PER PCP OR NEPHROLOGY., # 180 tablet, Refills 2, Maintenance, 12/19/22 17:33:00 EDT, Route to Pharmacy Electronically, [facility], 170, cm, 12/19/22 10:06:00 EDT, Height, 71.6, [...] DETAILED DIRECTIONS Start Date: 03/06/23 Status: Ordered prednisolone ophthalmic acetate 1% suspension [...] recurrent, due to IVDU including admission to [facility] --> [facility] 09/18/2015 to 10/29/2015 for retroperitoneal abscess, MSSA bacteremia Confirmed Active 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, h.o chronic osteomyelitis Confirmed 4/5/22 Active Anemia Confirmed Active ADHD (attention deficit [...] lower extremity, followed by Karena Olivas [facility] [phone] Confirmed Active Venous ulcer of right leg [...] Safety Implantable Status Assigning Authority Unknown Unknown [id number] Unknown 07/25/23 Unknown Unknown Active Unknown Procedure Provider Procedure Date Device Type Site Insertion Hemodialysis Catheter Tyshawn Milian MD Unknown Chest Device Identifier Serial Number Lot or Batch Number Manufacturing Date Expiration Date Distinct Identification Code MRI Safety Implantable Status Assigning Authority Unknown Unknown [id number] Unknown 06/26/24 Unknown Unknown Active Unknown Patient Care team information Care Team Personnel Name: Maryam Fox RN Position: [facility] RN Member Role: Primary Care Nurse Name: Jana Monte RN Position: [facility] RN Member Role: Primary Care Nurse Name: Franchesca Ward RN Position: [facility] RN Member Role: Primary Care Nurse Name: Carolina Camacho RN Position: [facility] SN RN Member Role: Primary Care Nurse Name: Linda Hathaway Position: S Outreach Member Role: Lifetime Consulting Physician Name: Cynthia Hathaway RN Position: [facility] RN Member Role: Primary Care Nurse Name: Delaney Huber RN Position: [facility] RN Member Role: Primary Care Nurse Name: Juanita Main RN Position: [facility] RN Member Role: Primary Care Nurse Name: China Sutherland Position: [facility] Outreach Member Role: Lifetime Consulting Physician Name: Tayler Harris RN Position: [facility] RN Member Role: Primary Care Nurse Name: Sophie Bejarano NP Position: [facility] Associate Professional Member Role: Lifetime Consulting Provider Address: Address: [facility] [address] [place] [address]- Name: Vasile Byers MD Position: [facility] Renal MD Member Role: Lifetime Consulting Physician Address: Address: [address] [place] [address] [address] [facility] [place] [address]- Name: Edgar Mascorro RN Position: [facility] RN Member Role: Primary Care Nurse Name: Katalina Jorge RN Position: [facility] OB RN Member Role: Primary Care Nurse Name: Sophia Adan LPN Position: [facility] RN Member Role: Primary Care Nurse Name: Lorene Davenport RN Position: [facility] RN Member Role: Primary Care Nurse Name: Meryl Saini RN Position: [facility] SN RN Member Role: Primary Care Nurse Name: Allison Montez RN Position: [facility] RN Member Role: Primary Care Nurse Name: Guillermo Encinas DO Position: [facility] Renal MD Member Role: Lifetime Consulting Physician Address: Address: [address] [place] [address] [address] [facility] [address] Name: Christiano Parish RN Position: [facility] RN Member Role: Primary Care Nurse Name: Lorene Billingsley RN Position: [facility] Onco RN Member Role: Primary Care Nurse Name: Kathy Nieves RN Position: [facility] ED RN W/OE and Tasks Member Role: Primary Care Nurse Name: Nita Garcias RN Position: [facility] RN Member Role: Primary Care Nurse Name: Tyshawn Cook III, RN Position: [facility] RN Member Role: Primary Care Nurse Name: Mayuri England RN Position: [facility] RN Member Role: Primary Care Nurse Name: Sophia Johnson Position: [facility] RN Member Role: Primary Care Nurse Name: Paradise Linder RN Position: [facility] RN Member Role: Primary Care Nurse Name: Noemi Bustos RN Position: [facility] RN Member Role: Primary Care Nurse Name: Jennifer Song RN Position: [facility] RN Supv Member Role: Primary Care Nurse Name: Pina Mcgill RN Position: [facility] RN Member Role: Primary Care Nurse Name: Reina Franklin RN Position: [facility] RN Member Role: Primary Care Nurse Name: Yumiko Lindsay RN Position: [facility] RN Member Role: Primary Care Nurse Name: Vincent Thapa RN Position: [facility] RN Member Role: Primary Care Nurse Name: Kristen Boudreaux DO Position: [facility] Resident Member Role: PCP Address: Address: [address] [facility] [place] [address]- Name: Nicole Guzman RN Position: [facility] RN Member Role: Primary Care Nurse Name: Neil Bobby RN Position: [facility] ED RN W/OE and Tasks Member Role: Primary Care Nurse Name: Joellen Pineda RN Position: [facility] RN Member Role: Primary Care Nurse Name: Litzy Marin RN Position: [facility] RN Member Role: Primary Care Nurse Name: Crystal Robles RN Position: [facility] RN Member Role: Primary Care Nurse Name: Ruth Stevens LPN Position: [facility] RN Member Role: Primary Care Nurse Name: Nohemi Grande RN Position: [facility] Child Care Worker Member Role: Primary Care Nurse Name: Yolanda Tyler RN Position: [facility] Child Care Worker Member Role: Primary Care Nurse Care Team Related Persons Name: TAWNY BUTLER Address: home [address] [place] [address]
--- OUTSIDE RECORDS SUMMARY | 2023-06-23 09:47 | XMS_ITS | Continuity of Care Document ---
Author Name Unknown Organization [facility] Address [address] [place] [address]- Care Team Providers Care Sewer And Cutter Finger Buff Material Name Role Phone Kristen Boudreaux DO Primary Care Physician Encounter [facility] Date(s): 04/18/22 - 05/26/22 [facility] [address] [place], [place] [address] Attending Physician: Hua Ramos MD Admitting Physician: Hua Ramos MD Allergies, Adverse Reactions, Alerts Substance Reaction [...] EDT, Route to Pharmacy Electronically, [facility]/pharmacy #1130, Partial fill upon patient request if the prescription is for... Start Date: 05/16/22 Status: Ordered amLODIPine 10 mg oral tablet 1 tablet, By Mouth, Daily, # 90 tablet, 1 Refills, Maintenance, 04/08/22 10:06:00 EDT, [facility]/pharmacy#1130, 170, cm, 04/04/22 15:17:00 EDT, [...] 3 Refills, 05/16/22 14:00:00 EDT, [facility]/pharmacy #1130, 170.18, cm, 05/08/22 12:22:00 [...] EDT, Route to Pharmacy Electronically, [facility]/pharmacy #1130, 170, cm, 04/12/22 15:12:00 [...] # 30 capsule, 5 Refills, [facility], 170.18, cm, 05/08/22 12:22:00 EDT, Height, 81.8, kg, 05/08/22 12:22:00 EDT, Dry Weight Start Date: 05/15/22 Status: Ordered famotidine 20 mg oral tablet 1, tablet, By Mouth, Daily, # 90 tablet, Refills 3, Tot. Refills 3, Maintenance, 05/16/22 14:01:00 EDT, Route to Pharmacy Electronically, [facility]/pharmacy #1130, 170.18, cm, 05/08/22 12:22:00 EDT, Height, 81.8, kg, 05/08/22 12:22:00 EDT, Dry Weight Start Date: 05/16/22 Status: Ordered hydrALAZINE 25 mg oral tablet 50 mg, 2, tablet, By Mouth, 3 times a day, # 180 tablet, Refills 3, Tot. Refills 3, Maintenance, 05/23/22 15:52:00 EDT, Route to Pharmacy Electronically, [facility]/pharmacy #1130, Partial fill upon patientrequest [...] EDT, Route to Pharmacy Electronically, [facility]/pharmacy #1130, Partial fill upon patient request if the prescription is for a schedule II opioid drug... Start Date: 03/18/22 Status: Ordered Methadone = 80 mg, By Mouth, Daily, last received from [facility] 03/19/22 & took home 3 doses. Ro Confirmed [phone], 0 Refills, Maintenance, 03/21/22 11:55:00 EDT, ; Start Date: 03/21/22 Status: Ordered Multivitamin 1 tablet, By Mouth, Daily, 0 Refills, Maintenance, 03/21/22 2:31:00 EDT, ; Start Date: 03/21/22 Status: Ordered Nicotine 2 mg gum 1 each = 2 mg, Chew, Every 2 hours, PRN for smoking cessation, # 50 each, 0 Refills, Acute 06/01/2210:14:00 EDT, 05/01/22 10:12:00 EDT, Gum, [facility]/pharmacy #1130, Partial fill upon patient request if the prescription is for a schedule II opioid drug.,... Start Date: 05/01/22 Stop Date: 06/01/22 Status: Ordered Pen [place]on, 29 G x 12.7 mm BD Ultra [...] Refills, Maintenance, 05/06/22 13:08:00 EDT, Tablet, [facility]/pharmacy #1130, Partial fill upon patient [...] recurrent, due to IVDU including admission to [facility] --> [facility] 09/18/2015 to 10/29/2015 for retroperitoneal [...] ex tremity, followed by [facility]a [facility]ivas [facility] [phone](Confirmed) Active Venous ulcer of right leg(Confirmed) Active Social History Social History Type Response Tobacco Other: started smoki ng at 20 years old, now about 5 cigarettes. Sex Care Team Personnel Name: Kristen Boudreaux DO Address: [address] [place] [address] [place] [address]-
--- OUTSIDE RECORDS SUMMARY | 2023-06-23 09:47 | XMS_ITS | Continuity of Care Document ---
Author Name Unknown Organization [facility] Address [address] [place] [address]- Care Team Providers Care Teletype Installer Name Role Phone Kristen Boudreaux DO Primary Care Physician [phone] Encounter [facility] Date(s): 03/13/23 - 06/12/23 [facility] [address] [place] [address]- Attending Physician: Alberto Monroy MD Admitting Physician: Alberto Monroy MD Allergies, Adverse Reactions, Alerts Substance Reaction [...] influenza virus vaccine, inactivated 07/03/09 Dany rded [id number] bivalent booster vax 07/17/22 Recorded [id number] bivalent booster vax 07/17/22 Recorded pneumococcal 20-valent conjugate vaccine 03/12/22 Given tetanus/diphtheria/pertussis, acel(Tdap) 12/17/21 Given tetanus/diphtheria/pertussis, acel(Tdap) 12/17/21 Recorded tetanus/diphtheria/pertussis, acel(Tdap) 05/14/13 Given tetanus/diphtheria/pertussis, acel(Tdap) 05/14/13 Recorded SARS-CoV-2 (COVID-19) mRNA BNT-162b2 vac 05/18/21 Recorded SARS-CoV-2 (COVID-19) mRNA BNT-162b2 vac 05/18/21 Recorded SARS-CoV-2 (COVID-19) mRNA BNT-162b2 vac 04/27/21 Recorded SARS-CoV-2 (COVID-19) mRNA BNT-162b2 vac 04/27/21 Recorded pneumococcal 23-valent vaccine 07/11/14 Given Medications acetaminophen 325 mg oral capsule 2 [...] capsule, 8 Refills, Maintenance, 11/25/22 8:27:00 EST, [facility], 170, cm, 10/09/22 16:43:00 EST, Height, 69.1, kg, 11/14/22 7:40:00 EST, Dry Weight Start Date: 11/25/22 Status: Ordered famotidine 20 mg oral tablet 1, tablet, By Mouth, Daily, # 90 tablet, Refills 0, Maintenance, 03/14/23 13:30:00 EDT, Route to Pharmacy Electronically, [facility] 18709, 170.1, cm, 03/14/23 9:45:00 EDT, Height, 68.4, kg, 03/14/23 9:45:00 EDT, Dry Weight Start Date: 03/14/23 Status: Ordered furosemide 40 mg oral tablet 3, tablet, By Mouth, 2 times a day, REFILL PER PCP OR NEPHROLOGY., # 180 tablet, Refills 2, Maintenance, 12/19/22 17:33:00 EDT, Route to Pharmacy Electronically, [facility], 170, cm, 12/19/22 10:06:00 EDT, Height, 71.6, [...] mL, 0 Refills, Maintenance, 04/09/23 10:56:00 EDT, [facility]/pharmacy #1130, Partial fill upon patient [...] recurrent, due to IVDU including admission to [facility] --> [facility] 09/18/2015 [...] ulcer, right lower extremity, followed by Karena [facility] [phone] Confirmed Active Venous ulcer of right leg [...] Safety Implantable Status Assigning Authority Unknown Unknown [id number] Unknown 07/25/23 Unknown Unknown Active Unknown Procedure Provider Procedure Date Device Type Site Insertion Hemodialysis Catheter Tyshawn Milian MD Unknown Chest Device Identifier Serial Number Lot or Batch Number Manufacturing Date Expiration Date Distinct Identification Code MRI Safety Implantable Status Assigning Authority Unknown Unknown [id number] Unknown 06/26/24 Unknown Unknown Active Unknown Patient Care team information Care Team Personnel Name: Maryam Fox RN Position: [facility] RN Member Role: Primary Care Nurse Name: Jana Monte RN Position: S RN Member Role: Primary Care Nurse Name: Franchesca Ward RN Position: S RN Member Role: Primary Care Nurse Name: Carolina Camacho RN Position: [facility] SN RN Member Role: Primary Care Nurse Name: Linda Hathaway Position: [facility] Outreach Member Role: Lifetime Consulting Physician Name: Cynthia Hathaway RN Position: [facility] RN Member Role: Primary Care Nurse Name: Delaney Huber RN Position: [facility] RN Member Role: Primary Care Nurse Name: Juanita Main RN Position: [facility] RN Member Role: Primary Care Nurse Name: China Sutherland Position: [facility] Outreach Member Role: Lifetime Consulting Physician Name: Tayler Harris RN Position: [facility] RN Member Role: Primary Care Nurse Name: Sophie Bejarano NP Position: [facility] Associate Professional Member Role: Lifetime Consulting Provider Address: Address: [address] [place] [address] [address] [facility] [address] Name: Vasile Byers MD Position: [facility] Renal MD Member Role: Lifetime Consulting Physician Address: Address: [facility] [address] [address] Name: Edgar Mascorro RN Position: [facility] RN Member Role: Primary Care Nurse Name: Katalina Jorge RN Position: [facility] OB RN Member Role: Primary Care Nurse Name: Sophia Adan LPN Position: [facility] RN Member Role: Primary Care Nurse Name: Lorene Davenport RN Position: [facility] RN Member Role: Primary Care Nurse Name: Meryl Saini RN Position: [facility] ED RN W/OE and Tasks Member Role: Primary Care Nurse Name: Allison Montez RN Position: [facility] RN Member Role: Primary Care Nurse Name: Guillermo Encinas DO Position: [facility] Renal MD Member Role: Lifetime Consulting Physician Address: Address: [address] [place] [address] Drive [address] [facility] [address] Name: Christiano Parish RN Position: [facility] RN Member Role: Primary Care Nurse Name: Lorene Billingsley RN Position: [facility] Onco RN Member Role: Primary Care Nurse Name: Kathy Nieves RN Position: [facility] ED RN W/OE and Tasks Member Role: Primary Care Nurse Name: Nita Garcias RN Position: [facility] RN Member Role: Primary Care Nurse Name: Tyshawn Cook III, RN Position: [facility] RN Member Role: Primary Care Nurse Name: Mayuri England RN Position: [facility] RN Member Role: Primary Care Nurse Name: Sophia Johnson Position: [facility] RN Member Role: Primary Care Nurse Name: Paradise Linder RN Position: [facility] RN Member Role: Primary Care Nurse Name: Noemi Bustos RN Position: [facility] RN Member Role: Primary Care Nurse Name: Jennifer Song RN Position: [facility] RN Supv Member Role: Primary Care Nurse Name: Pina Mcgill RN Position: [facility] RN Member Role: Primary Care Nurse Name: Reina Franklin RN Position: [facility] RN Member Role: Primary Care Nurse Name: Yumiko Lindsay RN Position: [facility] RN Member Role: Primary Care Nurse Name: Vincent Thapa RN Position: [facility] RN Member Role: Primary Care Nurse Name: Kristen Boudreaux DO Position: [facility] Resident Member Role: PCP Address: Address: [address] [place] [address]- Name: Nicole Guzman RN Position: [facility] RN Member Role: Primary Care Nurse Name: Neil Bobby RN Position: [facility] RN Member Role: Primary Care Nurse Name: Joellen Pineda RN Position: [facility] RN Member Role: Primary Care Nurse Name: Crystal Robles RN Position: [facility] RN Member Role: Primary Care Nurse Name: Ruth Stevens LPN Position: [facility] RN Member Role: Primary Care Nurse Name: Nohemi Grande RN Position: [facility] Client Success Director Member Role: Primary Care Nurse Name: Yolanda Tyler RN Position: [facility] Client Success Director Member Role: Primary Care Nurse Care Team Related Persons Name: TAWNY BUTLER Address: home [address] [place] [address]
--- OUTSIDE RECORDS SUMMARY | 2023-06-23 09:47 | XMS_ITS | Continuity of Care Document ---
Author Name Unknown Organization [facility] Address [address] [facility] [address] [place] [address]- Care Team Providers Care Dye Machine Operator Name Role Phone Kristen Boudreaux DO Primary Care Physician [phone] Encounter [facility] ACCT R [id number] Date(s): 05/09/23 - 06/08/23 [facility] [address] [facility] [address] [place] [address]- [place] Allergies, Adverse Reactions, Alerts Substance Reaction Severity [...] influenza virus vaccine, inactivated 07/03/09 Dany rded [id number] bivalent booster vax 07/17/22 Recorded [id number] bivalent booster vax 07/17/22 Recorded pneumococcal 20-valent [...] capsule, 8 Refills, Maintenance, 11/25/22 8:27:00 EST, [facility] STORE [id number], 170, cm, 10/09/22 16:43:00 EST, Height, 69.1, kg, 11/14/22 7:40:00 EST, Dry Weight Start Date: 11/25/22 Status: Ordered famotidine 20 mg oral tablet 1, tablet, By Mouth, Daily, # 90 tablet, Refills 0, Maintenance, 03/14/23 13:30:00 EDT, Route to Pharmacy Electronically, [facility] STORE [id number], 170.1, cm, 03/14/23 9:45:00 EDT, Height, 68.4, kg, 03/14/23 9:45:00 EDT, Dry Weight Start Date: 03/14/23 Status: Ordered furosemide 40 mg oral tablet 3, tablet, By Mouth, 2 times a day, REFILL PER PCP OR NEPHROLOGY., # 180 tablet, Refills 2, Maintenance, 12/19/22 17:33:00 EDT, Route to Pharmacy Electronically, [facility] STORE [id number], 170, cm, 12/19/22 10:06:00 EDT, Height, 71.6, [...] mL, 0 Refills, Maintenance, 04/09/23 10:56:00 EDT, [facility]/pharmacy #[id number], Partial fill upon patient request [...] recurrent, due to IVDU including admission to [facility] --> [facility] 09/18/2015 [...] lower extremity, followed by Karena Olivas [facility] [phone] Confirmed Active Venous ulcer of right leg Confirmed Active Social History Social History Type Response Tobacco Other: started smoki ng at 20 years old, now about 5 cigarettes. Sex Male Implantable Device List Procedure Provider Procedure Date Device Type Site Removal Hemodialysis Catheter Christopher VILLATORO, Bill Cardenas 12/19/22 Unknown Arm Right Device Identifier Serial Number Lot or Batch Number Manufacturing Date Expiration Date Distinct Identification Code MRI Safety Implantable Status Assigning Authority Unknown Unknown [id number] Unknown 07/25/23 Unknown Unknown Active Unknown Procedure Provider Procedure Date Device Type Site Insertion Hemodialysis Catheter Tyshawn Milian MD Unknown Chest Device Identifier Serial Number Lot or Batch Number Manufacturing Date Expiration Date Distinct Identification Code MRI Safety Implantable Status Assigning Authority Unknown Unknown [id number] Unknown 06/26/24 Unknown Unknown Active Unknown Patient Care team information Care Team Personnel Name: Maryam Fox RN Position: [facility] RN Member Role: Primary Care Nurse Name: Jana Monte RN Position: [facility] RN Member Role: Primary Care Nurse Name: Franchesca Ward RN Position: [facility] RN Member Role: Primary Care Nurse Name: Carolina Camacho RN Position: [facility] RN Member Role: Primary Care Nurse Name: Linda Hathaway Position: S Outreach Member Role: Lifetime Consulting Physician Name: Cynthia Hathaway RN Position: [facility] RN Member Role: Primary Care Nurse Name: Delaney Huber RN Position: [facility] RN Member Role: Primary Care Nurse Name: Juanita Main RN Position: [facility] RN Member Role: Primary Care Nurse Name: China Sutherland Position: [facility] Outreach Member Role: Lifetime Consulting Physician Name: Tayler Harris RN Position: [facility] RN Member Role: Primary Care Nurse Name: Sophie Bejarano NP Position: [facility] Associate Professional Member Role: Lifetime Consulting Provider Address: Address: [facility] [address] [facility] [address] Name: Vasile Byers MD Position: [facility] Renal MD Member Role: Lifetime Consulting Physician Address: Address: [facility] [address] [facility] [address] Name: Edgar Mascorro RN Position: [facility] RN Member Role: Primary Care Nurse Name: Katalina Jorge RN Position: [facility] OB RN Member Role: Primary Care Nurse Name: Sophia Adan LPN Position: [facility] RN Member Role: Primary Care Nurse Name: Lorene Davenport RN Position: [facility] RN Member Role: Primary Care Nurse Name: Meryl Saini RN Position: [facility] ED RN W/OE and Tasks Member Role: Primary Care Nurse Name: Allison Montez RN Position: [facility] RN Member Role: Primary Care Nurse Name: Guillermo Encinas DO Position: [facility] Renal MD Member Role: Lifetime Consulting Physician Address: Address: [facility] [address] [facility] [address] Name: Christiano Parish RN Position: [facility] RN Member Role: Primary Care Nurse Name: Lorene Billingsley RN Position: [facility] Onco RN Member Role: Primary Care Nurse Name: Kathy Nieves RN Position: [facility] ED RN W/OE and Tasks Member Role: Primary Care Nurse Name: Nita Garcias RN Position: [facility] RN Member Role: Primary Care Nurse Name: Tyshawn Cook III, RN Position: [facility] RN Member Role: Primary Care Nurse Name: Mayuri England RN Position: [facility] RN Member Role: Primary Care Nurse Name: Sophia Johnson Position: [facility] RN Member Role: Primary Care Nurse Name: Paradise Linder RN Position: [facility] RN Member Role: Primary Care Nurse Name: Noemi Bustos RN Position: [facility] RN Member Role: Primary Care Nurse Name: Jennifer Song RN Position: [facility] RN Venu Member Role: Primary Care Nurse Name: Pina Mcgill RN Position: [facility] RN Member Role: Primary Care Nurse Name: Reina Franklin RN Position: [facility] RN Member Role: Primary Care Nurse Name: Yumiko Lindsay RN Position: [facility] RN Member Role: Primary Care Nurse Name: Vincent Thapa RN Position: [facility] RN Member Role: Primary Care Nurse Name: Kristen Boudreaux DO Position: [facility] Resident Member Role: PCP Address: Address: [address] [place] [address] [place] [address]- Name: Nicole Guzman RN Position: [facility] RN Member Role: Primary Care Nurse Name: Neil Bobby RN Position: [facility] RN Member Role: Primary Care Nurse Name: Joellen Pineda RN Position: [facility] RN Member Role: Primary Care Nurse Name: Litzy Marin RN Position: [facility] RN Member Role: Primary Care Nurse Name: Crystal Robles RN Position: [facility] RN Member Role: Primary Care Nurse Name: Ruth Stevens LPN Position: [facility] RN Member Role: Primary Care Nurse Name: Nohemi Grande RN Position: [facility] Test Lead Application Testing Member Role: Primary Care Nurse Name: Yolanda Tyler RN Position: [facility] Test Lead Application Testing Member Role: Primary Care Nurse Care Team Related Persons Name: TAWNY BUTLER Address: home [address] [place] [address]
--- OUTSIDE RECORDS SUMMARY | 2023-06-23 09:47 | XMS_ITS | Continuity of Care Document ---
Author Name Unknown Organization [facility] ter Address [address] [place] [address]- Care Team Providers Care Protective Services Case Worker Name Role Phone Kristen Boudreaux DO Primary Care Physician Encounter [facility] Date(s): 11/06/22 - 03/06/[address] [address] Attending Physician: Morgan Adan MD Admitting Physician: Morgan Adan MD Referring Physician: Morgan Adan MD Allergies, Adverse Reactions, Alerts Substance Reaction [...] influenza virus vaccine, inactivated 07/03/09 Dany rded [id number] bivalent booster vax 07/17/22 Recorded [id number] bivalent booster vax 07/17/22 Recorded pneumococcal 20-valent [...] 3 Refills, 05/16/22 14:00:00 EDT, [facility]/pharmacy #1130, 170.18, cm, 05/08/22 12:22:00 EDT, Height, 81.8, kg, 05/08/22 12:22:00 EDT, Dry Weight Start Date: 05/16/22 Status: Ordered BD PARMINDER 2 GEN PEN NDL 32G 4MM USE TO INJECT INSULIN 4 TIMES A DAY Start Date: 02/20/23 Status: Ordered BD PARMINDER 2 GEN PEN NDL [id number] USE TO INJECT INSULIN 4 TIMES A DAY Start Date: 02/20/23 Status: Ordered BD PARMINDER PEN NDL [id number] USE TO INJECT INSULIN FOUR TIMES A DAY Start Date: 02/20/23 Status: Ordered carvedilol 25 mg oral tablet Refills 0, [...] EDT, Route to Pharmacy Electronically, [facility]/pharmacy #[id number], 170, cm, 04/12/22 15:12:00 EDT, Height, 81.75, kg, 03/21/22 15:54:00 EDT, . Start Date: 04/26/22 Status: Ordered Colace sodium 100 mg oral capsule 100 mg, 1, capsule, By Mouth, 2 times a day, PRN, # 60 capsule, Refills 0, Tot. Refills 0, Maintenance, for constipation, 12/19/22 14:25:00 EDT, Route to Pharmacy Electronically, [facility]/pharmacy #[id number], Partial fill upon patient request [...] capsule, 8 Refills, Maintenance, 11/25/22 8:27:00 EST, [facility] STORE [id number], 170, cm, 10/09/22 16:43:00 EST, Height, 69.1, [...] 05/16/22 14:01:00 EDT, [facility], 170.18, cm, 05/08/22 12:22:00 EDT, Height, 81.8, kg, 05/08/22 12:22:00 EDT, Dry Weight Start Date: 05/16/22 Status: Ordered furosemide 40 mg oral tablet 3, tablet, By Mouth, 2 times a day, REFILL PER PCP OR NEPHROLOGY., # 180 tablet, Refills 2, Maintenance, 12/19/22 17:33:00 EDT, Route to Pharmacy Electronically, [facility] STORE 25245, 170, cm, 12/19/22 10:06:00 EDT, Height, 71.6, [...] 10/17/22 17:13:00 EST, [id number], Partial fill upon patientrequest if the [...] 10/17/22 17:13:00 EST, Route to Pharmacy Electronically, [facility]/pharmacy #[id number], Partial fill upon patient request if the prescription is... Start Date: 10/17/22 Stop Date: 05/15/23 Status: Ordered lisinopril 40 mg oral tablet TAKE 1 [...] DETAILED DIRECTIONS Start Date: 03/06/23 Status: Ordered Pen [place], 29 G x 12.7 mm BD Ultra Fine See Instructions, # 100 each, Refills 5, Tot. Refills 5, Maintenance, use as directed for Type 2 Diabetes Mellitus, 05/16/22 14:00:00 EDT, Supply, 170.18, cm, 05/08/22 12:22:00 EDT, Height, 81.8, kg,05/08/22 12:22:00 EDT, Dry Weight Start Date: 05/16/22 Stop Date: 11/12/22 Status: Ordered prednisolone ophthalmic acetate 1% suspension INSTILL ONE DROP INTO THE LEFT EYE 4 TIMES A DAY STARTING THE DAY AFTER SURGERY AND CONTINUING. Start Date: 03/06/23 Status: Ordered Wheelchair See Instructions, # 1 each, Maintenance, Lymphedema 189.0, 04/12/22 17:43:00 EDT, Supply Start Date: 04/12/22 Status: Ordered Problem List Condition Confirmation Course Effective Dates Status H ealth Status Informant Abscesses, recurrent, due to IVDU including admission to [facility] --> [facility] 09/18/2015 to 10/29/2015 for retroperitoneal [...] lower extremity, followed by Karena Olivas [facility] [phone] Confirmed Active Venous ulcer of right leg [...] Safety Implantable Status Assigning Authority Unknown Unknown [id number] Unknown 07/25/23 Unknown Unknown Active Unknown Procedure Provider Procedure Date Device Type Site Insertion Hemodialysis Catheter Tyshawn Milian MD Unknown Chest Device Identifier Serial Number Lot or Batch Number Manufacturing Date Expiration Date Distinct Identification Code MRI Safety Implantable Status Assigning Authority Unknown Unknown [id number] Unknown 06/26/24 Unknown Unknown Active Unknown Patient Care team information Care Team Personnel Name: Maryam Fox RN Position: [facility] RN Member Role: Primary Care Nurse Name: Jana Monte RN Position: [facility] RN Member Role: Primary Care Nurse Name: Franchesca Ward RN Position: [facility] RN Member Role: Primary Care Nurse Name: Carolina Camacho RN Position: [facility] RN Member Role: Primary Care Nurse Name: Linda Hathaway Position: S Outreach Member Role: Lifetime Consulting Physician Name: Cynthia Hathaway RN Position: [facility] RN Member Role: Primary Care Nurse Name: Delaney Huber RN Position: [facility] RN Member Role: Primary Care Nurse Name: Juanita Main RN Position: [facility] RN Member Role: Primary Care Nurse Name: China Sutherland Position: [facility] Outreach Member Role: Lifetime Consulting Physician Name: Tayler Harris RN Position: [facility] RN Member Role: Primary Care Nurse Name: Sophie Bejarano NP Position: [facility] Associate Professional Member Role: Lifetime Consulting Provider Address: Address: [address] [place] [address] [address] [facility] [address] Name: Vasile Byers MD Position: [facility] Renal MD Member Role: Lifetime Consulting Physician Address: Address: [address] [place] [address] [address] [facility] [address] Name: Edgar Mascorro RN Position: [facility] RN Member Role: Primary Care Nurse Name: Katalina Jorge RN Position: [facility] OB RN Member Role: Primary Care Nurse Name: Sophia Adan LPN Position: [facility] RN Member Role: Primary Care Nurse Name: Lorene Davenport RN Position: [facility] EARLE RN W/OE and Tasks Member Role: Primary Care Nurse Name: Meryl Saini RN Position: [facility] SN RN Member Role: Primary Care Nurse Name: Annie Langston RN Position: [facility] RN Member Role: Primary Care Nurse Name: Allison Montez RN Position: [facility] RN Member Role: Primary Care Nurse Name: Guillermo Encinas DO Position: [facility] Renal MD Member Role: Lifetime Consulting Physician Address: Address: [address] [place] [address] [address] [facility] [address] Name: Christiano Parish RN Position: [facility] RN Member Role: Primary Care Nurse Name: Lorene Billingsley RN Position: [facility] Onco RN Member Role: Primary Care Nurse Name: Kathy Nieves RN Position: [facility] ED RN W/OE and Tasks Member Role: Primary Care Nurse Name: Nita Garcias RN Position: [facility] RN Member Role: Primary Care Nurse Name: Tyshawn Cook III, RN Position: [facility] RN Member Role: Primary Care Nurse Name: Mayuri England RN Position: [facility] RN Member Role: Primary Care Nurse Name: Sophia Johnson Position: [facility] RN Member Role: Primary Care Nurse Name: Paradise Linder RN Position: [facility] RN Member Role: Primary Care Nurse Name: Noemi Bustos RN Position: [facility] RN Member Role: Primary Care Nurse Name: Jennifer Song RN Position: [facility] RN Supv Member Role: Primary Care Nurse Name: Pina Mcgill RN Position: [facility] RN Member Role: Primary Care Nurse Name: Reina Franklin RN Position: [facility] RN Member Role: Primary Care Nurse Name: Yumiko Lindsay RN Position: [facility] RN Member Role: Primary Care Nurse Name: Vincent Thapa RN Position: [facility] RN Member Role: Primary Care Nurse Name: Kristen Boudreaux DO Position: [facility] Resident Member Role: PCP Address: Address: [address] [place] [address] [place], [place] [address] Name: Nicole Guzman RN Position: [facility] RN Member Role: Primary Care Nurse Name: Neil Bobby RN Position: [facility] ED RN W/OE and Tasks Member Role: Primary Care Nurse Name: Joellen Pineda RN Position: [facility] RN Member Role: Primary Care Nurse Name: Litzy Marin RN Position: [facility] RN Member Role: Primary Care Nurse Name: Crystal Robles RN Position: [facility] RN Member Role: Primary Care Nurse Name: Ruth Stevens LPN Position: [facility] RN Member Role: Primary Care Nurse Name: Nohemi Grande RN Position: [facility] Wrapper Operator Member Role: Primary Care Nurse Name: Yolanda Tyler RN Position: [facility] Wrapper Operator Member Role: Primary Care Nurse Care Team Related Persons Name: TAWNY BUTLER Address: home [address] [place] [address]
--- OUTSIDE RECORDS SUMMARY | 2023-06-23 09:47 | XMS_ITS | Continuity of Care Document ---
Author Name Unknown Organization [facility] ter Address [address] [place] [address]- Care Team Providers Care Time Clock Inspector Name Role Phone Kristen Boudreaux DO Primary Care Physician Encounter [facility] Date(s): 05/08/22 - 05/08/[address] [address] Discharge Disposition: A-D/C Home Attending Physician: López Iqbal MD Admitting Physician: López Iqbal MD Referring Physician: López Iqbal MD Allergies, [...] 04/12/22 17:42:00 EDT, Route to Pharmacy Electronically, [facility]/pharmacy #[id number], Partial fill upon patient request if the prescription is for... Start Date: 04/12/22 Status: Ordered amLODIPine 10 mg oral tablet 1 tablet, By Mouth, Daily, # 90 tablet, 1 Refills, Maintenance, 04/08/22 10:06:00 EDT, [facility]/pharmacy#1130, 170, cm, 04/04/22 15:17:00 [...] Mouth, Daily, # 30 tablet, 0 Refills, [facility] STORE 69172, 170, cm, 04/04/22 15:17:00 EDT,Height, 81.75, kg, [...] 04/26/22 14:29:00 EDT, Route to Pharmacy Electronically, [facility]/pharmacy #1130, 170, cm, 04/12/22 [...] Refills, Maintenance, 04/24/22 16:25:00 EDT, CR Capsule, [facility], Partial fill upon patient request if the prescription is for a schedule II opioid drug., 170,... Start Date: 04/24/22 Status: Ordered famotidine 20 mg oral tablet 1, tablet, By Mouth, Daily, # 90 tablet, Refills 0, Tot. Refills 0, Maintenance, 04/08/22 10:12:00 EDT, Route to Pharmacy Electronically, [facility]/pharmacy #1130, 170, cm, 04/04/22 15:17:00 EDT, Height, [...] 03/18/22 14:25:00 EDT, Route to Pharmacy Electronically, [facility]/pharmacy #[id number], Partial fill upon patient request if the prescription is for a schedule II opioid drug... Start Date: 03/18/22 Status: Ordered Methadone = 80 mg, By Mouth, Daily, last received from [facility] 03/19/22 & took home 3 doses. Ro Confirmed [phone], 0 Refills, Maintenance, 03/21/22 11:55:00 EDT, ; [...] 05/01/22 Stop Date: 06/01/22 Status: Ordered Pen [place], 29 G x 12.7 mm BD Ultra [...] 3 Refills, Maintenance, 05/06/22 13:08:00 EDT, Tablet, [facility]/pharmacy #[id number], Partial fill upon [...] due to IVDU including admission to [facility] --> [facility] 09/18/2015 [...] right lower ex tremity, [phone] Active Venous ulcer of right leg(Confirmed) Active Vital Signs Most recent to oldest [Reference Range]: 1 2 3 Height 170.18 cm (05/08/22 12:22 PM) 170.18 cm (05/06/22 10:27 AM) Weight 81.8 kg (05/08/22 12:22 PM) 84.09 kg (05/06/22 10:27 AM) Oxygen Saturation [94-100 %] 91 % *L* (05/08/22 4:15 PM) 100 % (05/08/22 4:00 PM) 96 % (05/08/22 3:45 PM) Pulse Rate [55-90 bpm] 80 bpm (05/08/22 12:22 PM) Body Mass Index [18.5-24.99] 28.24 *H* (05/08/22 12:22 PM) 29.04 *H* (05/06/22 10:27 AM) Blood Pressure [90-138/55-84 mm Hg] 136/89mm Hg (05/08/22 4:15 PM) 136/80mm Hg (05/08/22 4:00 PM) 145/83mm Hg *H* (05/08/22 3:45 PM) Respiratory Rate [16-30 br/min] 10 br/min *L* (05/08/22 4:15 PM) 11 br/min *L* (05/08/22 4:00 PM) 7 br/min *L* (05/08/22 3:45 PM) Temperature [96.8-100.4 DegF] 97.3 DegF (05/08/22 3:45 PM) 98.4 DegF (05/08/22 12:22 PM) Liters per Minute 6 L/min (05/08/22 3:45 PM) Mode of Delivery (Oxygen) Room air (05/08/22 4:45 PM) Room air (05/08/22 4:15 PM) Room air (05/08/22 4:00 PM) Blood pressure sites Arm, right (05/08/22 3:45 PM) Arm, right (05/08/22 12:22 PM) Temperature Route Temporal (05/08/22 3:45 PM) Temporal (05/08/22 12:22 PM) Dry Weight 81.8 kg (05/08/22 12:22 PM) 84.09 kg (05/06/22 10:27 AM) Weight Obtained Via Patient/family state d (05/08/22 12:22 PM) Patient/family stated (05/06/22 10:27 AM) Dry Weight Obtained Via Patient/family s tated (05/06/22 10:27 AM) Social History Social History Type Response Tobacco Other: started smoki ng at 20 years old, now about 5 cigarettes. Sex
--- OUTSIDE RECORDS SUMMARY | 2023-06-23 09:47 | XMS_ITS | Continuity of Care Document ---
Author Name Unknown Organization [facility] Address [address] [place] [address]- Care Team Providers Care [place] Mail Carrier Name Role Phone Kristen Boudreaux DO Primary Care Physician En[place] [facility] [place] Date(s): 06/10/23 - 06/17/23 [facility] [address] [place], [place] [address] Attending Physician: Marcia Carter NP Admitting Physician: Marcia Caretr NP Referring Physician: Kristen Boudreaux DO Allergies, Adverse Reactions, Alerts Substance Reaction Severity [...] influenza virus vaccine, inactivated 07/03/09 Dany rded [id number] bivalent booster vax 07/17/22 Recorded [id number] bivalent booster vax 07/17/22 Recorded pneumococcal 20-valent [...] capsule, 8 Refills, Maintenance, 11/25/22 8:27:00 EST, [id number], 170, cm, 10/09/22 16:43:00 EST, Height, 69.1, kg, 11/14/22 7:40:00 EST, Dry Weight Start Date: 11/25/22 Status: Ordered famotidine 20 mg oral tablet 1, tablet, By Mouth, Daily, # 90 tablet, Refills 0, Maintenance, 03/14/23 13:30:00 EDT, Route to Pharmacy Electronically, [facility] 137[facility], 170.1, cm, 03/14/23 9:45:00 EDT, Height, 68.4, kg, 03/14/23 9:45:00 EDT, Dry Weight Start Date: 03/14/23 Status: Ordered furosemide 40 mg oral tablet 3, tablet, By Mouth, 2 times a day, REFILL PER PCP OR NEPHROLOGY., # 180 tablet, Refills 2, Maintenance, 12/19/22 17:33:00 EDT, Route to Pharmacy Electronically, [facility], 170, cm, 12/19/22 10:06:00 EDT, Height, 71.6, kg, 12/19/22 10:06:00 EDT,... Start Date: 12/19/22 Status: Ordered Left arm, above the elbow prosthetic Left arm, above the elbow prosthetic, See Instructions, # 1 each, Refills 0, Tot. Refills 0, Maintenance, Dx: left arm above the elbow amputation, 03/13/23 10:05:00 EDT, Supply Start Date: 03/13/23 Status: Ordered methadone 10 mg oral tablet = 50 mg, By Mouth, Daily, liquid form., 0 [...] mL, 0 Refills, Maintenance, 04/09/23 10:56:00 EDT, [facility]/pharmacy #[id number], Partial fill upon patient request if [...] due to IVDU including admission to [facility] [place] --> [facility] 09/18/2015 [...] lower extremity, followed by Karena Olivas [facility] [phone] Confirmed Active Venous ulcer of right leg Confirmed Active Vital Signs Most recent to oldest [Reference Range]: 1 Height 170.1 cm (06/10/23 2:30 PM) Weight 74 kg (06/10/23 2:30 PM) Oxygen Saturation [94-100 %] 98 % (06/10/23 2:30 PM) Pulse Rate [55-90 bpm] 77 bpm (06/10/23 2:30 PM) Body Mass Index [18.5-24.99 kg/m2] 25.58 kg/m2 *H* (06/10/23 2:30 PM) Blood Pressure [90-138/55-84 mm Hg] 128/ 80mm Hg (06/10/23 2:30 PM) Blood pressure sites Arm, right (06/10/23 2:30 PM) Weight Obtained Via Patient/family state d (06/10/23 2:30 PM) Social History Social History Type Response Tobacco Other: started smoki ng at 20 years old, now about 5 cigarettes. Sex Male Implantable Device List Procedure Provider Procedure Date Device Type Site Removal Hemodialysis Catheter McPartBill gold MD 12/19/22 Unknown Arm Right Device Identifier Serial Number Lot or Batch Number Manufacturing Date Expiration Date Distinct Identification Code MRI Safety Implantable Status Assigning Authority Unknown Unknown [id number] Unknown 07/25/23 Unknown Unknown Active Unknown Procedure Provider Procedure Date Device Type Site Insertion Hemodialysis Catheter Tyshawn Milian MD Unknown Chest Device Identifier Serial Number Lot or Batch Number Manufacturing Date Expiration Date Distinct Identification Code MRI Safety Implantable Status Assigning Authority Unknown Unknown [id number] Unknown 06/26/24 Unknown Unknown Active Unknown Note * Xin Moore: PERFORM, SIGN, VERIFY Event Display: Patient Education/Instruction Authored Date: [id number] [facility] [address] Clinical Summary Name MICHAEL BUTLER Age 47 Years 1975 PCP Kristen Boudreaux DO PCP Visit Date 06/10/2023 14:22:00 Additional Instructions: Scheduled Appointments?? Future Appointments ?*[facility]Preop ?[address]??[place],??[place],??[address] ?Phone:??--?Fax:??-- ?Appt. Date:??06/17/2023?2:30 PM ?Scheduled Provider:??Wilner FLOORWORKER DISTRIBUTOR, Kevyn Dattatra ?*[facility] ?[address] ?[place],??[place],??[address] ?Phone:??--?Fax:??-- ?Appt. Date:??07/03/2023?3:20 PM ?Scheduled Provider:??Danielle Amador DO ?*[facility]Lab??[address] ?Phone:??--?Fax:??-- ?Appt. Date:??08/12/2023?1:00 PM ?Scheduled Provider:??Ultrasound Room 3 [facility] ?*[facility]??[place],??[place],??[address] ?Phone:??--?Fax:??-- ?Appt. Date:??08/19/2023?1:40 PM ?Scheduled Provider:??Carlos Arceo MD ?[facility] ?[address]??[place],??[place],??[address] ?Phone:??[phone]?Fax:??-- ?Appt. Date:??10/21/2023?2:30 PM ?Scheduled Provider:??[id number] Follow-Up Instructions ?? With: Address: When: Carlos Arceo MD Comments: 21/2 to 3 months axillary to brachial artery bypass graft and follow-up with Dr. Arceo in person please Diagnosis Medications: Please continue your medications until treatment is completed or stopped by your provider. Discuss any questions related to medications with your provider. Medications to Continue with No Changes These medications were not printed or sent to your pharmacy Acetaminophen (acetaminophen 325 mg oral capsule) 2 capsule Oral every 8 hours as needed as needed for pain. Next Dose: Aspirin (aspirin 162.5 mg oral capsule, extended release) 325 Milligram Oral Daily. Next Dose: Carvedilol (carvedilol 25 mg oral tablet) 1 tab(s) Oral twice a day. Next Dose: Clonidine (cloNIDine 0.1 mg oral tablet) 2 tab(s) Oral. TAKE 2 TABLETS BY MOUTH EVERY MORNING, 2 TABLETS AT NOON, AND 2 TABLETS EVERY EVENING ONLY IF BP > 160. Next Dose: Duloxetine (duloxetine 30 mg oral enteric coated capsule) 1 capsule Oral Daily. DONT CRUSH. /CHEW..Refills: 8. Next Dose: Durable Medical Equipment (Left arm, above the elbow prosthetic) Dx: left arm above the elbow amputation. Refills: 0. Next Dose: Famotidine (famotidine 20 mg oral tablet) 1 tab(s) Oral Daily. Refills: 0. Next Dose: Furosemide (furosemide 40 mg oral tablet) 3 tab(s) Oral twice a day. REFILL PER PCP OR NEPHROLOGY..Refills: 2. Next Dose: Methadone (methadone 10 mg oral tablet) 60 Milligram Oral Daily. liquid form.. Next Dose: Ofloxacin Ophthalmic (ofloxacin 0.3% ophthalmic solution) PLEASE SEE ATTACHED FOR DETAILED DIRECTIONS. Next Dose: PEG Electrolyte Solution (PEG-3350 with Electrolytes (Eqv-GoLYTELY) oral powder for reconstitution)1 glass every 15-30 minutes until finished. Refills: 0. Next Dose: PrednisoLONE Ophthalmic (prednisolone ophthalmic acetate 1% suspension) INSTILL ONE DROP INTO THE LEFT EYE 4 TIMES A DAY STARTING THE DAY AFTER SURGERY AND CONTINUING.. Next Dose: sucroferric oxyhydroxide (Velphoro 2500 mg (500 mg elemental iron) oral tablet, chewable) 1 tab(s) Chew 3 times a day with meals. Next Dose: Allergy Info:?? Compazine; Risperdal Medications Given This Visit Future Orders ?VL Arterial Bypass Right Graft? Order Date:06/10/23?- Complete within?3 months Vital Signs Height 170.1 cm Weight 74 kg BMI 25.58 kg/m2 Blood Pressure 128 mm Hg/80 mm Hg Temperature Pulse Rate 77 bpm Respiratory Rate 02 Sat Mode of Delivery 98 %/ You can now view a summary of your hospital visit from the comfort of your home through a free online portal called [employer]. [employer] is a website that allows you to securely view your medical information including discharge summary, medications and follow-up visits. ??You can alsosend a secure electronic message to your doctor???s office to request appointments, renew medications or just ask a question. You can enroll at [email or web address] or register during your next office visit. Disclaimer:?? The information provided is of a general nature and is intended to be used in conjunction with the recommendations and advice of your health care practitioner. ??Every effort has been made to ensure that the information provided is accurate and complete at the time it is provided to you however, as your needs change, or, as new ??information becomes available, different or additional instructions may be required. If you have questions, please consult with your primary care provider or pharmacist, as appropriate. ??This information is not intended to serve as substitution for assessment and evaluation by a qualified health care provider. If you do not have a primary care provider, you may find a [facility] provider by calling [facility] Link at [phone]. [facility], in keeping with [facility] guidance, no longer requires face masks for staff, patientsor visitors in most situations. Similar to time spent indoors at other locations, there is the chance that you were exposed to respiratory viruses during your time with us (such as flu or COVID-19).? If you develop symptoms concerning for a viral respiratory infection, please seek testing (and treatment if indicated) from your medical provider or home test kit. For information about the plan of care including goals and instructions for your diagnosis, please see the patient education orders section of this document. Patient Education Materials?? The content of this educational material or handout may have been modified, supplemented, or adapted from its original content and format to support your individualized medical care. Patient Care team information Care Team Personnel Name: Maryam Fox RN Position: [facility] RN Member Role: Primary Care Nurse Name: Jana Monte RN Position: [facility] RN Member Role: Primary Care Nurse Name: Franchesca Ward RN Position: [facility] RN Member Role: Primary Care Nurse Name: Carolina Camacho RN Position: [facility] RN Member Role: Primary Care Nurse Name: Linda Hathaway Position: [facility] Outreach Member Role: Lifetime Consulting Physician Name: Cynthia Hathaway RN Position: [facility] RN Member Role: Primary Care Nurse Name: Delaney Huber RN Position: [facility] RN Member Role: Primary Care Nurse Name: Juanita Main RN Position: [facility] RN Member Role: Primary Care Nurse Name: China Sutherland Position: [facility] Outreach Member Role: Lifetime Consulting Physician Name: Tayler Harris RN Position: [facility] RN Member Role: Primary Care Nurse Name: Sophie Bejarano NP Position: [facility] Associate Professional Member Role: Lifetime Consulting Provider Address: Address: [facility] [address] [facility] [address] Name: Vasile Byers MD Position: [facility] Renal MD Member Role: Lifetime Consulting Physician Address: Address: [address] [facility] [address] Name: Edgar Mascorro RN Position: [facility] RN Member Role: Primary Care Nurse Name: Katalina Jorge RN Position: [facility] OB RN Member Role: Primary Care Nurse Name: Sophia Adan LPN Position: [facility] RN Member Role: Primary Care Nurse Name: Lorene Davenport RN Position: [facility] RN Member Role: Primary Care Nurse Name: Meryl Saini RN Position: [facility] ED RN W/OE and Tasks Member Role: Primary Care Nurse Name: Allison Montez RN Position: [facility] RN Member Role: Primary Care Nurse Name: Guillermo Encinas DO Position: [facility] Renal MD Member Role: Lifetime Consulting Physician Address: Address: [facility] [address] [facility] [address] Name: Christiano Parish RN Position: [facility] RN Member Role: Primary Care Nurse Name: Lorene Billingsley RN Position: [facility] Onco RN Member Role: Primary Care Nurse Name: Kathy Nieves RN Position: [facility] ED RN W/OE and Tasks Member Role: Primary Care Nurse Name: Nita Garcias RN Position: [facility] RN Member Role: Primary Care Nurse Name: Tyshawn Cook III, RN Position: [facility] RN Member Role: Primary Care Nurse Name: Mayuri England RN Position: [facility] RN Member Role: Primary Care Nurse Name: Sophia Johnson Position: [facility] RN Member Role: Primary Care Nurse Name: Paradise Linder RN Position: [facility] RN Member Role: Primary Care Nurse Name: Noemi Bustos RN Position: [facility] RN Member Role: Primary Care Nurse Name: Jennifer Song RN Position: [facility] RN Supv Member Role: Primary Care Nurse Name: Pina Mcgill RN Position: [facility] RN Member Role: Primary Care Nurse Name: Reina Franklin RN Position: [facility] RN Member Role: Primary Care Nurse Name: Yumiko Lindsay RN Position: [facility] RN Member Role: Primary Care Nurse Name: Vincent Thapa RN Position: [facility] RN Member Role: Primary Care Nurse Name: Kristen Boudreaux DO Position: [facility] Resident Member Role: PCP Address: Address: [address] [place] [address] [place] [address]- Name: Nicole Guzman RN Position: [facility] RN Member Role: Primary Care Nurse Name: Neil Bobby RN Position: [facility] RN Member Role: Primary Care Nurse Name: Joellen Pineda RN Position: [facility] RN Member Role: Primary Care Nurse Name: Crystal Robles RN Position: [facility] RN Member Role: Primary Care Nurse Name: Ruth Stevens LPN Position: [facility] RN Member Role: Primary Care Nurse Name: Nohemi Grande RN Position: [facility] [address] Traffic Controller Member Role: Primary Care Nurse Name: Yolanda Tyler RN Position: [facility] [address] Traffic Controller Member Role: Primary Care Nurse Care Team Related Persons Name: TAWNY BUTLER Address: home [address] [place] [address]
--- OUTSIDE RECORDS SUMMARY | 2023-06-23 09:47 | XMS_ITS | Continuity of Care Document ---
Author Name Unknown Organization [facility] Address [address] [place] [address]- Care Team Providers Care Retail Stock Clerk Name Role Phone Kristen Boudreaux DO Primary Care Physician Encounter [facility] [place] Date(s): 04/24/22 - 06/28/22 [facility] [address] [place] [address]- Attending Physician: Alberto Monroy MD Admitting Physician: [...] 14:00:00 EDT, Route to Pharmacy Electronically, [facility]/pharmacy #[id number], Partial fill upon patient request if the prescription is for... Start Date: 05/16/22 Status: Ordered amLODIPine 10 mg oral tablet 1 tablet, By Mouth, Daily, # 90 tablet, 1 Refills, Maintenance, 04/08/22 10:06:00 EDT, [facility]/pharmacy#1130, 170, cm, 04/04/22 15:17:00 EDT, Height, 81.75, [...] tablet, 3 Refills, 05/16/22 14:00:00 EDT, [facility]/pharmacy #1130, 170.18, cm, 05/08/22 12:22:00 EDT, Height, [...] 14:29:00 EDT, Route to Pharmacy Electronically, [facility]/pharmacy #1130, 170, cm, 04/12/22 15:12:00 EDT, Height, [...] /CHEW., # 30 capsule, 5 Refills, [facility] 28488, 170.18, cm, 05/08/22 12:22:00 EDT, Height, 81.8, kg, 05/08/22 12:22:00 EDT, Dry Weight Start Date: 05/15/22 Status: Ordered famotidine 20 mg oral tablet 1, tablet, By Mouth, Daily, # 90 tablet, Refills 3, Tot. Refills 3, Maintenance, 05/16/22 14:01:00 EDT, Route to Pharmacy Electronically, [facility]/pharmacy #1130, 170.18, cm, 05/08/22 12:22:00 EDT, Height, 81.8, kg, 05/08/22 12:22:00 EDT, Dry Weight Start Date: 05/16/22 Status: Ordered hydrALAZINE 25 mg oral tablet 50 mg, 2, tablet, By Mouth, 3 times a day, # 180 tablet, Refills 3, Tot. Refills 3, Maintenance, 05/23/22 15:52:00 EDT, [facility], Partial fill upon [...] 14:25:00 EDT, Route to Pharmacy Electronically, [facility]/pharmacy #1130, Partial fill upon patient request if the prescription is for a schedule II opioid drug... Start Date: 03/18/22 Status: Ordered Methadone = 80 mg, By Mouth, Daily, last received from [facility] 03/19/22 & took home 3 doses. Ro Confirmed [phone], 0 Refills, Maintenance, 03/21/22 11:55:00 EDT, ; Start Date: 03/21/22 Status: Ordered Multivitamin 1 tablet, By Mouth, Daily, 0 Refills, Maintenance, 03/21/22 2:31:00 EDT, ; Start Date: 03/21/22 Status: Ordered Pen [place], 29 G x 12.7 mm BD Ultra [...] lower extremity, followed by Karena Olivas [facility] [phone] Confirmed Active Venous ulcer of right leg Confirmed Active Social History Social History Type Response Tobacco Other: started smoki ng at 20 years old, now about 5 cigarettes. Sex Patient Care team information Personnel Name: Kristen Boudreaux DO Address: Address: [address] [place] [address] [place] [address]-
--- OUTSIDE RECORDS SUMMARY | 2023-06-23 09:47 | XMS_ITS | Continuity of Care Document ---
Author Name Unknown Organization [facility] Address [address] [place] [address]- Care Team Providers Care Digital Archivist Name Role Phone Kristen Boudreaux DO Primary Care Physician [phone] Encounter [facility] Date(s): 04/02/22 - 05/15/22 [facility] [address] [place], [place] [address] Attending Physician: Hua Ramos MD Admitting Physician: [...] 04/12/22 17:42:00 EDT, Route to Pharmacy Electronically, [facility]/pharmacy #1130, Partial fill upon patient request if the prescription is for... Start Date: 04/12/22 Status: Ordered amLODIPine 10 mg oral tablet 1 tablet, By Mouth, Daily, # 90 tablet, 1 Refills, Maintenance, 04/08/22 10:06:00 EDT, [facility]/pharmacy#1130, 170, cm, 04/04/22 15:17:00 EDT, Height, [...] Mouth, Daily, # 30 tablet, 0 Refills, [facility] 47730, 170, cm, 04/04/22 15:17:00 EDT,Height, 81.75, kg, [...] 04/26/22 14:29:00 EDT, Route to Pharmacy Electronically, [facility]/pharmacy #1130, 170, cm, 04/12/22 15:12:00 EDT, [...] CRUSH. /CHEW., # 30 capsule, 5 Refills, [facility] 19919, 170.18, cm, 05/08/22 12:22:00 EDT, Height, 81.8, kg, 05/08/22 12:22:00 EDT, Dry Weight Start Date: 05/15/22 Status: Ordered famotidine 20 mg oral tablet 1, tablet, By Mouth, Daily, # 90 tablet, Refills 0, Tot. Refills 0, Maintenance, 04/08/22 10:12:00 EDT, Route to Pharmacy Electronically, [facility]/pharmacy #1130, 170, cm, 04/04/22 15:17:00 EDT, [...] 03/18/22 14:25:00 EDT, Route to Pharmacy Electronically, [facility]/pharmacy #1130, Partial fill upon patient request if the prescription is for a schedule II opioid drug... Start Date: 03/18/22 Status: Ordered Methadone = 80 mg, By Mouth, Daily, last received from [facility] 03/19/22 & took home 3 doses. Ro Confirmed [phone], 0 Refills, Maintenance, 03/21/22 11:55:00 EDT, ; Start Date: 03/21/22 Status: Ordered Multivitamin 1 tablet, By Mouth, Daily, 0 Refills, Maintenance, 03/21/22 2:31:00 EDT, ; Start Date: 03/21/22 Status: Ordered Nicotine 2 mg gum 1 each = 2 mg, Chew, Every 2 hours, PRN for smoking cessation, # 50 each, 0 Refills, Acute 06/01/2210:14:00 EDT, 05/01/22 10:12:00 EDT, Gum, [facility]/pharmacy #1130, Partial fill upon patient request if the prescription is for a schedule II opioid drug.,... Start Date: 05/01/22 Stop Date: 06/01/22 Status: Ordered Pen [place], 29 G x 12.7 mm BD Ultra [...] recurrent, due to IVDU including admission to [facility] --> [facility] 09/18/2015 to 10/29/2015 for retroperitoneal [...] right [facility] ex tremity[phone]) Active Venous ulcer of right leg(Confirmed) Active Social History Social History Type Response Tobacco Other: started smoki ng at 20 years old, now about 5 cigarettes. Sex
--- OUTSIDE RECORDS SUMMARY | 2023-06-23 09:47 | XMS_ITS | Continuity of Care Document ---
Author Name Unknown Organization [facility] Address [address] [place] [address]- Care Team Providers Care Director Of Religious Life Name Role Phone Kristen Boudreaux DO Primary Care Physician [place] [facility] [place] 02[place]17/22 [facility] [address] [place] [address]- Allergies, Adverse Reactions, Alerts Substance Reaction Severity [...] ceftriaxone and send results to Dr Burnett.fax [phone], 08/23/16 15:40:34, Compound Start Date: 08/23/16 Status: [...] EDT, H... Start Date: 02/06/22 Status: Ordered cloNIDine 0.1 mg oral tablet [...] 02/06/22 15:07:00 EDT, Route to Pharmacy Electronically, [facility] #1130, [...] times a day, # 180 tablet, Refills 0, Tot. Refills 0, Maintenance, 02/08/22 9:10:00 EDT, Route to Pharmacy Electronically, [facility]/pharmacy #1130, Partial fill upon patient request if the prescription is for a schedule II opi... Start Date: 02/08/22 Stop Date: 03/10/22 Status: Ordered lidocaine 5% topical film 2 film, Topically, Daily, # 30 patch, 0 Refills, Maintenance, 01/08/22 11:22:00 EDT, Patch, [facility], Partial fill upon patient request if [...] 08/23/16 Stop Date: 09/22/16 Status: Ordered Pen [place], 29 G x 12.7 mm BD Ultra [...] due to I VDU [place] [facility] [place] [facility] 09/18/2015 to 10/29/2015 for retroperitoneal abscess, MSSA bacteremia(Confirmed) Active ADHD (attention deficit hype ractivity disorder)(Confirmed) Active Polysubstance dependence inc luding opioid drug with daily use(Confirmed) Active IDDM (insulin dependent diab etes mellitus)(Confirmed) Active Diabetic neuropathy(Confirmed) Active S/P amputation of limb(Confirmed) Active Hypertension(Confirmed) Active Overweight(Confirmed) Active Right LE venous ulcer, follo wed by Karena [facility] [phone](Confirmed) Active Venous ulcer of right leg(Confirmed) Active Social History Social History Type Response Tobacco Other: started smoki ng at 20 years old, now about 5 cigarettes. Sex
--- OUTSIDE RECORDS SUMMARY | 2023-06-23 09:47 | XMS_ITS | Continuity of Care Document ---
Author Name Unknown Organization Wound Care Address [address] [place] [id number]- Care Team Providers Care Case Folder Name Role Phone Kristen Boudreaux DO Primary Care Physician Encounter [facility] Date(s): 03/19/22 - 04/20/22 Wound Care [address] [place] [id number] Attending Physician: Kennedy JERRY, Lilliam Carranza Admitting Physician: Kennedy JERRY, Lilliam Carranza Allergies, Adverse Reactions, Alerts Substance Reaction Severity [...] 04/12/22 17:42:00 EDT, Route to Pharmacy Electronically, [facility]/pharmacy #[id number], Partial fill upon patient request if the prescription is for... Start Date: 04/12/22 Status: Ordered amLODIPine 10 mg oral tablet 1 tablet, By Mouth, Daily, # 90 tablet, 1 Refills, Maintenance, 04/08/22 10:06:00 EDT, [facility]/pharmacy#[id number], 170, cm, 04/04/22 15:17:00 EDT, Height, [...] Mouth, Daily, # 30 tablet, 0 Refills, [id number], 170, cm, 04/04/22 15:17:00 EDT,Height, 81.75, kg, 03/21/22 15:54:00 EDT, Dry Weight Start Date: 04/08/22 Status: Ordered Basaglar KwikPen = 10 units, Subcutaneous Injection, Daily, 0 Refills, Maintenance, 03/18/22 12:33:00 EDT, ; Start Date: 03/18/22 Status: Ordered cloNIDine 0.1 mg oral tablet 1, tablet, By Mouth, 3 times a day, # 270 tablet, Refills 1, Tot. Refills 1, Maintenance, 04/08/22 10:11:00 EDT, Route to Pharmacy Electronically, [facility]/pharmacy #[id number], 170, cm, 04/04/22 15:17:00 EDT, Height, 81.75, kg, 03/21/22 15:54:00 EDT, Dry Weight Start Date: 04/08/22 Status: Ordered Compression Stockings See Instructions, # 1 each, Refills 1, Tot. Refills 1, Maintenance, Juxta Lite Circaid compression wraps bilateral 30-40 mm Hg, 03/05/22 14:53:00 EDT, Compound Start Date: 03/05/22 Status: Ordered duloxetine 30 mg oral enteric coated capsule 1 capsule = 30 mg, By Mouth, Daily, do not crush or chew, # 30 capsule, 0 Refills, Maintenance, 04/12/22 17:56:00 EDT, CR Capsule, [facility]/pharmacy #[id number], Partial fill upon patient request if the prescription is for a schedule II opioid drug., 170, cm, 07... Start Date: 04/12/22 Status: Ordered famotidine 20 mg oral tablet 1, tablet, By Mouth, Daily, # 90 tablet, Refills 0, Tot. Refills 0, Maintenance, 04/08/22 10:12:00 EDT, Route to Pharmacy Electronically, [facility]/pharmacy #[id number], 170, cm, 04/04/22 15:17:00 EDT, Height, 81.75, kg, 03/21/22 15:54:00 EDT, Dry Weight Start Date: 04/08/22 Status: Ordered hydrALAZINE 25 mg oral tablet 2, tablet, By Mouth, 3 times a day, for 30 days, # 180 tablet, Refills 0, Physician Stop, Route to Pharmacy Electronically, [id number], 170, cm, 04/04/22 15:17:00 EDT, Height, 81.75, kg, 03/21/22 15:54:00 EDT, Dry Weight Start Date: 04/08/22 Stop Date: 05/08/22 Status: Ordered Insulin Lispro KwikPen 100 units/mL injectable solution 2-10 units, Subcutaneous Injection, 3 times a day before meals, Maintenance, 03/21/22 11:54:00 EDT,; Start Date: 03/21/22 Status: Ordered lidocaine 4% topical cream 1 application, Topically, 3 times a day, # 30 Gm, 4 Refills, Maintenance, 04/04/22 16:32:00 EDT, Cream, [facility]/pharmacy #[id number], Partial fill upon patient request if the prescription is for a schedule II opioid drug., 1 application Topically 3 times a day,... Start Date: 04/04/22 Status: Ordered lisinopril 20 mg oral tablet 20 mg, 1, tablet, By Mouth, Daily, # 30 tablet, Refills 6, Tot. Refills 6, Maintenance, 03/18/22 14:25:00 EDT, Route to Pharmacy Electronically, [facility]/pharmacy #[id number], Partial fill upon patient request if the prescription is for a schedule II opioid drug... Start Date: 03/18/22 Status: Ordered Methadone = 80 mg, By Mouth, Daily, last received from [facility] 03/19/22 & took home 3 doses. Ro Confirmed [phone], 0 Refills, Maintenance, 03/21/22 11:55:00 EDT, ; Start Date: 03/21/22 Status: Ordered Multivitamin 1 tablet, By Mouth, Daily, 0 Refills, Maintenance, 03/21/22 2:31:00 EDT, ; Start Date: 03/21/22 Status: Ordered Pen [place], 29 G x 12.7 mm BD Ultra [...] 0 Refills, Maintenance, 03/29/22 11:48:00 EDT, Tablet, [facility]/pharmacy #[id number], Partial fill upon patient request [...] ex tremity, followed by Karena [facility]ivas [facility] [phone](Confirmed) Active Venous ulcer of right leg(Confirmed) Active Social History Social History Type Response Tobacco Other: started smoki ng at 20 years old, now about 5 cigarettes. Sex
--- OUTSIDE RECORDS SUMMARY | 2023-06-23 09:47 | XMS_ITS | Continuity of Care Document ---
Author Name Unknown Organization [facility] Address [address] [place] [address]- Care Team Providers Care Supervisor Reclamation Name Role Phone Kristen Boudreaux DO Primary Care Physician Encounter [facility] Date(s): 05/07/22 - 06/06/22 [facility] [address] [place], [place] [address] Allergies, Adverse Reactions, Alerts Substance Reaction [...] 05/16/22 14:00:00 EDT, Route to Pharmacy Electronically, [facility]/pharmacy #[id number], Partial fill upon patient request if the prescription is for... Start Date: 05/16/22 Status: Ordered amLODIPine 10 mg oral tablet 1 tablet, By Mouth, Daily, # 90 tablet, 1 Refills, Maintenance, 04/08/22 10:06:00 EDT, [facility]/pharmacy#[id number], 170, cm, 04/04/22 15:17:00 EDT, Height, [...] 90 tablet, 3 Refills, 05/16/22 14:00:00 EDT, [facility]/pharmacy #[id number], 170.18, cm, 05/08/22 12:22:00 EDT, [...] 04/26/22 14:29:00 EDT, Route to Pharmacy Electronically, [facility]/pharmacy #[id number], 170, cm, 04/12/22 15:12:00 EDT, [...] CRUSH. /CHEW., # 30 capsule, 5 Refills, [facility] [id number], 170.18, cm, 05/08/22 12:22:00 EDT, Height, 81.8, kg, 05/08/22 12:22:00 EDT, Dry Weight Start Date: 05/15/22 Status: Ordered famotidine 20 mg oral tablet 1, tablet, By Mouth, Daily, # 90 tablet, Refills 3, Tot. Refills 3, Maintenance, 05/16/22 14:01:00 EDT, Route to Pharmacy Electronically, [facility]/pharmacy #[id number], 170.18, cm, 05/08/22 12:22:00 EDT, Height, 81.8, kg, 05/08/22 12:22:00 EDT, Dry Weight Start Date: 05/16/22 Status: Ordered hydrALAZINE 25 mg oral tablet 50 mg, 2, tablet, By Mouth, 3 times a day, # 180 tablet, Refills 3, Tot. Refills 3, Maintenance, 05/23/22 15:52:00 EDT, [id number] fill upon patientrequest if the [...] 03/18/22 14:25:00 EDT, Route to Pharmacy Electronically, [facility]/pharmacy #[id number], Partial fill upon patient request if the prescription is for a schedule II opioid drug... Start Date: 03/18/22 Status: Ordered Methadone = 80 mg, By Mouth, Daily, last received from [facility] 03/19/22 & took home 3 doses. Ro Confirmed [phone], 0 Refills, Maintenance, 03/21/22 11:55:00 EDT, ; Start Date: 03/21/22 Status: Ordered Multivitamin 1 tablet, By Mouth, Daily, 0 Refills, Maintenance, 03/21/22 2:31:00 EDT, ; Start Date: 03/21/22 Status: Ordered Pen [place], 29 G x 12.7 mm BD Ultra [...] recurrent, due to IVDU including admission to [facility] --> [facility] 09/18/2015 [...] of left lower extremity(Confirmed) Active Overweight(Confirmed) Active Proliferative diabetic retinopathy(Confirmed) Active Uriostegui's cyst of right knee(Confirmed) Active Venous ulcer, right lower ex tremity, [phone] Active Venous ulcer of right leg(Confirmed) Active Social History Social History Type Response Tobacco Other: started smoki ng at 20 years old, now about 5 cigarettes. Sex Care Team Personnel Name: Kristen Boudreaux DO Address: [address] [place] [address] [place] [address]-
--- OUTSIDE RECORDS SUMMARY | 2023-06-23 09:47 | XMS_ITS | Continuity of Care Document ---
Author Name Unknown Organization [facility] Address [address] [facility] [address] [place] [address]- Care Team Providers Care Bioinformatics Programmer Name Role Phone Kristen Boudreaux DO Primary Care Physician [phone] Encounter [facility] Date(s): 09/12/22 - 10/12/22 [facility] [address] [place] [address]- Attending Physician: Nader Jansen Admitting Physician: AdmtrNader Referring Physician: Admtr, Ar8 Allergies, Adverse Reactions, Alerts Substance Reaction Severity Status Risperdal tongue swells Active Compazine difficulty breathing difficulty Active Immunizations Given and Recorded Vaccine Date Status Refusal Reason influenza virus vaccine, inactivated 09/14/22 Give n influenza virus vaccine, inactivated 09/19/15 Give n influenza virus vaccine, inactivated 07/03/09 Dany rded [id number] bivalent booster vax 07/17/22 Recorded pneumococcal 20-valent [...] 05/16/22 14:00:00 EDT, Route to Pharmacy Electronically, [facility]/pharmacy #[id number], Partial fill upon patient request if the prescription is for... Start Date: 05/16/22 Status: Ordered Aspirin Low Dose 81 mg oral delayed release tablet 1 tablet, By Mouth, Daily, # 90 tablet, 3 Refills, 05/16/22 14:00:00 EDT, [facility]/pharmacy #1130, 170.18, cm, 05/08/22 12:22:00 EDT, Height, 81.8, kg, 05/08/22 12:22:00 EDT, Dry Weight Start Date: 05/16/22 Status: Ordered cloNIDine 0.1 mg oral tablet 0.2 mg, 2, tablet, By Mouth, 3 times a day, # 270 tablet, Refills 1, Tot. Refills 1, Maintenance, 04/26/22 14:29:00 EDT, [id number] 170, cm, 04/12/22 15:12:00 EDT, Height, [...] CRUSH. /CHEW., # 30 capsule, 5 Refills, [facility] 78630, 170.18, cm, 05/08/22 12:22:00 EDT, Height, 81.8, kg, 05/08/22 12:22:00 EDT, Dry Weight Start Date: 05/15/22 Status: Ordered famotidine 20 mg oral tablet 1, tablet, By Mouth, Daily, # 90 tablet, Refills 3, Tot. Refills 3, Maintenance, 05/16/22 14:01:00 EDT, [facility] 170.18, cm, 05/08/22 12:22:00 EDT, Height, 81.8, kg, 05/08/22 12:22:00 EDT, Dry Weight Start Date: 05/16/22 Status: Ordered hydrALAZINE 25 mg oral tablet 50 mg, 2, tablet, By Mouth, 3 times a day, # 180 tablet, Refills 3, Tot. Refills 3, Maintenance, 05/23/22 15:52:00 EDT, Route to Pharmacy Electronically, [facility]/pharmacy #[id number], Partial fill upon patientrequest if the prescription is for a schedule II op... Start Date: 05/23/22 Stop Date: 09/20/22 Status: Ordered Lasix 40 mg oral tablet 120 mg, 3, tablet, By Mouth, 2 times a day, Refill per PCP or Nephrology, # 180 tablet, Refills 0, Tot. Refills 0, Maintenance, 09/21/22 10:34:00 EST, Route to Pharmacy Electronically, [facility], Partial fill upon patient request if the... Start Date: 09/21/22 Status: Ordered lisinopril 20 mg oral tablet 20 mg, 1, tablet, By Mouth, Daily, Refill per PCP or Nephrology, # 30 tablet, Refills 0, Tot. Refills 0, Maintenance, 09/21/22 10:35:00 EST, Route to Pharmacy Electronically, [facility], Partial fill upon patient request if the prescript... Start Date: 09/21/22 Status: Ordered Methadone = 70 mg, By Mouth, Daily, last received from [email or web address] 03/19/22 & took home 3 doses. Ro Confirmed [phone], 0 Refills, Maintenance, 03/21/22 11:55:00 EDT, ; Start Date: 03/21/22 Status: Ordered Pen [place], 29 G x 12.7 mm BD Ultra [...] lower extremity, followed by [facility] [phone] Confirmed Active Venous ulcer of right leg [...] Safety Implantable Status Assigning Authority Unknown Unknown [id number] Unknown 06/26/24 Unknown Unknown Active Unknown Patient Care team information Care Team Personnel Name: Maryam Fox RN Position: [facility] RN Member Role: Primary Care Nurse Name: Franchesca Wadr RN Position: [facility] RN Member Role: Primary Care Nurse Name: Carolina Camacho RN Position: [facility] RN Member Role: Primary Care Nurse Name: Linda Hathaway Position: [facility] Outreach Member Role: Lifetime Consulting Physician Name: Delaney Huber RN Position: [facility] RN Member Role: Primary Care Nurse Name: Juanita Main RN Position: [facility] RN Member Role: Primary Care Nurse Name: China Sutherland RN Position: [facility] Outreach Member Role: Lifetime Consulting Physician Name: Tayler Harris RN Position: [facility] RN Member Role: Primary Care Nurse Name: Sophie Bejarano NP Position: [facility] Associate Professional Member Role: Lifetime Consulting Provider Address: Address: [address] [place] [address] [address] [facility] [place] [address]- Name: Carline Cantu RN Position: [facility] RN Member Role: Primary Care Nurse Name: Vasile Byers MD Position: [facility] Renal MD Member Role: Lifetime Consulting Physician Address: Address: [address] [place], [place] [address] [place] [address]- Name: Katalina Jorge RN Position: [facility] OB RN Member Role: Primary Care Nurse Name: Lorene Davenport RN Position: [facility] RN Member Role: Primary Care Nurse Name: Meryl Saini RN Position: [facility] SN RN Member Role: Primary Care Nurse Name: Annie Langston RN Position: [facility] RN Member Role: Primary Care Nurse Name: Guillermo Encinas DO Position: [facility] Renal MD Member Role: Lifetime Consulting Physician Address: Address: [address] [place], [place] [address] [address] Name: Lorene Billingsley RN Position: [facility] Onco RN Member Role: Primary Care Nurse Name: Kathy Nieves RN Position: [facility] ED RN W/OE and Tasks Member Role: Primary Care Nurse Name: Sophia Johnson Position: [facility] RN Member Role: Primary Care Nurse Name: Awais Brenner RN Position: [facility] RN [...] Resident Member Role: PCP Address: Address: [address] [place] [address]- Name: Nicole Guzman RN Position: [facility] RN Member Role: Primary Care Nurse Name: Neil Bobby RN Position: [facility] ED RN W/OE and Tasks Member Role: Primary Care Nurse Name: Joellen Pineda RN Position: [facility] RN Member Role: Primary Care Nurse Name: Litzy Marin RN Position: [facility] RN Member Role: Primary Care Nurse Name: Crystal Robles RN Position: [facility] RN Member Role: Primary Care Nurse Name: Ruth Stevens LPN Position: [facility] RN Member Role: Primary Care Nurse Name: Nohemi Grande RN Position: [facility] Twister In Member Role: Primary Care Nurse Name: Yolanda Tyler RN Position: [facility] Twister In Member Role: Primary Care Nurse Care Team Related Persons Name: TAWNY BUTLER Address: home [address] [place] [address]
--- OUTSIDE RECORDS SUMMARY | 2023-06-23 09:47 | XMS_ITS | Continuity of Care Document ---
Author Name Unknown Organization [facility] ter Address [address] [place] [id number] Care Team Providers Care Ring Sorter Name Role Phone Kristen Boudreaux DO Primary Care Physician Encounter [facility] [place] Date(s): 09/12/22 - 09/21/[address] [id number] Discharge Disposition: A-D/C Home Attending Physician: Oneida VILLATORO, Ash Jain Admitting Physician: Sujata Gomez MD Referring Physician: Not on Staff, Referring MD Allergies, Adverse Reactions, Alerts Substance Reaction Severity Status Risperdal tongue swells Active Compazine difficulty breathing difficulty Active Immunizations Given and Recorded Vaccine Date Status Refusal Reason influenza virus vaccine, inactivated 09/14/22 Give n influenza virus vaccine, inactivated 09/19/15 Give n influenza virus vaccine, inactivated 07/03/09 Dany rded [id number] bivalent booster vax 07/17/22 Recorded pneumococcal 20-valent [...] 05/16/22 14:00:00 EDT, Route to Pharmacy Electronically, [facility]/pharmacy #[id number], Partial fill upon patient request if the prescription is for... Start Date: 05/16/22 Status: Ordered Aspirin Low Dose 81 mg oral delayed release tablet 1 tablet, By Mouth, Daily, # 90 tablet, 3 Refills, 05/16/22 14:00:00 EDT, [facility]/pharmacy #[id number], 170.18, cm, 05/08/22 12:22:00 EDT, [...] 04/26/22 14:29:00 EDT, Route to Pharmacy Electronically, [facility]/pharmacy #[id number], 170, cm, 04/12/22 15:12:00 EDT, [...] opioid drug. Start Date: 09/13/22 Status: Ordered Coreg 25 mg oral tablet 25 mg, Tablet, By Mouth, 09/21/22 9:00:00 EST Start Date: 09/21/22 Stop Date: 09/21/22 Status: Completed duloxetine 30 mg oral enteric coated capsule 1 capsule, By Mouth, Daily, DONT CRUSH. /CHEW., # 30 capsule, 5 Refills, [facility] STORE [id number], 170.18, cm, 05/08/22 12:22:00 EDT, Height, 81.8, kg, 05/08/22 12:22:00 EDT, Dry Weight Start Date: 05/15/22 Status: Ordered famotidine 20 mg oral tablet 1, tablet, By Mouth, Daily, # 90 tablet, Refills 3, Tot. Refills 3, Maintenance, 05/16/22 14:01:00 EDT, Route to Pharmacy Electronically, [facility]/pharmacy #[id number], 170.18, cm, 05/08/22 12:22:00 EDT, Height, 81.8, kg, 05/08/22 12:22:00 EDT, Dry Weight Start Date: 05/16/22 Status: Ordered hydrALAZINE 25 mg oral tablet 50 mg, 2, tablet, By Mouth, 3 times a day, # 180 tablet, Refills 3, Tot. Refills 3, Maintenance, 05/23/22 15:52:00 EDT, [id number] fill upon patientrequest if the prescription is for a schedule II op... Start Date: 05/23/22 Stop Date: 09/20/22 Status: Ordered hydrALAZINE 25 mg oral tablet 50 mg, Tablet, By Mouth, 09/21/22 9:00:00 EST Start Date: 09/21/22 Stop Date: 09/21/22 Status: Completed Insulin Lispro KwikPen 100 units/mL injectable solution 2-10 units, Subcutaneous Injection, 3 times a day before meals, Maintenance, 03/21/22 11:54:00 EDT,; Start Date: 03/21/22 Status: Ordered Lasix 40 mg oral tablet 120 mg, 3, tablet, By Mouth, 2 times a day, Refill per PCP or Nephrology, # 180 tablet, Refills 0, Tot. Refills 0, Maintenance, 09/21/22 10:34:00 EST, Route to Pharmacy Electronically, [facility], Partial fill upon patient request if the... Start Date: 09/21/22 Status: Ordered lisinopril 20 mg oral tablet 20 mg, 1, tablet, By Mouth, Daily, Refill per PCP or Nephrology, # 30 tablet, Refills 0, Tot. Refills 0, Maintenance, 09/21/22 10:35:00 EST, Route to Pharmacy Electronically, [facility], Partial fill upon patient request if the prescript... Start Date: 09/21/22 Status: Ordered lisinopril 20 mg oral tablet 20 mg, Tablet, By Mouth, 09/21/22 9:00:00 EST Start Date: 09/21/22 Stop Date: 09/21/22 Status: Completed Methadone = 75 mg, By Mouth, Daily, last received from [facility] 03/19/22 & took home 3 doses. Ro Confirmed [phone], 0 Refills, Maintenance, 03/21/22 11:55:00 EDT, ; Start Date: 03/21/22 Status: Ordered Methadone Liquid 75 mg, Solution, By Mouth, Dose confirmed with [facility] in [place] as 75mg daily, 09/21/22 9:00:00EST Start Date: 09/21/22 Stop Date: 09/21/22 Status: Completed Pen [place], 29 G x 12.7 mm BD Ultra [...] ulcer, right lower extremity, followed by Karena [facility] [phone] Confirmed Active Venous ulcer of right leg Confirmed Active Results Radiology Reports * Exam Date Time Procedure Performing Provider Status 09/18/22 4:16 PM C-Arm < 1 Hour Rick Frank; Frank (V erified) Notes: (C-Arm < 1 Hour) Reason For Exam: HEMO CATH RESULT: C-Arm < 1 Hour C-Arm < 1 Hour INDICATION: Reason: HEMO CATH COMPARISONS: None TECHNIQUE: Fluoroscopy support was provided. There was no radiologist in attendance. FLUOROSCOPY TIME: 4.7 seconds TECHNOLOGIST TIME: 5 minutes FINDINGS: Fluoroscopy support was provided. There was no radiologist in attendance. IMPRESSION: See above. WSN: [id number] Ordering Physician: Tyshawn Milian Dictated By: Nelson Rocha MD Dictated Date/Time: 09/18/22 7:02 pm Reviewed By: Nelson Rocha MD Signed By: Nelson Rocha MD Signed Date/Time: 09/18/22 7:02 pm Transcribed By: OLGA Transcribed Date/Time: 09/18/22 6:08 pm * Exam Date Time Procedure Performing Provider Status 09/12/22 5:51 PM Chest 2 Views Frontal and Lat Deny Brown; Auth (Verified) Notes: (Chest 2 Views Frontal and Lat) Reason For Exam: Shortness of Breath RESULT: Chest 2 Views Frontal and Lat Examination: Chest performed on 09/12/2022. History: Increased lower extremity swelling. Shortness of breath. Findings: Frontal and lateral views of the chest are compared to a prior study dated 12/18/2021. The cardiac and mediastinal silhouettes are within normal limits. Low lung volumes are present withbibasilar atelectasis and pleural effusions. The osseous and soft tissue structures are unremarkable. Impression: Low lung volumes with bibasilar atelectasis and pleural effusions. WSN: [id number] Ordering Physician: Aleshia Hanna Dictated By: Sammi Oliver MD Dictated Date/Time: 09/12/22 5:55 pm Reviewed By: Sammi Oliver MD Signed By: Sammi Oliver MD Signed Date/Time: 09/12/22 5:55 pm Transcribed By: OLGA Transcribed Date/Time: 09/12/22 5:53 pm Vital Signs Most recent to oldest [Reference Range]: 1 2 3 4 Height 170 cm (09/21/22 7:58 AM) 170 cm (09/21/22 4:00 AM) 170 cm (09/20/22 8:15 PM) Weight 84.9 kg (09/21/22 6:53 AM) 88 kg (09/20/22 7:16 AM) 88.7 kg (09/19/22 5:37 AM) Oxygen Saturation [94-100 %] 98 % (09/21/22 7:58 AM) 97 % (09/21/22 4:00 AM) 97 % (09/20/22 8:15 PM) Pulse Rate [55-90 bpm] 73 bpm (09/21/22 9:22 AM) 73 bpm (09/21/22 7:58 AM) 70 bpm (09/21/22 4:00 AM) Body Mass Index [18.5-24.99 kg/m2] 30.83 kg/m2 *>HHI* (09/18/22 2:40 PM) 32.7 kg/m2 *>HHI* (09/13/22 4:23 PM) Blood Pressure [90-138/55-84 mm Hg] 158/78mm Hg *H* (09/21/22 10:00 AM) 167/81mm Hg *H* (09/21/22 9:23 AM) 167/81mm Hg *H* (09/21/22 9:22 AM) 167/81mm Hg *H* (09/21/22 9:22 AM) Respiratory Rate [16-30 br/min] 19 br/min (09/21/22 10:23 AM) 19 br/min (09/21/22 9:23 AM) 18 br/min (09/21/22 7:58 AM) Temperature [96.8-100.4 DegF] 98.4 DegF (09/21/22 7:58 AM) 98.0 DegF (09/21/22 4:00 AM) 97.7 DegF (09/20/22 8:15 PM) Liters per Minute 0 L/min (09/19/22 3:00 PM) 0 L/min (09/19/22 7:00 AM) 0 L/min (09/18/22 5:00 PM) Mode of Delivery (Oxygen) Room air (09/21/22 7:58 AM) Room air (09/21/22 4:00 AM) Room air (09/20/22 8:15 PM) Blood pressure sites Arm, right (09/21/22 7:58 AM) Arm, right (09/21/22 4:00 AM) Arm, right (09/20/22 8:15 PM) Temperature Route Temporal (09/21/22 7:58 AM) Temporal (09/21/22 4:00 AM) Temporal (09/20/22 8:15 PM) Dry Weight 89.1 kg (09/18/22 2:40 PM) 94.5 kg (09/13/22 4:23 PM) Weight Obtained Via Bed scale (09/21/22 6:53 AM) Bed scale (09/19/22 5:37 AM) Bed scale (09/18/22 2:40 PM) Dry Weight Obtained Via Bed scale (09/18/22 2:40 PM) Social History Social History Type Response Tobacco Other: started smoki ng at 20 years old, now about 5 cigarettes. Sex Implantable Device List Procedure Provider Procedure Date Device Type Site Insertion Hemodialysis Catheter Tyshawn Milian MD Unknown Chest Device Identifier Serial Number Lot or Batch Number Manufacturing Date Expiration Date Distinct Identification Code MRI Safety Implantable Status Assigning Authority Unknown Unknown [id number] 113 Unknown 06/26/24 Unknown Unknown Active Unknown Admission evaluation note * Walt VILLATORO, Bobby: PERFORM Event Display: Admission Note Authored Date: [id number] Patient: ??MICHAEL BUTLER ? Age:??46 Years?Sex:??Male?:??1975?? History of Present Illness The patient is a 46 years old male with past medical history of diabetes mellitus type 2, CKD stageIV, hypertension, opioid dependence,??diabetic neuropathy, diabetic retinopathy??presented to ER with a chief concern of worsening lower extremity swelling.?? History is obtained from patient and brooke ent's mother. ? Patient's mother and patient, patient has chronic lower leg swelling but for the last 1 month,??swelling has been??increasing progressively in all??up to thighs and lower part of abdomen.?? Addition,patient also reported that he has been having shortness of breath upon exertion and associated orthopnea and PND but denied any chest pain, chest pressure,??weakness, numbness, tingling, nausea, vomiting, diaphoresis. ? As per previous nephrology notes??it appears that patient has progressive diabetic nephropathy withmassive proteinuria and for the last 1 month,??patient??dose of torsemide has been increased progressively??no up to 80 mg twice daily??but as per patient mother it has been not effective. ??Therefore ,??patient was brought to the ER ? As per previous nephrology note??on August 26, 2022,??it was mentioned that patient has been??undergoing work-up for hemodialysis and plan was to start the patient on hemodialysis in near future??due to worsening CKD. Review of Systems All pertinent negative and positives are noted in HPI. ??All other systems were reviewed and are negative. Objective ? Vital Signs?? Temperature: 98 DegF (09/12/22 16:38:00) Temperature Route: Oral (09/12/22 16:38:00) Pulse Rate: 76 bpm (09/12/22 20:44:00) Respiratory Rate: 17 br/min (09/12/22 20:44:00) Systolic Blood Pressure:??169 mm Hg??High (09/12/22 20:44:00) Diastolic Blood Pressure: 84 mm Hg (09/12/22 20:44:00) Blood pressure sites: Arm, left (09/12/22 20:44:00) Mean Arterial Pressure: 106 mm Hg (09/12/22 16:38:00) Pulse Pressure: 85 mm Hg (09/12/22 20:44:00) Oxygen Saturation: 97 % (09/12/22 20:44:00) Mode of Delivery (Oxygen): Room air (09/12/22 20:44:00) Early Warning Score: 0 (09/12/22 20:46:02) ? Physical Exam Constitutional: Alert, in no acute distress. Head: Normocephalic. ?? Eyes: Pupils are equal, round and reactive to light. Extraocular muscles intact. No pallor or scleral icterus ?? Ear, Nose and Throat: mucous membranes moist. Ears and nose - no obvious deformities. Trachea midline. ?? Neck: Supple, Full range of motion.No JVD or bruits. Respiratory:??Mild bilateral basal crackles. No wheezing or rhonchi.??No use of accessory muscles. No tactile fremitus.?? Cardiovascular:??PMI not visible. S1 S2 regular. No murmurs, rubs or gallops. Gastrointestinal:??Abdomen soft, non-tender, non-distended. Normal bowel sounds. No pulsatile mass.No hepatosplenomegaly. Genitourinary:??No costovertebral angle tenderness. Extremities:??2+ lower extremity pitting edema??up to thighs,??pitting edema in upper extremities??specially on the right side, no cyanosis or clubbing.?? Anasarca Neurologic:??AAOx3, Cranial nerves II-XII grossly intact. Speech normal, no facial droop. No focal neurological deficits. Moves all extremities spontaneously. Sensation intact bilaterally.??Flexor plantar response Skin:??Venous stasis changes Musculoskeletal:??Amputated left upper extremity. Normal range of motion in hips, knees, ankles. .??Muscle strength within normal limits Heme/Lymphatics:??Palpation of neck reveals no swelling or tenderness of neck nodes.?? Psychiatric: Normal mood and affect. Assessment/Plan Diagnoses 1. ??New onset of congestive heart failure ??(I50.9) 2. ??Fluid overload ??(E87.70) 3. ??Elevated troponin ??(R77.8) 4. ??Acute kidney injury superimposed on CKD ??(N17.9) 5. ??CKD (chronic kidney disease), stage IV ??(N18.4) 6. ??Insulin dependent type 2 diabetes mellitus ??(E11.9) 7. ??Diabetic neuropathy ??(E11.40) 8. ??Hypertension ??(I10) 9. ??Venous stasis ??(I87.8) ?? Assessment:??The patient is a 46 years old male who presented to ER with a chief concern of worsening lower extremity swelling and shortness of breath. Patient was found to have??elevated BNP and elevated creatinine. Patient started on Lasix drip after consultation with nephrology and admitted for further management ?? New onset of congestive heart failure (I50.9):??Presented with worsening lower swelling, orthopnea,PND and shortness of breath On physical exam: K+ pitting millimeters bilaterally, mild bilateral basal crackles BNP??13,345 X-ray showed mild bilateral pleural effusions Echo ordered Patient was given??160 mg??Lasix in the ER and later started on Lasix drip at 20 mg/h after consultation with nephrology??due to complaint of cardiorenal syndrome Will monitor input/output Will consult cardiology based on echocardiogram findings if it shows??extremely low EF??or any valvular pathology ?? Fluid overload (E87.70):??Etiology: Likely multifactorial due to CHF versus??worsening kidney failure Reports??worsening lower leg swelling for 1 month, patient follows with nephrology and for the last1 month, patient home??dose of torsemide??has been??gradually increased up to 80 mg??twice daily with little effect Creatinine??5.4 but??has been increasing slowly over the last 2 months There was discussion of possible hemodialysis initiation in the near future Patient is on Lasix drip as per nephrology recommendations Nephrology??on board, will follow the recommendation regarding initiation hemodialysis if Lasix drip does not work ?? Elevated troponin (R77.8):??Etiology: Likely demand ischemia due to new onset CHF??and??worsening renal??failure Presented with lower extreme swelling and shortness of breath upon exertion but denied any chest pain or chest pressure Trop [id number] EKG??did not show any new changes compared to last EKG Echocardiogram ordered Will trend troponin ?? Acute kidney injury superimposed on CKD (N17.9):??Etiology: Likely cardiorenal syndrome Creatinine upon mission 5.4, patient creatinine has been gradually increasing the last 2 months UA was done that showed 3+ protein Currently patient is on Lasix drip,??there was discussion of starting hemodialysis in near future??started last nephrology note We will trend creatinine, avoid nephrotoxic medications Nephrology??consulted, will follow the recommendations ?? CKD (chronic kidney disease), stage IV (N18.4):??Management as above ?? Insulin dependent type 2 diabetes mellitus (E11.9):??Started on sliding scale insulin and resume home dose of Lantus ?? Diabetic neuropathy (E11.40):??Resume home medication Cymbalta ?? Hypertension (I10):??Resume home medication Coumadin, Coreg, hydralazine, holding Norvasc due to edema ?? Venous stasis (I87.8):??Patient on Lasix drip Wound care consulted ? Opiate dependence Patient??is on methadone 75 mg daily at home Start after confirming the dose ? Chronic anemia Hemoglobin stable at baseline ?? Normal anion gap metabolic acidosis Etiology: Due to underlying CKD Nephrology??on board, will follow the recommendations ? VTE Prophylaxis:??Heparin ?VTE Prophylaxis Assessment:??VTE Prophylaxis Ordered ?? Code Status:??Full code ?Order Code Status:??Code Status Ordered ?? Ongoing Medical Necessity:??New onset congestive heart failure,??acute kidney injury, fluid overload ?? Discharge Planning:??Pending clinical course ? Date of service:2021 Histories Allergies Allergies ?(Active and Proposed Allergies Only) Compazine? (Severity: Unknown severity, Onset: Unknown) ?Reactions: difficulty, difficulty breathing Risperdal? (Severity: Unknown severity, Onset: Unknown) ?Reactions: tongue swells ? 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 Past Surgical History Photocoagulation of both eyes: 02/2022 EGD - Esophagogastroduodenoscopy : 12/31/21 Colonoscopy, inadequate prep : 12/31/21 Amputation: eft above elbow ?? : 12/25/21 plit-thickness graft to the left forearm 25 sq cm using the left thigh donor site: 09/11/16 Retroperitoneal abscess 08/2015 Infection of right hand, debridement 08/2014 Abscess left arm, drainage 06/2014 Tonsillectomy ? Social History Alcohol Details:??Use: Never. Employment/School Details:??Status: Disabled. Exercise Details:??Regular exercise: No. Home/Environment Details:??Living situation: Home/Independent. ??Lives with: Children, Mother. Sexual Details:??Sexually involved in last 6 months: Yes. ??Sexual orientation: Heterosexual. Substance Abuse Details:??Use: Past. ??Type: Heroin. ??Other: stopped November 2021. Tobacco Details:??Other: started smoking at 20 years old, now about 5 cigarettes. Details:??Current every day smoker ? Family History Mother: Subarachnoid hemorrhage Father: Crohn's disease; Respiratory disease Mat. Grandfather: CAD - Coronary artery disease; Cancer of prostate; Diabetes mellitus; Diabetes mellitus type II Mat. Grandmother: Diabetes mellitus; Diabetes mellitus type II Pat. Grandmother: Diabetes mellitus ? Medications Home Medications Acetaminophen (acetaminophen 325 mg oral tablet)?650?Milligram?2?tablet?By Mouth?3 times a day?as needed?as needed Amlodipine (amLODIPine 10 mg oral tablet)?1?tab(s)?By Mouth?Daily Aspirin (Aspirin Low Dose 81 mg oral delayed release tablet)?1?tab(s)?By Mouth?Daily Carvedilol (Coreg 25 mg oral tablet)?25?Milligram?1?tablet?By Mouth?2 times a day Clonidine (cloNIDine 0.1 mg oral tablet)?0.2?Milligram?2?tablet?By Mouth?3 times a day Duloxetine (duloxetine 30 mg oral enteric coated capsule)?1?capsule?By Mouth?Daily?DONT CRUSH. /CHEW. Durable Medical Equipment (Compression Stockings)?See Instructions?Juxta Lite Circaid compression wraps bilateral 30-40 mm Hg Durable Medical Equipment (Wheelchair)?See Instructions?Lymphedema 189.0 Durable Medical Equipment (Pen [place], 29 G x 12.7 mm BD Ultra Fine)?See Instructions?for 30?Days?use as directed for Type 2 Diabetes Mellitus Famotidine (famotidine 20 mg oral tablet)?1?tablet?By Mouth?Daily hydrALAZINE (hydrALAZINE 25 mg oral tablet)?50?Milligram?2?tablet?By Mouth?3 times a day?for 30?Days Insulin Glargine (Basaglar KwikPen)?10?unit(s)?Subcutaneous Injection?Daily Insulin Lispro (Insulin Lispro KwikPen 100 units/mL injectable solution)?2-10 units?Subcutaneous Injection?3 times a day before meals Methadone?75?Milligram?By Mouth?Daily?[facility] & took home 3 doses. Ro Confirmed [phone] Sodium Polystyrene Sulfonate (sodium polystyrene sulfonate 15 g/60 mL oral and rectal suspension)?See Instructions?60 mL By Mouth on Friday, Fri, Friday torsemide (torsemide 40 mg oral tablet)?2?tab(s)?80?Milligram?By Mouth?2 times a day ? Results Recent Labs BLOOD COUNT & DIFF WBC 7.6 k/mm3 ()?? 09/12/2022 16:56 RBC 3.08 m/mm3 (Low)?? 09/12/2022 16:56 Hgb 9.0 Gm/dL (Low)?? 09/12/2022 16:56 Hct 29.2 % (Low)?? 09/12/2022 16:56 MCV 94.8 femtoliters (High)?? 09/12/2022 16:56 MCH 29.2 pg ()?? 09/12/2022 16:56 MCHC 30.8 g/dL (Low)?? 09/12/2022 16:56 Platelet Count 179 k/mm3 ()?? 09/12/2022 16:56 RDW-SD 55.9 femtoliters (High)?? 09/12/2022 16:56 MPV 10.5 femtoliters ()?? 09/12/2022 16:56 Nucleated RBC (Automated) 0.0 #/100 WBC'S ()?? 09/12/2022 16:56 Abs. NRBC 0.0 k/mm3 ()?? 09/12/2022 16:56 Abs. Neut 5.5 k/mm3 ()?? 09/12/2022 16:56 Abs. Lymph 1.3 k/mm3 ()?? 09/12/2022 16:56 Abs. [place] 0.5 k/mm3 ()?? 09/12/2022 16:56 Abs. Eo 0.2 k/mm3 ()?? 09/12/2022 16:56 Abs. Baso 0.1 k/mm3 ()?? 09/12/2022 16:56 Neut % 72.7 % ()?? 09/12/2022 16:56 Lymph % 17.2 % ()?? 09/12/2022 16:56 [place] % 6.6 % ()?? 09/12/2022 16:56 Eos % 2.2 % ()?? 09/12/2022 16:56 Baso % 0.8 % ()?? 09/12/2022 16:56 Imm Gran 0.5 % ()?? 09/12/2022 16:56 Abs. Imm Gran 0.0 k/mm3 ()?? 09/12/2022 16:56 ?? CARDIAC Nt-Probnp 19530 pg/mL (High)?? 09/12/2022 16:56 High Sensitivity Troponin (HSTnT) 761 ng/L (Critical)?? 09/12/2022 20:27 ?? CHEM GENERAL Sodium 143 mmol/L ()?? 09/12/2022 16:56 Potassium 5.0 mmol/L ()?? 09/12/2022 16:56 Chloride 110 mmol/L (High)?? 09/12/2022 16:56 Bicarbonate Level 20 mmol/L (Low)?? 09/12/2022 16:56 Anion Gap 13 ()?? 09/12/2022 16:56 Glucose Level 182 mg/dL (High)?? 09/12/2022 16:56 BUN 64 mg/dL (High)?? 09/12/2022 16:56 Creatinine-Blood 5.4 mg/dL (High)?? 09/12/2022 16:56 Estimated GFR Creatinine 13 ML/MIN/1.73 M2 ()?? 09/12/2022 16:56 Calcium 8.6 mg/dL ()?? 09/12/2022 16:56 Protein, Total 5.7 Gm/dL (Low)?? 09/12/2022 16:56 Albumin 2.7 Gm/dL (Low)?? 09/12/2022 16:56 AG Ratio 0.9 ()?? 09/12/2022 16:56 Alkaline Phosphatase 90 units/L ()?? 09/12/2022 16:56 AST (SGOT) 30 units/L ()?? 09/12/2022 16:56 ALT (SGPT) 20 units/L ()?? 09/12/2022 16:56 Bilirubin, Total 0.2 mg/dL ()?? 09/12/2022 16:56 ?? COAG INR 1.0 ()?? 09/12/2022 16:56 Protime (PT) 10.5 seconds ()?? 09/12/2022 16:56 ?? UA/URINALYSIS Appear/Color, Urine LIGHT YELLOW ()?? 09/12/2022 17:21 Specific [place], Urine 1.018 ()?? 09/12/2022 17:21 pH, Urine 6.5 ()?? 09/12/2022 17:21 Albumin, Urine 3+ (Abnormal)?? 09/12/2022 17:21 Glucose, Urine 3+ (Abnormal)?? 09/12/2022 17:21 Ketones, Urine NEGATIVE ()?? 09/12/2022 17:21 Bilirubin, Urine NEGATIVE ()?? 09/12/2022 17:21 Hemoglobin, Urine 1+ (Abnormal)?? 09/12/2022 17:21 Nitrite, Urine NEGATIVE ()?? 09/12/2022 17:21 Leukocyte, Urine NEGATIVE ()?? 09/12/2022 17:21 Urobilinogen NORMAL mg/dL ()?? 09/12/2022 17:21 WBC's, Urine 4 /HPF ()?? 09/12/2022 17:21 RBC's, Urine 21 /HPF (High)?? 09/12/2022 17:21 Bacteria SLIGHT HPF (Abnormal)?? 09/12/2022 17:21 Squamous Epith <1 /HPF ()?? 09/12/2022 17:21 Mucus SLIGHT /LPF ()?? 09/12/2022 17:21 Hold Urine Culture Testing available 48 hours from time of collection. ()?? 09/12/2022 17:21 ?? VIROLOGY COVID-19 POC Result NEGATIVE ()?? 09/12/2022 16:38 ? Coagulation Profile INR: 1 (16:56) Protime (PT): 10.5 seconds (16:56) ?? * Bobby Godoy MD: PERFORM Event Display: Admission Note Authored Date: Called opiate clinic [facility], for now we will give??1 dose of 40 mg methadone,??will call??again in the morning and??restart patient home dose EKG study * Event Display: EKG Authored Date: * Event Display: ECG 12-Lead Authored Date: Please click on pdf link to open report * Event Display: ECG 12-Lead Authored Date: Ventricular Rate: 72 BPM Atrial Rate: 72 BPM P-R Interval: 138 ms QRS Duration: 76 ms Q-T Interval: 410 ms QTC Calculation(Bazett): 448 ms P [place]: 47 degrees R [place]: 8 degrees T [place]: 40 degrees Normal sinus rhythm Cannot rule out Anterior infarct , age undetermined Abnormal ECG When compared with ECG of 20-MAR-2022 15:08, No significant change was found Confirmed by ROSALES FOURNIER MD ([id number]) on 09/13/2022 8:38:34 AM [place]: ROSALES FOURNIER MD Heart * Event Display: Echocardiogram - Complete Authored Date: Transthoracic Echocardiography Report (TTE) Patient Demographics Patient Name MICHAEL BUTLER Date of Study 09/13/2022 Corporate Gender Male Facility Race Ethnicity Date of 1975 Height: 66.93 inches Age 46 year(s) Weight: 180.78 pounds Accession Number [id number] BSA: 1.94 m2 Room Number [id number] BMI: 28.37 kg/m2 Referring Physician Walt Rosales MD Interpreting Rick Cortes, Physician Plate Fitter Alexus Maldonado RUST Indications Heart failure. Clinical History Heart failure IVDA Opioid dependance Tobacco use Hypertension. Diabetes Mellitus. CKD Study Data Type of Study TTE procedure:Echo Complete-Doppler, Colorflow, M-Mode. Study Date09/13/2022 Start Time: 11:52 AM Study Location: [facility] [place] Study Status: ER Patient Status: Routine Technical Quality: Fair due to restricted mobility. Blood Pressure:160/90 mmHg EKG: Normal sinus rhythm HR: 69 bpm 2D Measurements LV Diastolic Dimension: 4.7 cm LV Systolic Dimension: 3 cm LV Septum Diastolic: 1.6 cm LV PW Diastolic: 1.1 cm AO Root Dimension: 3 cm LA Dimension: 3.9 cm LVOT Stroke Volume: 111.32 ml LVOT: 2.2 cm Stroke Volume Index57.38 ml/m2 Ascending Aorta:3.3 cm Cardiac Index:3.96 l/min/m2 Doppler Measurements AV Peak Velocity: 130 cm/s MV Peak E-Wave: 98.1 cm/s AV Peak Gradient: 6.76 mmHg MV Peak A-Wave: 105 cm/s MV E/A Ratio: 0.93 LVOT Peak Velocity: 128 cm/s MV P1/2t: 47 msec LVOT VTI29.3 cm MV Deceleration Time: 162 msec MV Area (PHT): 4.68 cm2 E' Septal Velocity: 6.96 cm/s PV Peak Velocity: 101 cm/s E' Lateral Velocity: 9.57 cm/s PV Peak Gradient: 4.08 mmHg E/Med E':14.73052 E/Lat E':10.34202 Cardiac Anatomy Left Ventricle/Interventricular Septum The left ventricle is normal in size. There is moderate asymmetric septal hypertrophy with basal anteroseptum 1.6 cm. There is mild left ventricular hypertrophy elsewhere. The posterior medial papillary muscle is hypertrophied and bifid see run #54). Overall left ventricular systolic function is normal. LVEF visually estimated at 60-65%. There are no definite wall motion abnormalities. Indeterminate diastolic function. There is no LVOT obstruction. Left Atrium/Interatrial Septum The left atrium is upper normal in size. Aortic Valve The aortic valve is trileaflet. The aortic valve appears mildly thickened. No significant aortic stenosis or regurgitation. Mitral Valve The mitral valve and subvalvular apparatus appear moderately thickened. There is eccentric mitral regurgitation that is poorly visualized on the study but appears mild. Aorta The ascending aorta and aortic root are normal in size. Right Ventricle The right ventricle is poorly visualized. The right ventricle is normal in size. Right ventricular systolic function appears preserved. Right Atrium The right atrium is normal in size. Pulmonic Valve The pulmonic valve is poorly visualized. There is trace pulmonic regurgitation. Tricuspid Valve The tricuspid valve is grossly normal. There is trace to mild tricuspid regurgitation. Pumonary Artery Unable to estimate pulmonary artery systolic pressure. The pulmonary artery appears grossly normal. Venous Structures The inferior vena cava size is normal with blunted inspiratory collapse. The central venous pressure estimation is mildly elevated, 8mmHg. Pericardium/Extracardiac There is a large left-sided pleural effusion. There is a trace pericardial effusion. Summary The left ventricle is normal in size. There is moderate asymmetric septal hypertrophy with basal anteroseptum 1.6 cm. There is mild left ventricular hypertrophy elsewhere. The posterior medial papillary muscle is hypertrophied and bifid see run #54). Overall left ventricular systolic function is normal. LVEF visually estimated at 60-65%. There are no definite wall motion abnormalities. Indeterminate diastolic function. The right ventricle is normal in size. Right ventricular systolic function appears preserved. The left atrium is upper normal in size. There is eccentric mitral regurgitation that is poorly visualized on the study but appears mild. The central venous pressure estimation is mildly elevated, 8mmHg. Unable to estimate pulmonary artery systolic pressure. There is a large left-sided pleural effusion. There is a trace pericardial effusion. Impressions Asymmetric septal hypertrophy with hypertrophied, bifid papillary muscle raise possibility of hypertrophic cardiomyopathy. Consider cardiac MRI. Comparison Direct visual comparison is made to the study of December 18, 2021. No definite significant change. Signature * Event Display: Echocardiogram - Complete Authored Date: Note * Reina Chavez RN: PERFORM Event Display: Discharge/Transfer Note Hospital Authored Date: [id number] Nursing Discharge Note Entered On: 09/21/2022 15:40 EST Performed On: 09/21/2022 15:39 EST by Reina Chavez RN Nursing Discharge Note 2 Discharge Time : 09/21/2022 15:00 EST Discharge Level of Care at Discharge : Homehealth/VNA Discharge VNA/Hospice/Home Care(v001) : [facility] Patient Left Unit Via : Wheelchair Patient Accompanied Off Unit with : Responsible adult DC Instructions Provided & Signed by Pt : Yes Patient Understands D/C Instructions : Yes Verbalized Understanding of D/C Plan By : Patient Patient Instructions Discharge Signed : Yes Discharge Comments : pt educated on medications and CHF, able to teach back. IV removed prior to discharge. Tele removed abd brought to tele room. Did Pt have Specialty Bed or Wound Vac : No Kathy VILLAVICENCIO, Reina - 09/21/2022 15:39 EST * [place] VILLATORO, Ash Jain: PERFORM Event Display: Discharge/Transfer Note Hospital Authored Date: [id number] Patient: ??MICHAEL BUTLER ? Age:??46 Years?Sex:??Male?:??1975?? 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 _ Discharge Medications Acetaminophen (acetaminophen 325 mg oral tablet)?650?Milligram?2?tablet?By Mouth?3 times a day?as needed?as needed Aspirin (Aspirin Low Dose 81 mg oral delayed release tablet)?1?tab(s)?By Mouth?Daily Carvedilol (Coreg 25 mg oral tablet)?25?Milligram?1?tablet?By Mouth?2 times a day Clonidine (cloNIDine 0.1 mg oral tablet)?0.2?Milligram?2?tablet?By Mouth?3 times a day Duloxetine (duloxetine 30 mg oral enteric coated capsule)?1?capsule?By Mouth?Daily?DONT CRUSH. /CHEW. Durable Medical Equipment (Compression Stockings)?See Instructions?Juxta Lite Circaid compression wraps bilateral 30-40 mm Hg Durable Medical Equipment (Wheelchair)?See Instructions?Lymphedema 189.0 Durable Medical Equipment (Pen [place], 29 G x 12.7 mm BD Ultra Fine)?See Instructions?for 30?Days?use as directed for Type 2 Diabetes Mellitus Famotidine (famotidine 20 mg oral tablet)?1?tablet?By Mouth?Daily Furosemide (Lasix 40 mg oral tablet)?120?Milligram?3?tablet?By Mouth?2 times a day?Refill per PCP or Nephrology hydrALAZINE (hydrALAZINE 25 mg oral tablet)?50?Milligram?2?tablet?By Mouth?3 times a day?for 30?Days Insulin Glargine (Basaglar KwikPen)?10?unit(s)?Subcutaneous Injection?Daily Insulin Lispro (Insulin Lispro KwikPen 100 units/mL injectable solution)?2-10 units?Subcutaneous Injection?3 times a day before meals Lisinopril (lisinopril 20 mg oral tablet)?20?Milligram?1?tablet?By Mouth?Daily?Refill per PCP or Nephrology Methadone?75?Milligram?By Mouth?Daily?last received from [facility] 03/19/22 & took home 3 doses. Ro Confirmed [phone] ? Vaccinations and Immunoprophylaxis influenza virus vaccine, inactivated: 0.5 mL (09/14/22 08:19:00) influenza virus vaccine, inactivated: 0.5 mL (09/19/15 08:12:00) influenza virus vaccine, inactivated: 0.5 Unknown (07/03/09 08:00:00) pneumococcal 20-valent conjugate vaccine: 0.5 mL (03/12/22 16:17:00) pneumococcal 23-valent vaccine: 0.5 mL (07/11/14 08:18:00) SARS-CoV-2 (COVID-19) mRNA BNT-162b2 vac: 0.3 Unknown (05/18/21 08:00:00) SARS-CoV-2 (COVID-19) mRNA BNT-162b2 vac: 0.3 Unknown (04/27/21 08:00:00) [id number] bivalent booster vax: 0.5 Unknown (07/17/22 08:00:00) tetanus/diphtheria/pertussis, acel(Tdap): 0.5 mL (12/17/21 22:46:00) tetanus/diphtheria/pertussis, acel(Tdap): 0.5 mL (05/14/13 07:54:00) ?? Durable Medical Equipment Discharge recommendations: Home with outpatient sevices (03/25/22) Name of Agency #1: [facility] (09/20/22) Agency Sexual Assault Counselor #1: intake (09/20/22) Service Categories #1: Detention (09/20/22) Service Comments #1: Referral to [facility]. VNA will call to schedule a home visit; if you dont hear from them please call them directly (09/20/22) Ambulatory devices needed: None (09/17/22) ? Medications Started Lasix 120 BID Lisinopril Daily Medications Discontinued Torsemide Kayexelate Amlodipine Doses Changed None Allergies Allergies ?(Active and Proposed Allergies Only) Compazine? (Severity: Unknown severity, Onset: Unknown) ?Reactions: difficulty, difficulty breathing Risperdal? (Severity: Unknown severity, Onset: Unknown) ?Reactions: tongue swells ? Future Appointments Friday 2:00 PM EST ?? With: Where: Transplant Pre [address] [facility] [address] [place] [address]- Friday 4:00 PM EST ?? With: Rashaad Brennan MD Where: [facility] [address] [place] [address]- Hospital Course 46 years old male who presented to ER with a chief concern of worsening lower extremity swelling and shortness of breath. Patient was found to have elevated BNP and elevated creatinine, admitted on 09/12.?Patient started on Lasix drip after consultation with Nephrology and admitted for further management.?He was recommended for HD cath insertion which has been coordinated for 09/18 by surgical team. ?? 09/18: Accepted patient under my care at 7AM. Chart reviewed, saw and examined patient. He reports gradual improvements in his edema and orthopnea but still with massive bilateral tree trunk leg edema. He was kept n.p.o. for permacath placement which he underwent per Surgery. ?? 09/19: Patient underwent HD today, tolerated well, continues with massive fluid overload with gradual improvements. He was changed to oral Lasix as per Nephrology recommendations. He has been set up with outpatient HD to start next week. ?? 09/20: Patient with significant BP elevation in the morning, started on lisinopril per Renal. Symptoms continue to improve, blood pressure improving after lisinopril and further HD. ?? 09/21: BP improved and blood work stable, no new symptoms. He continues to improve??slowly. He is set up with VNA and is dscharged home. Rec to folow up with PCP and??Transportation Attendant. ? Acute diastolic congestive heart failure (I50.9): Hypertension (I10) Presented with worsening lower swelling, orthopnea, PND and shortness of breath On physical exam: 4+ pitting millimeters bilaterally, mild bilateral basal crackles BNP 13,345 X-ray showed mild bilateral pleural effusions Echo with question of hypertrophic cardiomyopathy, normal EF Patient was given 160 mg Lasix in the ER and later started on Lasix drip at 20 mg/h after consultation with nephrology Cardiology input appreciated - may need cardiac MRI at some point Treated with??IV Lasix drip with minimal improvements, has ESRD??and was started on HD on 09/19 Significant hypertension??09/20, further??HD and started??lisinopril 20 ?? -DC HWS -Continue??Coreg, hydralazine, have been holding Norvasc due to edema -Started??lisinopril 20 on 09/20 -Continue??oral Lasix 120 twice daily per Renal -Stopped metolazone per Renal -Monitor weights, I&Os ? Acute kidney injury superimposed on CKD (N17.9): End-stage renal disease Creatinine upon admission 5.4, patient creatinine has been gradually increasing the last 2 months UA was done that showed 3+ protein Is felt to have progressed to ESRD, underwent HD permacath placement 09/10 and started HD on 09/19 ?? -Lasix as above -HD as outpatient, next treatment on Friday -We will trend creatinine, periodically as outpatient -Nephrology??on board, appreciate recommendations ?? Fluid overload (E87.70):??Etiology: Likely multifactorial due to CHF??alongside??worsening kidney failure Reports worsening lower leg swelling for 1 month, patient follows with nephrology and for the last 1 month, patient home dose of torsemide has been gradually increased up to 80 mg twice daily with little effect Creatinine 5.4 on presentation but has been increasing slowly over the last 2 months Started HD??09/19??as above ?? -Volume status management as above ? Elevated troponin (R77.8):??Etiology: Likely demand ischemia due to new onset CHF and worsening renal failure Presented with lower extremity swelling and shortness of breath upon exertion but denied any chest pain or chest pressure Trop [id number] EKG did not show any new changes compared to last EKG Echocardiogram as above ?? -No specific interventions??aside from management of his CHF and renal failure, monitor for furthersymptoms ? Insulin dependent type 2 diabetes mellitus (E11.9):??Started on sliding scale insulin and resume home dose of Lantus ?? -Continue home meds, adjust under supervision ? Diabetic neuropathy (E11.40):??Resume home medication Cymbalta ? Venous stasis (I87.8): -Volume management as above?? -Wound care consulted -Continue leg elevation and local wound care as needed ? Opiate dependence Patient is on methadone 75 mg daily at home He is willing to miss a dose if needed because of New Year's Holiday if clinic unavailable ?? -Patient given letter stating last dose -Follow with outpatient provider ? Chronic anemia -monitor hb periodically as outpatient ? Normal anion gap metabolic acidosis Etiology: Due to underlying CKD -Continue to monitor blood work periodically as outpatient ? Objective Measurements?? Height: 170 cm (09/21/22) Weight: 84.9 kg (09/21/22) Dry Weight: 89.1 kg (09/18/22) Body Mass Index:??30.83 kg/m2??Critical (09/18/22) ? Vital Signs?? Temperature: 98.4 DegF (09/21/22 07:58:00) Temperature Route: Temporal (09/21/22 07:58:00) Pulse Rate: 73 bpm (09/21/22 09:22:00) Respiratory Rate: 19 br/min (09/21/22 10:23:00) Systolic Blood Pressure:??167 mm Hg??High (09/21/22 09:23:00) Diastolic Blood Pressure: 81 mm Hg (09/21/22 09:23:00) Blood pressure sites: Arm, right (09/21/22 07:58:00) Mean Arterial Pressure: 110 mm Hg (09/21/22 07:58:00) Pulse Pressure: 86 mm Hg (09/21/22 07:58:00) Oxygen Saturation: 98 % (09/21/22 07:58:00) Mode of Delivery (Oxygen): Room air (09/21/22 07:58:00) Early Warning Score: 4 (09/21/22 10:25:02) ? . Physical Exam ?Constitutional: Alert, in no acute distress. ?Head EENT: PERRL.??NCAT. ?Neck: Supple. No obvious LAD. ?Respiratory: CTAB. No use of accessory muscles. ?Cardiovascular: S1S2 present. No obvious JVD. ?Gastrointestinal: Abdomen soft, non-tender, non-distended. Bowel sounds present. ?Genitourinary: No CVA tenderness. Genital exam deferred. ?Extremities: Massive??bilateral lower extremity edema??with induration and??overlying skin changes, significantly improving; no cyanosis or clubbing. ?Neurologic: Alert, generally appropriate. Speech normal. No gross focal neurological deficits. _ Surgical Procedures Insertion Hemodialysis Catheter 09/18/2022 15:55 Consultants Renal Cardiology Wound care Surgery Pending Results Add On Lab Order ordered on 09/20/2022 Protein/Creatinine Ratio Urine ordered on 09/13/2022 Patient Instructions -Outpatient dialysis unit placement [facility] schedule at 11:20 am -Take blood pressure meds as prescribed, follow BP and adjust under supervision -Check weight a few times weekly, let your provider know if weight going up -Follow up with methadone provider RUBEN, last dose on 09/21 in the morning -Leg elevation as possible ?? Home Health Face to Face *Denotes mandatory stovall ?? *I certify that this patient is under my care and that I or an allowed non- physician working with me had a face to face encounter with the patient on this date:??09/21/2022 10:55 ?? *The encounter with the patient was in whole, or in part, for the following medical condition, which is the primary diagnosis(es) for home health care:??New onset of congestive heart failure (I50.9) Fluid overload (E87.70) Elevated troponin (R77.8) Acute kidney injury superimposed on CKD (N17.9) Insulin dependent type 2 diabetes mellitus (E11.9) Diabetic neuropathy (E11.40) Hypertension (I10) Venous stasis (I87.8) ESRD on dialysis (N18.6) Opiate dependence (F11.20) ? *Select the indications for the discipline/s that are being arranged for this patient. Nursing (select all that apply): [_] None [X] Medication management (reconciliation, teaching)?? [X] Chronic disease management?? [X] Wound care and treatment?? [_] Home safety evaluation [_] Administer SQ/IM/IV medications?? [_] Cath care?? [_] Drain care?? [_] Trach or GT care?? Other _ Occupation Therapy (select all that apply): [_] None [_] ADL Management [_] Fall prevention training [_] Energy conservation [_] Cognitive training Other _ Physical Therapy (select all that apply): [_] None [_] Functional mobility training [_] Home exercise program to strengthen [_] Increase ROM?? [_] Falls prevention training [_] Home maintenance program for chronic disease Other _ Speech Therapy (select all that apply): [_] None [_] Swallow evaluation and training [_] Speech and language training [_] Cognitive training to process, organize, and/or recall information Other _ ? *Homebound due to (select all that apply): [X] New onset CHF and ESRD [_] Inability to leave home without assistance/supervision [_] Inability to ambulate without assistance [_] Pain [_] Decreased strength and endurance [_] Unsteady gait [_] Severe SOB and fatigue [_] Impaired transfers [_] Inability to negotiate stairs [_] Limited weight bearing [_] Mental status change? *Physician Signature: Ash Mohamud MD ?? *By signing this, I certify that I have personally evaluated the patient and agree with the findings and recommendations as documented above. ? Results Discharge Labs BLOOD COUNT & DIFF WBC 7.7 k/mm3 ()?? 09/20/2022 01:42 RBC 2.60 m/mm3 (Low)?? 09/20/2022 01:42 Hgb 7.8 Gm/dL (Low)?? 09/20/2022 01:42 Hct 24.5 % (Low)?? 09/20/2022 01:42 MCV 94.2 femtoliters (High)?? 09/20/2022 01:42 MCH 30.0 pg ()?? 09/20/2022 01:42 MCHC 31.8 g/dL (Low)?? 09/20/2022 01:42 Platelet Count 142 k/mm3 (Low)?? 09/20/2022 01:42 RDW-SD 51.2 femtoliters (High)?? 09/20/2022 01:42 MPV 10.0 femtoliters ()?? 09/20/2022 01:42 Nucleated RBC (Automated) 0.0 #/100 WBC'S ()?? 09/20/2022 01:42 Abs. NRBC 0.0 k/mm3 ()?? 09/20/2022 01:42 Abs. Neut 5.5 k/mm3 ()?? 09/12/2022 16:56 Abs. Lymph 1.3 k/mm3 ()?? 09/12/2022 16:56 Abs. Cambria 0.5 k/mm3 ()?? 09/12/2022 16:56 Abs. Eo 0.2 k/mm3 ()?? 09/12/2022 16:56 Abs. Baso 0.1 k/mm3 ()?? 09/12/2022 16:56 Neut % 72.7 % ()?? 09/12/2022 16:56 Lymph % 17.2 % ()?? 09/12/2022 16:56 Cambria % 6.6 % ()?? 09/12/2022 16:56 Eos % 2.2 % ()?? 09/12/2022 16:56 Baso % 0.8 % ()?? 09/12/2022 16:56 Hemoglobin (POC) POC Cartridge 8.2 Gm/dL (Low)?? 09/18/2022 14:52 Hematocrit (POC) POC Cartridge 24 % (Low)?? 09/18/2022 14:52 Imm Gran 0.5 % ()?? 09/12/2022 16:56 Abs. Imm Gran 0.0 k/mm3 ()?? 09/12/2022 16:56 ?? CARDIAC Nt-Probnp 88210 pg/mL (High)?? 09/12/2022 16:56 High Sensitivity Troponin (HSTnT) 738 ng/L (Critical)?? 09/13/2022 06:10 ?? CHEM GENERAL Sodium 135 mmol/L ()?? 09/21/2022 05:12 Potassium 4.2 mmol/L ()?? 09/21/2022 05:12 Potassium Plasma 4.2 mmol/L ()?? 09/21/2022 05:12 Chloride 99 mmol/L ()?? 09/21/2022 05:12 Bicarbonate Level 28 mmol/L ()?? 09/21/2022 05:12 Anion Gap 8 ()?? 09/21/2022 05:12 Sodium (POC) POC Cartridge 142 mmol/L ()?? 09/18/2022 14:52 Potassium (POC) POC Cartridge 4.5 mmol/L ()?? 09/18/2022 14:52 Chloride (POC) POC Cartridge 105 mmol/L ()?? 09/18/2022 14:52 Glucose Level 76 mg/dL ()?? 09/21/2022 05:12 Glucose (POC) POC Cartridge 105 (High)?? 09/18/2022 14:52 Glucose, POC 77 mg/dL ()?? 09/21/2022 07:27 BUN 37 mg/dL (High)?? 09/21/2022 05:12 BUN (POC) POC Cartridge 70 mg/dL (High)?? 09/18/2022 14:52 Creatinine-Blood 4.0 mg/dL (High)?? 09/21/2022 05:12 Creatinine (POC) POC Cartridge 6.9 mg/dL (High)?? 09/18/2022 14:52 Estimated GFR Creatinine 18 ML/MIN/1.73 M2 ()?? 09/21/2022 05:12 Calcium 8.3 mg/dL (Low)?? 09/21/2022 05:12 Ionized Calcium (POC) POC Cartridge 1.22 mmol/L ()?? 09/18/2022 14:52 Phosphorus 4.8 mg/dL (High)?? 09/20/2022 01:42 Magnesium 1.9 mg/dL ()?? 09/20/2022 01:42 Protein, Total 5.1 Gm/dL (Low)?? 09/14/2022 00:27 Albumin 2.5 Gm/dL (Low)?? 09/14/2022 00:27 AG Ratio 0.9 ()?? 09/12/2022 16:56 Alkaline Phosphatase 83 units/L ()?? 09/14/2022 00:27 AST (SGOT) 27 units/L ()?? 09/14/2022 00:27 ALT (SGPT) 14 units/L ()?? 09/14/2022 00:27 Bilirubin, Total <0.2 mg/dL ()?? 09/14/2022 00:27 Bilirubin, Direct <0.2 mg/dL ()?? 09/14/2022 00:27 Bilirubin, Indirect Total bilirubin is less than the measureable limit. Therefore, indirect mg/dL ()?? 09/14/2022 00:27 ?? COAG INR 1.0 ()?? 09/12/2022 16:56 Protime (PT) 10.5 seconds ()?? 09/12/2022 16:56 ?? HEME OTHER Hold Lavender Top SPECIMEN DISCARDED AFTER 24 HOURS. ()?? 09/21/2022 05:12 ? LIPID STUDIES Cholesterol 136 mg/dL ()?? 09/14/2022 00:27 Triglycerides 165 mg/dL (High)?? 09/14/2022 00:27 HDL Cholesterol 33 mg/dL (Low)?? 09/14/2022 00:27 LDL Cholesterol 70 mg/dL ()?? 09/14/2022 00:27 Non HDL Cholesterol 103 mg/dL ()?? 09/14/2022 00:27 ? SEROLOGY INF DISEASE Hepatitis B Surface Antigen NEGATIVE (N)?? 09/17/2022 12:40 Hepatitis C Ab NEGATIVE (N)?? 09/17/2022 12:40 Anti-HBS Quant 0.68 mIU/mL ()?? 09/17/2022 12:40 ? UA/URINALYSIS Appear/Color, Urine LIGHT YELLOW ()?? 09/12/2022 17:21 Specific [place], Urine 1.018 ()?? 09/12/2022 17:21 pH, Urine 6.5 ()?? 09/12/2022 17:21 Albumin, Urine 3+ (Abnormal)?? 09/12/2022 17:21 Glucose, Urine 3+ (Abnormal)?? 09/12/2022 17:21 Ketones, Urine NEGATIVE ()?? 09/12/2022 17:21 Bilirubin, Urine NEGATIVE ()?? 09/12/2022 17:21 Hemoglobin, Urine 1+ (Abnormal)?? 09/12/2022 17:21 Nitrite, Urine NEGATIVE ()?? 09/12/2022 17:21 Leukocyte, Urine NEGATIVE ()?? 09/12/2022 17:21 Urobilinogen NORMAL mg/dL ()?? 09/12/2022 17:21 WBC's, Urine 4 /HPF ()?? 09/12/2022 17:21 RBC's, Urine 21 /HPF (High)?? 09/12/2022 17:21 Bacteria SLIGHT HPF (Abnormal)?? 09/12/2022 17:21 Squamous Epith <1 /HPF ()?? 09/12/2022 17:21 Mucus SLIGHT /LPF ()?? 09/12/2022 17:21 Hold Urine Culture Testing available 48 hours from time of collection. ()?? 09/12/2022 17:21 ? VIROLOGY COVID-19 PCR Specimen Source NASAL ()?? 09/19/2022 20:15 COVID-19 PCR Result NEGATIVE ()?? 09/19/2022 20:15 COVID-19 POC Result NEGATIVE ()?? 09/12/2022 16:38 ? Microbiology ?? COVID-19 (2018 Novel Coronavirus) PCR?? Completed?? Source: Nasal Body Site: Nose Collected Dt/Tm: 09/16/2022 23:56 Last Updated Dt/Tm: 09/17/2022 17:23 COVID-19 (2019 Novel Coronavirus) PCR?? Completed?? Source: Nasal Body Site: Nose Collected Dt/Tm: 09/19/2022 19:18 Last Updated Dt/Tm: 09/20/2022 11:33 ? 40??minutes spent on discharge * Kathy VILLAVICENCIO, Reina: PERFORM Event Display: Patient Education/Instruction Authored Date: [id number] Inpatient Adult Discharge Instructions [address] [address] Name: MICHAEL BUTLER : 1975 Visit: 09/12/2022 19:25:00 Current Date: 09/21/2022 11:32 Account: [id number] Inpatient Adult Discharge Instructions We would like [...] and their families. Surveys are administered by [employer] ?? If further treatment with your primary care physician or another doctor is recommended, it is important for you to keep the appointment. Call your primary care physician or return to the Emergency Department immediately if your condition worsens, fails to improve, or new symptoms develop. If you need to find a doctor, you can call [facility] for a referral at [phone] or toll free at [phone]) or log in to [email or web address].. ?? You can view and manage your care through the patient portal or by using a health care allison of your choosing. [employer] is a website that allows you to securely view your medical information including your hospital discharge summary, office visit summaries, medications and follow-up visits. You can also request appointments, renew medications, and request access to your medical information using a health care allison of your choosing, or just ask a question. You can enroll at [email or web address] or register during your next office visit. You have been discharged from [facility], Patient Care Unit: M7. If you have any questions regarding these instructions after you leave, please call us and we will be happy to assist you. [facility] Your Care Team Attending Physician Oneida VILLATORO, Ash Jain Consulting Providers Ray VILLATORO, Earle Eden; Antionette VILLATORO, Morgan Horan; Dorothy VILLATORO, Zion Ulloa Discharging Providers Oneida VILLATORO, Ash Jain Reason for Admission CHF CKD Your Diagnosis Fluid overload Elevated troponin Acute kidney injury superimposed on CKD CKD (chronic kidney disease), stage IV Insulin dependent type 2 diabetes mellitus Diabetic neuropathy Hypertension Venous stasis New onset of congestive heart failure ESRD on dialysis Opiate dependence Tests Performed Below is a partial list of the tests performed during your hospitalization. You may have had other tests and procedures not included in this list. Please discuss all test results with your provider. Basic Metabolic Panel Blood Urea Nitrogen BUN POC CARTRIDGE CALCIUM IONIZED POC CART CBC CBC w/ Differential CHLORIDE POC CARTRIDGE Comprehensive Metabolic Panel COVID-19 (2019 Novel Coronavirus) PCR COVID-19 RNA POC Creatinine CREATININE POC CARTRIDGE Electrolytes GLUCOSE POC GLUCOSE POC CARTRIDGE HEMATOCRIT POC CARTRIDGE HEMOGLOBIN POC CARTRIDGE Hepatitis Panel Dial High??Sensitivity??Troponin T HOLD LAVENDER TUBE INR K Plasma LFT's Lipid Panel Magnesium Level PHOSPHORUS POTASSIUM POC CARTRIDGE ProBNP SODIUM POC CARTRIDGE Troponin T, High Sensitivity Urinalysis w/hold for Urine Culture XR C-Arm < 1 Hour XR Chest 2 Views Frontal and Lat Primary Care Provider Kristen Boudreaux DO Advance Directive Health Care Proxy on File Yes - Health Care Proxy No qualifying data available. Discharge Vitals Temperature: 98.4 DegF Height: 170 cm Pulse Rate: 73 bpm Weight: 84.9 kg Respiratory Rate: 19 br/min Body Mass Index:??30.83 kg/m2??Critical Systolic Blood Pressure:??158 mm Hg??High Body surface area: 2.05 Diastolic Blood Pressure: 78 mm Hg ?? Oxygen Saturation: 98 % ?? Studies Pending All tests and labs ordered during this hospital stay have been completed unless listed below. Please discuss all pending results with your provider listed above in these instructions. ?? Add On Lab Order Protein/Creatinine Ratio Urine (Urine Protein/Creatinine Ratio) What to do next Instructions From Your Doctor -Outpatient dialysis unit placement [facility] schedule at 11:20 am -Take blood pressure meds as prescribed, follow BP and adjust under supervision -Check weight a few times weekly, let your provider know if weight going up -Follow up with methadone provider RUBEN, last dose on 09/21 in the morning -Leg elevation as possible ?? Discharge Orders Wound Care:??BLE Elevate Lower Legs - Cleanse with Vashe, Allow to soak for 5-10 minutes, allow to dry. Apply A&D ointment to both extremities cover open draining wound beds with cut to size Aquacel, cover with ABD pad, Kerlix gauze wrap and secure with tape Scheduled Follow-Up Appointments Friday 2:00 PM EST ?? With: Where: Transplant Pre [address] [facility] [address] [place] [address]- Friday 4:00 PM EST ?? With: Rashaad Brennan MD Where: [facility] [address] [place] [address]- Discharge Medications MICHAEL BUTLER :1975 Visit Date:09/12/2022 Medications: Please continue your medications until treatment is completed or stopped by your provider. Medications not listed below should be discontinued. Discuss any questions related to medications with your provider. What How Much When Why Instructions Next Dose New Furosemide (Lasix 40 mg oral tablet) 3 tab(s) Oral Twice a day Refill per PCP or Nephrology ?? Pickup at [facility] today (09/21) at 3PM Changed Lisinopril (lisinopril 20 mg oral tablet) 1 tab(s) Oral Daily Refill per PCP or Nephrology ?? Pickup at [facility] tomorrow (09/22) at 9AM Unchanged Acetaminophen (acetaminophen 325 mg oral tablet) 2 tab(s) Oral 3 times a day as needed for as needed as needed for pain as needed Unchanged Aspirin (Aspirin Low Dose 81 mg oral delayed release tablet) 1 tab(s) Oral Daily tomorrow (09/22) at 9AM Unchanged Carvedilol (Coreg 25 mg oral tablet) 1 tab(s) Oral Twice a day today (09/21) at 8PM Unchanged Clonidine (cloNIDine 0.1 mg oral tablet) 2 tab(s) Oral 3 times a day today (09/21) at 3PM and 8PM Unchanged Duloxetine (duloxetine 30 mg oral enteric coated capsule) 1 capsule Oral Daily DONT CRUSH. / CHEW. ?? tomorrow (09/22) at 9AM Unchanged Durable Medical Equipment (Compression Stockings) See instructions Chronic venous hypertension with ulcer and inflammation involving right side Chronic venous hypertension with ulcer and inflammation involving left side Lymphedema Juxta Lite Circaid compression wraps bilateral 30-40 mm Hg ?? Unchanged Durable Medical Equipment (Pen [place], 29 G x 12.7 mm BD Ultra Fine) See instructions Duration: 30 Days use as directed for Type 2 Diabetes Mellitus ?? Unchanged Durable Medical Equipment (Wheelchair) See instructions Lymphedema of left lower extremity Lymphedema 189.0 ?? Unchanged Famotidine (famotidine 20 mg oral tablet) 1 tab(s) Oral Daily tomorrow (09/22) at 9AM Unchanged hydrALAZINE (hydrALAZINE 25 mg oral tablet) 2 tab(s) Oral 3 times a day Duration: 30 Days today (09/21) at 3PM and 8PM Unchanged Insulin Glargine (Basaglar KwikPen) 10 unit(s) Subcutaneous Injection Daily tonight (09/21) at 6PM Unchanged Insulin Lispro (Insulin Lispro KwikPen 100 units/ mL injectable solution) 2-10 units Subcutaneous Injection 3 times a day before meals today (09/21) at 5PM Unchanged Methadone 75 Milligram Oral Daily last received from [facility] & took home 3 doses. Ro Confirmed [phone] ?? tomorrow (09/22) at 9AM Pharmacy Information [facility]: [address] [place], [place] [id number] [phone] ?? What How Much When Comments Stop Taking Amlodipine (amLODIPine 10 mg oral tablet) 1 tab(s) Oral Daily Stop Taking Multivitamin 1 tab(s) Oral Daily Stop Taking Ocular Lubricant (Artificial Tears 1.4%) Both eyes Every 4 hours as needed for Other Dryness. ?? Stop Taking Sodium Polystyrene Sulfonate (sodium polystyrene sulfonate 15 g/ 60 mL oral and rectal suspension) See instructions 60 mL By Mouth on Friday, Fri, Friday ?? Stop Taking torsemide (torsemide 20 mg oral tablet) 2 tab(s) Oral Daily Stop Taking torsemide (torsemide 40 mg oral tablet) 2 tab(s) Oral Twice a day Test Results Below is a partial list of the most recent Laboratory test results done prior to this discharge. You may have had other tests and procedures not included in this list. Please discuss all test resultswith your provider. Basic Metabolic Panel (09/21/2022) ???Sodium - 135 mmol/L???Potassium - 4.2 mmol/L???Chloride - 99 mmol/L???Bicarbonate Level - 28 mmol/L???Anion Gap - 8???Glucose Level - 76 mg/dL???BUN - 37 mg/dL???Creatinine-Blood - 4.0 mg/dL???Estimated GFR Creatinine - 18 ML/MIN/1.73 M2???Calcium - 8.3 mg/dL Blood Urea Nitrogen (09/17/2022) ???BUN - 68 mg/dL BUN POC CARTRIDGE (09/18/2022) ???BUN (POC) POC Cartridge - 70 mg/dL CALCIUM IONIZED POC CART (09/18/2022) ???Ionized Calcium (POC) POC Cartridge - 1.22 mmol/L CBC (09/20/2022) ???WBC - 7.7 k/mm3???RBC - 2.60 m/mm3???Hgb - 7.8 Gm/dL???Hct - 24.5 %???MCV - 94.2 femtoliters???MCH - 30.0 pg???MCHC - 31.8 g/dL???Platelet Count - 142 k/mm3???RDW-SD - 51.2 femtoliters???MPV - 10.0 femtoliters???Nucleated RBC (Automated) - 0.0 #/100 WBC'S???Abs. NRBC - 0.0 k/mm3 CBC w/ Differential (09/12/2022) ???WBC - 7.6 k/mm3???RBC - 3.08 m/mm3???Hgb - 9.0 Gm/dL???Hct - 29.2 %???MCV - 94.8 femtoliters???MCH - 29.2 pg???MCHC - 30.8 g/dL???Platelet Count - 179 k/mm3???RDW-SD - 55.9 femtoliters???MPV - 10.5 femtoliters???Nucleated RBC (Automated) - 0.0 #/100 WBC'S???Abs. NRBC - 0.0 k/mm3???Abs. Neut - 5.5 k/mm3???Abs. Lymph - 1.3 k/mm3???Abs. Camb[place] - 0.5 k/mm3???Abs. Eo - 0.2 k/mm3???Abs. Baso - 0.1 k/mm3???Neut % - 72.7 %???Lymph % - 17.2 %???[place] % - 6.6 %???Eos % - 2.2 %???Baso % - 0.8 %???Imm Gran- 0.5 %???Abs. Imm Gran - 0.0 k/mm3 CHLORIDE POC CARTRIDGE (09/18/2022) ???Chloride (POC) POC Cartridge - 105 mmol/L Comprehensive Metabolic Panel (09/12/2022) ???Sodium - 143 mmol/L???Potassium - 5.0 mmol/L???Chloride - 110 mmol/L???Bicarbonate Level - 20 mmol/L???Anion Gap - 13???Glucose Level - 182 mg/dL???BUN - 64 mg/dL???Creatinine-Blood - 5.4 mg/dL???Estimated GFR Creatinine - 13 ML/MIN/1.73 M2???Calcium - 8.6 mg/dL???Protein, Total - 5.7 Gm/dL???Alb umin - 2.7 Gm/dL???AG Ratio - 0.9???Alkaline Phosphatase - 90 units/L???AST (SGOT) - 30 units/L???ALT (SGPT) - 20 units/L???Bilirubin, Total - 0.2 mg/dL COVID-19 (2019 Novel Coronavirus) PCR (09/19/2022) ???COVID-19 PCR Specimen Source - NASAL???COVID-19 PCR Result - NEGATIVE COVID-19 RNA POC (09/12/2022) ???COVID-19 POC Result - NEGATIVE Creatinine (09/17/2022) ???Creatinine-Blood - 6.0 mg/dL???Estimated GFR Creatinine - 11 ML/MIN/1.73 M2 CREATININE POC CARTRIDGE (09/18/2022) ???Creatinine (POC) POC Cartridge - 6.9 mg/dL Electrolytes (09/17/2022) ???Sodium - 142 mmol/L???Potassium - 4.9 mmol/L???Chloride - 106 mmol/L???Bicarbonate Level - 24 mmol/L???Anion Gap - 12 GLUCOSE POC (09/21/2022) ???Glucose, POC - 77 mg/dL GLUCOSE POC CARTRIDGE (09/18/2022) ???Glucose (POC) POC Cartridge - 105 HEMATOCRIT POC CARTRIDGE (09/18/2022) ???Hematocrit (POC) POC Cartridge - 24 % HEMOGLOBIN POC CARTRIDGE (09/18/2022) ???Hemoglobin (POC) POC Cartridge - 8.2 Gm/dL Hepatitis Panel Dial (09/17/2022) ???Hepatitis B Surface Antigen - NEGATIVE???Hepatitis C Ab - NEGATIVE???Anti-HBS Quant - 0.68 mIU/mL High??Sensitivity??Troponin T (09/12/2022) ???High Sensitivity Troponin (HSTnT) - 823 ng/L HOLD LAVENDER TUBE (09/21/2022) ???Hold Lavender Top - SPECIMEN DISCARDED AFTER 24 HOURS. INR (09/12/2022) ???INR - 1.0???Protime (PT) - 10.5 seconds K Plasma (09/21/2022) ???Potassium Plasma - 4.2 mmol/L LFT's (09/14/2022) ???Protein, Total - 5.1 Gm/dL???Albumin - 2.5 Gm/dL???Alkaline Phosphatase - 83 units/L???AST (SGOT) - 27 units/L? ?ALT (SGPT) - 14 units/L? ?Bilirubin, Total - <0.2 mg/dL? ?Bilirubin, Direct - <0.2 mg/dL???Bilirubin, Indirect - Total bilirubin is less than the measureable limit. Therefore, indirect Lipid Panel (09/14/2022) ???Cholesterol - 136 mg/dL???Triglycerides - 165 mg/dL???HDL Cholesterol - 33 mg/dL???LDL Cholesterol - 70 mg/dL???Non HDL Cholesterol - 103 mg/dL Magnesium Level (09/20/2022) ???Magnesium - 1.9 mg/dL PHOSPHORUS (09/20/2022) ???Phosphorus - 4.8 mg/dL POTASSIUM POC CARTRIDGE (09/18/2022) ???Potassium (POC) POC Cartridge - 4.5 mmol/L ProBNP (09/12/2022) ???Nt-Probnp - 23013 pg/mL SODIUM POC CARTRIDGE (09/18/2022) ???Sodium (POC) POC Cartridge - 142 mmol/L Troponin T, High Sensitivity (09/13/2022) ???High Sensitivity Troponin (HSTnT) - 738 ng/L Urinalysis w/hold for Urine Culture (09/12/2022) ???Appear/Color, Urine - LIGHT YELLOW???Specific [place], Urine - 1.018???pH, Urine - 6.5???Albumin, Urine - 3+???Glucose, Urine - 3+???Ketones, Urine - NEGATIVE???Bilirubin, Urine - NEGATIVE???Hemoglobin, Urine - 1+???Nitrite, Urine - NEGATIVE???Leukocyte, Urine - NEGATIVE???Urobilinogen - NORMAL???WBC's, Urine - 4 /HPF? ?RBC's, Urine - 21 /HPF? ?Bacteria - SLIGHT? ?Squamous Epith - <1 /HPF? ?Mucus - SLIGHT???Hold Urine Culture - Testing available 48 hours from time of collection. Immunizations This Visit Given Vaccine Dateinfluenza virus vaccine, inactivated 09/14/2022 Allergies (NKA means No Known Allergies) Compazine??(difficulty breathing, difficulty) Risperdal??(tongue swells) Problems Active Problems??(21) Abscesses, recurrent, due to IVDU including admission to [facility] [place] --> [facility] 09/18/2015 to 10/29/2015 for re?? [...] ulcer, right lower extremity, [facility] [phone]?? Education Materials Below is the list of Educational Leaflet Providered with your Discharge Instructions. Clonidine Oral Tablet?? Lisinopril Oral Tablet?? Hydralazine Oral Tablet?? Furosemide Oral Tablet?? Carvedilol Oral Tablet?? Aspirin Delayed Release Oral Tablet?? Discharge Instructions for Heart Failure?? Coping with Kidney Failure?? Valuables and Belongings I fully understand and agree that [facility] accepts no responsibility for all my [...] of Valuable and Belonging List: With patient Disposition of Belongings: Other: belongings under strecher with patient Date for Pt to Sign Valuables/Belongings: 09/18/22 14:40:00 ?? Valuables & Belongings ?? Clothes Electronic devices Jewelry Monetary Items Personal devices Miscellaneous Medications (Valuables) Valuables at Bedside Jacket, Pants, Shirt, Shoes, Undergarments Cell phone, Other: Tablet ?? Other: gunner pack Glasses ? Valuables Sent Home ? Valuables Sent to Security ? Other Discharge Information ?? Wound Assessment?? Wound Assessment?? Wound Location I: Leg, left lower Wound Type I: Diabetic Wound I, Present on Admission: Yes Wound Location II: Leg, right lower Wound II, Present on Admission: Yes ?? Case Management Discharge Plan?? Discharge Plan?? Discharge Agency Information?? Discharge Level of Care at Discharge: Homehealth/VNA Name of Agency #1: [facility] Discharge VNA/Hospice/Home Care: [facility] Agency Sexual Assault Counselor #1: intake ?? Service Categories #1: Detention ?? Service Comments #1: Referral to [facility] will call to schedule a home visit; if you dont hear from them please call them directly ?? Pulmonary Rehab Status?? Pulmonary Rehab Discharge Status?? Respiratory Rate: 19 br/min ? Common Emergency Awareness Tips IS IT [...] are strongly encouraged to quit. Please call [facility] at [phone] or [phone] or log in to [email or web address] for referrals to smoking cessation programs. ?? The National Suicide Prevention Hotline is available 14/04 if you or someone you know needs to find a reason to keep living. By calling 0-296-910-Tour Raiser (4755) you'll be connected to a skilled, trained counselor at a crisis center in your area. INPATIENT DISCHARGE INSTRUCTIONS SIGNATURE PAGE CARRIEMICHAEL Location:[facility] Registration Date and Time:09/12/2022 19:25 EST Primary Care Physician: Kristen Boudreaux DO, I MICHAEL BUTLER, have received the above patient education materials/instructions and have verbalized understanding. If ambulance or transport services are being used I further acknowledge being given a choice of service. ?? If you need to contact me, please call me at this number: . Patient/Route Agent Name: Patient/Route Agent Signature: Relationship to Patient: Witness Name/Signature: Date: * Kathy VILLAVICENCIO, Reina: PERFORM Event Display: Patient Education Leaflets Authored Date: [id number] Clonidine Oral Tablet ?? 30342-33 Clonidine Oral Tablet Brands: Catapres Uses This medicine is used for the following purposes: ??? attention deficit hyperactivity disorder ??? drug addiction ??? high blood pressure ??? menopausal symptoms ??? stop smoking ?? Instructions This medicine may be taken with or without food. It is very important that you take the medicine at about the same time every day. It will work bestif you do this. Keep the medicine at room temperature. Avoid heat and direct light. It is important that you keep taking each dose of this medicine on time even if you are feeling well. If you forget to take a dose on time, take it as soon as you remember. If it is almost time for thenext dose, do not take the missed dose. Return to your normal dosing schedule. Do not take 2 doses of this medicine at one time. Drug interactions can change how medicines work or increase risk for side effects. Tell your healthcare providers about all medicines taken. Include prescription and zshg-zgp-pjnzavh medicines, vitamins, and herbal medicines. Speak with your doctor or pharmacist before starting or stopping any medicine. Do not suddenly stop taking this medicine. Check with your doctor before stopping. ?? Cautions Tell your doctor and pharmacist if you ever had an allergic reaction to a medicine. Do not use the medication any more than instructed. This medicine may cause dizziness or fainting, especially after exercising or in hot weather. Be very careful when standing or sitting up quickly. Your ability to stay alert or to react quickly may be impaired by this medicine. Do not drive or operate machinery until you know how this medicine will affect you. Do not drink beverages with alcohol while on this medicine. Avoid becoming overheated during exercise or other activities. Try to stay cool in hot weather. Tell the doctor or pharmacist if you are , planning to be , or . Do not share this medicine with anyone who has not been prescribed this medicine. ?? Side Effects The following is a list of some common side effects from this medicine. Please speak with your doctor about what you should do if you experience these or other side effects. ??? constipation ??? dizziness or drowsiness ??? dry mouth ??? lack of energy and tiredness ??? headaches ??? low blood pressure Call your doctor or get medical help right away if you notice any of these more serious side effects: ??? agitated feeling or trouble sleeping A few people may have an allergic reaction to this medicine. Symptoms can include difficulty breathing, skin rash, itching, swelling, or severe dizziness. If you notice any of these symptoms, seek medical help quickly. ?? Extra Please speak with your doctor, nurse, or pharmacist if you have any questions about this medicine. ?? [email or web address] IMPORTANT NOTE: This document tells you briefly how to take your medicine, but it does not tell youall there is to know about it. Your doctor or pharmacist may give you other documents about your medicine. Please talk to them if you have any questions. Always follow their advice. There is a more complete description of this medicine available in German. Scan this code on your smartphone or tablet or use the web address below. You can also ask your pharmacist for a printout. If you have any questions, please ask your pharmacist. The display and use of this drug information is subject to Terms of Use. Copyright(c) 2021 [employer]. ?? [employer]. All rights reserved. This information is not intended as a substitute for professional medical care. Always follow your healthcare professional's instructions. ?? * Kathy VILLAVICENCIO, Reina: PERFORM Event Display: Patient Education Leaflets Authored Date: Lisinopril Oral Tablet ?? [id number] Lisinopril Oral Tablet Brands: Prinivil, Zestril Uses This medicine is used for the following purposes: ??? diabetic complications ??? heart attack ??? heart failure ??? high blood pressure ??? prevent migraine headaches ?? Instructions This medicine may be taken with or without food. It is very important that you take the medicine at about the same time every day. It will work bestif you do this. Keep the medicine at room temperature. Avoid heat and direct light. Talk to your doctor before eating foods with large amounts of potassium. Potassium is often found in salt substitutes. Your doctor may want you to reduce the amount of these foods. It is important that you keep taking each dose of this medicine on time even if you are feeling well. If you forget to take a dose on time, take it as soon as you remember. If it is almost time for thenext dose, do not take the missed dose. Return to your normal dosing schedule. Do not take 2 doses of this medicine at one time. Tell your doctor and pharmacist about all your medicines. Include prescription and wvje-ept-rdogmuhjsusptqfp, vitamins, and herbal medicines. ?? Cautions Tell your doctor and pharmacist if you ever had an allergic reaction to a medicine. Do not use the medication any more than instructed. This medicine may cause dizziness or fainting, especially after exercising or in hot weather. Be very careful when standing or sitting up quickly. Your ability to stay alert or to react quickly may be impaired by this medicine. Do not drive or operate machinery until you know how this medicine will affect you. Contact your doctor if you notice a change in the amount or darkening of your urine. Tell the doctor or pharmacist if you are , planning to be , or . This medicine can hurt a new baby in the womb. If you become while on this medicine, tell your doctor immediately. Your doctor may switch you to a different medicine. Do not start or stop any other medicines without first speaking to your doctor or pharmacist. Do not share this medicine with anyone who has not been prescribed this medicine. ?? Side Effects The following is a list of some common side effects from this medicine. Please speak with your doctor about what you should do if you experience these or other side effects. ??? coughing ??? dizziness ??? lack of energy and tiredness ??? headaches Call your doctor or get medical help right away if you notice any of these more serious side effects: ??? low blood pressure A few people may have an allergic reaction to this medicine. Symptoms can include difficulty breathing, skin rash, itching, swelling, or severe dizziness. If you notice any of these symptoms, seek medical help quickly. ?? Extra Please speak with your doctor, nurse, or pharmacist if you have any questions about this medicine. ?? [email or web address] IMPORTANT NOTE: This document tells you briefly how to take your medicine, but it does not tell youall there is to know about it. Your doctor or pharmacist may give you other documents about your medicine. Please talk to them if you have any questions. Always follow their advice. There is a more complete description of this medicine available in German. Scan this code on your smartphone or tablet or use the web address below. You can also ask your pharmacist for a printout. If you have any questions, please ask your pharmacist. The display and use of this drug information is subject to Terms of Use. Copyright(c) 2021 [employer]. ?? [employer]. All rights reserved. This information is not intended as a substitute for professional medical care. Always follow your healthcare professional's instructions. ?? * Reina Chavez RN: PERFORM Event Display: Patient Education Leaflets Authored Date: [id number] Hydralazine Oral Tablet ?? 76616-20 Hydralazine Oral Tablet Uses This medicine is used for the following purposes: ??? heart failure ??? high blood pressure ?? Instructions This medicine may be taken with or without food. Keep the medicine at room temperature. Avoid heat and direct light. It is important that you keep taking each dose of this medicine on time even if you are feeling well. If you forget to take a dose on time, take it as soon as you remember. If it is almost time for thenext dose, do not take the missed dose. Return to your normal dosing schedule. Do not take 2 doses of this medicine at one time. Tell your doctor and pharmacist about all your medicines. Include prescription and yuwx-uts-zkzzutgzbruumkxa, vitamins, and herbal medicines. Do not suddenly stop taking this medicine. Check with your doctor before stopping. ?? Cautions Tell your doctor and pharmacist if you ever had an allergic reaction to a medicine. Do not use the medication any more than instructed. This medicine may cause dizziness or fainting, especially after exercising or in hot weather. Be very careful when standing or sitting up quickly. Your ability to stay alert or to react quickly may be impaired by this medicine. Do not drive or operate machinery until you know how this medicine will affect you. Please check with your doctor before drinking alcohol while on this medicine. Contact your doctor if you notice a change in the amount or darkening of your urine. Tell the doctor or pharmacist if you are , planning to be , or . Do not start or stop any other medicines without first speaking to your doctor or pharmacist. Do not share this medicine with anyone who has not been prescribed this medicine. ?? Side Effects The following is a list of some common side effects from this medicine. Please speak with your doctor about what you should do if you experience these or other side effects. ??? decreased appetite ??? diarrhea ??? dizziness ??? headaches ??? rapid heartbeat ??? nausea and vomiting Call your doctor or get medical help right away if you notice any of these more serious side effects: ??? chest pain ??? fainting ??? numbness or tingling in hands and feet ??? unusual or unexplained tiredness or weakness ??? blood in urine A few people may have an allergic reaction to this medicine. Symptoms can include difficulty breathing, skin rash, itching, swelling, or severe dizziness. If you notice any of these symptoms, seek medical help quickly. ?? Extra Please speak with your doctor, nurse, or pharmacist if you have any questions about this medicine. ?? [email or web address] IMPORTANT NOTE: This document tells you briefly how to take your medicine, but it does not tell youall there is to know about it. Your doctor or pharmacist may give you other documents about your medicine. Please talk to them if you have any questions. Always follow their advice. There is a more complete description of this medicine available in German. Scan this code on your smartphone or tablet or use the web address below. You can also ask your pharmacist for a printout. If you have any questions, please ask your pharmacist. The display and use of this drug information is subject to Terms of Use. Copyright(c) 2021 [employer]. ?? [employer]. All rights reserved. This information is not intended as a substitute for professional medical care. Always follow your healthcare professional's instructions. ?? * Event Display: Provider Clarification Note Please click on pdf link to open report * Sue , PHAM S: TRANSCRIBE Nelson Rocha MD: VERIFY Event Display: Result: Authored Date: C-Arm < 1 Hour INDICATION: Reason: HEMO CATH COMPARISONS: None TECHNIQUE: Fluoroscopy support was provided. There was no radiologist in attendance. FLUOROSCOPY TIME: 4.7 seconds TECHNOLOGIST TIME: 5 minutes FINDINGS: Fluoroscopy support was provided. There was no radiologist in attendance. IMPRESSION: See above. WSN: [id number] Ordering Physician: Tyshawn Milian Dictated By: Nelson Rocha MD Dictated Date/Time: 09/18/22 7:02 pm Reviewed By: Nelson Rocha MD Signed By: Nelson Rocha MD Signed Date/Time: 09/18/22 7:02 pm Transcribed By: OLGA Transcribed Date/Time: 09/18/22 6:08 pm * Event Display: Cardiac Rhythm Strips Authored Date: * Event Display: Cardiac Rhythm Strips Authored Date: * [facility] , CIS S: TRANSCRIBE Sammi Oliver MD: VERIFY Event Display: Result: Authored Date: Examination: Chest performed on 09/12/2022. History: Increased lower extremity swelling. Shortness of breath. Findings: Frontal and lateral views of the chest are compared to a prior study dated 12/18/2021. The cardiac and mediastinal silhouettes are within normal limits. Low lung volumes are present withbibasilar atelectasis and pleural effusions. The osseous and soft tissue structures are unremarkable. Impression: Low lung volumes with bibasilar atelectasis and pleural effusions. WSN: [id number] Ordering Physician: Aleshia Hanna Dictated By: Sammi Oliver MD Dictated Date/Time: 09/12/22 5:55 pm Reviewed By: Sammi Oliver MD Signed By: Sammi Oliver MD Signed Date/Time: 09/12/22 5:55 pm Transcribed By: OLGA Transcribed Date/Time: 09/12/22 5:53 pm Hospital Progress note * Zion De La Cruz MD: PERFORM, SIGN, VERIFY Event Display: Progress Note Hospital Authored Date: Patient: MICHAEL BUTLER Age: 46 years Sex: Male : 1975 Associated Diagnoses: None Author: Zion De La Cruz MD No new renal issues developed overnight. Review of Systems Review of Systems Constitutional: no fever. Respiratory: no shortness of breath. Cardiovascular: no chest pain. Gastrointestinal: no vomiting. Review / Management Lopez Catheter No. Physical Examination Vitals Vitals : VITAL SIGNS SECTION 09/21/2022 4:00 EST Early Warning Score 3.00 09/21/2022 4:00 EST Temperature 98.0 DegF Temperature Route Temporal Pulse Rate 70 bpm Respiratory Rate 20 br/min Systolic Blood Pressure 169 mm Hg H Diastolic Blood Pressure 97 mm Hg H Blood pressure sites Arm, right Mean Arterial Pressure 121 mm Hg Pulse Pressure 72 mm Hg Oxygen Saturation 97 % Mode of Delivery (Oxygen) Room air . General Appearance No apparent distress. HEENT Moist mucous membranes. Respiratory Lungs: rales. Cardiac Jugular venous distention present. Rhythms: RRR. Abdomen/GI Soft. Non-tender. Extremities Lower extremity edema: both, pitting. Neurologic Alert. Results Review General results Nonoliguric Most recent results All : ALL RESULT SECTIONS 09/20/2022 1:42 EST Sodium 136 mmol/L Potassium 4.8 mmol/L Chloride 100 mmol/L Bicarbonate Level 28 mmol/L Anion Gap 8 Impression and Plan Comprehensive Plan 46-year-old gentleman with past medical history significant for CKD stage V secondary to diabetic kidney disease, history of polysubstance abuse, recent admission in setting of complicatd compound fracture wound who now presents in the setting of significant volume overload and worsening kidney function. At this point his current medical issues include 1. Likely end-stage renal disease although there is a possibility that the patient will regain renal function as his volume is better maintained and his hypoperfusion injury resolves. Nonetheless thepatient has advanced renal failure and will be continued on dialysis on a Friday basis with outpatient dialysis schedule to be [facility] on the mid shift. I have reviewed the patient's medications and do not feel that he requires any medication dose adjustment at this time.-the patient is presently scheduled for outpatient dialysis and on Friday schedule at the [facility] facility. * Martha Rocha LPN: PERFORM, SIGN, VERIFY Event Display: Progress Note Hospital Authored Date: Patient: MICHAEL BUTLER Age: 46 years Sex: Male : 1975 Associated Diagnoses: None Author: Martha Rocha LPN Findings Problem Related to Alteration in Cardiac Function (new) : Alteration in Cardiac Function/new 09/20/2022 21:00 EST Alteration in Cardiac Status Related to Heart failure Goals & Outcomes, Cardiac Status Pt will resume/maintain adequate cardiac output, Pt will resume/maintain adequate hemodynamic status, Pt/caregiver will state understanding of diagnosis Cardiac Interventions Implemented Assess/monitor cardiac status, Assess/monitor neuro status, Assess/monitor respiratory status, If no bowel movement in 3 days activate bowel regime, Monitor & document daily weight BH Goals/Interventions, Cardiac Yes Cardiac, Problem Start 09/14/2022 0:08 Reviewed Plan with, Cardiac Status Patient Patient Progression, Cardiac Status Patient progressing according to plan . Nursing Data Cardiac Data. : Cardiac Data. 09/20/2022 21:18 EST Cardiovascular Symptoms Edema present Heart Sounds S1, S2 Heart Rhythm Regular Pacemaker No Cardiac Rhythm Normal sinus rhythm Capillary Refill < 3 seconds Radial Pulse, Left Normal Radial Pulse, Right Normal Dorsalis Pedis Pulse, Left Normal Dorsalis Pedis Pulse, Right Normal Edema, Left Pretibial 2+ mild Edema, Right Pretibial 2+ mild Ankle, left 2+ mild Ankle, right 2+ mild Pedal, left 2+ mild Pedal, right 2+ mild nurse monitoring Yes Cardiovascular WNL except . Respiratory/Pulmonary Data. : Respiratory/Pulmonary Data. 09/20/2022 11:00 EST Respiratory Symptoms None Respiratory effort Unlabored Chest expansion Symmetrical Accessory Muscles use No Cough No cough Respiratory pattern Regular Left Upper Lobe Breath Sounds Clear Right Upper Lobe Breath Sounds Clear Right Middle Lobe Breath Sounds Clear Left Lower Lobe Breath Sounds Clear Right Lower Lobe Breath Sounds Clear Respiratory distress None Respiratory WNL except . Vital Signs : VITAL SIGNS SECTION 09/20/2022 20:43 EST Systolic Blood Pressure 148 mm Hg H Diastolic Blood Pressure 93 mm Hg H 09/20/2022 20:37 EST Early Warning Score 5.00 09/20/2022 20:35 EST Pulse Rate 70 bpm Systolic Blood Pressure 148 mm Hg H Diastolic Blood Pressure 93 mm Hg H 09/20/2022 20:28 EST Early Warning Score 5.00 09/20/2022 20:16 EST Early Warning Score 5.00 09/20/2022 20:15 EST Temperature 97.7 DegF Temperature Route Temporal Pulse Rate 70 bpm Respiratory Rate 16 br/min Systolic Blood Pressure 148 mm Hg H Diastolic Blood Pressure 93 mm Hg H Blood pressure sites Arm, right Mean Arterial Pressure 111 mm Hg Pulse Pressure 55 mm Hg Oxygen Saturation 97 % Mode of Delivery (Oxygen) Room air . Evaluation Pt alert and oriented X3, VSS, lung sounds clear, normal sinus rhythm on telemetry. He denies having chest pain or dizziness. +2 bilateral lower extremity edema noted. dressing to bilateral legs done. Pt with a right anterior Perma cath. OOB independently to bathroom voiding clear yellow urine in urinal. Will continues to monitor and keep safe. . Discharge Information Case Management Discharge Plan : Case Management Discharge Plan Data 09/20/2022 15:58 EST Discharge Level of Care at Discharge Homehealth/VNA Discharge VNA/Hospice/Home Care [facility] Name of Agency #1 [facility] Agency Sexual Assault Counselor #1 intake Service Categories #1 Detention Service Comments #1 Referral to [facility]. VNA will call to schedule a home visit; if you dont hear from them please call them directly * Ash Dudley RN: PERFORM, SIGN, VERIFY Event Display: Progress Note Hospital Authored Date: Patient: MICHAEL BUTLER Age: 46 years Sex: Male : 1975 Associated Diagnoses: None Author: Ash Dudley RN Findings Problem Related to Alteration in Cardiac Function (new) : Alteration in Cardiac Function/new 09/20/2022 18:00 EST Alteration in Cardiac Status Related to Heart failure Goals & Outcomes, Cardiac Status Pt will resume/maintain adequate cardiac output, Pt will resume/maintain adequate hemodynamic status, Pt/caregiver will state understanding of diagnosis Cardiac Interventions Implemented Assess/monitor cardiac status, Assess/monitor neuro status, Assess/monitor respiratory status, Call/Report variances in ECG to provider, Document & Monitor O2 Sats; Administer O2 as ordered, Ensure adequate caloric intake, If no bowel movement in 3 days activate bowel regime, Monitor & document daily weight, Monitor ECG w/administration of antiarrhythmics(CO 13.420), Obtain 12 Lead ECG and CXR as ordered, Prep pt for treatments & procedures, Teach/encourage deep breath & cough exercises, Team conversation regarding appropriate level of care, Use adjunctive therapies per Standards of Practice, Fluid restriction per MD order Goals/Interventions, Cardiac Yes Cardiac, Problem Start 09/14/2022 0:08 Reviewed Plan with, Cardiac Status Patient Patient Progression, Cardiac Status Patient progressing according to plan . Alteration in Fluid Electrolyte : Alteration in Fluid Electrolyte Func/new 09/20/2022 18:00 EST Alteration Fluid Electrolytes Related to Fluid Volume Excess Goals & Outcomes, Fluid/Electrolyte Blood glucose levels will stabilize during hospitalization,Vital signs, electrolytes & glucose levels will stabilize, Pt will maintain adequate GI/ function appropriate for pt, Pt will maintain skin turgor, Pt will resume/maintain adequate cardiac output, Pt will resume/maintain adequate hemodynamic status, Pt will state importance of adhering to medication regime, Pt's weight will normalize, Pt will maintain hydration during fluid restriction Interventions, Fluid Electrolyte Monitor effects of dialysis/ultrafiltration, monitor cardiac status, monitor dietary intake, Monitor effects of diuretics, monitor effects of insulin, glucose values,monitor for s/s of anemia: weakness, fatigue,, monitor for s/s of hyper/hypokalemia, monitor for s/s of hypo or hyperglycemia, monitor GI/ status, monitor hydration status, monitor mucous membranes, monitor peripheral pulses, Encourage oral intake of meals, snacks, supplements, Encourage oral intake/fluids as ordered, Maintain strict intake & output, Monitor & document daily weight, Teach Pt/caregiver re: fluid restriction, Teach Pt/caregiver importance of accurate I & O monitoring Goals/Interventions,Fluid Electrolyte Yes Fluid Electrolyte, Problem Start 09/14/2022 0:08 Reviewed plan with, Fluid Electrolyte Patient Patient Progression, Fluid Electrolyte Pt progressing according to plan . Alteration in Genitourinary : Alteration in Genitourinary Function/new 09/20/2022 18:00 EST Alteration in Status Related to Renal failure, RF requiring hemodialysis Goals & Outcomes, Genitourinary Pt will achieve normal/improved fluid balance, Pt will maintainadequate GI function appropriate for pt, Pt will maintain adequate function appropriate for pt, Pt will maintain normal fluid balance, Pt will resume normal pattern of elimination Interventions, Assess/monitor/maintain Genitourinary status, Assist & encourage pt with meticulous bigg care, Encourage PO fluid intake as allowed by diet, Assess & monitor for uremitc pruritis, Assess & monitor hemodialysis access device, AV fistula/graft: Assess/monitor presence thrill/bruit, Coordinate lab draws w/dialysis unit whenever possible, Identify & document access device location, Document date/time of last dialysis treatment, Permacath: assess/monitor dressing and security of line, Permacath: assess/monitor exit site & tunnel, Temporary: Assess site, sutures, s/s of infection, Assess/monitor dialysis access site, Assess/monitor effects of re- hydration, Monitor effects of diuretics, Monitor for jugular vein distention, Reduce bleeding risk minimizing blood draws, razor use, Apply pressure to all injection sites, Monitor serum levels of immunosuppression Goals/Interventions, Genitourinary Yes Genitourinary, Problem Start 09/18/2022 22:00 Reviewed Plan with, Genitourinary Patient Patient Progression, Genitourinary Patient progressing according to plan Genitourinary, Problem Ongoing Yes . Nursing Data Cardiac Data. : Cardiac Data. 09/20/2022 11:00 EST Cardiovascular Symptoms Edema present Skin Temperature Upper Extremities Warm Skin Temperature Lower Extremities Warm Cardiovascular Comment permacath right anterior chest wall c/d/i dressing Cardiac Rhythm Normal sinus rhythm Radial Pulse, Right Normal Dorsalis Pedis Pulse, Left Normal Dorsalis Pedis Pulse, Right Normal Edema, Left Pretibial 3+ moderate Edema, Right Pretibial 3+ moderate Ankle, left 3+ moderate Ankle, right 3+ moderate nurse monitoring Yes Cardiovascular WNL except . Gastrointestinal Data. : Gastrointestinal Data. 09/20/2022 11:00 EST Gastrointestinal Symptoms Constipation, Flatulence Last Bowel Movement 09/16/2022 GI WNL except . Neurological Data. : Neurological Data. 09/20/2022 11:00 EST Level of Consciousness Full Consciousness Orientated to person, place, time Person, Place, Time Swallowing Difficulty None Gait Steady Response Eye Opening Spontaneously Motor Response-Adult Obeys commands Verbal Response-Adult Oriented and converses [place] Coma Score 15 Neuro WNL except . Evaluation pt remains a/ox 3 vss lungs cta bilaterally tele nsr abd snt lbm 09/16 permacath right anterior chest wall pt did have dialysis this afternoon and had 3000cc removed during his session, pt does also continues on 120 mg po lasix bid currently pp with edema bilaterally leg wound dressing c/d/i to be done by night rn with tree and a/d ointment as ordered, pt denies any cp sob n/v or dizzyness, ? if pt is going for more dialysis tomorrow, will continue to monitor wt vitals labs bun/creatine, labs with dialysis see cis for assessment . Patient Care team information Care Team Personnel Name: Maryam Fox RN Position: [facility] RN Member Role: Primary Care Nurse Name: Franchesca Ward RN Position: [facility] RN Member Role: Primary Care Nurse Name: Carolina Camacho RN Position: [facility] SN RN Member Role: Primary Care Nurse Name: Linda Hathaway Position: [facility] Outreach Member Role: Lifetime Consulting Physician Name: Delaney Huber RN Position: [facility] RN Member Role: Primary Care Nurse Name: Juanita Main RN Position: [facility] RN Member Role: Primary Care Nurse Name: China Sutherland RN Position: [facility] Outreach Member Role: Lifetime Consulting Physician Name: Tayler Harris RN Position: [facility] RN Member Role: Primary Care Nurse Name: Sophie Bejarano NP Position: [facility] Associate Professional Member Role: Lifetime Consulting Provider Address: Address: [address] [facility] [place], [place] - Name: Carline Cantu RN Position: [facility] RN Member Role: Primary Care Nurse Name: Vasile Byers MD Position: [facility] Renal MD Member Role: Lifetime Consulting Physician Address: Address: [address] [facility] [place], [place] - Name: Katalina Jorge RN Position: [facility] OB RN Member Role: Primary Care Nurse Name: Lorene Davenport RN Position: [facility] RN Member Role: Primary Care Nurse Name: Meryl Saini RN Position: [facility] SN RN Member Role: Primary Care Nurse Name: Annie Langston RN Position: [facility] RN Member Role: Primary Care Nurse Name: Guillermo Encinas DO Position: [facility] Renal MD Member Role: Lifetime Consulting Physician Address: Address: [address] [facility] [place], [place] - Name: Lorene Billingsely RN Position: [facility] Onco RN Member Role: Primary Care Nurse Name: Kathy Nieves RN Position: [facility] ED RN W/OE and Tasks Member Role: Primary Care Nurse Name: Sophia Johnson Position: [facility] RN Member Role: Primary Care Nurse Name: Awais Brenner RN Position: [facility] RN Member Role: Primary Care Nurse Name: Paradise Linder RN Position: [facility] RN Member Role: Primary Care Nurse Name: Pina Mcgill RN Position: [facility] RN Member Role: Primary Care Nurse Name: Yumiko Lindsay RN Position: [facility] RN Member Role: Primary Care Nurse Name: Vincent Thapa RN Position: [facility] RN Member Role: Primary Care Nurse Name: Kristen Boudreaux DO Position: [facility] Resident Member Role: PCP Address: Address: [address] [place], [place] - [place] Name: Nicole Guzman RN Position: [facility] RN Member Role: Primary Care Nurse Name: Neil Bobby RN Position: [facility] ED RN W/OE and Tasks Member Role: Primary Care Nurse Name: Joellen Pineda RN Position: [facility] RN Member Role: Primary Care Nurse Name: Litzy Marin RN Position: [facility] RN Member Role: Primary Care Nurse Name: Crystal Robles RN Position: [facility] RN Member Role: Primary Care Nurse Name: Ruth Stevens LPN Position: [facility] RN Member Role: Primary Care Nurse Name: Nohemi Grande RN Position: [facility] Cold Type Composing Machine Operator Member Role: Primary Care Nurse Name: Yolanda Tyler RN Position: [facility] Cold Type Composing Machine Operator Member Role: Primary Care Nurse Name: [facility]ITALJesus[facility] Attending Position: [facility] ED Medicine MD Name: Idalmis Gomes RN Position: [facility] ED RN W/OE and Tasks Member Role: Patient Care Provider Name: Beryl Harry Position: [facility] ED TA [facility] Name: Marky Rhodes Position: [facility] ED OA Charge Member Role: ED Associate Care Team Related Persons Name: TAWNY BUTLER Address: [address] [address]
--- OUTSIDE RECORDS SUMMARY | 2023-06-23 09:47 | XMS_ITS | Continuity of Care Document ---
Author Name Unknown Organization [facility] ter Address [address] [place] [address]- Care Team Providers Care Deck Supervisor Name Role Phone Kristen Boudreaux DO Primary Care Physician [place] [facility] [place](s): 03/19/22 - 03/19/[address] [address] Discharge Disposition: A-D/C Home Attending [...] inactivated 08/20/16 Not Given Patient Refuses Medications amLODIPine 10 mg oral tablet See Instructions, TAKE 1 TABLET BY MOUTH EVERY DAY, # 30 tablet, 0 Refills, [facility] 23443, 170, cm, 03/06/22 9:11:00 EDT, Height, 89.9, kg, 12/25/21 7:54:00 EDT, Dry Weight Start Date: 03/08/22 Status: Ordered aspirin 81 mg oral delayed release tablet 81 mg, 1, tablet, By Mouth, Daily, # 30 tablet, Refills 0, Tot. Refills 0, Maintenance, 02/06/22 15:08:00 EDT, Route to Pharmacy Electronically, [facility]/pharmacy #[id number], Partial fill upon patient request if the prescription is for a schedule II opioid drug... Start Date: 02/06/22 Status: Ordered Basaglar KwikPen = 10 units, Subcutaneous Infusion, Daily, 0 Refills, Maintenance, 03/18/22 12:33:00 EDT, Partial fill upon patient request if the prescription is for a schedule II opioid drug. Start Date: 03/18/22 Status: Ordered cloNIDine 0.1 mg oral tablet See Instructions, TAKE 1 TABLET BY MOUTH 3 TIMES A DAY, # 90 tablet, Refills 0, Instructions Replace Required Details, Route to Pharmacy Electronically, [facility] STORE 35234, 170, cm, 03/06/22 9:11:00 EDT, Height, 89.9, kg, 12/25/21 7:54:00 EDT, Dry Weight Start Date: 03/08/22 Status: Ordered Compression Stockings See Instructions, # 1 each, Refills 1, Tot. Refills 1, Maintenance, Juxta Lite Circaid compression wraps bilateral 30-40 mm Hg, 03/05/22 14:53:00 EDT, Compound Start Date: 03/05/22 Status: Ordered famotidine 20 mg oral tablet See Instructions, TAKE 1 TABLET BY MOUTH EVERY DAY, # 30 tablet, Refills 0, Instructions Replace Required Details, Route to Pharmacy Electronically, [facility] STORE 02399, 170, cm, 03/06/22 9:11:00 EDT, Height, 89.9, kg, 12/25/21 7:54:00 EDT, Dry Weight Start Date: 03/08/22 Status: Ordered furosemide 40 mg oral tablet See Instructions, TAKE 1 TABLET BY MOUTH TWICE A DAY FOR 30 DAYS, # 60 tablet, Refills 0, Instructions Replace Required Details, Route to Pharmacy Electronically, [facility] STORE 21573, 170, cm, 03/06/22 9:11:00 EDT, Height, 89.9, kg, 12/25/21 7:54:00 EDT,... Start Date: 03/08/22 Status: Ordered HumaLOG Cesar KwikPen 100 units/mL injectable solution See Instructions, Three times a day before meals << Sliding Scale Comments >> 150 - 1992 units Call if less than 70 200 - 249 4 units 250 - 299 6 units 300 - 349 8 units 350 - 399 10 units Call if greater than 400 << Sliding Sc... Start Date: 03/12/22 Status: Ordered hydrALAZINE 25 mg oral tablet 2, tablet, By Mouth, 3 times a day, for 30 days, # 180 tablet, Refills 0, Physician Stop, Route to Pharmacy Electronically, [facility] STORE 38317, 170, cm, 03/06/22 9:11:00 EDT, Height, 89.9, kg, 12/25/21 7:54:00 EDT, Dry Weight Start Date: 03/08/22 Stop Date: 04/07/22 Status: Ordered lidocaine 5% topical film 2 film, Topically, Daily, # 30 patch, 0 Refills, Maintenance, 01/08/22 11:22:00 EDT, Patch, [facility], Partial fill upon patient request if the prescription is for a schedule II opioiddrug., 2 film Topically Daily, 169, cm, 01/07/22 14... Start Date: 01/08/22 Status: Ordered lisinopril 20 mg oral tablet 20 mg, 1, tablet, By Mouth, Daily, # 30 tablet, Refills 6, Tot. Refills 6, Maintenance, 03/18/22 14:25:00 EDT, Route to Pharmacy Electronically, [facility]/pharmacy #[id number], Partial fill upon patient request if the prescription is for a schedule II opioid drug... Start Date: 03/18/22 Status: Ordered methadone 10 mg/5 mL oral solution 35 mL = 70 mg, By Mouth, Daily, will get at methadone clinic, 0 Refills, Maintenance, 01/08/22 11:23:00 EDT, Solution, Partial fill upon patient request if the prescription is for a schedule II opioid drug. Start Date: 01/08/22 Status: Ordered Pen [place], 29 G x 12.7 mm BD Ultra [...] recurrent, due to IVDU including [place] [facility] [place] [facility] 09/18/2015 to 10/29/2015 for retroperitoneal abscess, MSSA bacteremia(Confirmed) Active Amputation of left upper ext remity above elbow, h.o chronic osteomyelitis(Confirmed) 12/25/21 Active Anemia(Confirmed) Active ADHD (attention deficit hype ractivity disorder)(Confirmed) Active Cocaine use disorder(Confirmed) Active Polysubstance dependence inc luding opioid drug with daily use(Confirmed) Active IDDM (insulin dependent diab etes mellitus)(Confirmed) Active Diabetic neuropathy(Confirmed) Active S/P amputation of limb(Confirmed) Active Hypertension(Confirmed) Active Overweight(Confirmed) Active Uriostegui's cyst of right knee(Confirmed) Active Venous ulcer, right lower ex tremity, followed by [facility] [phone](Confirmed) Active Venous ulcer of right leg(Confirmed) Active Vital Signs Most recent to oldest [Reference Range]: 1 2 3 Height 170 cm (03/19/22 9:34 AM) 170 cm (03/18/22 1:03 PM) Weight 81.7 kg (03/19/22 9:34 AM) 84 kg (03/18/22 1:03 PM) Oxygen Saturation [94-100 %] 98 % (03/19/22 2:15 PM) 100 % (03/19/22 2:00 PM) 98 % (03/19/22 1:45 PM) Pulse Rate [55-90 bpm] 98 bpm *H* (03/19/22 9:34 AM) Body Mass Index [18.5-24.99] 28.27 *H* (03/19/22 9:34 AM) 29.07 *H* (03/18/22 1:03 PM) Blood Pressure [90-138/55-84 mm Hg] 145/86mm Hg *H* (03/19/22 2:15 PM) 143/85mm Hg *H* (03/19/22 2:00 PM) 137/85mm Hg (03/19/22 1:45 PM) Respiratory Rate [16-30 br/min] 14 br/min *L* (03/19/22 2:15 PM) 10 br/min *L* (03/19/22 2:00 PM) 9 br/min *L* (03/19/22 1:45 PM) Temperature [96.8-100.4 DegF] 98.0 DegF (03/19/22 1:30 PM) 98.3 DegF (03/19/22 12:15 PM) 99 DegF (03/19/22 9:34 AM) Liters per Minute 4 L/min (03/19/22 1:45 PM) 4 L/min (03/19/22 1:30 PM) 4 L/min (03/19/22 1:15 PM) Mode of Delivery (Oxygen) Room air (03/19/22 2:15 PM) Room air (03/19/22 2:00 PM) Nasal cannula (03/19/22 1:45 PM) Blood pressure sites Arm, right (03/19/22 2:15 PM) Arm, right (03/19/22 2:00 PM) Arm, right (03/19/22 1:45 PM) Temperature Route Temporal (03/19/22 1:30 PM) Temporal (03/19/22 12:15 PM) Temporal (03/19/22 9:34 AM) Dry Weight 84 kg (03/18/22 1:03 PM) Weight Obtained Via Patient/family state d (03/18/22 1:03 PM) Dry Weight Obtained Via Patient/family s tated (03/18/22 1:03 PM) Social History Social History Type Response Tobacco Other: started smoki [employer] MOD at 20 years old, now about 5 cigarettes. Sex
--- OUTSIDE RECORDS SUMMARY | 2023-06-23 09:47 | XMS_ITS | Continuity of Care Document ---
Author Name Unknown Organization [facility] Address [address] [place] [address]- Care Team Providers Care Technology Risk Intern Name Role Phone Kristen Boudreaux DO Primary Care Physician Encounter [facility] [place] Date(s): 01/10/22 - 02/13/22 [facility] [address] [place] [address]- Attending Physician: Not on Staff, Attending MD [...] ceftriaxone and send results to Dr Burnett.fax [phone], 08/23/16 15:40:34, Compound Start Date: 08/23/16 Status: [...] 0 Refills, Maintenance, 02/06/22 15:05:00 EDT, Solution, [facility]/pharmacy #[id number], Partial fill upon patient request if the prescription is for a schedule II opioid drug., 169, cm, 02/06/22 13:31:00 EDT, H... Start Date: 02/06/22 Status: Ordered betamethasone topical dipropionate 0.05% ointment 1 application, Topically, 2 times a day, for 30 days, apply to affected area, # 15 Gm, 0 Refills, Acute 02/16/22 14:54:00 EDT, 01/17/22 14:54:00 EDT, Ointment, [facility]/pharmacy #[id number], Partial fill upon patient request if [...] 02/06/22 15:07:00 EDT, Route to Pharmacy Electronically, [facility]/pharmacy #[id number], Partial fill upon patient request if the prescription is for a schedule II opioid drug... Start Date: 02/06/22 Stop Date: 03/08/22 Status: Ordered furosemide 40 mg oral tablet 40 mg, 1, tablet, By Mouth, 2 times a day, # 60 tablet, Refills 0, Tot. Refills 0, Maintenance, 02/06/22 15:06:00 EDT, Route to Pharmacy Electronically, [facility]/pharmacy #[id number], Partial fill upon patient request if [...] 02/08/22 9:10:00 EDT, Route to Pharmacy Electronically, [facility]/pharmacy #[id number], Partial fill upon patient request if the prescription is for a schedule II opi... Start Date: 02/08/22 Stop Date: 03/10/22 Status: Ordered lidocaine 5% topical film 2 film, Topically, Daily, # 30 patch, 0 Refills, Maintenance, 01/08/22 11:22:00 EDT, [facility], Partial fill upon patient request if the prescription is for a schedule II opioiddrug., 2 film Topically Daily, 169, cm, 01/07/22 14... Start Date: 01/08/22 Status: Ordered lisinopril 10 mg oral tablet 10 mg, 1, tablet, By Mouth, Daily, # 30 tablet, Refills 0, Tot. Refills 0, Maintenance, 02/06/22 15:07:00 EDT, Route to Pharmacy Electronically, [facility]/pharmacy #[id number], Partial fill upon patient request if [...] 08/23/16 Stop Date: 09/22/16 Status: Ordered Pen [place], 29 G x 12.7 mm BD Ultra [...] to I VDU including admission to [facility] [place] --> [facility] 09/18/2015 to 10/29/2015 for retroperitoneal abscess, MSSA bacteremia(Confirmed) Active ADHD (attention deficit hype ractivity disorder)(Confirmed) Active Polysubstance dependence inc luding opioid drug with daily use(Confirmed) Active IDDM (insulin dependent diab etes mellitus)(Confirmed) Active Diabetic neuropathy(Confirmed) Active S/P amputation of limb(Confirmed) Active Hypertension(Confirmed) Active Overweight(Confirmed) Active Right LE venous ulcer, follo wed by [facility]a [facility] [phone](Confirmed) Active Venous ulcer of right leg(Confirmed) Active Social History Social History Type Response Tobacco Other: started smoki ng at 20 years old, now about 5 cigarettes. Sex
--- OUTSIDE RECORDS SUMMARY | 2023-06-23 09:47 | XMS_ITS | Continuity of Care Document ---
Author Name Unknown Organization [facility] Address [address] [place] [address]- Care Team Providers Care Log Carrier Operator Name Role Phone Crystal Gordillo MD Primary Care Physician Encounter [facility] [place] Date(s): 05/10/20 - 06/15/20 [facility] [address] [place] [address]- [facility] Attending Physician: Bernardino Toledo MD Admitting Physician: Bernardino Toledo MD Referring Physician: Not on Staff, Referring MD Allergies, Adverse Reactions, Alerts Substance Reaction Severity Status Risperdal tongue swells Active Compazine difficulty breathing difficulty Active Immunizations Given and Recorded Vaccine Date Status Refusal Reason influenza virus vaccine, inactivated 09/19/15 Give n pneumococcal 23-valent vaccine 07/11/14 Given tetanus/diphtheria/pertussis, acel(Tdap) 05/14/13 Given Not Given Vaccine Date Status Refusal Reason influenza virus vaccine, inactivated 08/20/16 Not Given Patient Refuses Medications . ., See Instructions, # 1 application, Refills 0, Tot. Refills 0, Maintenance, please check weekly cbc, chem7, bun,cr, LFTs while on ceftriaxone and send results to Dr Burnett.fax [phone], 08/23/16 15:40:34, Compound Start Date: 08/23/16 Status: Ordered . ., See Instructions, # 1 application, Refills 0, Tot. Refills 0, Maintenance, please make sure pt gets wound vac change every 4d. Next change will be in 08/26., 08/23/16 15:46:01, Compound Start Date: 08/23/16 Status: Ordered aspirin 81 mg oral tablet 1 tablet = 81 mg, By Mouth, Daily, # 30 tablet, 11 Refills, Maintenance, 12/26/15 18:55:32, Tablet Start Date: 12/26/15 Status: Ordered ibuprofen 600 mg oral tablet 600 mg, 1, tablet, By Mouth, Every 6 to 8 hours, PRN, Refills 0, Maintenance, Pain , Moderate, 08/19/16 17:34:35 Start Date: 08/19/16 Status: Ordered insulin glargine 100 u/ml subcutaneous solution = 45 units, Subcutaneous Injection, Daily at bedtime, # 10 mL, 1 Refills, Maintenance, 01/02/16 16:13:47, Solution Start Date: 01/02/16 Stop Date: 03/02/16 Status: Ordered insulin lispro 100 u/ml subcutaneous injection 8-23 units, Subcutaneous Injection, 3 times a day before meals, << Sliding Scale Comments >> 100 - 149 8 units Call if less than 80 150 - 199 11 units 200 - 249 14 units 250 - 299 17 units 300 - 349 20 units 350 - 399 23 units Ca... Start Date: 08/23/16 Status: Ordered Lantus Inj = 20 units, Subcutaneous Injection, Daily at bedtime, 0 Refills, Maintenance, 08/19/16 17:33:17, Injection Start Date: 08/19/16 Status: Ordered multivitamin with minerals Vitamin B Complex with C and Zinc oral tablet 1 tablet, By Mouth, Daily, # 30 tablet, 0 Refills, Maintenance, 08/23/16 16:16:28, Tablet Start Date: 08/23/16 Stop Date: 09/22/16 Status: Ordered Percocet-5 Tablet 2, tablet, By Mouth, Every 4 hours, PRN, if patient can tolerate po, Refills 0, Tot. Refills 0, Maintenance, Pain , Moderate, 09/11/16 10:40:18, Tablet Start Date: 09/11/16 Status: Ordered Silvadene 1% cream 1 application, Topically, Daily, for 30 days, # 85 Gm, 3 Refills, Acute 09/29/20 14:06:00 EST, 06/01/20 14:06:00 EDT, Cream, [facility]/pharmacy #[id number], apply to right leg wounds daily, 1 application Topically Daily,x30 days, 170.18, cm, 06/01/20 13:05:00 EDT... 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 [place] --> [facility] 09/18/2015 to 10/29/2015 for retroperitoneal abscess, MSSA bacteremia(Confirmed) Active ADHD (attention deficit hype ractivity disorder)(Confirmed) Active IDDM (insulin dependent diab etes mellitus)(Confirmed) Active Diabetic neuropathy(Confirmed) Active Overweight(Confirmed) Active Right LE venous ulcer, follo wed by [facility] [phone](Confirmed) Active Venous ulcer of right leg(Confirmed) Active Social History Social History Type Response Smoking Status Current every day dennise doherty entered on: 10/30/15 Sex
--- OUTSIDE RECORDS SUMMARY | 2023-06-23 09:47 | XMS_ITS | Continuity of Care Document ---
Author Name Unknown Organization [facility] Address [address] [place] [address]- Care Team Providers Care Sweet Pickle Maker Name Role Phone Kristen Boudreaux DO Primary Care Physician [place] [facility] [place] 04/26/22 - 07/05/22 [facility] [address] [place] [address]- Attending Physician: Marcia Carter NP Admitting Physician: Marcia Carter NP Referring Physician: Kristen Boudreaux DO Allergies, [...] 14:00:00 EDT, Route to Pharmacy Electronically, [facility]/pharmacy #[id number], Partial fill upon patient request if the prescription is for... Start Date: 05/16/22 Status: Ordered amLODIPine 10 mg oral tablet 1 tablet, By Mouth, Daily, # 90 tablet, 1 Refills, Maintenance, 04/08/22 10:06:00 EDT, [facility]/pharmacy#1130, 170, cm, 04/04/22 15:17:00 EDT, Height, [...] tablet, 3 Refills, 05/16/22 14:00:00 EDT, [facility]/pharmacy #1130, 170.18, cm, 05/08/22 12:22:00 EDT, [...] 14:29:00 EDT, Route to Pharmacy Electronically, [facility]/pharmacy #[id number], 170, cm, 04/12/22 15:12:00 EDT, [...] /CHEW., # 30 capsule, 5 Refills, [facility] STORE 63020, 170.18, cm, 05/08/22 12:22:00 EDT, Height, 81.8, kg, 05/08/22 12:22:00 EDT, Dry Weight Start Date: 05/15/22 Status: Ordered famotidine 20 mg oral tablet 1, tablet, By Mouth, Daily, # 90 tablet, Refills 3, Tot. Refills 3, Maintenance, 05/16/22 14:01:00 EDT, Route to Pharmacy Electronically, [facility]/pharmacy #1130, 170.18, cm, 05/08/22 12:22:00 EDT, Height, 81.8, kg, 05/08/22 12:22:00 EDT, Dry Weight Start Date: 05/16/22 Status: Ordered hydrALAZINE 25 mg oral tablet 50 mg, 2, tablet, By Mouth, 3 times a day, # 180 tablet, Refills 3, Tot. Refills 3, Maintenance, 05/23/22 15:52:00 EDT, [facility] fill upon patientrequest if the [...] mg, By Mouth, Daily, last received from [facility] 03/19/22 & took home 3 doses. Ro Confirmed [phone], 0 Refills, Maintenance, 03/21/22 11:55:00 EDT, ; Start Date: 03/21/22 Status: Ordered Multivitamin 1 tablet, By Mouth, Daily, 0 Refills, Maintenance, 03/21/22 2:31:00 EDT, ; Start Date: 03/21/22 Status: Ordered Pen [place], 29 G x 12.7 mm BD Ultra [...] due to IVDU including [place] [facility] [place] [facility] 09/18/2015 to 10/29/2015 for retroperitoneal [...] lower extremity, followed by [facility] [phone] Confirmed Active Venous ulcer of right leg Confirmed Active Social History Social History Type Response Tobacco Other: started smoki ng at 20 years old, now about 5 cigarettes. Sex Patient Care team information Personnel Name: Kristen Boudreaux DO Address: Address: [address] [place] [address] Adult [place], [place] [address]
--- OUTSIDE RECORDS SUMMARY | 2023-06-23 09:48 | XMS_ITS | Continuity of Care Document ---
Author Name Unknown Organization [facility] Address [address] [place] [address]- Care Team Providers Care Tester Armature Or Fields Name Role Phone Kristen Boudreaux DO Primary Care Physician [phone] [place] [facility] [place](s): 03/21/22 - 04/20/22 [facility] Care [address] [place] [address] Attending Physician: Nader Jansen Admitting Physician: AdmtrNader [...] 04/12/22 17:42:00 EDT, Route to Pharmacy Electronically, [facility]/pharmacy #[id number], Partial fill upon patient request if the [...] Mouth, Daily, # 30 tablet, 0 Refills, [facility] ST[facility] 16885, 170, cm, 04/04/22 15:17:00 EDT,Height, 81.75, kg, [...] 04/08/22 10:11:00 EDT, Route to Pharmacy Electronically, [facility]/pharmacy #1130, 170, cm, 04/04/22 15:17:00 EDT, [...] Refills, Maintenance, 04/12/22 17:56:00 EDT, CR Capsule, [facility]/pharmacy #1130, Partial fill upon patient request if the prescription is for a schedule II opioid drug., 170, cm, 07... Start Date: 04/12/22 Status: Ordered famotidine 20 mg oral tablet 1, tablet, By Mouth, Daily, # 90 tablet, Refills 0, Tot. Refills 0, Maintenance, 04/08/22 10:12:00 EDT, Route to Pharmacy Electronically, [facility]/pharmacy #1130, 170, cm, 04/04/22 15:17:00 EDT, Height, 81.75, kg, 03/21/22 15:54:00 EDT, Dry Weight Start Date: 04/08/22 Status: Ordered hydrALAZINE 25 mg oral tablet 2, tablet, By Mouth, 3 times a day, for 30 days, # 180 tablet, Refills 0, Physician Stop, Route to Pharmacy Electronically, [facility] 69100, 170, cm, 04/04/22 15:17:00 EDT, Height, 81.75, [...] 4 Refills, Maintenance, 04/04/22 16:32:00 EDT, Cream, [facility]/pharmacy #1130, Partial fill upon [...] & took home 3 doses. Ro Confirmed [phone], 0 Refills, Maintenance, 03/21/22 11:55:00 EDT, ; Start Date: 03/21/22 Status: Ordered Multivitamin 1 tablet, By Mouth, Daily, 0 Refills, Maintenance, 03/21/22 2:31:00 EDT, ; Start Date: 03/21/22 Status: Ordered Pen [place], 29 G x 12.7 mm BD Ultra [...] 0 Refills, Maintenance, 03/29/22 11:48:00 EDT, Tablet, [facility]/pharmacy #1130, Partial [...] recurrent, due to IVDU including [place] [facility] [place] [facility] 09/18/2015 to 10/29/2015 for retroperitoneal abscess, MSSA [...] ex tremity, followed by [facility] [phone](Confirmed) Active Venous ulcer of right leg(Confirmed) Active Social History Social History Type Response Tobacco Other: started smoki ng at 20 years old, now about 5 cigarettes. Sex
--- OUTSIDE RECORDS SUMMARY | 2023-06-23 09:48 | XMS_ITS | Continuity of Care Document ---
Author Name Unknown Organization [facility] Address [address] [place] [address]- Care Team Providers Care Forming Process Worker Name Role Phone Kristen Boudreaux DO Primary Care Physician Encounter [facility] Date(s): 05/03/22 - 06/02/22 [facility] [address] [place], [place] [address] Allergies, Adverse Reactions, Alerts Substance [...] 05/16/22 14:00:00 EDT, Route to Pharmacy Electronically, [facility]/pharmacy #[id number], Partial fill upon patient request if the prescription is for... Start Date: 05/16/22 Status: Ordered amLODIPine 10 mg oral tablet 1 tablet, By Mouth, Daily, # 90 tablet, 1 Refills, Maintenance, 04/08/22 10:06:00 EDT, [facility]/pharmacy#1130, 170, cm, 04/04/22 15:17:00 EDT, Height, [...] 04/26/22 14:29:00 EDT, Route to Pharmacy Electronically, [facility]/pharmacy #1130, 170, cm, 04/12/22 15:12:00 EDT, [...] 5 Refills, [facility] STORE 27025, 170.18, cm, 05/08/22 12:22:00 EDT, Height, 81.8, kg, 05/08/22 12:22:00 EDT, Dry Weight Start Date: 05/15/22 Status: Ordered famotidine 20 mg oral tablet 1, tablet, By Mouth, Daily, # 90 tablet, Refills 3, Tot. Refills 3, Maintenance, 05/16/22 14:01:00 EDT, Route to Pharmacy Electronically, [facility]/pharmacy #1130, 170.18, cm, 05/08/22 12:22:00 EDT, Height, 81.8, kg, 05/08/22 12:22:00 EDT, Dry Weight Start Date: 05/16/22 Status: Ordered hydrALAZINE 25 mg oral tablet 50 mg, 2, tablet, By Mouth, 3 times a day, # 180 tablet, Refills 3, Tot. Refills 3, Maintenance, 05/23/22 15:52:00 EDT, [facility] Partial fill upon [...] 03/18/22 14:25:00 EDT, Route to Pharmacy Electronically, [facility]/pharmacy #[id number], Partial fill upon patient request if the prescription is for a schedule II opioid drug... Start Date: 03/18/22 Status: Ordered Methadone = 80 mg, By Mouth, Daily, last received from [facility] 03/19/22 & took home 3 doses. Ro Confirmed [phone], 0 Refills, Maintenance, 03/21/22 11:55:00 EDT, ; Start Date: 03/21/22 Status: Ordered Multivitamin 1 tablet, By Mouth, Daily, 0 Refills, Maintenance, 03/21/22 2:31:00 EDT, ; Start Date: 03/21/22 Status: Ordered Pen [place], 29 G x 12.7 mm BD Ultra [...] due [place] [facility] [place] [facility] [place]/18/2015 to 10/29/2015 for retroperitoneal [...] right lower ex tremity, [phone](Conf[facility]) Active Venous ulcer of right leg(Confirmed) Active Social History Social History Type Response Tobacco Other: started smoki ng at 20 years old, now about 5 cigarettes. Sex Care Team Personnel Name: Kristen Boudreaux DO Address: [address] [place] [address] [place] [address]
--- OUTSIDE RECORDS SUMMARY | 2023-06-23 09:48 | XMS_ITS | Continuity of Care Document ---
Author Name Unknown Organization [facility] Address [address] [place] [address]- Care Team Providers Care Keeler Polygraph Operator Name Role Phone Kristen Boudreaux DO Primary Care Physician [phone] Encounter [facility] Date(s): 07/04/22 - 08/03/22 [facility] [address], [place] [address] Attending Physician: AdmNader faith Admitting Physician: Admtr, Ar8 Referring Physician: Admtr, Ar8 Allergies, Adverse Reactions, [...] EDT, Route to Pharmacy Electronically, [facility]/pharmacy #[id number], Partial fill upon patient request if the prescription is for... Start Date: 05/16/22 Status: Ordered amLODIPine 10 mg oral tablet 1 tablet, By Mouth, Daily, # 90 tablet, 1 Refills, Maintenance, 04/08/22 10:06:00 EDT, [facility]/pharmacy#[id number], 170, cm, 04/04/22 15:17:00 EDT, Height, [...] 3 Refills, 05/16/22 14:00:00 EDT, [facility]/pharmacy #1130, 170.18, cm, 05/08/22 12:22:00 EDT, [...] EDT, Route to Pharmacy Electronically, [facility]/pharmacy #[id number], 170, cm, 04/12/22 15:12:00 EDT, [...] # 30 capsule, 5 Refills, [facility] STORE [id number], 170.18, cm, 05/08/22 12:22:00 EDT, Height, 81.8, kg, 05/08/22 12:22:00 EDT, Dry Weight Start Date: 05/15/22 Status: Ordered famotidine 20 mg oral tablet 1, tablet, By Mouth, Daily, # 90 tablet, Refills 3, Tot. Refills 3, Maintenance, 05/16/22 14:01:00 EDT, Route to Pharmacy Electronically, [facility]/pharmacy #[id number], 170.18, cm, 05/08/22 12:22:00 EDT, Height, 81.8, kg, 05/08/22 12:22:00 EDT, Dry Weight Start Date: 05/16/22 Status: Ordered hydrALAZINE 25 mg oral tablet 50 mg, 2, tablet, By Mouth, 3 times a day, # 180 tablet, Refills 3, Tot. Refills 3, Maintenance, 05/23/22 15:52:00 EDT, Route to Pharmacy Electronically, [facility]/pharmacy #[id number], Partial fill upon patientrequest if [...] EDT, Route to Pharmacy Electronically, [facility]/pharmacy #[id number], Partial fill upon patient request if the prescription is for a schedule II opioid drug... Start Date: 03/18/22 Status: Ordered Methadone = 80 mg, By Mouth, Daily, [facility] 3 doses. Ro Confirmed [phone], 0 Refills, Maintenance, 03/21/22 11:55:00 EDT, ; Start Date: 03/21/22 Status: Ordered Multivitamin 1 tablet, By Mouth, Daily, 0 Refills, Maintenance, 03/21/22 2:31:00 EDT, ; Start Date: 03/21/22 Status: Ordered Pen [place], 29 G x 12.7 mm BD Ultra [...] recurrent, due to IVDU including admission to [facility] --> [facility] 09/18/2015 to 10/29/2015 [...] lower extremity, followed by Karena Olivas [facility] [phone] Confirmed Active Venous ulcer of right leg Confirmed Active Social History Social History Type Response Tobacco Other: started smoki ng at 20 years old, now about 5 cigarettes. Sex Patient Care team information Care Team Personnel Name: Maryam Fox RN Position: [facility] RN Member Role: Primary Care Nurse Name: Franchesca Ward RN Position: [facility] RN Member Role: Primary Care Nurse Name: Carolina Camacho RN Position: [facility] SN RN Member Role: Primary Care Nurse Name: Linda Hathaway Position: [facility] Outreach Member Role: Lifetime Consulting Physician Name: Delaney Huber RN Position: [facility] RN Member Role: Primary Care Nurse Name: Juanita Main RN Position: [facility] RN Member Role: Primary Care Nurse Name: Tayler Harris RN Position: [facility] RN Member Role: Primary Care Nurse Name: Carline Cantu RN Position: [facility] RN Member Role: Primary Care Nurse Name: Katalina Jorge RN Position: [facility] OB RN Member Role: Primary Care Nurse Name: Lorene Davenport RN Position: [facility] RN Member Role: Primary Care Nurse Name: Meryl Saini RN Position: [facility] SN RN Member Role: Primary Care Nurse Name: Guillermo Encinas DO Position: [facility] Renal MD Member Role: Lifetime Consulting Physician Address: Address: [address] [place] [address] [facility] [place] [address]- Name: Lorene Billingsley RN Position: [facility] Onco RN Member Role: Primary Care Nurse Name: Kathy Nieves RN Position: [facility] ED RN W/OE and Tasks Member Role: Primary Care Nurse Name: Sophia Johnson Position: [facility] RN Member Role: Primary Care Nurse Name: Awais Brenner RN Position: [facility] RN Member Role: Primary Care Nurse Name: Paradise Linder RN Position: [facility] RN Member Role: Primary Care Nurse Name: Pina Mcgill RN Position: [facility] RN Member Role: Primary Care Nurse Name: Yumiko Lindsay RN Position: [facility] RN Member Role: Primary Care Nurse Name: Vincent Thapa RN Position: [facility] RN Member Role: Primary Care Nurse Name: Kristen Boudreaux DO Position: [facility] Resident Member Role: PCP Address: Address: [address] [place] [id number]- [place] Name: Neil Bobby RN Position: [facility] ED RN W/OE and Tasks Member Role: Primary Care Nurse Name: Joellen Pineda RN Position: [facility] RN Member Role: Primary Care Nurse Name: Litzy Marin RN Position: [facility] RN Member Role: Primary Care Nurse Name: Nohemi Grande RN Position: [facility] Call Out Operator Member Role: Primary Care Nurse Name: Yolanda Tyler RN Position: [facility] Call Out Operator Member Role: Primary Care Nurse Care Team Related Persons Name: TAWNY BUTLER Address: home [address] [place] [id number]
--- OUTSIDE RECORDS SUMMARY | 2023-06-23 09:48 | XMS_ITS | Continuity of Care Document ---
Author Name Unknown Organization [facility] Address [address] [place] [id number]- Care Team Providers Care Or Scrub Tech Name Role Phone Not on Staff, PCP Primary Care Physician Unavail able Encounter [facility] Date(s): 04/22/20 - 05/28/20 [facility] [address] [place] [id number] [facility] Attending Physician: Bernardino Toledo MD Admitting [...] ceftriaxone and send results to Dr Burnett.fax [phone], 08/23/16 15:40:34, Compound Start Date: 08/23/16 Status: [...] 10:40:18, Tablet Start Date: 09/11/16 Status: Ordered Problem List Condition Effective Dates Status Health Status Inform ant 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 including admission to [facility] --> [facility] 09/18/2015 to 10/29/2015 for retroperitoneal abscess, MSSA bacteremia(Confirmed) Active ADHD (attention deficit hype ractivity disorder)(Confirmed) Active IDDM (insulin dependent diab etes mellitus)(Confirmed) Active Diabetic neuropathy(Confirmed) Active Overweight(Confirmed) Active Right LE venous ulcer, follo wed by Karena [facility] [phone](Confirmed) Active Venous ulcer of right leg(Confirmed) Active Social History Social History Type Response Smoking Status Current every day dennise doherty entered on: 10/30/15 Sex
--- OUTSIDE RECORDS SUMMARY | 2023-06-23 09:48 | XMS_ITS | Continuity of Care Document ---
Author Name Unknown Organization [facility] Address [address] [place] [address]- Care Team Providers Care Metal Pattern Maker Name Role Phone Kristen Boudreaux DO Primary Care Physician Encounter [facility] R [id number] Date(s): 11/05/22 - 01/04/23 [facility] [address] [place] [address]- Attending Physician: Gail Moody MD Admitting Physician: Gail Moody MD Referring Physician: Gail Moody MD Allergies, Adverse Reactions, Alerts Substance Reaction Severity Status Risperdal tongue swells Active Compazine difficulty breathing difficulty Active Immunizations Given and Recorded Vaccine Date Status Refusal Reason influenza virus vaccine, inactivated 09/14/22 Give n influenza virus vaccine, inactivated 09/19/15 Give n influenza virus vaccine, inactivated 07/03/09 Dany rded [id number] bivalent booster vax 07/17/22 Recorded pneumococcal 20-valent [...] 90 tablet, 3 Refills, 05/16/22 14:00:00 EDT, [facility]acy [facility][id number], 170.18, cm, 05/08/22 12:22:00 EDT, Height, 81.8, kg, 05/08/22 12:22:00 EDT, Dry Weight Start Date: 05/16/22 Status: Ordered cloNIDine 0.1 mg oral tablet 0.2 mg, 2, tablet, By Mouth, 3 times a day, # 270 tablet, Refills 1, Tot. Refills 1, Maintenance, 04/26/22 14:29:00 EDT, Route to Pharmacy Electronically, [facility]/pharmacy #[id number], 170, cm, 04/12/22 15:12:00 EDT, Height, 81.75, kg, 03/21/22 15:54:00 EDT, . Start Date: 04/26/22 Status: Ordered Colace sodium 100 mg oral capsule 100 mg, 1, capsule, By Mouth, 2 times a day, PRN, # 60 capsule, Refills 0, Tot. Refills 0, Maintenance, for constipation, 12/19/22 14:25:00 EDT, Route to Pharmacy Electronically, [facility]/pharmacy #[id number], Partial fill upon patient [...] capsule, 8 Refills, Maintenance, 11/25/22 8:27:00 EST, [facility] STORE 11310, 170, cm, 10/09/22 16:43:00 EST, Height, 69.1, kg, 11/14/22 7:40:00 EST, Dry Weight Start Date: 11/25/22 Status: Ordered famotidine 20 mg oral tablet 1, tablet, By Mouth, Daily, # 90 tablet, Refills 3, Tot. Refills 3, Maintenance, 05/16/22 14:01:00 EDT, Route to Pharmacy Electronically, [facility]/pharmacy #1130, 170.18, cm, 05/08/22 12:22:00 EDT, Height, 81.8, kg, 05/08/22 12:22:00 EDT, Dry Weight Start Date: 05/16/22 Status: Ordered furosemide 40 mg oral tablet 3, tablet, By Mouth, 2 times a day, REFILL PER PCP OR NEPHROLOGY., # 180 tablet, Refills 2, Maintenance, 12/19/22 17:33:00 EDT, Route to Pharmacy Electronically, [facility] STORE [id number], 170, cm, 12/19/22 10:06:00 EDT, Height, 71.6, kg, 12/19/22 10:06:00 EDT,... Start Date: 12/19/22 Status: Ordered hydrALAZINE 25 mg oral tablet 50 mg, 2, tablet, By Mouth, 3 times a day, # 180 tablet, Refills 3, Tot. Refills 3, Maintenance, 10/17/22 17:13:00 EST, Route to Pharmacy Electronically, [facility]/pharmacy #[id number], Partial fill upon patientrequest if the prescription is for a schedule II op... Start Date: 10/17/22 Stop Date: 02/14/23 Status: Ordered lisinopril 20 mg oral tablet 20 mg, 1, tablet, By Mouth, Daily, Refill per PCP or Nephrology, # 30 tablet, Refills 6, Tot. Refills 6, Maintenance, 10/17/22 17:13:00 EST, [id number] Partial fill upon patient request if the prescription is... Start Date: 10/17/22 Stop Date: 05/15/23 Status: Ordered Methadone = 70 mg, By Mouth, Daily, 0 Refills, Maintenance, 12/17/22 11:12:00 EDT, Partial fill upon patient request if the prescription is for a schedule II opioid drug. Start Date: 12/17/22 Status: Ordered Pen [place], 29 G x 12.7 mm BD Ultra [...] lower extremity, followed by Karena Olivas [facility] [phone] Confirmed Active Venous ulcer of right leg [...] Safety Implantable Status Assigning Authority Unknown Unknown [id number] Unknown 07/25/23 Unknown Unknown Active Unknown Procedure Provider Procedure Date Device Type Site Insertion Hemodialysis Catheter Tyshawn Milian MD Unknown Chest Device Identifier Serial Number Lot or Batch Number Manufacturing Date Expiration Date Distinct Identification Code MRI Safety Implantable Status Assigning Authority Unknown Unknown [id number] Unknown 06/26/24 Unknown Unknown Active Unknown Patient Care team information Care Team Personnel Name: Maryam Fox RN Position: [facility] RN Member Role: Primary Care Nurse Name: Franchesca Ward RN Position: [facility] RN Member Role: Primary Care Nurse Name: Carolina Camacho RN Position: [facility] SN RN Member Role: Primary Care Nurse Name: Linda Hathaway Position: [facility] Outreach Member Role: Lifetime Consulting Physician Name: Delaney Huber RN Position: [facility] RN Member Role: Primary Care Nurse Name: Juanita Main RN Position: [facility] RN Member Role: Primary Care Nurse Name: China Sutherland RN Position: [facility] Outreach Member Role: Lifetime Consulting Physician Name: Tayler Harris RN Position: [facility] RN Member Role: Primary Care Nurse Name: Sophie Bejarano NP Position: [facility] Associate Professional Member Role: Lifetime Consulting Provider Address: Address: [address] [place], [place] [address] [address] Name: Vasile Byers MD Position: [facility] Renal MD Member Role: Lifetime Consulting Physician Address: Address: [address] [place], [place] [address] [address] Name: Katalina Jorge RN Position: [facility] OB RN Member Role: Primary Care Nurse Name: Lorene Davenport RN Position: [facility] RN Member Role: Primary Care Nurse Name: Meryl Saini RN Position: [facility] SN RN Member Role: Primary Care Nurse Name: Annie Langston RN Position: [facility] RN Member Role: Primary Care Nurse Name: Guillermo Encinas DO Position: [facility] Renal MD Member Role: Lifetime Consulting Physician Address: Address: [address] [place], [place] [address] [address] Name: Lorene Billingsley RN Position: [facility] Onco RN Member Role: Primary Care Nurse Name: Kathy Nieves RN Position: [facility] ED RN W/OE and Tasks Member Role: Primary Care Nurse Name: Sophia Johnson Position: [facility] RN Member Role: Primary Care Nurse Name: Paradise Linder RN Position: [facility] RN Member Role: Primary Care Nurse Name: Pina Mcgill RN Position: [facility] RN Member Role: Primary Care Nurse Name: Yumiko Lindsay RN Position: [facility] RN Member Role: Primary Care Nurse Name: Vincent Thapa RN Position: [facility] RN Member Role: Primary Care Nurse Name: Kristen Boudreaux DO Position: [facility] Resident Member Role: PCP Address: Address: [address] [facility] [place] [address]- Name: Nicole Guzman RN Position: [facility] RN Member Role: Primary Care Nurse Name: Neil Bobby RN Position: [facility] ED RN W/OE and Tasks Member Role: Primary Care Nurse Name: Joellen Pineda RN Position: [facility] RN Member Role: Primary Care Nurse Name: Litzy Marin RN Position: [facility] RN Member Role: Primary Care Nurse Name: Crystal Robles RN Position: [facility] RN Member Role: Primary Care Nurse Name: Ruth Stevens LPN Position: [facility] RN Member Role: Primary Care Nurse Name: Nohemi Grande RN Position: [facility] Lens Maker Member Role: Primary Care Nurse Name: Yolanda Tyler RN Position: [facility] Member Role: Primary Care Nurse Care Team Related Persons Name: TAWNY BUTLER Address: home [address] [place] [address]
--- OUTSIDE RECORDS SUMMARY | 2023-06-23 09:48 | XMS_ITS | Continuity of Care Document ---
Author Name Unknown Organization [facility] ter Address [address] [place] [id number]- Care Team Providers Care Washer Cutter Name Role Phone Crystal Gordillo MD Primary Care Physician [place] [facility] - 01/08/[address] [address]- Encounter Diagnosis Acute respiratory distress(Final) - 12/18/21 Sepsis(Final) - 12/18/21 Osteomyelitis(Final) - 12/18/21 Hyperkalemia(Final) - 12/18/21 Acute kidney injury(Final) - 12/18/21 Open forearm fracture(Final) - 12/18/21 Anemia(Final) - 12/18/21 Opiate withdrawal(Final) - 12/18/21 Leg weakness(Final) - 12/18/21 Discharge Disposition: A-Transfer VNA/Home Health Attending Physician: Margret Bran MD Admitting Physician: Joanne Trinidad MD Referring Physician: Not on Staff, Referring [...] ceftriaxone and send results to Dr Burnett.fax [phone], 08/23/16 15:40:34, Compound Start Date: 08/23/16 Status: Ordered . ., See Instructions, # 1 application, Refills 0, Tot. Refills 0, Maintenance, please make sure pt gets wound vac change every 4d. Next change will be in 08/26., 08/23/16 15:46:01, Compound Start Date: 08/23/16 Status: Ordered acetaminophen 325 mg oral tablet 975 mg, 3, tablet, By Mouth, Every 6 hours, for 7 days, # 84 tablet, Refills 0, Tot. Refills 0, Acute 01/15/22 11:20:00 EDT, 01/08/22 11:20:00 EDT, Route to Pharmacy Electronically, [facility], Partial fill upon patient request if the pr... Start Date: 01/08/22 Stop Date: 01/15/22 Status: Ordered amLODIPine 10 mg oral tablet 10 mg, 1, tablet, By Mouth, Daily, # 30 tablet, Refills 0, Tot. Refills 0, Maintenance, 01/08/22 11:21:00 EDT, Route to Pharmacy Electronically, [facility], Partial fill upon patient request if the prescription is for a schedule II opioi... Start Date: 01/08/22 Stop Date: 02/07/22 Status: Ordered amLODIPine 10 mg oral tablet 10 mg, Tablet, By Mouth, 01/08/22 9:00:00 EDT Start Date: 01/08/22 Stop Date: 01/08/22 Status: Completed aspirin 81 mg oral tablet 1 tablet = 81 mg, By Mouth, Daily, # 30 tablet, 11 Refills, Maintenance, 12/26/15 18:55:32, Tablet Start Date: 12/26/15 Status: Ordered Basaglar KwikPen 100 units/mL subcutaneous solution = 20 units, Subcutaneous Injection, Daily, # 10 mL, 0 Refills, Maintenance, 01/08/22 12:21:00 EDT, Solution, [facility], Partial fill upon patient request if the prescription is for a schedule II opioid drug., 169, cm, 01/07/22 14:19:00... Start Date: 01/08/22 Status: Ordered cloNIDine 0.1 mg oral tablet 0.1 mg, 1, tablet, By Mouth, 3 times a day, # 90 tablet, Refills 0, Tot. Refills 0, Maintenance, 01/08/22 11:21:00 EDT, Route to Pharmacy Electronically, [facility], Partial fill upon patient request if the prescription is for a schedule... Start Date: 01/08/22 Stop Date: 02/07/22 Status: Ordered famotidine 20 mg oral tablet 20 mg, 1, tablet, By Mouth, Daily, # 30 tablet, Refills 0, Tot. Refills 0, Maintenance, 01/08/22 11:21:00 EDT, Route to Pharmacy Electronically, [facility], Partial fill upon patient request if the prescription is for a schedule II opioi... Start Date: 01/08/22 Stop Date: 02/07/22 Status: Ordered furosemide 40 mg oral tablet 40 mg, 1, tablet, By Mouth, 2 times a day, # 60 tablet, Refills 0, Tot. Refills 0, Maintenance, 01/08/22 11:22:00 EDT, Route to Pharmacy Electronically, [facility], Partial fill upon patient request if the prescription is for a schedule... Start Date: 01/08/22 Stop Date: 02/07/22 Status: Ordered HumaLOG Cesar KwikPen 100 units/mL injectable solution See Instructions, Three times a day before meals << Sliding Scale Comments >> 150 - 1992 units Call if less than 70 200 - 249 4 units 250 - 299 6 units 300 - 349 8 units 350 - 399 10 units Call if greater than 400 << Sliding Sc... Start Date: 01/08/22 Status: Ordered hydrALAZINE 25 mg oral tablet 25 mg, 1, tablet, By Mouth, 3 times a day, # 90 tablet, Refills 0, Tot. Refills 0, Maintenance, 01/08/22 11:22:00 EDT, Route to Pharmacy Electronically, [facility], Partial fill upon patient request if the prescription is for a schedule... Start Date: 01/08/22 Stop Date: 02/07/22 Status: Ordered hydrALAZINE 25 mg oral tablet 25 mg, Tablet, By Mouth, 01/08/22 9:00:00 EDT Start Date: 01/08/22 Stop Date: 01/08/22 Status: Completed lidocaine 5% topical film 2 film, Topically, Daily, # 30 patch, 0 Refills, Maintenance, 01/08/22 11:22:00 EDT, Patch, [facility], Partial fill upon patient request if the prescription is for a schedule II opioiddrug., 2 film Topically Daily, 169, cm, 01/07/22 14... Start Date: 01/08/22 Status: Ordered lisinopril 10 mg oral tablet 10 mg, 1, tablet, By Mouth, Daily, # 30 tablet, Refills 0, Tot. Refills 0, Maintenance, 01/08/22 11:22:00 EDT, Route to Pharmacy Electronically, [facility], Partial fill upon patient request if the prescription is for a schedule II opioi... Start Date: 01/08/22 Stop Date: 02/07/22 Status: Ordered Lisinopril Tablet 10 mg, Tablet, By Mouth, 01/08/22 9:00:00 EDT Start Date: 01/08/22 Stop Date: 01/08/22 Status: Completed methadone 10 mg/5 mL oral solution 35 [...] Date: 08/23/16 Stop Date: 09/22/16 Status: Ordered oxyCODONE 5 mg oral tablet 5 mg, Tablet, By Mouth, Every 4 hours, PRN for Pain , Moderate, Routine, 01/06/22 10:57:00 EDT Start Date: 01/06/22 Stop Date: 01/13/22 Status: Ordered oxyCODONE 5 mg oral tablet 5 mg, 1, tablet, By Mouth, Every 4 hours, PRN, # 10 tablet, Refills 0, Tot. Refills 0, Acute 01/22/22 12:00:00 EDT, Pain , Moderate, 01/08/22 11:23:00 EDT, Route to Pharmacy Electronically, [facility], Partial fill upon patient request i... Start Date: 01/08/22 Stop Date: 01/22/22 Status: Ordered Pen [place], 29 G x 12.7 mm BD Ultra [...] due to I VDU including [place] [facility] [place] [facility] [place]18[place]2015 to 10/29/2015 for retroperitoneal abscess, MSSA bacteremia(Confirmed) Active ADHD (attention deficit hype ractivity disorder)(Confirmed) Active IDDM (insulin dependent diab etes mellitus)(Confirmed) Active Diabetic neuropathy(Confirmed) Active Obese class I(Confirmed) Active Overweight(Confirmed) Active Right LE venous ulcer, follo wed by [facility] [phone](Confirmed) Active Venous ulcer of right leg(Confirmed) Active Results Orders for Microbiology Reports Name Date Anaerobic Culture (ANAEROBIC CULTURE) Fungal Culture, Nonrespiratory (FUNGAL C ULT,NON-RESPIRATORY) 12/18/21 Tissue Culture w/ Gram Smear (TISSUE/BIO PSY CULT.) 12/18/21 CSF Culture w/ Gram Smear (SPINAL FLUID CULTURE) 12/18/21 Fungal Culture, Nonrespiratory (FUNGAL C ULT,NON-RESPIRATORY) 12/18/21 Blood Culture 12/17/21 Blood Culture #2 12/17/21 Microbiology Reports TEST:Anaerobic Culture STATUS:Auth (Verified) BODY SITE: SOURCE:TISSUE1 COLLECTED DATE/TIME:12/18/21 6:45 PM Anaerobic Culture SPECIMEN DESCRIPTION : TISSUE LEFT CHRONIC OPEN ARM SPECIAL REQUESTS : NONE CULTURE : NO ANAEROBES ISOLATED REPORT STATUS : FINAL 12/20/2021 TEST:Tissue/Biopsy Culture STATUS:Auth (Verified) BODY SITE: SOURCE:TISSUE1 COLLECTED DATE/TIME:12/18/21 6:45 PM Tissue/Biopsy Culture SPECIMEN DESCRIPTION : TISSUE LEFT CHRONIC OPEN ARM SPECIAL REQUESTS : NONE GRAM STAIN : 1+ WHITE BLOOD CELLS 1+ TISSUE CELLS 2+ GRAM POSITIVE RODS 1+ GRAM POSITIVE COCCI CRITICAL VALUE CALLED AND VERIFIED BY READBACK FOR: GRAM STAIN RESULTS CALLED TO [facility] [id number] 12/19/21 0204 BY TECH [id number] CULTURE : 2+ STAPHYLOCOCCUS AUREUS. 2+ ENTEROCOCCUS FAECALIS REPORT STATUS : FINAL 12/21/2021 ORGANISM 2+ STAPHYLOCOCCUS AUREUS. METHOD MIN. INHIB. CONC. (MCG/ML) CEFOXITIN SCREEN SUSCEPTIBLE CIPROFLOXACIN SUSCEPTIBLE CLINDAMYCIN SUSCEPTIBLE ERYTHROMYCIN SUSCEPTIBLE LEVOFLOXACIN SUSCEPTIBLE OXACILLIN SUSCEPTIBLE PENICILLIN SUSCEPTIBLE RIFAMPIN SUSCEPTIBLE RIFAMPIN RIFAMPIN SHOULD NOT BE USED ALONE FOR ANTIMICROBIAL RIFAMPIN THERAPY. TETRACYCLINE SUSCEPTIBLE TRIMETH/SULFAMETHOX SUSCEPTIBLE VANCOMYCIN SUSCEPTIBLE ORGANISM 2+ ENTEROCOCCUS FAECALIS METHOD MIN. INHIB. CONC. (MCG/ML) AMPICILLIN SUSCEPTIBLE VANCOMYCIN SUSCEPTIBLE GENTAMICIN SYNERGY NOT ACTIVE IN SYNERGY STREPTOMYCIN SYNERGY ACTIVE IN SYNERGY TEST:Fungal Culture, Non-Respiratory STATUS:Auth (Verified) BODY SITE: SOURCE:TISSUE1 COLLECTED DATE/TIME:12/18/21 6:45 PM Fungal Culture, Non-Respiratory SPECIMEN DESCRIPTION : TISSUE LEFT CHRONIC OPEN ARM SPECIAL REQUESTS : NONE DIRECT EXAM : NO FUNGAL ELEMENTS OBSERVED CULTURE : KALIN LUSITANIAE CRITICAL VALUE CALLED AND VERIFIED BY READBACK FOR: PRELIMINARY REPORT TO EMP. [id number] ON S2@1330 12/20/21 BY TECH 156. REPORT STATUS : FINAL 12/24/2021 TEST:Spinal Fluid Culture STATUS:Auth (Verified) BODY SITE: SOURCE:CEREBR COLLECTED DATE/TIME:12/18/21 5:05 AM Spinal Fluid Culture SPECIMEN DESCRIPTION : CEREBROSPINAL FLUID SPECIAL REQUESTS : NONE GRAM STAIN : NO CELLS OR ORGANISMS SEEN CULTURE : NO GROWTH 3 DAYS REPORT STATUS : FINAL 12/21/2021 TEST:Fungal Culture, Non-Respiratory STATUS:Unauthenticated BODY SITE: SOURCE:CEREBR COLLECTED DATE/TIME:12/18/21 5:05 AM Fungal Culture, Non-Respiratory SPECIMEN DESCRIPTION : CEREBROSPINAL FLUID SPECIAL REQUESTS : NONE DIRECT EXAM : NO FUNGAL ELEMENTS OBSERVED CULTURE : NO FUNGI ISOLATED AFTER 20 DAYS REPORT STATUS : PRELIMINARY REPORT TEST:Blood Culture, Second Order STATUS:Auth (Verified) BODY SITE: SOURCE:Blood COLLECTED DATE/TIME:12/17/21 10:34 PM Blood Culture, Second Order SPECIMEN DESCRIPTION : BLOOD NO SITE SPECIAL REQUESTS : NONE CULTURE : NO GROWTH 5 DAYS. REPORT STATUS : FINAL 12/23/2021 TEST:Blood Culture STATUS:Auth (Verified) BODY SITE: SOURCE:Blood COLLECTED DATE/TIME:12/17/21 9:54 PM Blood Culture SPECIMEN DESCRIPTION : BLOOD NO SITE SPECIAL REQUESTS : NONE CULTURE : NO GROWTH 5 DAYS. REPORT STATUS : FINAL 12/22/2021 Radiology Reports * Exam Date Time Procedure Performing Provider Status 12/18/21 2:05 AM Chest Portable Nayana Lindsay; Auth (Verified) Notes: (Chest Portable) Reason For Exam: Tube Placement RESULT: Chest Portable Chest Portable AP supine 2:02 AM REASON: Tube Placement; Clinical Question(s): Tube Placement / Tube Placement COMPARISON: Earlier the same day. FINDINGS: LINES AND TUBES: Endotracheal tube ends 4.2 cm above the dajuan. Enteric tube tip and side-port project in the stomach. LUNGS AND PLEURA: Low lung volumes. Airspace opacity in the left lower lung. No pleural effusion. No pneumothorax. HEART, MEDIASTINUM AND DIANN: Heart is normal in size. Normal mediastinal and hilar contour. BONES AND SOFT TISSUES: No acute abnormality. IMPRESSION: 1. Support structures as above. 2. Left lower lung airspace opacity concerning for aspiration and/or pneumonia. WSN: [id number] Ordering Physician: Ceci Butt Dictated By: Asim Lynn MD Dictated Date/Time: 12/18/21 8:44 am Reviewed By: Asim Lynn MD Signed By: Asim Lynn MD Signed Date/Time: 12/18/21 8:44 am Transcribed By: OLGA Transcribed Date/Time: 12/18/21 8:43 am * Exam Date Time Procedure Performing Provider Status 12/18/21 12:44 AM Chest Portable Maggy Infante; Auth ( Verified) Notes: (Chest Portable) Reason For Exam: Shortness of Breath RESULT: Chest Portable Chest Portable performed semiupright at 12:41 AM Reason: Shortness of Breath. COMPARISON: Multiple prior chest x-rays, the most recent of which is dated 09/07/2016. FINDINGS: LINES AND TUBES: None. LUNGS AND PLEURA: Low lung volumes with mild basilar atelectasis. Mild patchy opacification of the left lower lung region. No pleural effusion. No pneumothorax. HEART, MEDIASTINUM AND DIANN: Heart is normal in size. Normal upper mediastinal and hilar contour. BONES AND SOFT TISSUES: No acute abnormality. IMPRESSION: Mild patchy opacification of the left lower lung region, concerning for pneumonia.. I have personally reviewed the images and I agree with this report. WSN: [id number] Ordering Physician: Ceci Butt Dictated By: Guanako Fay MD Dictated Date/Time: 12/18/21 8:39 am Reviewed By: Marce Oliver MD Signed By: Marce Oliver MD Signed Date/Time: 12/18/21 8:44 am Transcribed By: OLGA Transcribed Date/Time: 12/18/21 8:21 am * Exam Date Time Procedure Performing Provider Status 12/17/21 10:17 PM Wrist Comp Min 3 Views Left Monika , B dontae; Auth (Verified) Notes: (Wrist Comp Min 3 Views Left) Reason For Exam: open fracture;Other: RESULT: Wrist Comp Min 3 Views Left Wrist Comp Min 3 Views Left CLINICAL INDICATION: Hx of Present Illness: EMS called by family for reports of SOB; patient was unable to lift head in a chair. After EMS arrival, patient w old open left ulnar fracture that was never treated.; Reason: Other:; open fracture; Clinical Question(s): Fracture COMPARISONS: None TECHNIQUE: 3 views of left wrist. FINDINGS: There are open transverse fractures of the distal radial and ulnar shafts. There are extensive erosive osteolytic changes involving the adjoining ends of the distal radius and ulna which are suggestive of chronic osteomyelitis. There is demineralization of carpal bones. No carpal fracture can be visualized. No retained foreign body. IMPRESSION: Open fracture of distal radial and ulnar shaft with extensive erosive changes of the adjoining fracture fragments compatible with chronic osteomyelitis. WSN: [id number] Ordering Physician: Aleshia Gustafson Dictated By: Asim Elias MD Dictated Date/Time: 12/17/21 11:29 p Reviewed By: Asim Elias MD Signed By: Asim Elias MD Signed Date/Time: 12/17/21 11:29 pm Transcribed By: OLGA Transcribed Date/Time: 12/17/21 11:21 pm * Exam Date Time Procedure Performing Provider Status 12/17/21 10:17 PM Forearm 2 Views Left [facility] (Verified) Notes: (Forearm 2 Views Left) Reason For Exam: open fracture;Other: RESULT: Forearm 2 Views Left Forearm 2 Views Left CLINICAL INDICATION: Hx of Present Illness: EMS called by family for reports of SOB; patient was unable to lift head in a chair. After EMS arrival, patient w old open left ulnar fracture that was never treated.; Reason: Other:; open fracture; Clinical Question(s): Fracture COMPARISONS: None TECHNIQUE: AP and lateral views of the left forearm were obtained. FINDINGS: There are open transverse fractures of the distal radial and ulnar shafts. There are extensive erosive osteolytic changes involving the adjoining and is of the distal radius and ulna which are suggestive of chronic osteomyelitis. Articulations at the elbow and wrist are grossly anatomic. No retained foreign body. IMPRESSION: Open fracture of distal radial and ulnar shaft with extensive erosive changes compatible with chronic osteomyelitis. WSN: [id number] Ordering Physician: Aleshia Gustafson Dictated By: Asim Elias MD Dictated Date/Time: 12/17/21 11:19 p Reviewed By: Asim Elias MD Signed By: Asim Elias MD Signed Date/Time: 12/17/21 11:19 pm Transcribed By: OLGA Transcribed Date/Time: 12/17/21 11:18 pm Vital Signs Most recent to oldest [Reference Range]: 1 2 3 4 5 Height 169 cm (01/08/22 4:35 PM) 169 cm (01/07/22 2:19 PM) 169 cm (01/06/22 4:48 AM) Weight 93.1 kg (01/05/22 9:00 AM) 93.1 kg (01/05/22 9:00 AM) 94.5 kg (01/02/22 6:56 AM) Oxygen Saturation [94-100 %] 100 % (01/08/22 4:35 PM) 99 % (01/08/22 12:00 PM) 100 % (01/08/22 8:00 AM) Pulse Rate [55-90 bpm] 88 bpm (01/08/22 4:35 PM) 90 bpm (01/08/22 12:00 PM) 85 bpm (01/08/22 8:00 AM) Body Mass Index [18.5-24.99] 32.91 *>HHI* (12/31/21 10:37 AM) 31.48 *>HHI* (12/25/21 7:11 AM) 31.48 *>HHI* (12/19/21 6:24 PM) Blood Pressure [90-138/55-84 mm Hg] 169/91mm Hg *H* (01/08/22 4:35 PM) 159/85mm Hg *H* (01/08/22 12:00 PM) 153/84mm Hg *H* (01/08/22 8:37 AM) 153/84mm Hg *H* (01/08/22 8:37 AM) 153/84mm Hg *H* (01/08/22 8:37 AM) Respiratory Rate [16-30 br/min] 17 br/min (01/08/22 4:39 PM) 17 br/min (01/08/22 4:35 PM) 16 br/min (01/08/22 12:00 PM) Temperature [96.8-100.4 DegF] 98.4 DegF (01/08/22 4:35 PM) 98.8 DegF (01/08/22 12:00 PM) 98.8 DegF (01/08/22 8:00 AM) Liters per Minute 3 L/min (12/25/21 11:45 AM) 3 L/min (12/25/21 11:30 AM) 3 L/min (12/25/21 11:15 AM) Mode of Delivery (Oxygen) Room air (01/08/22 4:35 PM) Room air (01/08/22 12:00 PM) Room air (01/08/22 8:00 AM) Blood pressure sites Arm, right (01/08/22 4:35 PM) Arm, right (01/08/22 12:00 PM) Arm, right (01/08/22 8:00 AM) Temperature Route Oral (01/08/22 4:35 PM) Oral (01/08/22 12:00 PM) Oral (01/08/22 8:00 AM) Dry Weight 89.9 kg (12/25/21 7:11 AM) 82.5 kg (12/18/21 6:29 AM) 82.5 kg (12/18/21 4:58 AM) Weight Obtained Via Standing scale (01/05/22 9:00 AM) Standing scale (01/05/22 9:00 AM) Bed scale (12/19/21 6:24 PM) Dry Weight Obtained Via Bed scale (12/18/21 6:29 AM) Bed scale (12/18/21 4:58 AM) Social History Social History Type Response Smoking Status Current every day dennise doherty entered on: 10/30/15 Sex
--- OUTSIDE RECORDS SUMMARY | 2023-06-23 09:48 | XMS_ITS | Continuity of Care Document ---
Author Name Unknown Organization [facility] Address [address] [place] [address]- Care Team Providers Care Oil Speculator Name Role Phone Kristen Boudreaux DO Primary Care Physician [phone] Encounter [facility] Date(s): 01/18/22 - 02/17/22 [facility] [address] [place] [address]- Allergies, Adverse Reactions, Alerts Substance Reaction Severity [...] ceftriaxone and send results to Dr Burnett.fax [phone], 08/23/16 15:40:34, Compound Start Date: 08/23/16 Status: [...] 02/06/22 15:06:00 EDT, Route to Pharmacy Electronically, [id number], Partial fill upon patient request [...] 02/08/22 9:10:00 EDT, Route to Pharmacy Electronically, [facility]/pharmacy #[id number], Partial fill upon patient request if the prescription is for a schedule II opi... Start Date: 02/08/22 Stop Date: 03/10/22 Status: Ordered lidocaine 5% topical film 2 film, Topically, Daily, # 30 patch, 0 Refills, Maintenance, 01/08/22 11:22:00 EDT, Patch, [facility], Partial fill upon patient request if the prescription is for a schedule II opioiddrug., 2 film Topically Daily, 169, cm, 01/07/22 14... Start Date: 01/08/22 Status: Ordered lisinopril 10 mg oral tablet 10 mg, 1, tablet, By Mouth, Daily, # 30 tablet, Refills 0, Tot. Refills 0, Maintenance, 02/06/22 15:07:00 EDT, Route to Pharmacy Electronically, [facility]/pharmacy #[id number], Partial fill upon patient request [...] 08/23/16 Stop Date: 09/22/16 Status: Ordered Pen [place], 29 G x 12.7 mm BD Ultra [...] due to I VDU including admission to [facility] --> [facility] 09/18/2015 to 10/29/2015 for retroperitoneal abscess, MSSA bacteremia(Confirmed) Active ADHD (attention deficit hype ractivity disorder)(Confirmed) Active Polysubstance dependence inc luding opioid drug with daily use(Confirmed) Active IDDM (insulin dependent diab etes mellitus)(Confirmed) Active Diabetic neuropathy(Confirmed) Active S/P amputation of limb(Confirmed) Active Hypertension(Confirmed) Active Overweight(Confirmed) Active Right LE venous ulcer, follo wed by Karen[facility] [phone](Confirmed) Active Venous ulcer of right leg(Confirmed) Active Social History Social History Type Response Tobacco Other: started smoki ng at 20 years old, now about 5 cigarettes. Sex
--- OUTSIDE RECORDS SUMMARY | 2023-06-23 09:48 | XMS_ITS | Continuity of Care Document ---
Author Name Unknown Organization [facility] ter Address [address] [place] [id number]- Care Team Providers Care Owner [employer] Name Role Phone Kristen Boudreaux DO Primary Care Physician Encounter [facility] Date(s): 12/19/22 - 12/19/[address] [address] Discharge Disposition: A-D/C Home Attending Physician: Bill White MD Admitting Physician: Bill White MD Referring Physician: Bill White MD Allergies, Adverse Reactions, Alerts Substance Reaction Severity Status Risperdal tongue swells Active Compazine difficulty breathing difficulty Active Immunizations Given and Recorded Vaccine Date Status Refusal Reason influenza virus vaccine, inactivated 09/14/22 Give n influenza virus vaccine, inactivated 09/19/15 Give n influenza virus vaccine, inactivated 07/03/09 Dany rded [id number] bivalent booster vax 07/17/22 Recorded pneumococcal 20-valent [...] 90 tablet, 3 Refills, 05/16/22 14:00:00 EDT, [facility]/pharmacy #[id number], 170.18, cm, 05/08/22 12:22:00 EDT, Height, 81.8, kg, 05/08/22 12:22:00 EDT, Dry Weight Start Date: 05/16/22 Status: Ordered cloNIDine 0.1 mg oral tablet 0.2 mg, 2, tablet, By Mouth, 3 times a day, # 270 tablet, Refills 1, Tot. Refills 1, Maintenance, 04/26/22 14:29:00 EDT, Route to Pharmacy Electronically, [facility]/pharmacy #[id number], 170, cm, 04/12/22 15:12:00 EDT, Height, 81.75, kg, 03/21/22 15:54:00 EDT, Start Date: 04/26/22 Status: Ordered Colace sodium 100 mg oral capsule 100 mg, 1, capsule, By Mouth, 2 times a day, PRN, # 60 capsule, Refills 0, Tot. Refills 0, Maintenance, for constipation, 12/19/22 14:25:00 EDT, Route to Pharmacy Electronically, [facility]/pharmacy #[id number], Partial fill upon [...] capsule, 8 Refills, Maintenance, 11/25/22 8:27:00 EST, [facility] STORE [id number], 170, cm, 10/09/22 16:43:00 EST, Height, 69.1, kg, 11/14/22 7:40:00 EST, Dry Weight Start Date: 11/25/22 Status: Ordered famotidine 20 mg oral tablet 1, tablet, By Mouth, Daily, # 90 tablet, Refills 3, Tot. Refills 3, Maintenance, 05/16/22 14:01:00 EDT, [id number] 170.18, cm, 05/08/22 12:22:00 EDT, Height, 81.8, kg, 05/08/22 12:22:00 EDT, Dry Weight Start Date: 05/16/22 Status: Ordered furosemide 40 mg oral tablet 3, tablet, By Mouth, 2 times a day, REFILL PER PCP OR NEPHROLOGY., # 180 tablet, Refills 2, Maintenance, 12/19/22 17:33:00 EDT, Route to Pharmacy Electronically, [facility] STORE [id number], 170, cm, 12/19/22 10:06:00 EDT, Height, 71.6, kg, 12/19/22 10:06:00 EDT,... Start Date: 12/19/22 Status: Ordered hydrALAZINE 25 mg oral tablet 50 mg, 2, tablet, By Mouth, 3 times a day, # 180 tablet, Refills 3, Tot. Refills 3, Maintenance, 10/17/22 17:13:00 EST, [id number] Partial fill upon patientrequest if the prescription is for a schedule II op... Start Date: 10/17/22 Stop Date: 02/14/23 Status: Ordered lisinopril 20 mg oral tablet 20 mg, 1, tablet, By Mouth, Daily, Refill per PCP or Nephrology, # 30 tablet, Refills 6, Tot. Refills 6, Maintenance, 10/17/22 17:13:00 EST, [id number] Partial fill upon patient request if the prescription is... Start Date: 10/17/22 Stop Date: 05/15/23 Status: Ordered Methadone = 70 mg, By Mouth, Daily, 0 Refills, Maintenance, 12/17/22 11:12:00 EDT, Partial fill upon patient request if the prescription is for a schedule II opioid drug. Start Date: 12/17/22 Status: Ordered oxyCODONE 5 mg oral capsule 1 capsule = 5 mg, By Mouth, Every 6 hours, PRN for pain, for 3 days, # 12 capsule, 0 Refills, Acute12/22/22 14:25:00 EDT, 12/19/22 14:25:00 EDT, Capsule, [facility]acy [facility][id number], Partial fill upon patient request if the prescription is for a schedule II o... Start Date: 12/19/22 Stop Date: 12/22/22 Status: Ordered Pen [place], 29 G [...] lower extremity, followed by Karena Olivas [facility] [phone] Confirmed Active Venous ulcer of right leg Confirmed Active Vital Signs Most recent to oldest [Reference Range]: 1 2 3 Height 170.0 cm (12/19/22 10:06 AM) 170.0 cm (12/17/22 11:41 AM) Oxygen Saturation [94-100 %] 96 % (12/19/22 3:45 PM) 92 % *L* (12/19/22 3:15 PM) 95 % (12/19/22 3:00 PM) Pulse Rate [55-90 bpm] 78 bpm (12/19/22 10:06 AM) Blood Pressure [90-138/55-84 mm Hg] 121/68mm Hg (12/19/22 3:15 PM) 118/68mm Hg (12/19/22 3:00 PM) 125/75mm Hg (12/19/22 2:45 PM) Respiratory Rate [16-30 br/min] 22 br/min (12/19/22 3:15 PM) 15 br/min *L* (12/19/22 3:00 PM) 9 br/min *L* (12/19/22 2:45 PM) Temperature [96.8-100.4 DegF] 98 DegF (12/19/22 3:15 PM) 98.1 DegF (12/19/22 2:30 PM) 98.1 DegF (12/19/22 10:06 AM) Mode of Delivery (Oxygen) Room air (12/19/22 3:45 PM) Room air (12/19/22 3:15 PM) Room air (12/19/22 3:00 PM) Blood pressure sites Arm, left (12/19/22 10:06 AM) Temperature Route Temporal (12/19/22 3:15 PM) Temporal (12/19/22 2:30 PM) Temporal (12/19/22 10:06 AM) Dry Weight 71.6 kg (12/19/22 10:06 AM) 68.4 kg (12/17/22 11:41 AM) Dry Weight Obtained Via Standing scale (12/19/22 10:06 AM) Social History Social History Type Response [...] Safety Implantable Status Assigning Authority Unknown Unknown [id number] Unknown 07/25/23 Unknown Unknown Active Unknown Procedure Provider Procedure Date Device Type Site Insertion Hemodialysis Catheter Tyshawn Milian MD Unknown Chest Device Identifier Serial Number Lot or Batch Number Manufacturing Date Expiration Date Distinct Identification Code MRI Safety Implantable Status Assigning Authority Unknown Unknown [id number] Unknown 06/26/24 Unknown Unknown Active Unknown EKG study * Event Display: ECG 12-Lead Authored Date: Please click on pdf link to open report * Event Display: ECG 12-Lead Authored Date: Ventricular Rate: 75 BPM Atrial Rate: 75 BPM P-R Interval: 142 ms QRS Duration: 88 ms Q-T Interval: 402 ms QTC Calculation(Bazett): 448 ms P Velpen: 60 degrees R Velpen: 42 degrees T Velpen: 54 degrees Normal sinus rhythm Normal ECG When compared with ECG of 12-SEP-2022 16:37, No significant change was found Confirmed by JIMBO HUTTON ([id number]) on 12/19/2022 1:55:39 PM Industry: JIMBO HUTTON Note * Flo Dale RN: PERFORM Event Display: Discharge/Transfer Note Hospital Authored Date: [id number] Nursing Discharge Note Entered On: 12/19/2022 16:20 EDT Performed On: 12/19/2022 16:19 EDT by Flo Dale RN Nursing Discharge Note 2 Discharge Time : 12/19/2022 15:45 EDT Discharge Level of Care at Discharge : Home/Detention/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 Utilized : No AMA Form Signed : No Patient Left Unit Via : Wheelchair Patient Accompanied Off Unit with : Responsible adult DC Instructions Provided & Signed by Pt : Yes Patient Understands D/C Instructions : Yes Verbalized Understanding of D/C Plan By : Patient Patient Instructions Discharge Signed : Yes Did Pt have Specialty Bed or Wound Vac : No Flo Dale RN - 12/19/2022 16:19 EDT * Corie Choi RN: PERFORM Event Display: Patient Education/Instruction Authored Date: [id number] Inpatient Adult Discharge Instructions [address] [id number] Name: MICHAEL BUTLER : 1975 Visit: 12/19/2022 09:35:00 Current Date: 12/19/2022 15:02 Account: [id number] Inpatient Adult Discharge Instructions We would like [...] and their families. Surveys are administered by [employer]. ?? If further treatment with your primary care physician or another doctor is recommended, it is important for you to keep the appointment. Call your primary care physician or return to the Emergency Department immediately if your condition worsens, fails to improve, or new symptoms develop. If you need to find a doctor, you can call [facility] for a referral at [phone] or toll free at [phone] or log in to [email or web address].. ?? You can view and manage your care through the patient portal or by using a health care allison of your choosing. [employer] is a website that allows you to securely view your medical information including your hospital discharge summary, office visit summaries, medications and follow-up visits. You can also request appointments, renew medications, and request access to your medical information using a health care allison of your choosing, or just ask a question. You can enroll at [email or web address] or register during your next office visit. You have been discharged from [facility], Patient Care Unit: [facility]. If you have any questions regarding these instructions after you leave, please call us and we will be happy to assist you. [facility] Your Care Team Attending Physician Christopher VILLATORO, Bill Cardenas Consulting Providers Shaan Morelos MD Discharging Providers Shaan Morelos MD Reason for Admission ESRDDS CS Tests Performed Below is a partial list of the tests performed during your hospitalization. You may have had other tests and procedures not included in this list. Please discuss all test results with your provider. BUN POC CARTRIDGE CALCIUM IONIZED POC CART CHLORIDE POC CARTRIDGE CREATININE POC CARTRIDGE GLUCOSE POC CARTRIDGE HEMATOCRIT POC CARTRIDGE HEMOGLOBIN POC CARTRIDGE POTASSIUM POC CARTRIDGE SODIUM POC CARTRIDGE Primary Care Provider Kristen Boudreaux DO Advance Directive Health Care Proxy on File Yes - Health Care Proxy Discharge Vitals Temperature: 98.1 DegF Height: 170 cm Pulse Rate: 78 bpm ?? Respiratory Rate:??9 br/min??Low ?? Systolic Blood Pressure: 125 mm Hg ?? Diastolic Blood Pressure: 75 mm Hg ?? Oxygen Saturation: 99 % ?? Studies Pending All tests and labs ordered during this hospital stay have been completed unless listed below. Please discuss all pending results with your provider listed above in these instructions. ?? INR (PT (INR)) C-Arm > 1 Hour What to do next Instructions From Your Doctor Discharge Orders Scheduled Follow-Up Appointments Friday. 2022 2:30 PM EDT ?? Where: [place] [address]- You Need to Schedule the Following Appointments Follow Up with??Shaan Morelos When?? Where: [address] [place], [place] [address] [place] [address]- [facility] (1) Follow Up with??Kristen Boudreaux When??In 0 days Discharge Medications MICHAEL BUTLER :1975 Visit Date:12/19/2022 Medications: Please continue your medications until treatment is completed or stopped by your provider. Medications not listed below should be discontinued. Discuss any questions related to medications with your provider. What How Much When Why Instructions Next Dose New Docusate (Colace sodium 100 mg oral capsule) 1 capsule Oral Twice a day as needed for for constipation Duration: 30 Days Pickup at [facility]/pharmacy #1130 New Oxycodone (oxyCODONE 5 mg oral capsule) 1 capsule Oral Every 6 hours as needed for for pain Duration: 3 Days Pickup at [facility]/pharmacy #1130 Unchanged Aspirin (Aspirin Low Dose 81 mg [...] Hg ?? Unchanged Durable Medical Equipment (Pen [place], 29 G x 12.7 mm [...] ?? Unchanged Methadone 70 Milligram Oral Daily Pharmacy Information [facility]/pharmacy #1130: [address] [facility] [address] [place], [place] [id number] [phone] Test Results Below is a partial list of the most recent Laboratory test results done prior to this discharge. You may have had other tests and procedures not included in this list. Please discuss all test resultswith your provider. BUN POC CARTRIDGE (12/19/2022) ???BUN (POC) POC Cartridge - 36 mg/dL CALCIUM IONIZED POC CART (12/19/2022) ???Ionized Calcium (POC) POC Cartridge - 1.23 mmol/L CHLORIDE POC CARTRIDGE (12/19/2022) ???Chloride (POC) POC Cartridge - 102 mmol/L CREATININE POC CARTRIDGE (12/19/2022) ???Creatinine (POC) POC Cartridge - 4.6 mg/dL GLUCOSE POC CARTRIDGE (12/19/2022) ???Glucose (POC) POC Cartridge - 172 HEMATOCRIT POC CARTRIDGE (12/19/2022) ???Hematocrit (POC) POC Cartridge - 28 % HEMOGLOBIN POC CARTRIDGE (12/19/2022) ???Hemoglobin (POC) POC Cartridge - 9.5 Gm/dL POTASSIUM POC CARTRIDGE (12/19/2022) ???Potassium (POC) POC Cartridge - 4.2 mmol/L SODIUM POC CARTRIDGE (12/19/2022) ???Sodium (POC) POC Cartridge - 138 mmol/L Allergies (NKA means No Known Allergies) Compazine??(difficulty breathing, difficulty) Risperdal??(tongue swells) Problems Active Problems??(21) Abscesses, recurrent, due to IVDU including admission to [facility] to 10[facility]29[facility] for re?? ADHD (attention [...] lower extremity, followed by Karena Olivas [facility] [phone]?? Education Materials Below is the list of Educational Leaflet Providered with your Discharge Instructions. Surgery Medical Daystay Surgical Overnight Discharge Instructions?? Valuables and Belongings I fully understand and agree that [facility] accepts no responsibility for all my personal [...] patient Date for Pt to Sign Valuables/Belongings: 12/19/22 10:06:00 ?? Valuables & Belongings ?? Clothes Electronic devices Jewelry Monetary Items Personal devices Miscellaneous Medications (Valuables) Valuables at Bedside Jacket, Pants, Shirt, Shoes, Undergarments Cell phone ? Glasses ? Valuables Sent Home ? Valuables Sent to Security ? Other Discharge Information ? Pulmonary Rehab Status?? Pulmonary Rehab Discharge Status?? Respiratory Rate:??9 br/min??Low ? Common Emergency Awareness Tips IS [...] are strongly encouraged to quit. Please call [employer] at [phone] or [phone]) or log in to [email or web address] for referrals to smoking cessation programs. ?? The National Suicide Prevention Hotline is available 14/04 if you or someone you know needs to find a reason to keep living. By calling 1-204-414-DAQRI (0349) you'll be connected to a skilled, trained counselor at a crisis center in your area. INPATIENT DISCHARGE INSTRUCTIONS SIGNATURE MICHAEL CASTELLANOS Location:[facility] Registration Date and Time:12/19/2022 09:35 EDT Primary Care Physician: Kristen Boudreaux DO, I MICHAEL BUTLER, have received the above patient education materials/instructions and have verbalized understanding. If ambulance or transport services are being used I further acknowledge being given a choice of service. ?? If you need to contact me, please call me at this number: . 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 Signature: Relationship to Patient: Witness Name/Signature: Date: * Corie Choi RN: PERFORM, SIGN, VERIFY Event Display: Patient Education Handout Authored Date: [id number] * Corie Choi RN: PERFORM Event Display: Patient Education Leaflets Authored Date: [id number] Surgery Medical Daystay Surgical Overnight Discharge Instructions [...] Team Personnel Name: Maryam Fox RN Position: [facility] RN Member Role: Primary Care Nurse Name: Franchesca Ward RN Position: S RN Member Role: Primary Care Nurse Name: Carolina Camacho RN Position: [facility] SN RN Member Role: Primary Care Nurse Name: Linda Hathaway Position: [facility] Outreach Member Role: Lifetime Consulting Physician Name: Delaney Huber RN Position: [facility] RN Member Role: Primary Care Nurse Name: Juanita Main RN Position: [facility] RN Member Role: Primary Care Nurse Name: China Sutherland RN Position: [facility] Outreach Member Role: Lifetime Consulting Physician Name: Tayler Harris RN Position: [facility] RN Member Role: Primary Care Nurse Name: Sophie Bejarano NP Position: [facility] Associate Professional Member Role: Lifetime Consulting Provider Address: Address: [address] [place] [address] [address] [facility] [address] Name: Vasile Byers MD Position: [facility] Renal MD Member Role: Lifetime Consulting Physician Address: Address: [address] [place] [address] [address] [facility] [address] Name: Katalina Jorge RN Position: [facility] OB RN Member Role: Primary Care Nurse Name: Lorene Davenport RN Position: [facility] RN Member Role: Primary Care Nurse Name: Meryl Saini RN Position: [facility] SN RN Member Role: Primary Care Nurse Name: Annie Langston RN Position: [facility] RN Member Role: Primary Care Nurse Name: Guillermo Encinas DO Position: [facility] Renal MD Member Role: Lifetime Consulting Physician Address: Address: [address] [place] [address] [address] [facility] [address] Name: Lorene Billingsley RN Position: [facility] Onco RN Member Role: Primary Care Nurse Name: Kathy Nieves RN Position: [facility] EARLE RN W/OE and Tasks Member Role: Primary Care Nurse Name: Sophia Johnson Position: [facility] RN Member Role: Primary Care Nurse Name: Paradise Linder RN Position: [facility] RN Member Role: Primary Care Nurse Name: Pina Mcgill RN Position: [facility] RN Member Role: Primary Care Nurse Name: Yumiko Lindsay RN Position: [facility] RN Member Role: Primary Care Nurse Name: Vincent Thapa RN Position: [facility] RN Member Role: Primary Care Nurse Name: Kristen Boudreaux DO Position: [facility] Resident Member Role: PCP Address: Address: [address] [place] [address] [place] [address]- Name: Nicole Guzman RN Position: [facility] RN Member Role: Primary Care Nurse Name: Neil Bobby RN Position: [facility] ED RN W/OE and Tasks Member Role: Primary Care Nurse Name: Joellen Pineda RN Position: [facility] RN Member Role: Primary Care Nurse Name: Litzy Marin RN Position: [facility] RN Member Role: Primary Care Nurse Name: Crystal Robles RN Position: [facility] RN Member Role: Primary Care Nurse Name: Ruth Stevens LPN Position: [facility] RN Member Role: Primary Care Nurse Name: Nohemi Grande RN Position: [facility] Member Role: Primary Care Nurse Name: Yolanda Tyler RN Position: [facility] Member Role: Primary Care Nurse Care Team Related Persons Name: TAWNY BUTLER Address: home [address] [place] [address]
--- OUTSIDE RECORDS SUMMARY | 2023-06-23 09:48 | XMS_ITS | Continuity of Care Document ---
Author Name Unknown Organization [facility] Address [address] [place] [address]- Care Team Providers Care Journal Box Inspector Name Role Phone Kristen Boudreaux DO Primary Care Physician [facility] Date(s): 10/25/22 - 11/24/22 [facility] [address], [place] [address] Allergies, Adverse Reactions, Alerts Substance Reaction Severity Status Risperdal tongue swells Active Compazine difficulty breathing difficulty Active Immunizations Given and Recorded Vaccine Date Status Refusal Reason influenza virus vaccine, inactivated 09/14/22 Give n influenza virus vaccine, inactivated 09/19/15 Give n influenza virus vaccine, inactivated 07/03/09 Dany rded [id number] bivalent booster vax 07/17/22 Recorded pneumococcal 20-valent [...] 05/16/22 14:00:00 EDT, Route to Pharmacy Electronically, [facility]/pharmacy #[id number], Partial fill upon patient request if the prescription is for... Start Date: 05/16/22 Status: Ordered Aspirin Low Dose 81 mg oral delayed release tablet 1 tablet, By Mouth, Daily, # 90 tablet, 3 Refills, 05/16/22 14:00:00 EDT, [facility]/pharmacy #[id number], 170.18, cm, 05/08/22 12:22:00 EDT, Height, 81.8, kg, 05/08/22 12:22:00 EDT, Dry Weight Start Date: 05/16/22 Status: Ordered cloNIDine 0.1 mg oral tablet 0.2 mg, 2, tablet, By Mouth, 3 times a day, # 270 tablet, Refills 1, Tot. Refills 1, Maintenance, 04/26/22 14:29:00 EDT, [id number], cm, 04/12/22 15:12:00 EDT, [...] CRUSH. /CHEW., # 30 capsule, 5 Refills, [facility] STORE [id number], 170.18, cm, 05/08/22 12:22:00 EDT, Height, 81.8, kg, 05/08/22 12:22:00 EDT, Dry Weight Start Date: 05/15/22 Status: Ordered famotidine 20 mg oral tablet 1, tablet, By Mouth, Daily, # 90 tablet, Refills 3, Tot. Refills 3, Maintenance, 05/16/22 14:01:00 EDT, Route to Pharmacy Electronically, [facility]/pharmacy #[id number], 170.18, cm, 05/08/22 12:22:00 EDT, Height, 81.8, kg, 05/08/22 12:22:00 EDT, Dry Weight Start Date: 05/16/22 Status: Ordered hydrALAZINE 25 mg oral tablet 50 mg, 2, tablet, By Mouth, 3 times a day, # 180 tablet, Refills 3, Tot. Refills 3, Maintenance, 10/17/22 17:13:00 EST, Route to Pharmacy Electronically, [facility]/pharmacy #[id number], Partial fill upon patientrequest if the prescription is for a schedule II op... Start Date: 10/17/22 Stop Date: 02/14/23 Status: Ordered Lasix 40 mg oral tablet 120 mg, 3, tablet, By Mouth, 2 times a day, Refill per PCP or Nephrology, # 180 tablet, Refills 1, Tot. Refills 1, Maintenance, 10/25/22 17:02:00 EST, Route to Pharmacy Electronically, [facility]/pharmacy #[id number], Partial fill upon patient request if the presc... Start Date: 10/25/22 Status: Ordered lisinopril 20 mg oral tablet 20 mg, 1, tablet, By Mouth, Daily, Refill per PCP or Nephrology, # 30 tablet, Refills 6, Tot. Refills 6, Maintenance, 10/17/22 17:13:00 EST, Route to Pharmacy Electronically, [facility]/pharmacy #[id number], Partial fill upon patient request if the prescription is... Start Date: 10/17/22 Stop Date: 05/15/23 Status: Ordered Methadone = 70 mg, By Mouth, Daily, last received from [facility] 03/19/22 & took home 3 doses. Ro Confirmed [phone], 0 Refills, Maintenance, 03/21/22 11:55:00 EDT, ; Start Date: 03/21/22 Status: Ordered Pen [place], 29 G x 12.7 mm BD Ultra [...] recurrent, due to IVDU including admission to [facility] [place] --> [facility] 09/18/2015 to 10/29/2015 for retroperitoneal [...] Venous ulcer, right lower extremity, followed by [facility] [phone] Confirmed Active Venous ulcer of right leg [...] Safety Implantable Status Assigning Authority Unknown Unknown [id number] Unknown 06/26/24 Unknown Unknown Active Unknown Patient Care team information Care Team Personnel Name: Maryam Fox RN Position: [facility] RN Member Role: Primary Care Nurse Name: Franchesca Ward RN Position: [facility] RN Member Role: Primary Care Nurse Name: Carolina Camacho RN Position: [facility] SN RN Member Role: Primary Care Nurse Name: Linda Hathaway Position: [facility] Outreach Member Role: Lifetime Consulting Physician Name: Delaney Huber RN Position: S RN Member Role: Primary Care Nurse Name: Juanita Main RN Position: [facility] RN Member Role: Primary Care Nurse Name: China Sutherland RN Position: [facility] Outreach Member Role: Lifetime Consulting Physician Name: Tayler Harris RN Position: [facility] RN Member Role: Primary Care Nurse Name: Sophie Bejarano NP Position: [facility] Associate Professional Member Role: Lifetime Consulting Provider Address: Address: [address] [facility] [place] [address]- Name: Vasile Byers MD Position: [facility] Renal MD Member Role: Lifetime Consulting Physician Address: Address: [address] [facility] [place] [address]- Name: Katalina Jorge RN Position: [facility] OB RN Member Role: Primary Care Nurse Name: Lorene Davenport RN Position: [facility] RN Member Role: Primary Care Nurse Name: Meryl Saini RN Position: [facility] SN RN Member Role: Primary Care Nurse Name: Annie Langston RN Position: [facility] RN Member Role: Primary Care Nurse Name: Guillermo Encinas DO Position: [facility] Renal MD Member Role: Lifetime Consulting Physician Address: Address: [address] [facility] [place] [place] [address]- Name: Lorene Billingsley RN Position: [facility] Onco RN Member Role: Primary Care Nurse Name: Kathy Nieves RN Position: [facility] ED RN W/OE and Tasks Member Role: Primary Care Nurse Name: Sophia Johnson Position: [facility] RN Member Role: Primary Care Nurse Name: Paradise Linder RN Position: [facility] RN Member Role: Primary Care Nurse Name: Pina Mcgill RN Position: [facility] RN Member Role: Primary Care Nurse Name: Vincent Thapa RN Position: [facility] RN Member Role: Primary Care Nurse Name: Kristen Boudreaux DO Position: [facility] Resident Member Role: PCP Address: Address: [address] [place] [address]- Name: Nicole Gumzan RN Position: [facility] RN Member Role: Primary Care Nurse Name: Neil Bobby RN Position: [facility] ED RN W/OE and Tasks Member Role: Primary Care Nurse Name: Joellen Pineda RN Position: [facility] RN Member Role: Primary Care Nurse Name: Litzy Marin RN Position: [facility] RN Member Role: Primary Care Nurse Name: Crystal Robles RN Position: [facility] RN Member Role: Primary Care Nurse Name: Ruth Stevens LPN Position: [facility] RN Member Role: Primary Care Nurse Name: Nohemi Grande RN Position: [facility] Hospital Budget Technician Member Role: Primary Care Nurse Name: Yolanda Tyler RN Position: [facility] Budget Technician Member Role: Primary Care Nurse Care Team Related Persons Name: TAWNY BUTLER Address: [address] [address]
--- OUTSIDE RECORDS SUMMARY | 2023-06-23 09:48 | XMS_ITS | Continuity of Care Document ---
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 Start Date: 04/12/22 Status: Ordered amLODIPine 10 mg oral tablet 1 tablet, By Mouth, Daily, # 90 tablet, 1 Refills, Maintenance, 04/08/22 10:06:00 EDT, [facility]/pharmacy#[id number], 170, cm, 04/04/22 15:17:00 EDT, [...] Daily, # 30 tablet, 0 Refills, [facility] STORE [id number], 170, cm, 04/04/22 15:17:00 EDT,Height, 81.75, kg, [...] 10:11:00 EDT, Route to Pharmacy Electronically, [facility]/pharmacy #[id number], 170, cm, 04/04/22 15:17:00 EDT, [...] Maintenance, 04/12/22 17:56:00 EDT, CR Capsule, [facility]/pharmacy #[id number], Partial fill upon patient request if the prescription is for a schedule II opioid drug., 170, cm, 07... Start Date: 04/12/22 Status: Ordered famotidine 20 mg oral tablet 1, tablet, By Mouth, Daily, # 90 tablet, Refills 0, Tot. Refills 0, Maintenance, 04/08/22 10:12:00 EDT, Route to Pharmacy Electronically, [facility]/pharmacy #[id number], 170, cm, 04/04/22 15:17:00 EDT, Height, 81.75, kg, 03/21/22 15:54:00 EDT, Dry Weight Start Date: 04/08/22 Status: Ordered hydrALAZINE 25 mg oral tablet 2, tablet, By Mouth, 3 times a day, for 30 days, # 180 tablet, Refills 0, Physician Stop, Route to Pharmacy Electronically, [facility] STORE [id number], 170, cm, 04/04/22 15:17:00 EDT, Height, 81.75, [...] Refills, Maintenance, 04/04/22 16:32:00 EDT, Cream, [facility]/pharmacy #[id number], Partial fill upon patient request if the prescription is for a schedule II opioid drug., 1 application Topically 3 times a day,... Start Date: 04/04/22 Status: Ordered lisinopril 20 mg oral tablet 20 mg, 1, tablet, By Mouth, Daily, # 30 tablet, Refills 6, Tot. Refills 6, Maintenance, 03/18/22 14:25:00 EDT, Route to Pharmacy Electronically, [facility]/pharmacy #[id number], Partial fill upon patient request if the prescription is for a schedule II opioid drug... Start Date: 03/18/22 Status: Ordered Methadone = 80 mg, By Mouth, Daily, last received from [facility] 03/[facility]/22 & took home 3 doses. 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 Sex
--- OUTSIDE RECORDS SUMMARY | 2023-06-23 09:48 | XMS_ITS | Continuity of Care Document ---
Author Name Unknown Organization [facility] ter Address [address] [place] [id number]- Care Team Providers Care Crm Architect Name Role Phone Kristen Boudreaux DO Primary Care Physician [phone] Encounter [facility] [place] Date(s): 02/06/23 - 02/12/[address] [address]- Discharge Disposition: A-Transfer VNA/Home Health Attending Physician: Bill White MD Admitting Physician: Bill White MD Referring Physician: Bill White MD Allergies, Adverse Reactions, Alerts Substance Reaction Severity Status Risperdal tongue swells Active Compazine difficulty breathing difficulty Active Immunizations Given and Recorded Vaccine Date Status Refusal Reason influenza virus vaccine, inactivated 09/14/22 Give n influenza virus vaccine, inactivated 09/19/15 Give n influenza virus vaccine, inactivated 07/03/09 Dany rded [id number] bivalent booster vax 07/17/22 Recorded pneumococcal 20-valent [...] Status: Ordered acetaminophen 325 mg oral tablet 650 mg, Tablet, By Mouth, 02/12/23 8:00:00 EDT Start Date: 02/12/23 Stop Date: 02/12/23 Status: Completed Aspirin Low Dose 81 mg oral delayed release tablet 1 tablet, By Mouth, Daily, # 90 tablet, 3 Refills, 05/16/22 14:00:00 EDT, [facility]/pharmacy #[id number], 170.18, cm, 05/08/22 12:22:00 EDT, Height, 81.8, kg, 05/08/22 12:22:00 EDT, Dry Weight Start Date: 05/16/22 Status: Ordered cloNIDine 0.1 mg oral tablet 0.2 mg, 2, tablet, By Mouth, 3 times a day, # 270 tablet, Refills 1, Tot. Refills 1, Maintenance, 04/26/22 14:29:00 EDT, Route to Pharmacy Electronically, [facility]/pharmacy #[id number], 170, cm, 04/12/22 15:12:00 EDT, Height, 81.75, kg, 03/21/22 15:54:00 EDT, Start Date: 04/26/22 Status: Ordered Colace sodium 100 mg oral capsule 100 mg, 1, capsule, By Mouth, 2 times a day, PRN, # 60 capsule, Refills 0, Tot. Refills 0, Maintenance, for constipation, 12/19/22 14:25:00 EDT, Route to Pharmacy Electronically, [facility]/pharmacy #[id number], Partial fill upon patient request [...] capsule, 8 Refills, Maintenance, 11/25/22 8:27:00 EST, [id number], 170, cm, 10/09/22 16:43:00 EST, Height, 69.1, kg, 11/14/22 7:40:00 EST, Dry Weight Start Date: 11/25/22 Status: Ordered famotidine 20 mg oral tablet 1, tablet, By Mouth, Daily, # 90 tablet, Refills 3, Tot. Refills 3, Maintenance, 05/16/22 14:01:00 EDT, Route to Pharmacy Electronically, [facility]/pharmacy #[id number], 170.18, cm, 05/08/22 12:22:00 EDT, Height, 81.8, kg, 05/08/22 12:22:00 EDT, Dry Weight Start Date: 05/16/22 Status: Ordered furosemide 40 mg oral tablet 3, tablet, By Mouth, 2 times a day, REFILL PER PCP OR NEPHROLOGY., # 180 tablet, Refills 2, Maintenance, 12/19/22 17:33:00 EDT, Route to Pharmacy Electronically, [id number], 170, cm, 12/19/22 10:06:00 EDT, Height, 71.6, kg, 12/19/22 10:06:00 EDT,... Start Date: 12/19/22 Status: Ordered hydrALAZINE 25 mg oral tablet 50 mg, 2, tablet, By Mouth, 3 times a day, # 180 tablet, Refills 3, Tot. Refills 3, Maintenance, 10/17/22 17:13:00 EST, Route to Pharmacy Electronically, [facility]/pharmacy #[id number], Partial fill upon patientrequest if the prescription is for a schedule II op... Start Date: 10/17/22 Stop Date: 02/14/23 Status: Ordered lisinopril 20 mg oral tablet 20 mg, 1, tablet, By Mouth, Daily, Refill per PCP or Nephrology, # 30 tablet, Refills 6, Tot. Refills 6, Maintenance, 10/17/22 17:13:00 EST, Route to Pharmacy Electronically, [facility]/pharmacy #[id number], Partial fill upon patient request if the prescription is... Start Date: 10/17/22 Stop Date: 05/15/23 Status: Ordered Methadone = 70 mg, By Mouth, Daily, 0 Refills, Maintenance, 12/17/22 11:12:00 EDT, Partial fill upon patient request if the prescription is for a schedule II opioid drug. Start Date: 12/17/22 Status: Ordered Methadone Tablet 60 mg, Tablet, By Mouth, 02/12/23 9:00:00 EDT Start Date: 02/12/23 Stop Date: 02/12/23 Status: Completed Pen [place], 29 G x 12.7 mm BD Ultra [...] recurrent, due to IVDU including admission to [facility] [place] --> [facility] 09/18/2015 to 10/29/2015 [...] Venous ulcer, right lower extremity, followed by Karenaedvin Olivas [facility] [phone] Confirmed Active Venous ulcer of right leg Confirmed Active Results Orders for Microbiology Reports Name Date Blood Culture 02/08/23 Wound Deep Culture w/ Gram Smear (DEEP W OUND CULTURE) 02/06/23 Blood Culture 02/06/23 Blood Culture #2 02/06/23 Microbiology Reports TEST:Blood Culture STATUS:Unauthenticated BODY SITE: SOURCE:Blood COLLECTED DATE/TIME:02/08/23 8:59 AM Blood Culture SPECIMEN DESCRIPTION : BLOOD SPECIAL REQUESTS : NONE CULTURE : NO GROWTH 4 DAYS REPORT STATUS : PRELIMINARY REPORT TEST:Blood Culture, Second Order STATUS:Auth (Verified) BODY SITE: SOURCE:Blood COLLECTED DATE/TIME:02/06/23 9:34 PM Blood Culture, Second Order SPECIMEN DESCRIPTION : BLOOD RT HAND SPECIAL REQUESTS : NONE CULTURE : PSEUDOMONAS AERUGINOSA This isolate was identified using Maldi-TOF system These AST results were performed on the Microscan ID and AST system REPORT STATUS : FINAL 02/09/2023 ORGANISM PSEUDOMONAS AERUGINOSA This isolate was identified using Maldi-TOF system These AST results were performed on the Microscan ID and AST system METHOD MIN. INHIB. CONC. (MCG/ML) CEFEPIME SUSCEPTIBLE CEFTAZIDIME SUSCEPTIBLE CIPROFLOXACIN SUSCEPTIBLE GENTAMICIN SUSCEPTIBLE LEVOFLOXACIN SUSCEPTIBLE MEROPENEM SUSCEPTIBLE PIPERACILLIN/TAZOBAC SUSCEPTIBLE TEST:Deep Wound Culture STATUS:Auth (Verified) BODY SITE: SOURCE:WOUND COLLECTED DATE/TIME:02/06/23 4:38 PM Deep Wound Culture SPECIMEN DESCRIPTION : WOUND R ARM SPECIAL REQUESTS : NONE GRAM STAIN : 4+ POLYMORPHONUCLEAR LEUKOCYTES 1+ GRAM NEGATIVE RODS CULTURE : 4+ PSEUDOMONAS AERUGINOSA This isolate was identified using Maldi-TOF system These AST results were performed on the Microscan ID and AST system REPORT STATUS : FINAL 02/09/2023 ORGANISM 4+ PSEUDOMONAS AERUGINOSA This isolate was identified using Maldi-TOF system These AST results were performed on the Microscan ID and AST system METHOD MIN. INHIB. CONC. (MCG/ML) AMIKACIN SUSCEPTIBLE CEFEPIME SUSCEPTIBLE CEFTAZIDIME SUSCEPTIBLE CIPROFLOXACIN SUSCEPTIBLE GENTAMICIN INTERMEDIATE LEVOFLOXACIN SUSCEPTIBLE MEROPENEM SUSCEPTIBLE PIPERACILLIN/TAZOBAC SUSCEPTIBLE TOBRAMYCIN SUSCEPTIBLE TEST:Blood Culture STATUS:Auth (Verified) BODY SITE: SOURCE:Blood COLLECTED DATE/TIME:02/06/23 2:26 PM Blood Culture SPECIMEN DESCRIPTION : BLOOD NOT GIVEN SPECIAL REQUESTS : CRITICAL VALUE CALLED AND VERIFIED BY READBACK FOR: GNR REPORTED TO [id number] D3B 0507 02/07/2023 BY [id number] CULTURE : PSEUDOMONAS AERUGINOSA FOR SUSCEPTIBILITY RESULT REFER TO BLOOD CULTURE Pseudomonas aeruginosa was identified by multiplex PCR. REPORT STATUS : FINAL 02/09/2023 Radiology Reports * Exam Date Time Procedure Performing Provider Status 02/06/23 2:41 PM C-Arm < 1 Hour Lorene Daugherty ; Auth (Verified) Notes: (C-Arm < 1 Hour) Reason For Exam: Hemodialysis insertion RESULT: C-Arm < 1 Hour C-Arm < 1 Hour INDICATION: Reason: Hemodialysis insertion COMPARISONS: None TECHNIQUE: Fluoroscopy support was provided. There was no radiologist in attendance. FLUOROSCOPY TIME: 28 seconds EXPOSURE: 0.560 Gycm2 TECHNOLOGIST TIME: 20 minutes FINDINGS: Fluoroscopy support was provided. There was no radiologist in attendance. Images document placementof a hemodialysis catheter with tip in the low right atrium. IMPRESSION: See above. WSN: [id number] Ordering Physician: Bill White Dictated By: Des Xiong MD Dictated Date/Time: 02/07/23 8:40 am Reviewed By: Des Xiong MD Signed By: Des Xiong MD Signed Date/Time: 02/07/23 8:40 am Transcribed By: OLGA Transcribed Date/Time: 02/06/23 4:38 pm Vital Signs Most recent to oldest [Reference Range]: 1 2 3 Height 170.18 cm (02/12/23 3:17 AM) 170.18 cm (02/11/23 3:13 AM) 170.18 cm (02/10/23 7:29 PM) Weight 71.2 kg (02/06/23 7:47 PM) Oxygen Saturation [94-100 %] 100 % (02/12/23 11:00 AM) 100 % (02/12/23 3:17 AM) 100 % (02/11/23 11:36 PM) Pulse Rate [55-90 bpm] 80 bpm (02/12/23 11:00 AM) 80 bpm (02/12/23 3:17 AM) 81 bpm (02/11/23 11:36 PM) Body Mass Index [18.5-24.99 kg/m2] 24.58 kg/m2 (02/06/23 7:47 PM) Blood Pressure [90-138/55-84 mm Hg] 110/64mm Hg (02/12/23 11:00 AM) 155/90mm Hg *H* (02/12/23 3:17 AM) 154/83mm Hg *H* (02/11/23 11:36 PM) Respiratory Rate [16-30 br/min] 20 br/min (02/12/23 11:49 AM) 20 br/min (02/12/23 11:49 AM) 20 br/min (02/12/23 11:00 AM) Temperature [96.8-100.4 DegF] 98.6 DegF (02/12/23 11:00 AM) 98.7 DegF (02/12/23 3:17 AM) 98.6 DegF (02/11/23 11:36 PM) Liters per Minute 2 L/min (02/06/23 5:45 PM) 2 L/min (02/06/23 5:30 PM) 2 L/min (02/06/23 5:00 PM) Mode of Delivery (Oxygen) Room air (02/12/23 11:00 AM) Room air (02/12/23 3:17 AM) Room air (02/11/23 11:36 PM) Blood pressure sites Arm, left (02/12/23 11:00 AM) Arm, left (02/12/23 3:17 AM) Arm, left (02/11/23 11:36 PM) Temperature Route Oral (02/12/23 3:17 AM) Oral (02/11/23 11:36 PM) Oral (02/11/23 7:56 PM) Dry Weight 71.2 kg (02/06/23 7:47 PM) 71.2 kg (02/06/23 11:51 AM) Dry Weight Obtained Via Standing scale (02/06/23 11:51 AM) Social History Social History Type Response [...] Safety Implantable Status Assigning Authority Unknown Unknown [id number] Unknown 07/25/23 Unknown Unknown Active Unknown Procedure Provider Procedure Date Device Type Site Insertion Hemodialysis Catheter Maicol VILLATORO, Tyshawn Blake Unknown Chest Device Identifier Serial Number Lot or Batch Number Manufacturing Date Expiration Date Distinct Identification Code MRI Safety Implantable Status Assigning Authority Unknown Unknown [id number] Unknown 06/26/24 Unknown Unknown Active Unknown Consult note * Cheryle Tillman MD: MODIFY, PERFORM Event Display: Consult Authored Date: Patient: ??MICHAEL PARMAR ? Age:??47 Years?Sex:??Male?:??1975?? Chief Complaint/Reason for Consultation Pseudomonas bacteremia Referring physician-Dieter Sanders MD History of Present Illness ?? 47-year-old male with past medical history of IV drug use, ESRD secondary to diabetic nephropathy history of chronic osteomyelitis of left arm requiring above left elbow amputation in December 2021 who has been on dialysis but suffered AV graft occlusion requiring right arm AV graft revision with HEROgraft placement on December 20, 2022 but then presented with complaints of fevers, chills.?? Patient reports that his symptoms started last Friday during dialysis??when he noticed a fever of 103F followed by chills, lethargic, significant myalgias following which he missed his dialysis on Friday.?On discussion with transplant surgery, did mention that??he was evaluated by his surgeon??who had already??some erythema??at the site of the AV graft??which had raised suspicion for infection??and he was scheduled??to go to the OR on . ??Later, his symptoms worsened??and he was brought to the OR as planned??for graft explantation and right IJ permacath insertion on 02/06/2023.?? Postop, he was initiated initially on vancomycin but then his blood culture came back positive for gram-negative rods after which Zosyn was added to the regimen on 02/07.?? The GNR has now been identified as Pseudomonas aeruginosa on blood culture drawn 02/06.?? Deep wound culture from the graft is also growing Pseudomonas aeruginosa.?Repeat blood culture from 02/08 remains negative.?? Labs show normal white cell count of 5.4.?? He has remained afebrile during this hospitalization. ?? Antibiotics Zosyn 02/07-now Vancomycin 02/07 X1 dose Review of Systems Reviewed,??negative except as noted above Objective Vital Signs?? Temperature: 98 DegF (02/10/23 03:32:00) Temperature Route: Oral (02/10/23 03:32:00) Pulse Rate: 67 bpm (02/10/23 03:32:00) Respiratory Rate: 18 br/min (02/10/23 04:34:00) Respiratory Rate: 18 br/min (02/10/23 04:34:00) Systolic Blood Pressure: 137 mm Hg (02/10/23 03:32:00) Diastolic Blood Pressure: 70 mm Hg (02/10/23 03:32:00) Blood pressure sites: Arm, left (02/10/23 03:32:00) Mean Arterial Pressure: 92 mm Hg (02/10/23 03:32:00) Pulse Pressure: 67 mm Hg (02/10/23 03:32:00) Oxygen Saturation: 100 % (02/10/23 03:32:00) Mode of Delivery (Oxygen): Room air (02/10/23 03:32:00) Early Warning Score: 3 (02/10/23 08:59:35) ? Ventilator Settings?? No qualifying data available. ? Intake/Output? 02/06 16:27 02/10 07:00 02/09 07:00 02/08 07:00 02/07 07:00 ?? 02/10 09:40 02/10 09:40 02/10 06:59 02/09 06:59 02/08 06:59 Intake ?940 ?0 ?480 ?460 ?0 Output ? 2600 ?0 ?100 ?0 ? 2500 Net Total ?-1660 ?0 ?380 ?460 ?-2500 ? Urine Count ?5 ?0 ?3 ?2 ?0 ? Precautions No Precautions documented.? Physical Exam Constitutional: Alert, in no distress. Mental Status: Oriented to person, place and time. Head: Normocephalic. Eyes: No visible??conjunctival??redness??or drainage Ear, Nose and Throat: Oropharynx clear, mucous membranes moist. Neck: Supple, Full range of motion. Respiratory: No audible wheezing, stridor. Normal vesicular breath sounds. ??Right sided permacath??catheter noted??with small amount of surrounding erythema, tenderness to palpation.?? No visible??discharge CVS: S1, s2 normal, no murmurs Gastrointestinal: Abdomen soft, no tenderness. BS present Neurologic:??No aphasia, moving all extremities??spontaneously Musculoskeletal: Right arm in surgical dressing??which??was not removed. ??However, per surgery notes,??incision??sites are healing well ? Micro ? Culture/Event_id: ?Blood Culture/[id number]?? Collect date: ?02/08/23 08:59 ? Result Status: ?Preliminary Result Date: ?02/09/23 23:01 ? SPECIMEN DESCRIPTION : BLOOD ?? SPECIAL REQUESTS : NONE ?? CULTURE : NO GROWTH AFTER 24 HOURS ?REPORT STATUS : ?? PRELIMINARY REPORT Pseudomonas bacteremia Referring physician- ? Culture/Event_id: ?Deep Wound Culture/[id number]?? Collect date: ?02/06/23 16:38 ? Result Status: ?Auth (Verified) Result Date: ?02/09/23 09:25 ? SPECIMEN DESCRIPTION : WOUND R ARM ?? SPECIAL REQUESTS : NONE ?? GRAM STAIN : 4+ POLYMORPHONUCLEAR LEUKOCYTES ?1+ GRAM NEGATIVE RODS ?? CULTURE : 4+ PSEUDOMONAS AERUGINOSA ??This isolate was identified using Maldi-TOF ? system These AST results were performed on the Microscan ID and AST ? system ?? REPORT STATUS : FINAL 02/09/2023 ? ORGANISM ? 4+ PSEUDOMONAS AERUGINOSA ??This isolate was ? identified using Maldi-TOF system These AST results ??were performed on the Microscan ID and AST system METHOD ? MIN. INHIB. CONC. (MCG/ML) AMIKACIN ? SUSCEPTIBLE CEFEPIME ? SUSCEPTIBLE CEFTAZIDIME ?SUSCEPTIBLE CIPROFLOXACIN ?SUSCEPTIBLE GENTAMICIN ? INTERMEDIATE LEVOFLOXACIN ? SUSCEPTIBLE MEROPENEM ?SUSCEPTIBLE PIPERACILLIN/TAZOBAC SUSCEPTIBLE TOBRAMYCIN ? SUSCEPTIBLE? Culture/Event_id: ?Blood Culture/[id number]?? Collect date: ?02/06/23 14:26 ? Result Status: ?Auth (Verified) Result Date: ?02/09/23 08:38 ? SPECIMEN DESCRIPTION : BLOOD NOT GIVEN ?? SPECIAL REQUESTS : CRITICAL VALUE CALLED AND VERIFIED BY MAKI FOR: GNR REPORTED TO ? [id number] D3B 0507 02/07/2023 BY [id number] ?? CULTURE : PSEUDOMONAS AERUGINOSA ??FOR SUSCEPTIBILITY RESULT REFER TO BLOOD CULTURE ?Pseudomonas aeruginosa was identified by multiplex PCR. ?? REPORT STATUS : FINAL 02/09/2023? Culture/Event_id: ?Blood Culture, Second Order/[id number]?? Collect date: ?02/06/23 21:34 ? Result Status: ?Auth (Verified) Result Date: ?02/09/23 08:38 ? SPECIMEN DESCRIPTION : BLOOD RT HAND ?? SPECIAL REQUESTS : NONE ?? CULTURE : PSEUDOMONAS AERUGINOSA ??This isolate was identified using Maldi-TOF ? system These AST results were performed on the ViewsIQcan ID and AST ? system ?? REPORT STATUS : FINAL 02/09/2023 ? ORGANISM ? PSEUDOMONAS AERUGINOSA ??This isolate was identified ? using Maldi-TOF system These AST results were ??performed on the Microscan ID and AST system METHOD ? MIN. INHIB. CONC. (MCG/ML) CEFEPIME ? SUSCEPTIBLE CEFTAZIDIME ?SUSCEPTIBLE CIPROFLOXACIN ?SUSCEPTIBLE GENTAMICIN ? SUSCEPTIBLE LEVOFLOXACIN ? SUSCEPTIBLE MEROPENEM ?SUSCEPTIBLE PIPERACILLIN/TAZOBAC SUSCEPTIBLE? Assessment/Plan Diagnoses Arteriovenous graft infection ??(T82.7XXA) ?47-year-old male with past medical history of IV drug use, ESRD secondary to diabetic nephropathyhistory of chronic osteomyelitis of left arm requiring above left elbow amputation in December 2021 who has been on dialysis but suffered AV graft occlusion requiring right arm AV graft revision with HERO graft placement on December 20, 2022 who developed??graft infection??with Pseudomonas aeruginosa with associated bacteremia on blood cultures dated 02/06.?? He is now status post??graft explantation??and right IJ??permacath placement??on 02/06.?? Patient was started on Zosyn starting 02/07, repeat blood cultures drawn 02/08 have remained negative so far.? He has been??improving on Zosyn however, ??will recommend??switching Zosyn to cefepime??due to ease of administration post discharge.?Patient will be on??cefepime 1 g??daily while inpatient??and then transitioning to??2-2-2 g??postdialysis sessions??for 3 weeks postop tentatively.?? Start date was 02/06, stop date February 26.?? However given the extent of graft and since it almost reaches SVC, will recommend checking a transthoracic echocardiogram to rule out large vegetations.?? If the echo were to show any signs of endocardial involvement, antibiotic therapy will need to be extended. ?? Some redness was noted??around the site of his??right IJ permacath,??no signs of active infection at the moment however we will keep monitoring. ??If it were to worsen,??will recommend starting vancomycin.?Transplant surgery is planning to remove this??permacath on??Friday prior to discharge as this was placed??when he was still bacteremic. ?? Case discussed with Dr Mejia Recommendations communicated to primary team via cortext ? Histories Allergies Allergies ?(Active and Proposed Allergies Only) Compazine? (Severity: Unknown severity, Onset: Unknown) ?Reactions: difficulty, difficulty breathing Risperdal? (Severity: Unknown severity, Onset: Unknown) ?Reactions: tongue swells ? Past Medical History/Problem List Active Problems??(19) Abscesses, recurrent, due to IVDU including admission to [facility] [place] --> [facility] 09/18/2015 to 10/29/2015 [...] right lower extremity, followed by Karena Olivas [facility] [phone] ? Past Surgical History Photocoagulation of both [...] II Pat. Grandmother: Diabetes mellitus ? Medications Inpatient Medications Medications (18) Active SCHEDULED: (14) Acetaminophen 325 mg Tablet (acetaminophen 325 mg oral tablet) ??650 mg, By Mouth, Every 6 hours Aspirin 81 mg EC Tablet (aspirin 81 mg oral delayed release tablet) ??81 mg, By Mouth, Daily Carvedilol 25 mg Tablet (Coreg 25 mg oral tablet) ??25 mg, By Mouth, 2 times a day Clonidine 0.1 mg Tablet (cloNIDine 0.1 mg oral tablet) ??0.2 mg, By Mouth, 3 times a day Docusate Sodium 100 mg Capsule (Docusate Sodium Capsule) ??100 mg 1 capsule, By Mouth, 2 times a day Famotidine 20 mg Tablet (famotidine 20 mg oral tablet) ??20 mg, By Mouth, Daily Furosemide 40 mg Tablet (furosemide 40 mg oral tablet) ??120 mg, By Mouth, 2 times a day Heparin 5000 units/mL Inj (1 mL) (Heparin Inj) ??5,000 units 1 mL, Subcutaneous Injection, Every 8 hours Lidocaine 5% Topical Patch (Lidocaine 5% Patch) ??1 each, Topically, Daily Lisinopril 20 mg Tablet (lisinopril 20 mg oral tablet) ??20 mg, By Mouth, Daily Melatonin 3 mg Tablet (Melatonin Tablet) ??9 mg, By Mouth, Daily at bedtime Methadone 10 mg Tablet (Methadone Tablet) ??60 mg, By Mouth, Daily Piperacillin/Tazobactam 3.375 Gm Inj (Zosyn Extended IVPB) ??3.375 Gm, IVPB, Every 12 hours Remove Patch (Remove Lidocaine Patch) ??1 each, Topically, Daily at bedtime CONTINUOUS: (0) PRN: (4) Bisacodyl 10 mg Suppository (Bisacodyl Supp) ??10 mg 1 supp, Rectally, Daily HYDROmorphone 0.5 mg/0.5 mL Inj Syringe (Dilaudid Inj) ??0.5 mg 0.5 mL, IV Push Slowly, Once nalOXONE ??400mcg/mL Inj (nalOXONE Inj) ??0.2 mg 0.5 mL, IV Push, Every 5 minutes OxyCODONE 5 mg IR Tablet (oxyCODONE 5 mg oral tablet) ??5 mg, By Mouth, Every 6 hours ? 72 Hour Antibiotic History Active Antibiotics Calendar Day Last Administered First Administered Piperacillin-Tazobactam??3.375 Gm, 25 mL/hr, IVPB, Every 12 hours ?4 02/09/2023 20:44 02/07/2023 05:50 ? Stopped Antibiotics Stop Date/Time Last Administered First Administered Vancomycin??500 mg, 100 mL/hr, IVPB, Every Friday, Friday and Friday02/07/2023 17:17 02/07/2023 16:10 02/07/2023 16:10 ? Results ? Microbiology ?? Blood Culture?? Completed?? Source: Blood Body Site: ?? Collected Dt/Tm: 02/06/2023 14:26 Last Updated Dt/Tm: 02/06/2023 14:26 ?SPECIMEN DESCRIPTION : BLOOD NOT GIVENSPECIAL REQUESTS : CRITICAL VALUE CALLED AND VERIFIED BY READBACK FOR: GNR REPORTED TO ? [id number] D3B 0507 02/07/2023 BY [id number] : PSEUDOMONAS AERUGINOSA ??FOR SUSCEPTIBILITY RESULT REFER TO BLOOD CULTURE ?Pseudomonas aeruginosa was identified by multiplex PCR.REPORT STATUS : FINAL 02/09/2023 Blood Culture #2?? Completed?? Source: Blood Body Site: ?? Collected Dt/Tm: 02/06/2023 14:26 Last Updated Dt/Tm: 02/06/2023 14:26 ?SPECIMEN DESCRIPTION : BLOOD RT HANDSPECIAL REQUESTS : NONECULTURE : PSEUDOMONAS AERUGINOSA ??This isolate was identified using Maldi-TOF ? system These AST results were performed on the ViewsIQcan ID and AST ? systemREPORT STATUS : FINAL 02/09/2023ORGANISM ? PSEUDOMONAS AERUGINOSA ??This isolate was identified ? using Maldi-TOF system These AST results were performed on the ViewsIQcan ID and AST systemMETHOD ?MIN. INHIB. CONC. (MCG/ML)CEFEPIME ? SUSCEPTIBLECEFTAZIDIME ?SUSCEPTIBLECIPROFLOXACIN ?SUSCEPTIBLEGENTAMICIN ? SUSCEPTIBLELEVOFLOXACIN ? S USCEPTIBLEMEROPENEM ?SUSCEPTIBLEPIPERACILLIN/TAZOBAC SUSCEPTIBLE ? * Patti Mejia MD: PERFORM Event Display: Consult Authored Date: [id number] I have seen and examined the patient and agree with the above note by??Dr. Tillman. ??The plan was formulated in conjunction with me, and I agree with it as written.?? While his Pseudomonas isolate is susceptible to piperacillin- tazobactam, we recommend changing him to cefepime??for ease of administra tion??with dialysis.?? Provided that a TTE shows no evidence of endocarditis, anticipate a??3-week course of antibiotics.?? His??tunneled HD line??did have some mild erythema and tenderness??at the insertion,??so would recommend closely monitoring it. ??It sounds like it will be removed prior to discharge, which??I agree with. ?Patti Mejia MD, MPH ? History and physical note * Event Display: History and Physical Hospital Authored Date: Heart * Event Display: Echocardiogram - Complete Authored Date: Transthoracic Echocardiography Report (TTE) Patient Demographics Patient Name MICHAEL PARMAR Date of Study 02/11/2023 Corporate Gender Male Facility Race Ethnicity Date of 1975 Height: 66.93 inches Age 47 year(s) Weight: 156.53 pounds Accession Number [id number] BSA: 1.82 m2 Room Number [id number] BMI: 24.57 kg/m2 Referring Physician Rachel Blas MD Interpreting Kunal Arshad MD Physician Emergency Vehicle Operator Elida Sow RCS Indications Bacteremia and Endocarditis. Clinical History IVDU ESRD Diabetes Mellitus. CKD Hypertension. Tobacco use. Opioid dependance Study Data Type of Study TTE procedure:Echo Complete-Doppler, Colorflow, M-Mode. Study Date02/11/2023 Start Time: 08:08 AM Study Location: [facility] [place] Adult Echo Study Status: Bedside Patient Status: Routine Technical Quality: Technically difficult due to rib artifact. Blood Pressure:144/71 mmHg EKG: Sinus with ectopy HR: 73 bpm 2D Measurements LV Diastolic Dimension: 4.7 cm LV Systolic Dimension: 3.2 cm LV Septum Diastolic: 1.1 cm LV PW Diastolic: 0.9 cm AO Root Dimension: 2.9 cm LA Dimension: 4 cm LA ESV (BP):60.2 ml LVOT Stroke Volume: 75.81 ml LA ESV Index: 33 ml/m2 Stroke Volume Index41.65 ml/m2 LVOT: 2.1 cm Cardiac Index:3.04 l/min/m2 Doppler Measurements AV Peak Velocity: 137 cm/s MV Peak E-Wave: 74.4 cm/s AV Peak Gradient: 7.51 mmHg MV Peak A-Wave: 74.4 cm/s MV E/A Ratio: 1 LVOT Peak Velocity: 108 cm/s MV P1/2t: 69 msec LVOT VTI21.9 cm MV Deceleration Time: 236 msec MV Area (PHT): 3.19 cm2 E' Septal Velocity: 8.05 cm/s PV Peak Velocity: 113 cm/s E' Lateral Velocity: 13.3 cm/s PV Peak Gradient: 5.11 mmHg E/Med E':[id number] E/Lat E':5.041894 Cardiac Anatomy Left Ventricle/Interventricular Septum The left ventricular size is normal. The left ventricular wall thickness is mildly increased. The LV systolic function is normal . The left ventricular ejection fraction is 55-60 %. There are no definite regional wall motion abnormalities. Left Atrium/Interatrial Septum The left atrium is normal in size. Aortic Valve The aortic valve appears mildly thickened. There is no aortic stenosis. There is no significant aortic regurgitation. Mitral Valve The mitral valve appears moderately thickened. Cannot rule out echodensity on the atrial aspect of the mitral valve (vs side lobe artifact) on the parasternal long axis views [loop 10]. There is mild mitral regurgitation. Aorta The aortic root is normal in size. Right Ventricle The right ventricular size and function appears grossly normal. Right Atrium The right atrium is normal in size. There is a catheter in the right atrium. Pulmonic Valve The pulmonic valve velocity is normal. Tricuspid Valve There is trace tricuspid valve regurgitation. Pumonary Artery An accurate pulmonary artery pressure could not be obtained. Venous Structures The inferior vena cava appears grossly normal. Pericardium/Extracardiac There is no significant pericardial effusion. Summary The left ventricular size is normal. The left ventricular wall thickness is mildly increased. The LV systolic function is normal . The left ventricular ejection fraction is 55-60 %. There are no definite regional wall motion abnormalities. The mitral valve appears moderately thickened. Cannot rule out echodensity on the atrial aspect of the mitral valve (vs side lobe artifact) on the parasternal long axis views [loop 10]. There is mild mitral regurgitation. The right ventricular size and function appears grossly normal. The right atrium is normal in size. There is a catheter in the right atrium. Recommendation Suggest transesophageal echocardiography (if clinically indicated). Comparison Comparison is made to the study of September 13, 2022. Somewhat limited prior study making direct comparison difficult. Signature * Event Display: Echocardiogram - Complete Authored Date: Cardiology * Event Display: Cardiac Rhythm Strips Authored Date: Laboratory * Event Display: Point of Care Reference Ranges Authored Date: Hospital Progress note * Roopa Ramos MD: VERIFY, PERFORM, SIGN Event Display: Progress Note Hospital Authored Date: Patient: MICHAEL PARMAR Age: 47 years Sex: Male : 1975 Associated Diagnoses: None Author: Roopa Ramos MD Patient last received a dose of 60mg methadone on 02/12/23. * Karli Grande RN: PERFORM, SIGN, VERIFY Event Display: Progress Note Hospital Authored Date: Patient: MICHAEL PARMAR Age: 47 years Sex: Male : 1975 Associated Diagnoses: None Author: Karli Grande RN Findings Narrative/Incidental Received Patient with a Rt Permacath Access for Dialysis with patent ports. Dialysis session lastedfor 3Hours as ordered. A total of 3.5L removed. Critline- 16.8% . Patient tolerated treatment. Last Vitals BP-124/75 P-76. Patient transported back to [facility]. Due care given. . Discharge Information Case Management Discharge Plan : Case Management Discharge Plan Data 02/11/2023 11:26 EDT Discharge Level of Care at Discharge Homehealth/VNA Discharge VNA/Hospice/Home Care [facility] [phone] Mode of Transportation Arranged car Name of Agency #1 [facility] Varnish Thinner #1 Intake Service Categories #1 Retirement Service Comments #1 The VNA will call you to set up an appointment. Please call the agency with anyquestions. [phone] * Ed Maciel: PERFORM, SIGN, VERIFY Event Display: Progress Note Hospital Authored Date: Patient: MICHAEL PARMAR Age: 47 years Sex: Male : 1975 Associated Diagnoses: None Author: Ed Maciel Findings Problem Related to Alteration in Comfort : Alteration in Comfort/new 02/12/2023 11:00 EDT Alteration in Comfort Related to Surgery Goals & Outcomes: Comfort Pt will report acceptable level of comfort & pain control, Pt will state importance of adhering to pain strategy regime, Pt will demonstrate necessary skills to manage pain Interventions Implemented: Comfort Assess pain using appropriate pain scale/tools, Assess aggravating factors & prevent them accordingly, Assess alleviating factors & promote them accordingly BH Goals/Interventions, Comfort Yes Comfort, Problem Start 02/08/2023 23:00 Reviewed plan with, Comfort Patient, Family/caregiver not available Patient Progression, Comfort Pt progressing according to plan Comfort, Problem Ongoing Yes . Nursing Data Vital Signs : VITAL SIGNS SECTION 02/12/2023 11:00 EDT Temperature 98.6 DegF Pulse Rate 80 bpm Respiratory Rate 20 br/min Systolic Blood Pressure 110 mm Hg Diastolic Blood Pressure 64 mm Hg Blood pressure sites Arm, left Pulse Pressure 46 mm Hg Oxygen Saturation 100 % Mode of Delivery (Oxygen) Room air . Narrative/Incidental Pt arrived from dialysis ~1030 alert and oriented to person place time and situation, denies numbness or tingling to extremities, strong and equal dorsi/plantar flexion. Reporting pain 6/10 in right arm. Lung sounds clear throughout, no cough, denies shortness of breath, tolerating room air. No edema, denies chest pain, peripheral pulses palpable in all extremities. Abdomen soft round nontender, bowel sounds present throughout abdomen, +flatus per pt report, tolerating diet and denies nausea. Ambulating independently w/ steady gait. Low urine output/dialysis this morning/typical per pt report. Right neck dsd cdi, RUE moist to dry dressing changed per MD orders when pt arrived now cdi. Discharge Information Case Management Discharge Plan : Case Management Discharge Plan Data 02/11/2023 11:26 EDT Discharge Level of Care at Discharge Homehealth/VNA Discharge VNA/Hospice/Home Care [facility] [phone] Mode of Transportation Arranged car Name of Agency #1 [facility] Varnish Thinner #1 Intake Service Categories #1 Retirement Service Comments #1 The VNA will call you to set up an appointment. Please call the agency with anyquestions. [phone] Note * Ed Maciel: PERFORM Event Display: Discharge/Transfer Note Hospital Authored Date: [id number] Nursing Discharge Note Entered On: 02/12/2023 14:37 EDT Performed On: 02/12/2023 14:37 EDT by Ed Maciel Nursing Discharge Note 2 Discharge Time : 02/12/2023 16:00 EDT Ed Maciel - 02/12/2023 16:02 EDT Patient Left Unit Via : Ambulatory Patient Accompanied Off Unit with : Responsible adult Ed Maciel - 02/12/2023 15:06 EDT Discharge Level of Care at Discharge : Homehealth/VNA Discharge VNA/Hospice/Home Care([id number]) : [facility] [phone] DC Instructions Provided & Signed by Pt : Yes Patient Understands D/C Instructions : Yes Verbalized Understanding of D/C Plan By : Patient Patient Instructions Discharge Signed : Yes Discharge Comments : dx instructions reviewed w/ pt and questions answered, iv removed and tip intact, V&B reviewed w/ pt and sent home when dx, pt provided extra dressing supplies for home Did Pt have Specialty Bed or Wound Vac : No Ed Maciel - 02/12/2023 14:37 EDT * Roopa Ramos MD: PERFORM Event Display: Discharge/Transfer Note Hospital Authored Date: [id number] Patient: ??MICHAEL PARMAR ? Age:??47 Years?Sex:??Male?:??1975?? 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 Blood cultures drawn on 02/06 were also positive for??Pseudomonas that is dobson-sensitive. ID was consulted and the patient was converted from broad-spectrum antibiotics with vancomycin and zosyn to cefepime. He??continued to receive 1g cefepime daily while inpatient, but will be discharged on an??additional 3-weeks of cefepime, 2g every other day to be dosed after dialysis. Repeat??blood cultures from 02/08 demonstrated resolved bacteremia with no growth for 48-hours.??Patient was planned for removal of his permcath placed while he was bacteremic, but refused the procedure due to concern for postoperative pain. He was reassured that his pain would be manage and the risks of leaving an infected catheter in place mean recurrent bacteremia, sepsis and possible endocarditis. He despite his understanding of these risks, he still refused reoperation. He was cleared for discharge on 02/12/23. ?? On day of discharge, patient is hemodynamically normal and afebrile. He has been tolerating dialysis via the R IJ permcath without difficulty and was last dialyzed on 02/12. He will be discharged home with instructions to continue 2g IV cefepime to be administered after dialysis for 3 weeks. Should become febrile and bacteremic in the future, we will revisit removal of the permcath. VNA has been arranged for ongoing wound care to the right arm graft excision sites. Objective/Physical Exam on Day of Discharge Vitals & Measurements T:??98.6?F?? HR:??80??(Peripheral)?? RR:??20?? RR:??20?? BP:??110/64?? SpO2:??100%?? HT:??170.18??cm?? WT:??71.2??kg?? BMI:??24.58?? Constitutional: Well appearing, no acute distress, AOx3 HEENT: Normocephalic, atraumatic, PERRL,??moist mucous membranes. Respiratory: Normal WOB, CTA b/l. No wheezing, rales or rhonchi. Cardiovascular: Audible S1 S2 regular. No m/r/g Abdominal: Soft, non-tender, non-distended. No pulsatile mass. No hepatosplenomegaly. Neurologic: Cranial nerves II-XII intact. Motor and sensation grossly intact b/l. MSK/Integumentary: Right upper extremity??warm and well-perfused.?? Graft excision sites??unpacked to reveal??scant??erythema, no active drainage, expressible purulence, or fluctuance.?Repacked with moist kerlix fluff and packing??wrapped in gauze. Right IJ PermCath??with some reactive erythema??over neck incision site and throughout track.?? Does not appear to be infected, however will require close monitoring. Future Appointments Friday 10:00 AM EDT ?? With: Ottoniel JERRY, Caro Calderon Where: [facility] [address] [place] [address]- Status: Pending Friday 2:30 PM EDT ?? With: Aldo JERRY, Elisha Where: [facility] [address] [place] [address]- Status: Pending 2022 2:30 PM EDT ?? With: Moises JERRY, Cristy Lopez Where: [facility] [address] [place] [address]- Status: Pending 2022 10:30 AM EDT ?? Where: [facility] [address] [facility] [address] [place] [address]- Status: Pending Friday 7:30 AM EDT ?? Where: [facility] Status: Pending Patient Discharge Condition Good Discharge Disposition Home with VNA Home Health Face to Face *Denotes mandatory stovall ?? *I certify that this patient is under my care and that I or an allowed non- physician working with me had a face to face encounter with the patient on this date:??02/12/2023 13:23 ?? *The encounter with the patient was in whole, or in part, for the following medical condition, which is the primary diagnosis(es) for home health care:??Arteriovenous graft infection (T82.7XXA) ? *Select the indications for the discipline/s that are being arranged for this patient. Nursing (select all that apply): [_] None [_] Medication management (reconciliation, teaching)?? [_] Chronic disease management?? [X] Wound care and treatment??-??wet-to-dry dressing to 2 RUE wounds, twice daily [_] Home safety evaluation [_] Administer SQ/IM/IV [...] *Homebound due to (select all that apply): [_] Inability to leave home without assistance/supervision [X] Inability to ambulate without assistance [_] Pain [X] Decreased strength and endurance [_] Unsteady gait [_] Severe SOB and fatigue [_] Impaired transfers [_] Inability to negotiate stairs [_] Limited weight bearing [_] Mental status change? *Physician Signature:?Tamy ?? *By signing this, I certify that I have personally evaluated the patient and agree with the findings and recommendations as documented above. ? Inpatient Medications Medications (19) Active SCHEDULED: (15) Acetaminophen 325 mg Tablet (acetaminophen 325 mg oral tablet) ??650 mg, By Mouth, Every 6 hours Aspirin 81 mg EC Tablet (aspirin 81 mg oral delayed release tablet) ??81 mg, By Mouth, Daily Carvedilol 25 mg Tablet (Coreg 25 mg oral tablet) ??25 mg, By Mouth, 2 times a day Cefepime 1 Gm Inj (Maxipime Inj) ??1,000 mg, IVPB, Every 24 hours Clonidine 0.1 mg Tablet (cloNIDine 0.1 mg oral tablet) ??0.2 mg, By Mouth, 3 times a day Docusate Sodium 100 mg Capsule (Docusate Sodium Capsule) ??100 mg 1 capsule, By Mouth, 2 times a day Famotidine 20 mg Tablet (famotidine 20 mg oral tablet) ??20 mg, By Mouth, Daily Furosemide 40 mg Tablet (furosemide 40 mg oral tablet) ??120 mg, By Mouth, 2 times a day Heparin 5000 units/mL Inj (1 mL) (Heparin Inj) ??5,000 units 1 mL, Subcutaneous Injection, Every 8 hours Lidocaine 5% Topical Patch (Lidocaine 5% Patch) ??1 each, Topically, Daily Lisinopril 20 mg Tablet (lisinopril 20 mg oral tablet) ??20 mg, By Mouth, Daily Melatonin 3 mg Tablet (Melatonin Tablet) ??9 mg, By Mouth, Daily at bedtime Methadone 10 mg Tablet (Methadone Tablet) ??60 mg, By Mouth, Daily Remove Patch (Remove Lidocaine Patch) ??1 each, Topically, Daily at bedtime Sevelamer Carbonate 800 mg Tablet (sevelamer carbonate 800 mg oral tablet) ??800 mg, By Mouth, 3 times a day with meals CONTINUOUS: (0) PRN: (4) Bisacodyl 10 mg Suppository (Bisacodyl Supp) ??10 mg 1 supp, Rectally, Daily HYDROmorphone 0.5 mg/0.5 mL Inj Syringe (Dilaudid Inj) ??0.5 mg 0.5 mL, IV Push Slowly, Once nalOXONE ??400mcg/mL Inj (nalOXONE Inj) ??0.2 mg 0.5 mL, IV Push, Every 5 minutes OxyCODONE 5 mg IR Tablet (oxyCODONE 5 mg oral tablet) ??5 mg, By Mouth, Every 6 hours Discharge Medications Acetaminophen (acetaminophen 325 mg oral capsule)?2?capsule?650?Milligram?By Mouth?Every 8 hours?as needed?as needed for pain Aspirin (Aspirin Low Dose 81 mg oral delayed release tablet)?1?tab(s)?By Mouth?Daily Carvedilol (Coreg 25 mg oral tablet)?25?Milligram?1?tablet?By Mouth?2 times a day Clonidine (cloNIDine 0.1 mg oral tablet)?0.2?Milligram?2?tablet?By Mouth?3 times a day Docusate (Colace sodium 100 mg oral capsule)?100?Milligram?1?capsule?By Mouth?2 times a day?as needed?for 30?Days?for constipation Duloxetine (duloxetine 30 mg oral enteric coated capsule)?1?capsule?By Mouth?Daily?DONT CRUSH. /CHEW. Durable Medical Equipment (Compression Stockings)?See Instructions?Juxta Lite Circaid compression wraps bilateral 30-40 mm Hg Durable Medical Equipment (Wheelchair)?See Instructions?Lymphedema 189.0 Durable Medical Equipment (Pen [place], 29 G x 12.7 mm BD Ultra Fine)?See Instructions?for 30?Days?use as directed for Type 2 Diabetes Mellitus Famotidine (famotidine 20 mg oral tablet)?1?tablet?By Mouth?Daily Furosemide (furosemide 40 mg oral tablet)?3?tablet?By Mouth?2 times a day?REFILL PERPCP OR NEPHROLOGY. hydrALAZINE (hydrALAZINE 25 mg oral tablet)?50?Milligram?2?tablet?By Mouth?3 times a day?for 30?Days Lisinopril (lisinopril 20 mg oral tablet)?20?Milligram?1?tablet?By Mouth?Daily?for 30?Days?Refill per PCP or Nephrology Methadone?70?Milligram?By Mouth?Daily Labs Last 24 Hours BLOOD COUNT & DIFF ? Event Name?? Event Result?? Date/Time?? WBC 7.3 k/mm3 02/12/23 06:52:00 RBC 2.95 m/mm3??Low 02/12/23 06:52:00 Hgb 8 Gm/dL??Low 02/12/23 06:52:00 Hct 25.9 %??Low 02/12/23 06:52:00 MCV 87.8 femtoliters 02/12/23 06:52:00 MCH 27.1 pg 02/12/23 06:52:00 MCHC 30.9 g/dL??Low 02/12/23 06:52:00 Platelet Count 274 k/mm3 02/12/23 06:52:00 MPV 9.2 femtoliters??Low 02/12/23 06:52:00 Nucleated RBC (Automated) 0 #/100 WBC'S 02/12/23 06:52:00 ? CHEM GENERAL ? Event Name?? Event Result?? Date/Time?? Sodium 132 mmol/L??Low 02/12/23 06:52:00 Chloride 93 mmol/L??Low 02/12/23 06:52:00 Bicarbonate Level 22 mmol/L 02/12/23 06:52:00 Anion Gap 17 02/12/23 06:52:00 Creatinine-Blood 7.8 mg/dL??High 02/12/23 06:52:00 Calcium, Ionized pH Corrected 1.15 mmol/L 02/12/23 06:52:00 Phosphorus 7.3 mg/dL??High 02/12/23 06:52:00 Magnesium 2.2 mg/dL 02/12/23 06:52:00 ? Consultants Infectious Disease Nephrology Follow-Up Appointments Added Follow Up ?Time Frame ?Comments Bill Peterson Janusz Patient Instructions You will continue to receive 2g Cefepime after dialysis for 3 weeks (until 03/05) for treatment of your Pseudomonas bacteremia * Ed Maciel: PERFORM Event Display: Patient Education/Instruction Authored Date: [id number] Inpatient Adult Discharge Instructions [address] [address] Name: MICHAEL PARMAR : 1975 Visit: 02/06/2023 16:27:00 Current Date: 02/12/2023 13:39 Account: [id number] Inpatient Adult Discharge Instructions We would like [...] and their families. Surveys are administered by [employer] ?? If further treatment with your primary care physician or another doctor is recommended, it is important for you to keep the appointment. Call your primary care physician or return to the Emergency Department immediately if your condition worsens, fails to improve, or new symptoms develop. If you need to find a doctor, you can call [facility] [employer] [facility] for a referral at [phone] or toll free at [phone] or log in to [email or web address].. ?? You can view and manage your care through the patient portal or by using a health care allison of your choosing. [employer] is a website that allows you to securely view your medical information including your hospital discharge summary, office visit summaries, medications and follow-up visits. You can also request appointments, renew medications, and request access to your medical information using a health care allison of your choosing, or just ask a question. You can enroll at [email or web address] or register during your next office visit. You have been discharged from [facility], Patient Care Unit: SW6. If you have any questions regarding these instructions after you leave, please call us and we will be happy to assist you. [facility] Your Care Team Attending Physician Christopher VILLATORO, Bill Cardenas Discharging Providers Rachel VILLATORO, Roopa Reason for Your Visit ESRD REVISION GRAFT HD CATH INSERTION CS DS Your Diagnosis Arteriovenous graft infection Tests Performed Below is a partial list of the tests performed during your hospitalization. You may have had other tests and procedures not included in this list. Please discuss all test results with your provider. BETA HYDROXYBUTYRATE BUN POC CARTRIDGE CALCIUM IONIZED POC CART CBC w/ Differential CHLORIDE POC CARTRIDGE CK (CREATINE KINASE) Creatinine CREATININE POC CARTRIDGE GLUCOSE POC GLUCOSE POC CARTRIDGE HEMATOCRIT POC CARTRIDGE HEMOGLOBIN POC CARTRIDGE Hepatitis Panel Dial Ionized Calcium Lactate Level Lytes Magnesium Level Phosphorus Level POTASSIUM POC CARTRIDGE SODIUM POC CARTRIDGE XR C-Arm < 1 Hour Primary Care Provider Kristen Boudreaux DO Advance Directive . Discharge Vitals Temperature: 98.6 DegF Height: 170.18 cm Pulse Rate: 80 bpm Weight: 71.2 kg Respiratory Rate: 20 br/min Body Mass Index: 24.58 kg/m2 Respiratory Rate: 20 br/min Body surface area: 1.83 Systolic Blood Pressure: 110 mm Hg ?? Diastolic Blood Pressure: 64 mm Hg ?? Oxygen Saturation: 100 % ?? Studies Pending All tests and labs ordered during this hospital stay have been completed unless listed below. Please discuss all pending results with your provider listed above in these instructions. ?? Add On Lab Order Blood Culture C. difficile Rapid Toxin Assay CBC w/ Differential Creatinine Electrolytes (Lytes) Ionized Calcium Magnesium Level Phosphorus Level Wound Deep Culture w/ Gram Smear What to do next Instructions From Your Doctor You will continue to receive 2g Cefepime after dialysis for 3 weeks (until 03/05) for treatment of your Pseudomonas bacteremia Discharge Orders Scheduled Follow-Up Appointments Friday 10:00 AM EDT ?? With: Caro Alcazar NP Where: [facility] Infect[facility] Disease [address] [place] [address]- Status: Pending Friday 2:30 PM EDT ?? With: Elisha Carlson NP Where: [facility] [address] [place] [address]- Status: Pending 2022 2:30 PM EDT ?? With: Moises JERRY, Cristy Lopez Where: [facility] [address] [place] [address]- Status: Pending 2022 10:30 AM EDT ?? Where: Trans[facility] [address] [facility] [address] [place] [address]- Status: Pending Friday 7:30 AM EDT ?? Where: [facility] Status: Pending You Need to Schedule the Following Appointments Follow Up with??Bill White Where: [address] [facility] [facility] [place] [address]- Business (1) Follow Up with??Kristen Boudreaux When:??In 0 days Discharge Medications TSERINGMICHAEL JASON :1975 Visit Date:02/06/2023 Medications: Please continue your medications until treatment is completed or stopped by your provider. Medications not listed below should be discontinued. Discuss any questions related to medications with your provider. What How Much When Why Instructions Next Dose Unchanged Acetaminophen (acetaminophen 325 mg oral capsule) 2 capsule Oral Every 8 hours as needed for as needed for pain 02/12 Unchanged Aspirin (Aspirin Low Dose 81 mg oral delayed release tablet) 1 tab(s) Oral Daily 02/13 Unchanged Carvedilol (Coreg 25 mg oral tablet) 1 tab(s) Oral Twice a day 02/12 Unchanged Clonidine (cloNIDine 0.1 mg oral tablet) 2 tab(s) Oral 3 times a day 02/12 Unchanged Docusate (Colace sodium 100 mg oral capsule) 1 capsule Oral Twice a day as needed for for constipation Duration: 30 Days 02/12 Unchanged Duloxetine (duloxetine 30 mg oral enteric coated capsule) 1 capsule Oral Daily DONT CRUSH. / CHEW. ?? 02/13 Unchanged Durable Medical Equipment (Compression Stockings) See instructions Chronic venous hypertension with ulcer and inflammation involving right side Chronic venous hypertension with ulcer and inflammation involving left side Lymphedema Juxta Lite Circaid compression wraps bilateral 30-40 mm Hg ?? Unchanged Durable Medical Equipment (Pen [place], 29 G x 12.7 mm BD Ultra Fine) See instructions Duration: 30 Days use as directed for Type 2 Diabetes Mellitus ?? Unchanged Durable Medical Equipment (Wheelchair) See instructions Lymphedema of left lower extremity Lymphedema 189.0 ?? Unchanged Famotidine (famotidine 20 mg oral tablet) 1 tab(s) Oral Daily 02/13 Unchanged Furosemide (furosemide 40 mg oral tablet) 3 tab(s) Oral Twice a day REFILL PER PCP OR NEPHROLOGY. ?? 9pm 02/12 Unchanged hydrALAZINE (hydrALAZINE 25 mg oral tablet) 2 tab(s) Oral 3 times a day Duration: 30 Days 3pm 02/12 Unchanged Lisinopril (lisinopril 20 mg oral tablet) 1 tab(s) Oral Daily Duration: 30 Days Refill per PCP or Nephrology ?? 02/13 Unchanged Methadone 70 Milligram Oral Daily 02/13 Test Results Below is a partial list of the most recent Laboratory test results done prior to this discharge. You may have had other tests and procedures not included in this list. Please discuss all test resultswith your provider. Antibody Screen - Negative (02/06/2023) Blood Type - A Positive (02/06/2023) Est Creatinine Clearance - 11.18 mL/min (02/12/2023) BETA HYDROXYBUTYRATE (02/09/2023) ???Beta Hydroxybutyrate - 0.10 mmol/L BUN POC CARTRIDGE (02/06/2023) ???BUN (POC) POC Cartridge - 75 mg/dL CALCIUM IONIZED POC CART (02/06/2023) ???Ionized Calcium (POC) POC Cartridge - 1.16 mmol/L CBC w/ Differential (02/12/2023) ???WBC - 7.3 k/mm3???RBC - 2.95 m/mm3???Hgb - 8.0 Gm/dL???Hct - 25.9 %???MCV - 87.8 femtoliters???MCH - 27.1 pg???MCHC - 30.9 g/dL???Platelet Count - 274 k/mm3???RDW-SD - 49.2 femtoliters???MPV - 9.2femtoliters???Nucleated RBC (Automated) - 0.0 #/100 WBC'S???Abs. NRBC - 0.0 k/mm3???Abs. Neut - 4.9 k/mm3???Abs. Lymph - 1.0 k/mm3???Abs. [place] - 0.9 k/mm3???Abs. Eo - 0.1 k/mm3???Abs. Baso - 0.0 k/mm3???Neut % - 66.9 %???Lymph % - 13.9 %???[place] % - 11.6 %???Eos % - 1.8 %???Baso % - 0.5 %???RBC Morphology - MODERATE???Platelet Estimate - ADEQUATE???Imm Gran - 5.3 %???Abs. Imm Gran - 0.4 k/mm3 CHLORIDE POC CARTRIDGE (02/06/2023) ???Chloride (POC) POC Cartridge - 95 mmol/L CK (CREATINE KINASE) (02/09/2023) ???CK, Total - 35 units/L Creatinine (02/12/2023) ???Creatinine-Blood - 7.8 mg/dL???Estimated GFR Creatinine - 8 ML/MIN/1.73 M2 CREATININE POC CARTRIDGE (02/06/2023) ???Creatinine (POC) POC Cartridge - 8.8 mg/dL GLUCOSE POC (02/06/2023) ???Glucose, POC - 145 mg/dL GLUCOSE POC CARTRIDGE (02/06/2023) ???Glucose (POC) POC Cartridge - 140 HEMATOCRIT POC CARTRIDGE (02/06/2023) ???Hematocrit (POC) POC Cartridge - 30 % HEMOGLOBIN POC CARTRIDGE (02/06/2023) ???Hemoglobin (POC) POC Cartridge - 10.2 Gm/dL Hepatitis Panel Dial (02/07/2023) ???Hepatitis B Surface Antigen - NEGATIVE???Hepatitis C Ab - NEGATIVE???Anti-HBS Quant - 0.01 mIU/mL Ionized Calcium (02/12/2023) ???Calcium, Ionized pH Corrected - 1.15 mmol/L Lactate Level (02/09/2023) ???Lactate - 0.7 mmol/L Lytes (02/12/2023) ???Sodium - 132 mmol/L???Potassium - 4.2 mmol/L???Chloride - 93 mmol/L???Bicarbonate Level - 22 mmol/L???Anion Gap - 17 Magnesium Level (02/12/2023) ???Magnesium - 2.2 mg/dL Phosphorus Level (02/12/2023) ???Phosphorus - 7.3 mg/dL POTASSIUM POC CARTRIDGE (02/06/2023) ???Potassium (POC) POC Cartridge - 4.1 mmol/L SODIUM POC CARTRIDGE (02/06/2023) ???Sodium (POC) POC Cartridge - 131 mmol/L Allergies (NKA means No Known Allergies) Compazine??(difficulty breathing, difficulty) Risperdal??(tongue swells) Problems Active Problems??(21) Abscesses, recurrent, due to IVDU including admission to [facility] [place] [facility] 09/18/2015 to 10/29/2015 for re?? [...] lower extremity, followed by Karena Olivas [facility] [phone]?? Education Materials Below is the list of Educational Leaflet Providered with your Discharge Instructions. Surgery Medical Daystay Surgical Overnight Discharge Instructions?? Valuables and Belongings I fully understand and agree that [facility] accepts no responsibility for all my [...] patient Date for Pt to Sign Valuables/Belongings: 02/08/23 20:50:00 ?? Other Discharge Information ?? Wound Assessment?? Wound Assessment?? Wound Location I: right axillary Wound Location II: right arm ?? Case Management Discharge Plan?? Discharge Plan?? Discharge Agency Information?? Discharge Level of Care at Discharge: Homehealth/VNA Name of Agency #1: [facility] Mode of Transportation Arranged: car Agency Varnish Thinner #1: Intake Discharge VNA/Hospice/Home Care: [facility] [phone] Service Categories #1: Retirement ?? Service Comments #1: The VNA will call you to set up an appointment. Please call the agency with any questions. [phone] ?? Pulmonary Rehab Status?? Pulmonary Rehab Discharge Status?? Respiratory Rate: 20 br/min Respiratory Rate: 20 br/min ? Common Emergency Awareness Tips IS [...] are strongly encouraged to quit. Please call [facility] NewsCred Link at [phone] or [phone]) or log in to [email or web address] for referrals to smoking cessation programs. ?? 988 Suicide & Crisis Lifeline is available 14/04 if you or someone you know needs to find a reason to keep living. By calling 8 you'll be connected to a skilled, trained counselor at a crisis center in your area. INPATIENT DISCHARGE INSTRUCTIONS SIGNATURE PAGE MICHAEL PARMAR Location:[facility] Registration Date and Time:02/06/2023 16:27 EDT Primary Care Physician: Kristen Boudreaux DO, Attending Physician: Christopher VILLATORO, Bill Cardenas, I MICHAEL PARMAR, have received the above patient education materials/instructions and have verbalized understanding. If ambulance or transport services are being used I further acknowledge being given a choice of service. ?? If you need to contact me, please call me at this number: . Patient/Trains Dispatcher Supervisor Name: Patient/Trains Dispatcher Supervisor Signature: Relationship to Patient: Witness Name/Signature: Date: * Seema Lopez RN: PERFORM, SIGN, VERIFY Event Display: Patient Education Handout Authored Date: [id number] Seema Anguiano RN: PERFORM Event Display: Patient Education Leaflets Authored Date: [id number] Surgery Medical Daystay Surgical Overnight Discharge Instructions [...] should not drive or drink alcohol. ? Radiology * SPowerscribe , CIS S: TRANSCRIDes Santiago MD: VERIFY Event Display: Result: Authored Date: [id number] C-Arm < 1 Hour INDICATION: Reason: Hemodialysis insertion COMPARISONS: None TECHNIQUE: Fluoroscopy support was provided. There was no radiologist in attendance. FLUOROSCOPY TIME: 28 seconds EXPOSURE: 0.560 Gycm2 TECHNOLOGIST TIME: 20 minutes FINDINGS: Fluoroscopy support was provided. There was no radiologist in attendance. Images document placementof a hemodialysis catheter with tip in the low right atrium. IMPRESSION: See above. WSN: [id number] Ordering Physician: Bill White Dictated By: Des Xinog MD Dictated Date/Time: 02/07/23 8:40 am Reviewed By: Des Xiong MD Signed By: Des iXong MD Signed Date/Time: 02/07/23 8:40 am Transcribed By: CSRocco Transcribed Date/Time: 02/06/23 4:38 pm Patient Care team information Care Team Personnel Name: Maryam Fox RN Position: [facility] RN Member Role: Primary Care Nurse Name: Jana Monte RN Position: [facility] RN Member Role: Primary Care Nurse Name: Franchesca Ward RN Position: [facility] RN Member Role: Primary Care Nurse Name: Carolina Camacho RN Position: [facility] SN RN Member Role: Primary Care Nurse Name: Linda Hathaway Position: S Outreach Member Role: Lifetime Consulting Physician Name: Cynthia Hathaway RN Position: [facility] RN Member Role: Primary Care Nurse Name: Delaney Huber RN Position: [facility] RN Member Role: Primary Care Nurse Name: Juanita Main RN Position: [facility] RN Member Role: Primary Care Nurse Name: China Sutherland RN Position: S Outreach Member Role: Lifetime Consulting Physician Name: Tayler Harris RN Position: [facility] RN Member Role: Primary Care Nurse Name: Sophie Bejarano NP Position: [facility] Associate Professional Member Role: Lifetime Consulting Provider Address: Address: [address] [place] [address] [address] [facility] [address] Name: Vasile Byers MD Position: [facility] Renal MD Member Role: Lifetime Consulting Physician Address: Address: [address] [place] [address] [address] [facility] [address] Name: Katalina Jorge RN Position: [facility] OB RN Member Role: Primary Care Nurse Name: Sophia Adan LPN Position: [facility] RN Member Role: Primary Care Nurse Name: Lorene Davenport RN Position: [facility] RN Member Role: Primary Care Nurse Name: Meryl Saini RN Position: [facility] SN RN Member Role: Primary Care Nurse Name: Annie Langston RN Position: [facility] RN Member Role: Primary Care Nurse Name: Allison Montez RN Position: [facility] RN Member Role: Primary Care Nurse Name: Guillermo Encinas DO Position: [facility] Renal MD Member Role: Lifetime Consulting Physician Address: Address: [address] [place] [address] [address] [facility] [address] Name: Lorene Billingsley RN Position: [facility] Onco RN Member Role: Primary Care Nurse Name: Kathy Nieves RN Position: [facility] ED RN W/OE and Tasks Member Role: Primary Care Nurse Name: Nita Garcias RN Position: [facility] RN Member Role: Primary Care Nurse Name: Tyshawn Cook III, RN Position: [facility] RN Member Role: Primary Care Nurse Name: Mayuri England RN Position: [facility] RN Member Role: Primary Care Nurse Name: Sophia Johnson Position: [facility] RN Member Role: Primary Care Nurse Name: Paradise Linder RN Position: [facility] RN Member Role: Primary Care Nurse Name: Noemi Bustos RN Position: [facility] RN Member Role: Primary Care Nurse Name: Pina Mcgill RN Position: [facility] RN Member Role: Primary Care Nurse Name: Reina Franklin RN Position: [facility] RN Member Role: Primary Care Nurse Name: Yumiko Lindsay RN Position: [facility] RN Member Role: Primary Care Nurse Name: Vincent Thapa RN Position: [facility] RN Member Role: Primary Care Nurse Name: Kristen Boudreaux DO Position: [facility] Resident Member Role: PCP Address: Address: [address] [place] [address] [place] [address]- Name: Nicole Guzman RN Position: [facility] RN Member Role: Primary Care Nurse Name: Neil Bobby RN Position: [facility] ED RN W/OE and Tasks Member Role: Primary Care Nurse Name: Joellen Pineda RN Position: [facility] RN Member Role: Primary Care Nurse Name: Litzy Marin RN Position: [facility] RN Member Role: Primary Care Nurse Name: Crystal Robles RN Position: [facility] RN Member Role: Primary Care Nurse Name: Ruth Stevens LPN Position: [facility] RN Member Role: Primary Care Nurse Name: Nohemi Grande RN Position: [facility] [employer] Mach[employer] Lab Manager Member Role: Primary Care Nurse Name: Yolanda Tyler RN Position: [facility] [employer] Lab Manager Member Role: Primary Care Nurse Care Team Related Persons Name: TAWNY PARMAR Address: home [address] [place] [address]
--- OUTSIDE RECORDS SUMMARY | 2023-06-23 09:48 | XMS_ITS | Continuity of Care Document ---
Author Name Unknown Organization [facility] Address [address] [place] [id number]- Care Team Providers Care Screw Machine Operator Single Spindle Name Role Phone Kristen Boudreaux DO Primary Care Physician [phone] Encounter [facility] Date(s): 03/07/23 - 04/06/23 [facility] [address] [place] [address]- Allergies, Adverse Reactions, Alerts Substance Reaction Severity [...] influenza virus vaccine, inactivated 07/03/09 Dany rded [id number] bivalent booster vax 07/17/22 Recorded [id number] bivalent booster vax 07/17/22 Recorded pneumococcal 20-valent [...] capsule, 8 Refills, Maintenance, 11/25/22 8:27:00 EST, [facility], 170, cm, 10/09/22 16:43:00 EST, Height, 69.1, kg, 11/14/22 7:40:00 EST, Dry Weight Start Date: 11/25/22 Status: Ordered famotidine 20 mg oral tablet 1, tablet, By Mouth, Daily, # 90 tablet, Refills 0, Maintenance, 03/14/23 13:30:00 EDT, Route to Pharmacy Electronically, [facility], 170.1, cm, 03/14/23 9:45:00 EDT, Height, 68.4, kg, 03/14/23 9:45:00 EDT, Dry Weight Start Date: 03/14/23 Status: Ordered furosemide 40 mg oral tablet 3, tablet, By Mouth, 2 times a day, REFILL PER PCP OR NEPHROLOGY., # 180 tablet, Refills 2, Maintenance, 12/19/22 17:33:00 EDT, Route to Pharmacy Electronically, [facility], 170, cm, 12/19/22 10:06:00 EDT, Height, 71.6, [...] lower extremity, followed by Karena [facility]ivas [facility] [phone] Confirmed Active Venous ulcer of right leg [...] Safety Implantable Status Assigning Authority Unknown Unknown [id number] Unknown 07/25/23 Unknown Unknown Active Unknown Procedure Provider Procedure Date Device Type Site Insertion Hemodialysis Catheter Tyshawn Milian MD Unknown Chest Device Identifier Serial Number Lot or Batch Number Manufacturing Date Expiration Date Distinct Identification Code MRI Safety Implantable Status Assigning Authority Unknown Unknown [id number] Unknown 06/26/24 Unknown Unknown Active Unknown Patient Care team information Care Team Personnel Name: Maryam Fox RN Position: [facility] RN Member Role: Primary Care Nurse Name: Jana Monte RN Position: [facility] RN Member Role: Primary Care Nurse Name: Franchesca Ward RN Position: [facility] RN Member Role: Primary Care Nurse Name: Carolina Camacho RN Position: [facility] SN RN Member Role: Primary Care Nurse Name: Linda Hathaway Position: [facility] Outreach Member Role: Lifetime Consulting Physician Name: Cynthia Hathaway RN Position: [facility] RN Member Role: Primary Care Nurse Name: Delaney Huber RN Position: [facility] RN Member Role: Primary Care Nurse Name: Juanita Main RN Position: [facility] RN Member Role: Primary Care Nurse Name: China Sutherland Position: [facility] Outreach Member Role: Lifetime Consulting Physician Name: Tayler Harris RN Position: [facility] RN Member Role: Primary Care Nurse Name: Sophie Bejarano NP Position: [facility] Associate Professional Member Role: Lifetime Consulting Provider Address: Address: [facility] [address] [facility] [place] [address]- Name: Vasile Byers MD Position: [facility] Renal MD Member Role: Lifetime Consulting Physician Address: Address: [facility] [address] [facility] [address] [facility] [place] [address]- Name: Edgar Mascorro RN Position: [facility] RN Member Role: Primary Care Nurse Name: Katalina Jorge RN Position: [facility] OB RN Member Role: Primary Care Nurse Name: Sophia Adan LPN Position: [facility] RN Member Role: Primary Care Nurse Name: Lorene Davenport RN Position: [facility] RN Member Role: Primary Care Nurse Name: Meryl Saini RN Position: [facility] SN RN Member Role: Primary Care Nurse Name: Allison Montez RN Position: [facility] RN Member Role: Primary Care Nurse Name: Guillermo Encinas DO Position: [facility] Renal MD Member Role: Lifetime Consulting Physician Address: Address: [address] [place] [address] [address] [facility] [place] [address]- Name: Christiano Parish RN Position: [facility] RN Member Role: Primary Care Nurse Name: Lorene Billingsley RN Position: [facility] Oncuzma RN Member Role: Primary Care Nurse Name: Kathy Nieves RN Position: [facility] ED RN W/OE and Tasks Member Role: Primary Care Nurse Name: Nita Garcias RN Position: [facility] RN Member Role: Primary Care Nurse Name: Tyshawn Cook III, RN Position: [facility] RN Member Role: Primary Care Nurse Name: Mayuri England RN Position: [facility] RN Member Role: Primary Care Nurse Name: Sophia Johnson Position: [facility] RN Member Role: Primary Care Nurse Name: Paradise Lnider RN Position: [facility] RN Member Role: Primary Care Nurse Name: Noemi Bustos RN Position: [facility] RN Member Role: Primary Care Nurse Name: Jennifer Song RN Position: [facility] RN Supv Member Role: Primary Care Nurse Name: Pina Mcgill RN Position: [facility] RN Member Role: Primary Care Nurse Name: Reina Franklin RN Position: [facility] RN Member Role: Primary Care Nurse Name: Yumiko Lindsay RN Position: [facility] RN Member Role: Primary Care Nurse Name: Vincent Thapa RN Position: [facility] RN Member Role: Primary Care Nurse Name: Kristen Boudreaux DO Position: [facility] Resident Member Role: PCP Address: Address: [address] [facility] [place] [address]- Name: Nicole Guzman RN Position: [facility] RN Member Role: Primary Care Nurse Name: Neil Bobby RN Position: [facility] ED RN W/OE and Tasks Member Role: Primary Care Nurse Name: Joellen Pineda RN Position: [facility] RN Member Role: Primary Care Nurse Name: Litzy Marin RN Position: [facility] RN Member Role: Primary Care Nurse Name: Crystal Robles RN Position: [facility] RN Member Role: Primary Care Nurse Name: Ruth Stevens LPN Position: [facility] RN Member Role: Primary Care Nurse Name: Nohemi Grande RN Position: [facility] Pipe Smoker Machine Operator Member Role: Primary Care Nurse Name: Yolanda Tyler RN Position: [facility] Pipe Smoker Machine Operator Member Role: Primary Care Nurse Care Team Related Persons Name: TAWNY BUTLER Address: [address] [place] [address]
--- OUTSIDE RECORDS SUMMARY | 2023-06-23 09:48 | XMS_ITS | Continuity of Care Document ---
Author Name Unknown Organization [facility] Address [address] [place] [address]- Care Team Providers Care Tire Stripper Name Role Phone Kristen Boudreaux DO Primary Care Physician [phone] [facility]counter [facility] Date[facility]s): 12/13/22 - 01/12/23 [facility] [address] [place], [place] [address] Allergies, Adverse Reactions, Alerts Substance Reaction Severity Status Risperdal tongue swells Active Compazine difficulty breathing difficulty Active Immunizations Given and Recorded Vaccine Date Status Refusal Reason influenza virus vaccine, inactivated 09/14/22 Give n influenza virus vaccine, inactivated 09/19/15 Give n influenza virus vaccine, inactivated 07/03/09 Dany rded [id number] bivalent booster vax 07/17/22 Recorded pneumococcal 20-valent [...] Route to Pharmacy Electronically, [facility]/pharmacy #1130, 170, cm, 04/12/22 15:12:00 EDT, Height, 81.75, kg, 03/21/22 15:54:00 EDT, . Start Date: 04/26/22 Status: Ordered Colace sodium 100 mg oral capsule 100 mg, 1, capsule, By Mouth, 2 times a day, PRN, # 60 capsule, Refills 0, Tot. Refills 0, Maintenance, for constipation, 12/19/22 14:25:00 EDT, [facility] fill upon patient request [...] 8 Refills, Maintenance, 11/25/22 8:27:00 EST, [facility] STORE [id number], 170, cm, 10/09/22 16:43:00 EST, Height, 69.1, kg, 11/14/22 7:40:00 EST, Dry Weight Start Date: 11/25/22 Status: Ordered famotidine 20 mg oral tablet 1, tablet, By Mouth, Daily, # 90 tablet, Refills 3, Tot. Refills 3, Maintenance, 05/16/22 14:01:00 EDT, Route to Pharmacy Electronically, [facility]/pharmacy #1130, 170.18, cm, 05/08/22 12:22:00 EDT, Height, 81.8, kg, 05/08/22 12:22:00 EDT, Dry Weight Start Date: 05/16/22 Status: Ordered furosemide 40 mg oral tablet 3, tablet, By Mouth, 2 times a day, REFILL PER PCP OR NEPHROLOGY., # 180 tablet, Refills 2, Maintenance, 12/19/22 17:33:00 EDT, Route to Pharmacy Electronically, [facility] STORE [id number], 170, cm, 12/19/22 10:06:00 EDT, Height, 71.6, kg, 12/19/22 10:06:00 EDT,... Start Date: 12/19/22 Status: Ordered hydrALAZINE 25 mg oral tablet 50 mg, 2, tablet, By Mouth, 3 times a day, # 180 tablet, Refills 3, Tot. Refills 3, Maintenance, 10/17/22 17:13:00 EST, Route to Pharmacy Electronically, [facility]/pharmacy #1130, Partial fill upon patientrequest if the prescription is for a schedule II op... Start Date: 10/17/22 Stop Date: 02/14/23 Status: Ordered lisinopril 20 mg oral tablet 20 mg, 1, tablet, By Mouth, Daily, Refill per PCP or Nephrology, # 30 tablet, Refills 6, Tot. Refills 6, Maintenance, 10/17/22 17:13:00 EST, [facility] Partial fill upon patient request if the prescription is... Start Date: 10/17/22 Stop Date: 05/15/23 Status: Ordered Methadone = 70 mg, By Mouth, Daily, 0 Refills, Maintenance, 12/17/22 11:12:00 EDT, Partial fill upon patient request if the prescription is for a schedule II opioid drug. Start Date: 12/17/22 Status: Ordered Pen [place], 29 G x 12.7 mm BD Ultra [...] ulcer, right lower extremity, followed by Karena [facility] [phone] Confirmed Active Venous ulcer of right leg [...] Safety Implantable Status Assigning Authority Unknown Unknown [id number] Unknown 07/25/23 Unknown Unknown Active Unknown Procedure Provider Procedure Date Device Type Site Insertion Hemodialysis Catheter Tyshawn Milian MD Unknown Chest Device Identifier Serial Number Lot or Batch Number Manufacturing Date Expiration Date Distinct Identification Code MRI Safety Implantable Status Assigning Authority Unknown Unknown [id number] Unknown 06/26/24 Unknown Unknown Active Unknown Patient Care team information Care Team Personnel Name: Maryam Fox RN Position: S RN Member Role: Primary Care Nurse Name: Franchesca Ward RN Position: [facility] RN Member Role: Primary Care Nurse Name: Carolina Camacho RN Position: [facility] RN Member Role: Primary Care Nurse Name: Linda Hathaway Position: [facility] Outreach Member Role: Lifetime Consulting Physician Name: Delaney Huber RN Position: [facility] RN Member Role: Primary Care Nurse Name: Juanita Main RN Position: [facility] RN Member Role: Primary Care Nurse Name: China Sutherland RN Position: [facility] Outreach Member Role: Lifetime Consulting Physician Name: Tayler Harris RN Position: [facility] RN Member Role: Primary Care Nurse Name: Sophie Bejarano NP Position: [facility] Associate Professional Member Role: Lifetime Consulting Provider Address: Address: [address] [place], [place] [address] [address] Name: Vsaile Byers MD Position: [facility] Renal MD Member Role: Lifetime Consulting Physician Address: Address: [address] [place], [place] [address] [address] Name: Katalina Jorge RN Position: [facility] OB RN Member Role: Primary Care Nurse Name: Lorene Davenport RN Position: [facility] RN Member Role: Primary Care Nurse Name: Meryl Saini RN Position: [facility] SN RN Member Role: Primary Care Nurse Name: Annie Langston RN Position: [facility] RN Member Role: Primary Care Nurse Name: Guillermo Encinas DO Position: [facility] Renal MD Member Role: Lifetime Consulting Physician Address: Address: [address] [place], [place] [address]E [facility] [address] Name: Lorene Billingsley RN Position: [facility] Onco RN Member Role: Primary Care Nurse Name: Kathy Nieves RN Position: [facility] ED RN W/OE and Tasks Member Role: Primary Care Nurse Name: Sophia Johnson Position: [facility] RN Member Role: Primary Care Nurse Name: Paradise Linder RN Position: [facility] RN Member Role: Primary Care Nurse Name: Pina Mcgill RN Position: [facility] RN Member Role: Primary Care Nurse Name: Yumiko Lindsay RN Position: [facility] RN Member Role: Primary Care Nurse Name: Vincent Thapa RN Position: [facility] RN Member Role: Primary Care Nurse Name: Kristen Boudreaux DO Position: [facility] Resident Member Role: PCP Address: Address: [address] [facility] [place] [address]- Name: Nicole Guzman RN Position: [facility] RN Member Role: Primary Care Nurse Name: Neil Bobby RN Position: [facility] ED RN W/OE and Tasks Member Role: Primary Care Nurse Name: Joellen Pineda RN Position: [facility] RN Member Role: Primary Care Nurse Name: Litzy Marin RN Position: [facility] RN Member Role: Primary Care Nurse Name: Crystal Robles RN Position: [facility] RN Member Role: Primary Care Nurse Name: Ruth Stevens LPN Position: [facility] RN Member Role: Primary Care Nurse Name: Nohemi Grande RN Position: [facility] Informatics Specialist Member Role: Primary Care Nurse Name: Yolanda Tyler RN Position: [facility] In[facility] Specialist Member Role: Primary Care Nurse Care Team Related Persons Name: TAWNY BUTLER Address: home [address] [place] [address]
--- OUTSIDE RECORDS SUMMARY | 2023-06-23 09:48 | XMS_ITS | Continuity of Care Document ---
Author Name Unknown Organization [facility] Address [address] [place] [address]- Care Team Providers Care Television Announcer Name Role Phone Kristen Boudreaux DO Primary Care Physician [facility] Date[facility]s): 05/13/23 - 06/12/23 [facility] [address] [place] [id number] Attending Physician: AdmNader faith Admitting Physician: Admtr, Nader Referring Physician: Admtr, Ar8 Allergies, Adverse Reactions, [...] influenza virus vaccine, inactivated 07/03/09 Dany rded [id number] bivalent booster vax 07/17/22 Recorded [id number] bivalent booster vax 07/17/22 Recorded pneumococcal 20-valent [...] capsule, 8 Refills, Maintenance, 11/25/22 8:27:00 EST, [facility] 06[facility], 170, cm, 10/09/22 16:43:00 EST, Height, 69.1, kg, 11/14/22 7:40:00 EST, Dry Weight Start Date: 11/25/22 Status: Ordered famotidine 20 mg oral tablet 1, tablet, By Mouth, Daily, # 90 tablet, Refills 0, Maintenance, 03/14/23 13:30:00 EDT, Route to Pharmacy Electronically, [facility] 100[facility], 170.1, cm, 03/14/23 9:45:00 EDT, Height, 68.4, kg, 03/14/23 9:45:00 EDT, Dry Weight Start Date: 03/14/23 Status: Ordered furosemide 40 mg oral tablet 3, tablet, By Mouth, 2 times a day, REFILL PER PCP OR NEPHROLOGY., # 180 tablet, Refills 2, Maintenance, 12/19/22 17:33:00 EDT, Route to Pharmacy Electronically, [facility], 170, cm, 12/19/22 10:06:00 EDT, Height, 71.6, [...] mL, 0 Refills, Maintenance, 04/09/23 10:56:00 EDT, [facility]/pharmacy #1130, [...] ulcer, right lower extremity, followed by Karena [facility] VNA [phone] Confirmed Active Venous ulcer of right leg [...] Safety Implantable Status Assigning Authority Unknown Unknown [id number] Unknown 07/25/23 Unknown Unknown Active Unknown Procedure Provider Procedure Date Device Type Site Insertion Hemodialysis Catheter Tyshawn Milian MD Unknown Chest Device Identifier Serial Number Lot or Batch Number Manufacturing Date Expiration Date Distinct Identification Code MRI Safety Implantable Status Assigning Authority Unknown Unknown [id number] Unknown 06/26/24 Unknown Unknown Active Unknown Patient Care team information Care Team Personnel Name: Maryam Fox RN Position: [facility] RN Member Role: Primary Care Nurse Name: Jana Monte RN Position: S RN Member Role: Primary Care Nurse Name: Franchesca Ward RN Position: S RN Member Role: Primary Care Nurse Name: Carolina Camacho RN Position: [facility] SN RN Member Role: Primary Care Nurse Name: Linda Hathaway Position: [facility] Outreach Member Role: Lifetime Consulting Physician Name: Cynthia Hathaway RN Position: [facility] RN Member Role: Primary Care Nurse Name: Delaney Huber RN Position: [facility] RN Member Role: Primary Care Nurse Name: Juanita Main RN Position: [facility] RN Member Role: Primary Care Nurse Name: China Sutherland Position: [facility] Outreach Member Role: Lifetime Consulting Physician Name: Tayler Harris RN Position: [facility] RN Member Role: Primary Care Nurse Name: Sophie Bejarano NP Position: [facility] Associate Professional Member Role: Lifetime Consulting Provider Address: Address: [address] [place] [address]E [facility] [address] Name: Vasile Byers MD Position: [facility] Renal MD Member Role: Lifetime Consulting Physician Address: Address: [address] [place] [address]E [facility] [address] Name: Edgar Mascorro RN Position: [facility] RN Member Role: Primary Care Nurse Name: Katalina Jorge RN Position: [facility] OB RN Member Role: Primary Care Nurse Name: Sophia Adan LPN Position: [facility] RN Member Role: Primary Care Nurse Name: Lorene Davenport RN Position: [facility] RN Member Role: Primary Care Nurse Name: Meryl Saini RN Position: [facility] ED RN W/OE and Tasks Member Role: Primary Care Nurse Name: Allison Montez RN Position: [facility] RN Member Role: Primary Care Nurse Name: Guillermo Encinas DO Position: [facility] Renal MD Member Role: Lifetime Consulting Physician Address: Address: [address] [facility] [address] Name: Christiano Parish RN Position: [facility] RN Member Role: Primary Care Nurse Name: Lorene Billingsley RN Position: [facility] Onco RN Member Role: Primary Care Nurse Name: Kathy Nieves RN Position: [facility] [place] RN W/OE and Tasks Member Role: Primary Care Nurse Name: Nita Garcias RN Position: [facility] RN Member Role: Primary Care Nurse Name: Tyshawn Cook III, RN Position: [facility] RN Member Role: Primary Care Nurse Name: Mayuri England RN Position: [facility] RN Member Role: Primary Care Nurse Name: Sophia Johnson Position: [facility] RN Member Role: Primary Care Nurse Name: Paradise Linder RN Position: [facility] RN Member Role: Primary Care Nurse Name: Noemi Bustos RN Position: [facility] RN Member Role: Primary Care Nurse Name: Jennifer Song RN Position: [facility] RN Supv Member Role: Primary Care Nurse Name: Pina Mcgill RN Position: [facility] RN Member Role: Primary Care Nurse Name: Reina Franklin RN Position: [facility] RN Member Role: Primary Care Nurse Name: Yumiko Lindsay RN Position: [facility] RN Member Role: Primary Care Nurse Name: Vincent Thapa RN Position: [facility] RN Member Role: Primary Care Nurse Name: Kristen Boudreaux DO Position: [facility] Resident Member Role: PCP Address: Address: [address] [place] [address]- Name: Nicole Guzman RN Position: [facility] RN Member Role: Primary Care Nurse Name: Neil Bobby RN Position: [facility] RN Member Role: Primary Care Nurse Name: Joellen Pineda RN Position: [facility] RN Member Role: Primary Care Nurse Name: Crystal Robles RN Position: [facility] RN Member Role: Primary Care Nurse Name: Ruth Stevens LPN Position: [facility] RN Member Role: Primary Care Nurse Name: Nohemi Grande RN Position: [facility] Information Technology Consultant Member Role: Primary Care Nurse Name: Yolanda Tyler RN Position: [facility] Information Technology Consultant Member Role: Primary Care Nurse Care Team Related Persons Name: TAWNY BUTLER Address: home [address] [place] [address]
--- OUTSIDE RECORDS SUMMARY | 2023-06-23 09:48 | XMS_ITS | Continuity of Care Document ---
Author Name Unknown Organization [facility] Address [address] [place] [address]- Care Team Providers Care Pediatric Sports Medicine Specialist Name Role Phone Kristen Boudreaux DO Primary Care Physician Encounter [facility] ACCT R [id number] Date(s): 03/13/23 - 04/12/23 [facility] [address] [place] [address]- Attending Physician: Nader Jansen Admitting Physician: Nader Jansen Referring Physician: Nader Jansen Allergies, Adverse Reactions, Alerts Substance Reaction Severity [...] influenza virus vaccine, inactivated 07/03/09 Dany rded [id number] bivalent booster vax 07/17/22 Recorded [id number] bivalent booster vax 07/17/22 Recorded pneumococcal 20-valent [...] capsule, 8 Refills, Maintenance, 11/25/22 8:27:00 EST, [facility] 25[facility], 170, cm, 10/09/22 16:43:00 EST, Height, 69.1, kg, 11/14/22 7:40:00 EST, Dry Weight Start Date: 11/25/22 Status: Ordered famotidine 20 mg oral tablet 1, tablet, By Mouth, Daily, # 90 tablet, Refills 0, Maintenance, 03/14/23 13:30:00 EDT, Route to Pharmacy Electronically, [facility] 82869, 170.1, cm, 03/14/23 9:45:00 EDT, Height, 68.4, kg, 03/14/23 9:45:00 EDT, Dry Weight Start Date: 03/14/23 Status: Ordered furosemide 40 mg oral tablet 3, tablet, By Mouth, 2 times a day, REFILL PER PCP OR NEPHROLOGY., # 180 tablet, Refills 2, Maintenance, 12/19/22 17:33:00 EDT, Route to Pharmacy Electronically, [facility] STORE 02590, 170, cm, 12/19/22 10:06:00 EDT, Height, 71.6, [...] mL, 0 Refills, Maintenance, 04/09/23 10:56:00 EDT, [facility]/pharmacy #1130, Partial fill upon patient request if [...] recurrent, due to IVDU including admission to [facility] --> [facility] 09/18/2015 to 10/29/2015 for retroperitoneal [...] ulcer, right lower extremity, followed by Karena [facility] VNA [phone] Confirmed Active Venous ulcer of right leg [...] Safety Implantable Status Assigning Authority Unknown Unknown [id number] Unknown 07/25/23 Unknown Unknown Active Unknown Procedure Provider Procedure Date Device Type Site Insertion Hemodialysis Catheter Tyshawn Milian MD Unknown Chest Device Identifier Serial Number Lot or Batch Number Manufacturing Date Expiration Date Distinct Identification Code MRI Safety Implantable Status Assigning Authority Unknown Unknown [id number] Unknown 06/26/24 Unknown Unknown Active Unknown Patient Care team information Care Team Personnel Name: Maryam Fox RN Position: [facility] RN Member Role: Primary Care Nurse Name: Jana Monte RN Position: S RN Member Role: Primary Care Nurse Name: Franchesca Ward RN Position: S RN Member Role: Primary Care Nurse Name: Carolina Camacho RN Position: [facility] SN RN Member Role: Primary Care Nurse Name: Linda Hathaway Position: [facility] Outreach Member Role: Lifetime Consulting Physician Name: Cynthia Hathaway RN Position: [facility] RN Member Role: Primary Care Nurse Name: Delnaey Huber RN Position: [facility] RN Member Role: Primary Care Nurse Name: Juanita Main RN Position: [facility] RN Member Role: Primary Care Nurse Name: China Sutherland Position: [facility] Outreach Member Role: Lifetime Consulting Physician Name: Tayler Harris RN Position: [facility] RN Member Role: Primary Care Nurse Name: Sophie Bejarano NP Position: [facility] Associate Professional Member Role: Lifetime Consulting Provider Address: Address: [address] [place] [address]E [facility] [address] Name: Vasile Byers MD Position: [facility] Renal MD Member Role: Lifetime Consulting Physician Address: Address: [address] [place] [address]E [facility] [address] Name: Edgar Mascorro RN Position: [facility] RN Member Role: Primary Care Nurse Name: Katalina Jorge RN Position: [facility] OB RN Member Role: Primary Care Nurse Name: Sophia Adan LPN Position: [facility] RN Member Role: Primary Care Nurse Name: Lorene Davenport RN Position: [facility] RN Member Role: Primary Care Nurse Name: Meryl Saini RN Position: [facility] SN RN Member Role: Primary Care Nurse Name: Allison Montez RN Position: [facility] RN Member Role: Primary Care Nurse Name: Guillermo Encinas DO Position: [facility] Renal MD Member Role: Lifetime Consulting Physician Address: Address: [address] [place] [address] [address]E [facility] [place] [address]- Name: Christiano Parish RN Position: [facility] RN Member Role: Primary Care Nurse Name: Lorene Billingsley RN Position: [facility] Onco RN Member Role: Primary Care Nurse Name: Kathy Nieves RN Position: [facility] ED RN W/OE and Tasks Member Role: Primary Care Nurse Name: Nita Garcias RN Position: [facility] RN Member Role: Primary Care Nurse Name: Tyshawn Cook III, RN Position: [facility] RN Member Role: Primary Care Nurse Name: Mayuri England RN Position: [facility] RN Member Role: Primary Care Nurse Name: Sophia Johnson Position: [facility] RN Member Role: Primary Care Nurse Name: Paradise Linder RN Position: [facility] RN Member Role: Primary Care Nurse Name: Noemi Bustos RN Position: [facility] RN Member Role: Primary Care Nurse Name: Jennifer Song RN Position: [facility] RN Supv Member Role: Primary Care Nurse Name: Pina Mcgill RN Position: [facility] RN Member Role: Primary Care Nurse Name: Reina Franklin RN Position: [facility] RN Member Role: Primary Care Nurse Name: Yumiko Lindsay RN Position: [facility] RN Member Role: Primary Care Nurse Name: Vincent Thapa RN Position: [facility] RN Member Role: Primary Care Nurse Name: Kristen Boudreaux DO Position: [facility] Resident Member Role: PCP Address: Address: [address] [place] [address]- Name: Nicole Guzman RN Position: [facility] RN Member Role: Primary Care Nurse Name: Neil Bobby RN Position: [facility] ED RN W/OE and Tasks Member Role: Primary Care Nurse Name: Joellen Pineda RN Position: [facility] RN Member Role: Primary Care Nurse Name: Litzy Marin RN Position: [facility] RN Member Role: Primary Care Nurse Name: Crystal Robles RN Position: [facility] RN Member Role: Primary Care Nurse Name: Ruth Stevens LPN Position: [facility] RN Member Role: Primary Care Nurse Name: Nohemi Grande RN Position: [facility] Ball Warper Tender Member Role: Primary Care Nurse Name: Yolanda Tyler RN Position: [facility] Ball Warper Tender Member Role: Primary Care Nurse Care Team Related Persons Name: TSERINGTAWNY JASON Address: [address] [place] [address]
--- OUTSIDE RECORDS SUMMARY | 2023-06-23 09:48 | XMS_ITS | Continuity of Care Document ---
Author Name Unknown Organization [facility] Address [address] [place] [address]- Care Team Providers Care Supervisor Lace Tearing Name Role Phone Kristen Boudreaux DO Primary Care Physician [facility]22 - 04/17/22 [facility] [address], [place] [address] Allergies, Adverse Reactions, Alerts Substance Reaction [...] 04/12/22 17:42:00 EDT, Route to Pharmacy Electronically, [facility]/pharmacy #[id number], Partial fill upon patient request if the prescription is for... Start Date: 04/12/22 Status: Ordered amLODIPine 10 mg oral tablet 1 tablet, By Mouth, Daily, # 90 tablet, 1 Refills, Maintenance, 04/08/22 10:06:00 EDT, [facility]/pharmacy#[id number], 170, cm, 04/04/22 15:17:00 EDT, [...] Mouth, Daily, # 30 tablet, 0 Refills, [facility] STORE [id number], 170, cm, 04/04/22 15:17:00 EDT,Height, 81.75, kg, [...] 04/08/22 10:11:00 EDT, Route to Pharmacy Electronically, [facility]/pharmacy #[id number], 170, cm, 04/04/22 15:17:00 [...] Refills, Maintenance, 04/12/22 17:56:00 EDT, CR Capsule, [facility]/pharmacy #[id number], Partial fill upon patient request if the prescription is for a schedule II opioid drug., 170, cm, 07... Start Date: 04/12/22 Status: Ordered famotidine 20 mg oral tablet 1, tablet, By Mouth, Daily, # 90 tablet, Refills 0, Tot. Refills 0, Maintenance, 04/08/22 10:12:00 EDT, Route to Pharmacy Electronically, [facility]/pharmacy #1130, 170, cm, 04/04/22 15:17:00 EDT, Height, 81.75, kg, 03/21/22 15:54:00 EDT, Dry Weight Start Date: 04/08/22 Status: Ordered hydrALAZINE 25 mg oral tablet 2, tablet, By Mouth, 3 times a day, for 30 days, # 180 tablet, Refills 0, Physician Stop, Route to Pharmacy Electronically, [facility] STORE [id number], 170, cm, 04/04/22 15:17:00 EDT, Height, 81.75, [...] 4 Refills, Maintenance, 04/04/22 16:32:00 EDT, Cream, [facility]/pharmacy #[id number], Partial fill upon patient request if the prescription is for a schedule II opioid drug., 1 application Topically 3 times a day,... Start Date: 04/04/22 Status: Ordered lisinopril 20 mg oral tablet 20 mg, 1, tablet, By Mouth, Daily, # 30 tablet, Refills 6, Tot. Refills 6, Maintenance, 03/18/22 14:25:00 EDT, Route to Pharmacy Electronically, [facility]/pharmacy #1130, Partial fill upon patient request if the prescription is for a schedule II opioid drug... Start Date: 03/18/22 Status: Ordered Methadone = 80 mg, By Mouth, Daily, last received from [facility] 03/19/22 & took home 3 doses. Ro Confirmed [phone], 0 Refills, Maintenance, 03/21/22 11:55:00 EDT, ; Start Date: 03/21/22 Status: Ordered Multivitamin 1 tablet, By Mouth, Daily, 0 Refills, Maintenance, 03/21/22 2:31:00 EDT, ; Start Date: 03/21/22 Status: Ordered Pen [place], 29 G x 12.7 mm BD Ultra [...] recurrent, due to IVDU including admission to [facility] --> [facility] 09/18/2015 to 10/29/2015 for retroperitoneal [...] ex tremity, followed by [facility] [phone](Confirmed) Active Venous ulcer of right leg(Confirmed) Active Social History Social History Type Response Tobacco Other: started smoki ng at 20 years old, now about 5 cigarettes. Sex
--- OUTSIDE RECORDS SUMMARY | 2023-06-23 09:48 | XMS_ITS | Continuity of Care Document ---
Author Name Unknown Organization [facility] Adult [facility] Address [address] [place] [address]- Care Team Providers Care Varnish Maker Helper Name Role Phone Kristen Boudreaux DO Primary Care Physician [facility]15/22 - 06/14/22 [facility] [address] [place], [place] [address] Allergies, Adverse Reactions, Alerts Substance Reaction [...] 05/16/22 14:00:00 EDT, Route to Pharmacy Electronically, [facility]/pharmacy #[id number], Partial fill upon patient request if the prescription is for... Start Date: 05/16/22 Status: Ordered amLODIPine 10 mg oral tablet 1 tablet, By Mouth, Daily, # 90 tablet, 1 Refills, Maintenance, 04/08/22 10:06:00 EDT, [facility]/pharmacy#[id number], 170, cm, 04/04/22 15:17:00 EDT, Height, [...] 90 tablet, 3 Refills, 05/16/22 14:00:00 EDT, [facility]/pharmacy #1130, 170.18, cm, 05/08/22 12:22:00 EDT, [...] 04/26/22 14:29:00 EDT, Route to Pharmacy Electronically, [facility]/pharmacy #[id number], 170, cm, 04/12/22 15:12:00 EDT, [...] CRUSH. /CHEW., # 30 capsule, 5 Refills, [facility] STORE [id number], 170.18, cm, 05/08/22 12:22:00 EDT, Height, 81.8, kg, 05/08/22 12:22:00 EDT, Dry Weight Start Date: 05/15/22 Status: Ordered famotidine 20 mg oral tablet 1, tablet, By Mouth, Daily, # 90 tablet, Refills 3, Tot. Refills 3, Maintenance, 05/16/22 14:01:00 EDT, Route to Pharmacy Electronically, [facility]/pharmacy #1130, 170.18, cm, 05/08/22 12:22:00 EDT, Height, 81.8, kg, 05/08/22 12:22:00 EDT, Dry Weight Start Date: 05/16/22 Status: Ordered hydrALAZINE 25 mg oral tablet 50 mg, 2, tablet, By Mouth, 3 times a day, # 180 tablet, Refills 3, Tot. Refills 3, Maintenance, 05/23/22 15:52:00 EDT, [id number] fill upon patientrequest if the [...] 03/18/22 14:25:00 EDT, Route to Pharmacy Electronically, [facility]/pharmacy #[id number], Partial fill upon patient request if the prescription is for a schedule II opioid drug... Start Date: 03/18/22 Status: Ordered Methadone = 80 mg, By Mouth, Daily, last received from [facility] 03/19/22 & took home 3 doses. Ro Confirmed [phone], 0 Refills, Maintenance, 03/21/22 11:55:00 EDT, ; Start Date: 03/21/22 Status: Ordered Multivitamin 1 tablet, By Mouth, Daily, 0 Refills, Maintenance, 03/21/22 2:31:00 EDT, ; Start Date: 03/21/22 Status: Ordered Pen [place], 29 G x 12.7 mm BD Ultra [...] recurrent, due to IVDU including admission to [facility] --> [facility] 09/18/2015 to 10/29/2015 for retroperitoneal [...] right lower ex tremity[phone]) Active Venous ulcer of right leg(Confirmed) Active Social History Social History Type Response Tobacco Other: started smoki ng at 20 years old, now about 5 cigarettes. Sex Care Team Personnel Name: Kristen Boudreaux DO Address: [address] [place] [address] [place] [address]-
--- OUTSIDE RECORDS SUMMARY | 2023-06-23 09:48 | XMS_ITS | Continuity of Care Document ---
Author Name Unknown Organization [facility] Address [address] [place] [address]- Care Team Providers Care Therapeutic Assistant Name Role Phone Crystal Gordillo MD Primary Care Physician Encounter [facility] Date(s): 06/09/20 - 07/15/20 [facility] [address] [place] [address] [facility] Attending Physician: Bernardino Toledo MD Admitting Physician: Bernardino Toledo MD Referring Physician: Crystal Gordillo MD Allergies, Adverse Reactions, Alerts Substance Reaction [...] ceftriaxone and send results to Dr Burnett.fax [phone], 08/23/16 15:40:34, Compound Start Date: 08/23/16 Status: [...] 09/29/20 14:06:00 EST, 06/01/20 14:06:00 EDT, Cream, [facility]/pharmacy #[id number], apply to right leg wounds daily, 1 application Topically Daily,x30 days, 170.18, cm, 06/01/20 13:05:00 EDT... 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
--- OUTSIDE RECORDS SUMMARY | 2023-06-23 09:49 | XMS_ITS | Continuity of Care Document ---
Author Name Unknown Organization [facility] Address [address] [place] [address]- Care Team Providers Care Turner Machine Operator Name Role Phone Kristen Boudreaux DO Primary Care Physician [phone] Encounter [facility] Date(s): 03/20/23 - 03/27/23 [facility] [address] [place], [place] [address] Attending Physician: Carlos Arceo MD Admitting Physician: Carlos Arceo MD Referring Physician: Kristen Boudreaux DO Allergies, Adverse [...] influenza virus vaccine, inactivated 07/03/09 Dany rded [id number] bivalent booster vax 07/17/22 Recorded [id number] bivalent booster vax 07/17/22 Recorded pneumococcal 20-valent [...] capsule, 8 Refills, Maintenance, 11/25/22 8:27:00 EST, [facility] [id number], 170, cm, 10/09/22 16:43:00 EST, Height, 69.1, kg, 11/14/22 7:40:00 EST, Dry Weight Start Date: 11/25/22 Status: Ordered famotidine 20 mg oral tablet 1, tablet, By Mouth, Daily, # 90 tablet, Refills 0, Maintenance, 03/14/23 13:30:00 EDT, Route to Pharmacy Electronically, [facility] 25130, 170.1, cm, 03/14/23 9:45:00 EDT, Height, 68.4, kg, 03/14/23 9:45:00 EDT, Dry Weight Start Date: 03/14/23 Status: Ordered furosemide 40 mg oral tablet 3, tablet, By Mouth, 2 times a day, REFILL PER PCP OR NEPHROLOGY., # 180 tablet, Refills 2, Maintenance, 12/19/22 17:33:00 EDT, Route to Pharmacy Electronically, [facility], 170, cm, 12/19/22 10:06:00 EDT, Height, 71.6, [...] recurrent, due to IVDU including admission to [facility] --> [facility] 09/18/2015 to 10/29/2015 for retroperitoneal abscess, MSSA [...] lower extremity, followed by [facility]a [facility] [phone] Confirmed Active Venous ulcer of right leg Confirmed Active Vital Signs Most recent to oldest [Reference Range]: 1 Height 170.1 cm (03/20/23 11:23 AM) Weight 70 kg (03/20/23 11:23 AM) Oxygen Saturation [94-100 %] 98 % (03/20/23 11:23 AM) Pulse Rate [55-90 bpm] 79 bpm (03/20/23 11:23 AM) Body Mass Index [18.5-24.99 kg/m2] 24.19 kg/m2 (03/20/23 11:23 AM) Blood Pressure [90-138/55-84 mm Hg] 124/ 70mm Hg (03/20/23 11:23 AM) Mode of Delivery (Oxygen) Room air (03/20/23 11:23 AM) Blood pressure sites Arm, left (03/20/23 11:23 AM) Weight Obtained Via Patient/family state d (03/20/23 11:23 AM) Social History Social History Type Response [...] Safety Implantable Status Assigning Authority Unknown Unknown [id number] Unknown 07/25/23 Unknown Unknown Active Unknown Procedure Provider Procedure Date Device Type Site Insertion Hemodialysis Catheter Tyshawn Milian MD Unknown Chest Device Identifier Serial Number Lot or Batch Number Manufacturing Date Expiration Date Distinct Identification Code MRI Safety Implantable Status Assigning Authority Unknown Unknown [id number] Unknown 06/26/24 Unknown Unknown Active Unknown Note * Anabela Wei: PERFORM, SIGN, VERIFY Event Display: Patient Education/Instruction Authored Date: [id number] [facility] [address] Clinical Summary Name MICHAEL BUTLER Age 47 Years 1975 PCP Kristen Boudreaux DO PCP Visit Date 03/20/2023 11:02:00 Additional Instructions: Scheduled Appointments?? Future Appointments ?[address]??[place],??[place],??[address] ?Phone:??[phone]?Fax:??-- ?Appt. Date:??03/27/2023?10:15 AM ?Scheduled Provider:??[address] ?*[facility] [address]??[place],??[place],??[address] ?Phone:??--?Fax:??-- ?Appt. Date:??04/01/2023?2:20 PM ?Scheduled Provider:??Jasmine Messina MD ?*[facility] ?[place],??[place],??[address] ?Phone:??--?Fax:??-- ?Appt. Date:??04/17/2023?9:20 AM ?Scheduled Provider:??Mp Liu ?*[facility],??[place],??[address] ?Phone:??--?Fax:??-- ?Appt. Date:??04/17/2023?2:20 PM ?Scheduled Provider:??Hua Ramos MD Follow-Up Instructions ?? With: Address: When: Hua Ramos MD Comments: keep follow up with MK as planned 04/17 Axillary to brachial bypass??with ipsilateral basilic vein graft scan and PVR OVH Diagnosis Medications: Please continue your medications until [...] SEE ATTACHED FOR DETAILED DIRECTIONS. Next Dose: PrednisoLONE Ophthalmic (prednisolone ophthalmic acetate 1% suspension) INSTILL ONE DROP INTO THE LEFT EYE 4 TIMES A DAY STARTING THE DAY AFTER SURGERY AND CONTINUING.. Next Dose: sucroferric oxyhydroxide (Velphoro 2500 mg (500 mg elemental iron) oral tablet, chewable) 1 tab(s) Chew 3 times a day with meals. Next Dose: Allergy Info:?? Compazine; Risperdal Medications Given This Visit Future Orders ?VL Lower Arterial PVR Without Exercise? Order Date:03/20/23?- Complete within?6 week(s) ?VL Arterial Bypass Right Graft? Order Date:03/20/23?- Complete within?6 week(s) Vital Signs Height 170.1 cm Weight 70 kg BMI 24.19 kg/m2 Blood Pressure 124 mm Hg/70 mm Hg Temperature Pulse Rate 79 bpm Respiratory Rate 02 Sat Mode of Delivery 98 %/Room air You can now view a summary of your hospital visit from the comfort of your home through a free online portal called [employer]. [employer] is a website that allows you to securely view your medical information including discharge summary, medications and follow-up visits. ??You can alsosend a secure electronic message to your doctor???s office to request appointments, renew medications or just ask a question. You can enroll at [email or web address] or register during your next office [...] primary care provider, you may find a [facility] provider by calling [facility] [employer] at [phone]. For information about the plan of care [...] Team Personnel Name: Maryam Fox RN Position: [facility] RN Member Role: Primary Care Nurse Name: Jana Monte RN Position: [facility] RN Member Role: Primary Care Nurse Name: Franchesca Ward RN Position: [facility] RN Member Role: Primary Care Nurse Name: Carolina Camacho RN Position: [facility] SN RN Member Role: Primary Care Nurse Name: Linda Hathaway Position: [facility] Outreach Member Role: Lifetime Consulting Physician Name: Cynthia Hathaway RN Position: [facility] RN Member Role: Primary Care Nurse Name: Delaney Huber RN Position: [facility] RN Member Role: Primary Care Nurse Name: Juanita Main RN Position: [facility] RN Member Role: Primary Care Nurse Name: China Sutherland Position: [facility] Outreach Member Role: Lifetime Consulting Physician Name: Tayler Harris RN Position: [facility] RN Member Role: Primary Care Nurse Name: Sophie Bejarano NP Position: [facility] Associate Professional Member Role: Lifetime Consulting Provider Address: Address: [address] [place], [place] [address] [address] Name: Vasile Byers MD Position: [facility] Renal MD Member Role: Lifetime Consulting Physician Address: [facility] [address] Name: Edgar Mascorro RN Position: [facility] RN Member Role: Primary Care Nurse Name: Katalina Jorge RN Position: [facility] OB RN Member Role: Primary Care Nurse Name: Sophia Adan LPN Position: [facility] RN Member Role: Primary Care Nurse Name: Lorene Davenport RN Position: [facility] RN Member Role: Primary Care Nurse Name: Meryl Saini RN Position: [facility] SN RN Member Role: Primary Care Nurse Name: Allison Montez RN Position: [facility] RN Member Role: Primary Care Nurse Name: Guillermo Encinas DO Position: [facility] Renal MD Member Role: Lifetime Consulting Physician Address: Address: [facility] [place] [address]- [place] Name: Christiaon Parish RN Position: [facility] RN Member Role: Primary Care Nurse Name: Lorene Bililngsley RN Position: [facility] Onco RN Member Role: Primary Care Nurse Name: Kathy Nieves RN Position: [facility] ED RN W/OE and Tasks Member Role: Primary Care Nurse Name: Nita Garcias RN Position: [facility] RN Member Role: Primary Care Nurse Name: Tyshawn Cook III, RN Position: [facility] RN Member Role: Primary Care Nurse Name: Mayuri England RN Position: [facility] RN Member Role: Primary Care Nurse Name: Sophia Johnson Position: [facility] RN Member Role: Primary Care Nurse Name: Paradise Linder RN Position: [facility] RN Member Role: Primary Care Nurse Name: Noemi Bustos RN Position: [facility] RN Member Role: Primary Care Nurse Name: Jennifer Song RN Position: [facility] RN Supv Member Role: Primary Care Nurse Name: Pina Mcgill RN Position: [facility] RN Member Role: Primary Care Nurse Name: Reina Franklin RN Position: [facility] RN Member Role: Primary Care Nurse Name: Yumiko Lindsay RN Position: [facility] RN Member Role: Primary Care Nurse Name: Vincent Thapa RN Position: [facility] RN Member Role: Primary Care Nurse Name: Kristen Boudreaux DO Position: [facility] Resident Member Role: PCP Address: Address: [address] [place] [address]- Name: Nicole Guzman RN Position: [facility] RN Member Role: Primary Care Nurse Name: Neil Bobby RN Position: [facility] ED RN W/OE and Tasks Member Role: Primary Care Nurse Name: Joellen Pineda RN Position: [facility] RN Member Role: Primary Care Nurse Name: Litzy Marin RN Position: [facility] RN Member Role: Primary Care Nurse Name: Crystal Robles RN Position: [facility] RN Member Role: Primary Care Nurse Name: Ruth Stevens LPN Position: [facility] RN Member Role: Primary Care Nurse Name: Nohemi Grande RN Position: [facility] Senior Product Analyst Member Role: Primary Care Nurse Name: Yolanda Tyler RN Position: [facility] Senior Product Analyst Member Role: Primary Care Nurse Care Team Related Persons Name: TAWNY BUTLER Address: home [address] [place] [address]
--- OUTSIDE RECORDS SUMMARY | 2023-06-23 09:49 | XMS_ITS | Continuity of Care Document ---
Author Name Unknown Organization [facility] Address [address] [place] [address]- Care Team Providers Care Workday Manager Name Role Phone Kristen Boudreaux DO Primary Care Physician [phone] [facility]): [facility]16[facility]22 - 06/15/22 [facility] [address] [place] [address]- Encounter Diagnosis Lymphedema of left lower extremity(Discharge Diagnosis) - 05/16/22 Allergies, Adverse Reactions, Alerts Substance Reaction Severity [...] 05/16/22 14:00:00 EDT, Route to Pharmacy Electronically, [facility]/pharmacy #[id number], Partial fill upon patient request if the prescription is for... Start Date: 05/16/22 Status: Ordered amLODIPine 10 mg oral tablet 1 tablet, By Mouth, Daily, # 90 tablet, 1 Refills, Maintenance, 04/08/22 10:06:00 EDT, [facility]/pharmacy#1130, 170, cm, 04/04/22 15:17:00 EDT, Height, [...] 90 tablet, 3 Refills, 05/16/22 14:00:00 EDT, [facility]/pharmacy #1130, 170.18, cm, 05/08/22 12:22:00 EDT, [...] 04/26/22 14:29:00 EDT, Route to Pharmacy Electronically, [facility]/pharmacy #1130, 170, cm, 04/12/22 15:12:00 EDT, [...] CRUSH. /CHEW., # 30 capsule, 5 Refills, [facility]ORE 07300, 170.18, cm, 05/08/22 12:22:00 EDT, Height, 81.8, kg, 05/08/22 12:22:00 EDT, Dry Weight Start Date: 05/15/22 Status: Ordered famotidine 20 mg oral tablet 1, tablet, By Mouth, Daily, # 90 tablet, Refills 3, Tot. Refills 3, Maintenance, 05/16/22 14:01:00 EDT, Route to Pharmacy Electronically, [facility]/pharmacy #1130, 170.18, cm, 05/08/22 12:22:00 EDT, Height, 81.8, kg, 05/08/22 12:22:00 EDT, Dry Weight Start Date: 05/16/22 Status: Ordered hydrALAZINE 25 mg oral tablet 50 mg, 2, tablet, By Mouth, 3 times a day, # 180 tablet, Refills 3, Tot. Refills 3, Maintenance, 05/23/22 15:52:00 EDT, [id number] fill upon patientrequest [...] 03/18/22 14:25:00 EDT, Route to Pharmacy Electronically, [facility]/pharmacy #[id number], Partial fill upon patient request if the prescription is for a schedule II opioid drug... Start Date: 03/18/22 Status: Ordered Methadone = 80 mg, By Mouth, Daily, last received from [facility] 03/19/22 & took home 3 doses. Ro Confirmed [phone], 0 Refills, Maintenance, 03/21/22 11:55:00 EDT, ; Start Date: 03/21/22 Status: Ordered Multivitamin 1 tablet, By Mouth, Daily, 0 Refills, Maintenance, 03/21/22 2:31:00 EDT, ; Start Date: 03/21/22 Status: Ordered Pen [place], 29 G x 12.7 mm BD Ultra [...] recurrent, due to IVDU including admission to [facility] [place] --> [facility] 09/18/2015 to 10/29/2015 for [...] right lower ex tremity, [phone](Confirmed) Active Venous ulcer of right leg(Confirmed) Active Diagnosis Diagnosis Type Effective Dates Health Status Clinical Service Informant Lymphedema of left lower extremity Discharge Diagnosis 05/16/22 Non-Specified Social History Social History Type Response Tobacco Other: started smoki ng at 20 years old, now about 5 cigarettes. Sex Care Team Personnel Name: Kristen Boudreaux DO Address: [address] [place] [address] [place] [address]
--- OUTSIDE RECORDS SUMMARY | 2023-06-23 09:49 | XMS_ITS | Continuity of Care Document ---
Author Name Unknown Organization [facility] Address [address] [place] [address]- Care Team Providers Care Venetian Blind Cleaner Name Role Phone Kristen Boudreaux DO Primary Care Physician [phone] Encounter [facility] Date(s): 06/27/22 - 08/02/[address] [address] Attending Physician: Gavino Urias MD Admitting Physician: Gavino Urias MD Referring Physician: Gavino Urias MD Allergies, Adverse Reactions, Alerts Substance Reaction [...] 14:00:00 EDT, Route to Pharmacy Electronically, [facility]/pharmacy #[id number], Partial fill upon patient request if the prescription is for... Start Date: 05/16/22 Status: Ordered amLODIPine 10 mg oral tablet 1 tablet, By Mouth, Daily, # 90 tablet, 1 Refills, Maintenance, 04/08/22 10:06:00 EDT, [facility]/pharmacy#1130, 170, cm, 04/04/22 15:17:00 EDT, Height, 81.75, [...] tablet, 3 Refills, 05/16/22 14:00:00 EDT, [facility]/pharmacy #1130, 170.18, cm, 05/08/22 12:22:00 EDT, Height, [...] 14:29:00 EDT, Route to Pharmacy Electronically, [facility]/pharmacy #1130, 170, cm, 04/12/22 15:12:00 EDT, Height, [...] /CHEW., # 30 capsule, 5 Refills, [facility] STORE 58094, 170.18, cm, 05/08/22 12:22:00 EDT, Height, 81.8, kg, 05/08/22 12:22:00 EDT, Dry Weight Start Date: 05/15/22 Status: Ordered famotidine 20 mg oral tablet 1, tablet, By Mouth, Daily, # 90 tablet, Refills 3, Tot. Refills 3, Maintenance, 05/16/22 14:01:00 EDT, Route to Pharmacy Electronically, [facility]/pharmacy #1130, 170.18, cm, 05/08/22 12:22:00 EDT, Height, 81.8, kg, 05/08/22 12:22:00 EDT, Dry Weight Start Date: 05/16/22 Status: Ordered hydrALAZINE 25 mg oral tablet 50 mg, 2, tablet, By Mouth, 3 times a day, # 180 tablet, Refills 3, Tot. Refills 3, Maintenance, 05/23/22 15:52:00 EDT, Route to Pharmacy Electronically, [facility]/pharmacy #1130, Partial fill upon patientrequest if the [...] 14:25:00 EDT, Route to Pharmacy Electronically, [facility]/pharmacy #1130, Partial fill upon patient request if the prescription is for a schedule II opioid drug... Start Date: 03/18/22 Status: Ordered Methadone = 80 mg, By Mouth, Daily, last received from [facility] 03/19/22 & took home 3 doses. Ro Confirmed [phone], 0 Refills, Maintenance, 03/21/22 11:55:00 EDT, ; Start Date: 03/21/22 Status: Ordered Multivitamin 1 tablet, By Mouth, Daily, 0 Refills, Maintenance, 03/21/22 2:31:00 EDT, ; Start Date: 03/21/22 Status: Ordered Pen [place], 29 G x 12.7 mm BD Ultra [...] ulcer, right lower [phone] Confirmed Active Venous ulcer of right leg Confirmed Active Social History Social History Type Response Tobacco Other: started smoki ng at 20 years old, now about 5 cigarettes. Sex Patient Care team information Care Team Personnel Name: Maryam Fox RN Position: [facility] RN Member Role: Primary Care Nurse Name: Franchesca Ward RN Position: [facility] RN Member Role: Primary Care Nurse Name: Carolina Camacho RN Position: [facility] SN RN Member Role: Primary Care Nurse Name: Linda Hathaway Position: [facility] Outreach Member Role: Lifetime Consulting Physician Name: Delaney Huber RN Position: [facility] RN Member Role: Primary Care Nurse Name: Juanita Main RN Position: [facility] RN Member Role: Primary Care Nurse Name: Tayler Harris RN Position: [facility] RN Member Role: Primary Care Nurse Name: Carline Cantu RN Position: [facility] RN Member Role: Primary Care Nurse Name: Katalina Jorge RN Position: [facility] OB RN Member Role: Primary Care Nurse Name: Lorene Davenport RN Position: [facility] RN Member Role: Primary Care Nurse Name: Meryl Saini RN Position: [facility] SN RN Member Role: Primary Care Nurse Name: Guillermo Encinas DO Position: [facility] Renal MD Member Role: Lifetime Consulting Physician Address: Address: [address] [place], [place] [address] [place], [place] [address] Name: Lorene Billingsley RN Position: [facility] Onco RN Member Role: Primary Care Nurse Name: Kathy Nieves RN Position: [facility] ED RN W/OE and Tasks Member Role: Primary Care Nurse Name: Sophia Johnson Position: [facility] RN Member Role: Primary Care Nurse Name: Awais Brenner RN Position: [facility] RN Member Role: Primary Care Nurse Name: Paradise Linder RN Position: [facility] RN Member Role: Primary Care Nurse Name: Pina Mcgill RN Position: [facility] RN Member Role: Primary Care Nurse Name: Yumiko Lindsay RN Position: [facility] RN Member Role: Primary Care Nurse Name: Vincent Thapa RN Position: [facility] RN Member Role: Primary Care Nurse Name: Kristen Boudreaux DO Position: [facility] Resident Member Role: PCP Address: Address: [address] [place] [address] [place] [address]- Name: Neil Bobby RN Position: [facility] ED RN W/OE and Tasks Member Role: Primary Care Nurse Name: Joellen Pineda RN Position: [facility] RN Member Role: Primary Care Nurse Name: Litzy Marin RN Position: [facility] RN Member Role: Primary Care Nurse Name: Nohemi Grande RN Position: [facility] Member Role: Primary Care Nurse Name: Yolanda Tyler RN Position: [facility] Member Role: Primary Care Nurse Care Team Related Persons Name: TAWNY BUTLER Address: home [address] [place] [address]
--- OUTSIDE RECORDS SUMMARY | 2023-06-23 09:49 | XMS_ITS | Continuity of Care Document ---
Author Name Unknown Organization [facility] Address [address] [place] [address]- Care Team Providers Care Trim Mechanic Name Role Phone Kristen Boudreaux DO Primary Care Physician [phone] Encounter [facility] Date(s): 10/09/22 - 11/08/22 [facility] [address] [place] [address] Attending Physician: Nader Jansen Admitting Physician: AdmNader faith Referring Physician: Admtr, [id number] Allergies, Adverse Reactions, Alerts Substance Reaction Severity Status Risperdal tongue swells Active Compazine difficulty breathing difficulty Active Immunizations Given and Recorded Vaccine Date Status Refusal Reason influenza virus vaccine, inactivated 09/14/22 Give n influenza virus vaccine, inactivated 09/19/15 Give n influenza virus vaccine, inactivated 07/03/09 Dany rded [id number] bivalent booster vax 07/17/22 Recorded pneumococcal 20-valent [...] 05/16/22 14:00:00 EDT, Route to Pharmacy Electronically, [facility]/pharmacy #1130, Partial fill upon patient request if the prescription is for... Start Date: 05/16/22 Status: Ordered Aspirin Low Dose 81 mg oral delayed release tablet 1 tablet, By Mouth, Daily, # 90 tablet, 3 Refills, 05/16/22 14:00:00 EDT, [facility]/pharmacy #1130, 170.18, cm, 05/08/22 12:22:00 EDT, Height, 81.8, kg, 05/08/22 12:22:00 EDT, Dry Weight Start Date: 05/16/22 Status: Ordered cloNIDine 0.1 mg oral tablet 0.2 mg, 2, tablet, By Mouth, 3 times a day, # 270 tablet, Refills 1, Tot. Refills 1, Maintenance, 04/26/22 14:29:00 EDT, [facility], cm, 04/12/22 15:12:00 EDT, Height, [...] CRUSH. /CHEW., # 30 capsule, 5 Refills, [facility] STORE 13767, 170.18, cm, 05/08/22 12:22:00 EDT, Height, 81.8, kg, 05/08/22 12:22:00 EDT, Dry Weight Start Date: 05/15/22 Status: Ordered famotidine 20 mg oral tablet 1, tablet, By Mouth, Daily, # 90 tablet, Refills 3, Tot. Refills 3, Maintenance, 05/16/22 14:01:00 EDT, Route to Pharmacy Electronically, [facility]/pharmacy #1130, 170.18, cm, 05/08/22 [...] 10/25/22 17:02:00 EST, Route to Pharmacy Electronically, [facility]/pharmacy #1130, [...] mg, By Mouth, Daily, last received from [facility] 03/19/22 & took home 3 doses. Ro Confirmed [phone], 0 Refills, Maintenance, 03/21/22 11:55:00 EDT, ; Start Date: 03/21/22 Status: Ordered Pen [place], 29 G x 12.7 mm BD Ultra [...] due to IVDU including admission to [facility] --> [facility] 09/18/2015 to 10/29/2015 [...] lower extremity, followed by [facility] [phone] Confirmed Active Venous ulcer of right leg [...] Safety Implantable Status Assigning Authority Unknown Unknown [id number] 113 Unknown 06/26/24 Unknown Unknown Active Unknown Patient Care team information Care Team Personnel Name: Maryam Fox RN Position: [facility] RN Member Role: Primary Care Nurse Name: Franchesca Ward RN Position: [facility] RN Member Role: Primary Care Nurse Name: Carolina Camacho RN Position: [facility] RN Member Role: Primary Care Nurse Name: Linda Hathaway Position: [facility] Outreach Member Role: Lifetime Consulting Physician Name: Delaney Huber RN Position: [facility] RN Member Role: Primary Care Nurse Name: Juanita Main RN Position: S RN Member Role: Primary Care Nurse Name: China Sutherland RN Position: [facility] Outreach Member Role: Lifetime Consulting Physician Name: Tayler Harris RN Position: [facility] RN Member Role: Primary Care Nurse Name: Sophie Bejarano NP Position: [facility] Associate Professional Member Role: Lifetime Consulting Provider Address: Address: [address] [place] [address] [address] [facility] [place] [address]- Name: Vasile Byers MD Position: [facility] Renal MD Member Role: Lifetime Consulting Physician Address: Address: [address] [place] [address] [address] [facility] [place] [address]- Name: Katalina Jorge RN Position: [facility] OB RN Member Role: Primary Care Nurse Name: Lorene Davenport RN Position: [facility] RN Member Role: Primary Care Nurse Name: Meryl Saini RN Position: [facility] SN RN Member Role: Primary Care Nurse Name: Annie Langston RN Position: [facility] RN Member Role: Primary Care Nurse Name: Guillermo Encinas DO Position: [facility] Renal MD Member Role: Lifetime Consulting Physician Address: Address: [address] [place] [address] [address] [facility] [place] [address]- Name: Lorene Billingsley RN Position: [facility] Onco RN Member Role: Primary Care Nurse Name: Kathy Nieves RN Position: [facility] ED RN W/OE and Tasks Member Role: Primary Care Nurse Name: Sophia Johnson Position: [facility] RN Member Role: Primary Care Nurse Name: Awais Brenner RN Position: [facility] RN Member Role: Primary Care Nurse Name: Paradise Linder RN Position: [facility] RN Member Role: Primary Care Nurse Name: Pina Mcgill RN Position: [facility] RN Member Role: Primary Care Nurse Name: Yumiko Lindsay RN Position: [facility] RN Member Role: Primary Care Nurse Name: Vincent Thapa RN Position: [facility] RN Member Role: Primary Care Nurse Name: Kristen Boudreaux DO Position: [facility] Resident Member Role: PCP Address: Address: [address] [place] [address]- [place] Name: Nicole Guzman RN Position: [facility] RN Member Role: Primary Care Nurse Name: Neil Bobby RN Position: [facility] ED RN W/OE and Tasks Member Role: Primary Care Nurse Name: Joellen Pineda RN Position: [facility] RN Member Role: Primary Care Nurse Name: Litzy Marin RN Position: [facility] RN Member Role: Primary Care Nurse Name: Crystal Robles RN Position: [facility] RN Member Role: Primary Care Nurse Name: Ruth Stevens LPN Position: [facility] RN Member Role: Primary Care Nurse Name: Nohemi Grande RN Position: [facility] [employer] F[facility] And President Member Role: Primary Care Nurse Name: Yolanda Tyler RN Position: [facility] And President Member Role: Primary Care Nurse Care Team Related Persons Name: TAWNY BUTLER Address: [address] [address]
--- OUTSIDE RECORDS SUMMARY | 2023-06-23 09:49 | XMS_ITS | Continuity of Care Document ---
Author Name Unknown Organization [facility] Address [address] [place] [address]- Care Team Providers Care Speech Scientist Name Role Phone Crystal Gordillo MD Primary Care Physician Encounter [facility] Date(s): 06/20/20 - 07/26/20 [facility] [address] [place] [address]- [facility] Attending Physician: Bernardino Toledo MD [...] ceftriaxone and send results to Dr Burnett.fax [phone], 08/23/16 15:40:34, Compound Start Date: 08/23/16 Status: [...] 09/29/20 14:06:00 EST, 06/01/20 14:06:00 EDT, Cream, [facility]/pharmacy #1130, apply to right leg wounds daily, 1 application Topically Daily,x30 days, 170.18, cm, 06/01/20 13:05:00 EDT... 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 including admission to [facility] --> [facility] 09/18/2015 to 10/29/2015 for retroperitoneal abscess, MSSA bacteremia(Confirmed) Active ADHD (attention deficit hype ractivity disorder)(Confirmed) Active IDDM (insulin dependent diab etes mellitus)(Confirmed) Active Diabetic neuropathy(Confirmed) Active Overweight(Confirmed) Active Right LE venous ulcer, follo wed by [facility] [phone](Confirmed) Active Venous ulcer of right leg(Confirmed) Active Social History Social History Type Response Smoking Status Current every day dennise doherty entered on: 10/30/15 Sex
--- OUTSIDE RECORDS SUMMARY | 2023-06-23 09:49 | XMS_ITS | Continuity of Care Document ---
Author Name Unknown Organization [facility] Address [address] [place] [address]- Care Team Providers Care Ore Puncher Name Role Phone Kristen Boudreaux DO Primary Care Physician Encounter [facility] Date(s): 05/20/22 - 06/19/22 [facility] [address], [place] [address] Allergies, Adverse Reactions, Alerts Substance Reaction [...] 14:00:00 EDT, Route to Pharmacy Electronically, [facility]/pharmacy #[id number], Partial fill upon patient request if the prescription is for... Start Date: 05/16/22 Status: Ordered amLODIPine 10 mg oral tablet 1 tablet, By Mouth, Daily, # 90 tablet, 1 Refills, Maintenance, 04/08/22 10:06:00 EDT, [facility]/pharmacy#1130, 170, cm, 04/04/22 15:17:00 EDT, [...] tablet, 3 Refills, 05/16/22 14:00:00 EDT, [facility]/pharmacy #1130, 170.18, cm, 05/08/22 12:22:00 [...] 14:29:00 EDT, Route to Pharmacy Electronically, [facility]/pharmacy #1130, 170, cm, 04/12/22 15:12:00 [...] /CHEW., # 30 capsule, 5 Refills, [facility] STORE [id number], 170.18, cm, 05/08/22 12:22:00 EDT, Height, 81.8, kg, 05/08/22 12:22:00 EDT, Dry Weight Start Date: 05/15/22 Status: Ordered famotidine 20 mg oral tablet 1, tablet, By Mouth, Daily, # 90 tablet, Refills 3, Tot. Refills 3, Maintenance, 05/16/22 14:01:00 EDT, Route to Pharmacy Electronically, [facility]/pharmacy #1130, 170.18, cm, 05/08/22 12:22:00 EDT, Height, 81.8, kg, 05/08/22 12:22:00 EDT, Dry Weight Start Date: 05/16/22 Status: Ordered hydrALAZINE 25 mg oral tablet 50 mg, 2, tablet, By Mouth, 3 times a day, # 180 tablet, Refills 3, Tot. Refills 3, Maintenance, 05/23/22 15:52:00 EDT, [facility], Partial fill upon patientrequest if [...] 14:25:00 EDT, Route to Pharmacy Electronically, [facility]/pharmacy #1130, Partial fill upon patient request if the prescription is for a schedule II opioid drug... Start Date: 03/18/22 Status: Ordered Methadone = 80 mg, By Mouth, Daily, last received from [facility] 03/19/22 & took home 3 doses. Ro Confirmed [phone], 0 Refills, Maintenance, 03/21/22 11:55:00 EDT, ; Start Date: 03/21/22 Status: Ordered Multivitamin 1 tablet, By Mouth, Daily, 0 Refills, Maintenance, 03/21/22 2:31:00 EDT, ; Start Date: 03/21/22 Status: Ordered Pen [place], 29 G x 12.7 mm BD Ultra [...] IVDU including admission to [facility] --> [facility] 09/18/2015 to [...] lower extremity, followed by [facility] [phone] Confirmed Active Venous ulcer of right leg Confirmed Active Social History Social History Type Response Tobacco Other: started [employer] at 20 years old, now about 5 cigarettes. Sex Patient Care team information Personnel Name: Kristen Boudreaux DO Address: Address: [address] [place] [address] [place] [address]-
--- OUTSIDE RECORDS SUMMARY | 2023-06-23 09:49 | XMS_ITS | Continuity of Care Document ---
Author Name Unknown Organization [facility] Address [address] [place] [address]- Care Team Providers Care Chiseler Head Name Role Phone Kristen Boudreaux DO Primary Care Physician [phone] Encounter [facility] Date(s): 04/01/22 - 05/01/22 [facility] [address] [place], [place] [address] Allergies, Adverse Reactions, Alerts Substance Reaction Severity [...] EDT, Route to Pharmacy Electronically, [facility]/pharmacy #[id number], Partial fill upon patient request if the [...] 30 tablet, 0 Refills, [facility] STORE 78974, 170, cm, 04/04/22 15:17:00 EDT,Height, 81.75, kg, [...] 04/26/22 14:29:00 EDT, Route to Pharmacy Electronically, [facility]/pharmacy #1130, 170, cm, 04/12/22 15:12:00 EDT, [...] Refills, Maintenance, 04/24/22 16:25:00 EDT, CR Capsule, [facility], Partial fill upon patient [...] Route to Pharmacy Electronically, [facility] STORE 09951, 170, cm, 04/04/22 15:17:00 EDT, Height, 81.75, [...] [facility], Partial fill upon patient request if the prescription is for a schedule II opioid drug... Start Date: 03/18/22 Status: Ordered Methadone = 80 mg, By Mouth, Daily, [facility] & took home 3 doses. Ro Dodd [phone], 0 Refills, Maintenance, 03/21/22 11:55:00 EDT, ; Start Date: 03/21/22 Status: Ordered Multivitamin 1 tablet, By Mouth, Daily, 0 Refills, Maintenance, 03/21/22 2:31:00 EDT, ; Start Date: 03/21/22 Status: Ordered nicotine 14 mg/24 hr transdermal film, extended release 1 patch, Topically, Daily, for 7 days, # 7 patch, 0 Refills, Acute 05/08/22 10:14:00 EDT, 05/01/22 10:14:00 EDT, Patch, [facility]/pharmacy #1130, Partial fill upon patient [...] 05/01/22 Stop Date: 06/01/22 Status: Ordered Pen [place], 29 G x 12.7 mm BD Ultra [...] recurrent, due to IVDU including admission to [facility] --> [facility] 09/18/2015 to 10/29/2015 for retroperitoneal [...] ex tremity, followed by [facility] [phone](Confirmed) Active Venous ulcer of right leg(Confirmed) Active Social History Social History Type Response Tobacco Other: started smoki ng at 20 years old, now about 5 cigarettes. Sex
--- OUTSIDE RECORDS SUMMARY | 2023-06-23 09:49 | XMS_ITS | Continuity of Care Document ---
Author Name Unknown Organization [facility] Address [address] [place] [address]- Care Team Providers Care Tractor Trailer Moving Van Driver Name Role Phone Kristen Boudreaux DO Primary Care Physician [facility] Date(s): 04/15/22 - 05/24/22 [facility] [address] [place], [place] [address] Attending Physician: Alberto Monroy MD Admitting Physician: [...] 05/16/22 14:00:00 EDT, Route to Pharmacy Electronically, [facility]/pharmacy #[id number], Partial fill upon patient request if the prescription is for... Start Date: 05/16/22 Status: Ordered amLODIPine 10 mg oral tablet 1 tablet, By Mouth, Daily, # 90 tablet, 1 Refills, Maintenance, 04/08/22 10:06:00 EDT, [facility]/pharmacy#1130, 170, cm, 04/04/22 15:17:00 EDT, [...] 90 tablet, 3 Refills, 05/16/22 14:00:00 EDT, [facility]/pharmacy #1130, 170.18, cm, 05/08/22 12:22:00 [...] 04/26/22 14:29:00 EDT, Route to Pharmacy Electronically, [facility]/pharmacy #1130, 170, cm, 04/12/22 15:12:00 [...] CRUSH. /CHEW., # 30 capsule, 5 Refills, [facility] STORE 70883, 170.18, cm, 05/08/22 12:22:00 EDT, Height, 81.8, kg, 05/08/22 12:22:00 EDT, Dry Weight Start Date: 05/15/22 Status: Ordered famotidine 20 mg oral tablet 1, tablet, By Mouth, Daily, # 90 tablet, Refills 3, Tot. Refills 3, Maintenance, 05/16/22 14:01:00 EDT, Route to Pharmacy Electronically, [facility]/pharmacy #1130, 170.18, cm, 05/08/22 12:22:00 EDT, Height, 81.8, kg, 05/08/22 12:22:00 EDT, Dry Weight Start Date: 05/16/22 Status: Ordered hydrALAZINE 25 mg oral tablet 50 mg, 2, tablet, By Mouth, 3 times a day, # 180 tablet, Refills 3, Tot. Refills 3, Maintenance, 05/23/22 15:52:00 EDT, [facility] fill upon patientrequest if the [...] 03/18/22 14:25:00 EDT, Route to Pharmacy Electronically, [facility]/pharmacy #1130, Partial fill upon patient request if the prescription is for a schedule II opioid drug... Start Date: 03/18/22 Status: Ordered Methadone = 80 mg, By Mouth, Daily, last received from [facility] 03/19/22 & took home 3 doses. Ro Confirmed [phone], 0 Refills, Maintenance, 03/21/22 11:55:00 EDT, ; Start Date: 03/21/22 Status: Ordered Multivitamin 1 tablet, By Mouth, Daily, 0 Refills, Maintenance, 03/21/22 2:31:00 EDT, ; Start Date: 03/21/22 Status: Ordered Nicotine 2 mg gum 1 each = 2 mg, Chew, Every 2 hours, PRN for smoking cessation, # 50 each, 0 Refills, Acute 06/01/2210:14:00 EDT, 05/01/22 10:12:00 EDT, Gum, [facility]/pharmacy #1130, Partial fill upon patient request if the prescription is for a schedule II opioid drug.,... Start Date: 05/01/22 Stop Date: 06/01/22 Status: Ordered Pen [place], 29 G x 12.7 mm BD Ultra [...] 3 Refills, Maintenance, 05/06/22 13:08:00 EDT, Tablet, [facility]/pharmacy #1130, Partial fill upon [...] right lower ex tremity, followed by [facility] [phone](Confirmed) Active Venous ulcer of right leg(Confirmed) Active Social History Social History Type Response Tobacco Other: started smoki ng at 20 years old, now about 5 cigarettes. Sex Care Team Personnel Name: Kristen Boudreaux DO Address: [address] [place] [address] [place] [address]
--- OUTSIDE RECORDS SUMMARY | 2023-06-23 09:49 | XMS_ITS | Continuity of Care Document ---
Author Name Unknown Organization [facility] ter Address [address] [place] [id number]- Care Team Providers Care Live Study Manager Name Role Phone Kristen Boudreaux DO Primary Care Physician [facility] Date[facility]): 03/21/22 - 03/29/[address] [id number] Encounter Diagnosis Leg pain(Final) - 03/21/22 EDGAR (acute kidney injury)(Final) - 03/21/22 Discharge Disposition: A-D/C Home Attending Physician: Fior VILLATORO, Cathy Ulloa Admitting Physician: Isacc Daniel MD Referring Physician: Not on Staff, Referring [...] 3, tablet, By Mouth, Every 6 hours, PRN, Refills 0, Maintenance, as needed, 03/21/22 2:28:00 EDT, ; Start Date: 03/21/22 Status: Ordered amLODIPine 10 mg oral tablet 10 mg, Tablet, By Mouth, 03/29/22 9:00:00 EDT Start Date: 03/29/22 Stop Date: 03/29/22 Status: Completed amLODIPine 10 mg oral tablet See Instructions, TAKE 1 TABLET BY MOUTH EVERY DAY, # 30 tablet, 0 Refills, [id number], 170, cm, 03/06/22 9:11:00 EDT, Height, 89.9, kg, 12/25/21 7:54:00 EDT, Dry Weight Start Date: 03/08/22 Status: Ordered Artificial Tears 1.4% Eyes, Both, Every 4 hours, PRN Other, Dryness., 0 Refills, Maintenance, 03/29/22 11:49:00 EDT, Ophth Solution, Partial fill upon patient request if the prescription is for a schedule II opioid drug. Start Date: 03/29/22 Status: Ordered aspirin 81 mg oral delayed release tablet 81 mg, 1, tablet, By Mouth, Daily, # 30 tablet, Refills 0, Tot. Refills 0, Maintenance, 02/06/22 15:08:00 EDT, Route to Pharmacy Electronically, [facility]/pharmacy #[id number], Partial fill upon patient request [...] Replace Required Details, Route to Pharmacy Electronically, [id number], 170, cm, 03/06/22 9:11:00 EDT, Height, 89.9, kg, 12/25/21 7:54:00 EDT, Dry Weight Start Date: 03/08/22 Status: Ordered Compression Stockings See Instructions, # 1 each, Refills 1, Tot. Refills 1, Maintenance, Juxt[employer] Lite Circaid compression wraps bilateral 30-40 mm Hg, 03/05/22 14:53:00 EDT, Compound Start Date: 03/05/22 Status: Ordered Dilaudid 2 mg oral tablet 4 mg, Tablet, By Mouth, Every 6 hours, PRN for Pain , Severe, Routine, 03/25/22 1:23:00 EDT Start Date: 03/25/22 Stop Date: 03/30/22 Status: Discontinued famotidine 20 mg oral tablet See Instructions, TAKE 1 TABLET BY MOUTH EVERY DAY, # 30 tablet, Refills 0, Instructions Replace Required Details, Route to Pharmacy Electronically, [facility] [id number], 170, cm, 03/06/22 9:11:00 EDT, Height, 89.9, kg, 12/25/21 7:54:00 EDT, Dry Weight Start Date: 03/08/22 Status: Ordered hydrALAZINE 25 mg oral tablet 50 mg, Tablet, By Mouth, 03/29/22 9:00:00 EDT Start Date: 03/29/22 Stop Date: 03/29/22 Status: Completed hydrALAZINE 25 mg oral tablet 2, tablet, By Mouth, 3 times a day, for 30 days, # 180 tablet, Refills 0, Physician Stop, Route to Pharmacy Electronically, [facility] [id number], 170, cm, 03/06/22 9:11:00 EDT, Height, 89.9, kg, 12/25/21 7:54:00 EDT, Dry Weight Start Date: 03/08/22 Stop Date: 04/07/22 Status: Ordered Insulin Lispro KwikPen 100 units/mL injectable solution 2-10 units, Subcutaneous Injection, 3 times a day before meals, Maintenance, 03/21/22 11:54:00 EDT,; Start Date: 03/21/22 Status: Ordered lisinopril 20 mg oral tablet 20 mg, 1, tablet, By Mouth, Daily, # 30 tablet, Refills 6, Tot. Refills 6, Maintenance, 03/18/22 14:25:00 EDT, Route to Pharmacy Electronically, [facility]/pharmacy #[id number], Partial fill upon patient request if the prescription is for a schedule II opioid drug... Start Date: 03/18/22 Status: Ordered Methadone = 80 mg, By Mouth, Daily, last received from [facility] 03/19/22 & took home 3 doses. Ro Confirmed [phone], 0 Refills, Maintenance, 03/21/22 11:55:00 EDT, ; Start Date: 03/21/22 Status: Ordered methadone 10 mg oral tablet 25 mg, Tablet, By Mouth, 8hr after am dose, 03/29/22 11:00:00 EDT Start Date: 03/29/22 Stop Date: 03/29/22 Status: Completed Multivitamin 1 tablet, By Mouth, Daily, 0 Refills, Maintenance, 03/21/22 2:31:00 EDT, ; Start Date: 03/21/22 Status: Ordered Pen [place], 29 G x 12.7 mm BD Ultra Fine See Instructions, # 100 each, Refills 5, Tot. Refills 5, Maintenance, use as directed for Type 2 Diabetes Mellitus, 01/08/22 13:01:00 EDT, Supply, 169, cm, 01/07/22 14:19:00 EDT, Height, 89.9, kg, 12/25/21 7:54:00 EDT, Dry Weight Start Date: 01/08/22 Stop Date: 07/07/22 Status: Ordered predniSONE 20 mg oral tablet 2 tablet = 40 mg, By Mouth, Daily, for 3 days, # 6 tablet, 0 Refills, Acute 04/01/22 11:46:00 EDT, 03/29/22 11:46:00 EDT, Tablet, [facility]/pharmacy #[id number], Partial fill upon patient request if the prescription is for a schedule II opioid drug., 170, cm, ... Start Date: 03/29/22 Stop Date: 04/01/22 Status: Ordered torsemide 20 mg oral tablet 2 tablet = 40 mg, By Mouth, Daily, # 60 tablet, 0 Refills, Maintenance, 03/29/22 11:48:00 EDT, Tablet, [facility]/pharmacy #[id number], Partial fill upon patient request if the prescription is for a schedule II opioid drug., 170, cm, 03/29/22 7:36:00 EDT, Height,... Start Date: 03/29/22 Status: Ordered Tylenol 325 mg oral tablet 975 mg, Tablet, By Mouth, 03/29/22 12:00:00 EDT, Stop date 03/29/22 12:00:00 EDT Start Date: 03/29/22 Stop Date: 03/29/22 Status: Completed Problem List Condition Effective Dates Status Health Status Inform ant Abscesses, recurrent, due to IVDU including admission to [facility] --> [facility] 09/18/2015 to 10/29/2015 for retroperitoneal [...] lower ex tremity, followed by Karena [facility] [phone](Confirmed) Active Venous ulcer of right leg(Confirmed) Active Results Orders for Microbiology Reports Name Date Anaerobic Culture (Culture Anaerobic) Sterile Body Fluid Culture W / Gram Smear (Culture Sterile Body Fluid w/ Gram Smear) 03/20/22 Blood Culture 03/20/22 Blood Culture #2 03/20/22 Microbiology Reports TEST:Anaerobic Culture STATUS:Unauthenticated BODY SITE: SOURCE:JOINT COLLECTED DATE/TIME:03/20/22 11:05 PM Anaerobic Culture SPECIMEN DESCRIPTION : JOINT FLUID LT KNEE SPECIAL REQUESTS : NONE CULTURE : NO ANAEROBES ISOLATED SO FAR. REPORT STATUS : PRELIMINARY REPORT TEST:Sterile Fluid Culture STATUS:Auth (Verified) BODY SITE: SOURCE:JOINT COLLECTED DATE/TIME:03/20/22 11:05 PM Sterile Fluid Culture SPECIMEN DESCRIPTION : JOINT FLUID LT KNEE SPECIAL REQUESTS : NONE GRAM STAIN : NO CELLS OR ORGANISMS SEEN CULTURE : NO GROWTH 2 DAYS REPORT STATUS : FINAL 03/23/2022 TEST:Blood Culture, Second Order STATUS:Auth (Verified) BODY SITE: SOURCE:Blood COLLECTED DATE/TIME:03/20/22 8:24 PM Blood Culture, Second Order SPECIMEN DESCRIPTION : BLOOD RIGHT UPPER ARM SPECIAL REQUESTS : NONE CULTURE : NO GROWTH 5 DAYS. REPORT STATUS : FINAL 03/26/2022 TEST:Blood Culture STATUS:Auth (Verified) BODY SITE: SOURCE:Blood COLLECTED DATE/TIME:03/20/22 8:10 PM Blood Culture SPECIMEN DESCRIPTION : BLOOD RAC SPECIAL REQUESTS : NONE CULTURE : NO GROWTH 5 DAYS. REPORT STATUS : FINAL 03/26/2022 Vital Signs Most recent to oldest [Reference Range]: 1 2 3 Height 170 cm (03/29/22 7:36 AM) 170 cm (03/28/22 11:41 PM) 170 cm (03/28/22 8:14 PM) Weight 81.75 kg (03/21/22 2:29 PM) 81.75 kg (03/21/22 2:24 PM) Oxygen Saturation [94-100 %] 98 % (03/29/22 7:36 AM) 95 % (03/28/22 11:41 PM) 97 % (03/28/22 8:14 PM) Pulse Rate [55-90 bpm] 72 bpm (03/29/22 7:36 AM) 84 bpm (03/28/22 11:41 PM) 84 bpm (03/28/22 8:14 PM) Body Mass Index [18.5-24.99] 28.29 *H* (03/21/22 2:29 PM) 28.29 *H* (03/21/22 2:24 PM) Blood Pressure [90-138/55-84 mm Hg] 146/78mm Hg *H* (03/29/22 8:13 AM) 146/78mm Hg *H* (03/29/22 8:13 AM) 146/78mm Hg *H* (03/29/22 7:36 AM) Respiratory Rate [16-30 br/min] 20 br/min (03/29/22 12:49 PM) 20 br/min (03/29/22 11:57 AM) 20 br/min (03/29/22 11:54 AM) Temperature [96.8-100.4 DegF] 97.6 DegF (03/29/22 7:36 AM) 98.1 DegF (03/28/22 11:41 PM) 98.8 DegF (03/28/22 8:14 PM) Mode of Delivery (Oxygen) Room air (03/29/22 7:36 AM) Room air (03/28/22 11:41 PM) Room air (03/28/22 8:14 PM) Blood pressure sites Arm, left (03/29/22 7:36 AM) Arm, right (03/28/22 11:41 PM) Arm, right (03/28/22 8:14 PM) Temperature Route Axillary (03/29/22 7:36 AM) Oral (03/28/22 11:41 PM) Oral (03/28/22 8:14 PM) Dry Weight 81.75 kg (03/21/22 2:29 PM) 81.75 kg (03/21/22 2:24 PM) Weight Obtained Via Standing scale (03/21/22 2:24 PM) Dry Weight Obtained Via Standing scale (03/21/22 2:24 PM) Social History Social History Type Response Tobacco Other: started [employer] at 20 years old, now about 5 cigarettes. Sex
--- OUTSIDE RECORDS SUMMARY | 2023-06-23 09:49 | XMS_ITS | Continuity of Care Document ---
Author Name Unknown Organization [facility] Address [address] [place] [address]- Care Team Providers Care Laser Operator Name Role Phone Kristen Boudreaux DO Primary Care Physician [facility]): 03/14/22 - 04/13/22 [facility] [address], [place] [address] Allergies, Adverse Reactions, Alerts [...] 04/12/22 17:42:00 EDT, Route to Pharmacy Electronically, [facility]/pharmacy #[id number], Partial fill upon patient request if the prescription is for... Start Date: 04/12/22 Status: Ordered amLODIPine 10 mg oral tablet 1 tablet, By Mouth, Daily, # 90 tablet, 1 Refills, Maintenance, 04/08/22 10:06:00 EDT, [facility]/pharmacy#[id number], 170, cm, 04/04/22 15:17:00 EDT, Height, 81.75, [...] Mouth, Daily, # 30 tablet, 0 Refills, [facility] [id number], 170, cm, 04/04/22 15:17:00 EDT,Height, 81.75, kg, [...] 04/08/22 10:11:00 EDT, Route to Pharmacy Electronically, [facility]/pharmacy #[id number], 170, cm, 04/04/22 15:17:00 EDT, Height, [...] Refills, Maintenance, 04/12/22 17:56:00 EDT, CR Capsule, [facility]/pharmacy #[id number], Partial fill upon patient request if the prescription is for a schedule II opioid drug., 170, cm, 07... Start Date: 04/12/22 Status: Ordered famotidine 20 mg oral tablet 1, tablet, By Mouth, Daily, # 90 tablet, Refills 0, Tot. Refills 0, Maintenance, 04/08/22 10:12:00 EDT, Route to Pharmacy Electronically, [facility]/pharmacy #[id number], 170, cm, 04/04/22 15:17:00 EDT, Height, 81.75, kg, 03/21/22 15:54:00 EDT, Dry Weight Start Date: 04/08/22 Status: Ordered hydrALAZINE 25 mg oral tablet 2, tablet, By Mouth, 3 times a day, for 30 days, # 180 tablet, Refills 0, Physician Stop, Route to Pharmacy Electronically, [facility] [id number], 170, cm, 04/04/22 15:17:00 EDT, Height, 81.75, [...] 4 Refills, Maintenance, 04/04/22 16:32:00 EDT, Cream, [facility]/pharmacy #[id number], Partial fill upon patient request if the prescription is for a schedule II opioid drug., 1 application Topically 3 times a day,... Start Date: 04/04/22 Status: Ordered lisinopril 20 mg oral tablet 20 mg, 1, tablet, By Mouth, Daily, # 30 tablet, Refills 6, Tot. Refills 6, Maintenance, 03/18/22 14:25:00 EDT, Route to Pharmacy Electronically, [facility]/pharmacy #[id number], Partial fill upon patient request if the prescription is for a schedule II opioid drug... Start Date: 03/18/22 Status: Ordered Methadone = 80 mg, By Mouth, Daily, last received from [facility] 03/19/22 & took home 3 doses. Ro Confirmed [phone], 0 Refills, Maintenance, 03/21/22 11:55:00 EDT, ; Start Date: 03/21/22 Status: Ordered Multivitamin 1 tablet, By Mouth, Daily, 0 Refills, Maintenance, 03/21/22 2:31:00 EDT, ; Start Date: 03/21/22 Status: Ordered Pen [place], 29 G x 12.7 mm BD Ultra [...] recurrent, due to IVDU including admission to [facility] --> [facility] 09/18/2015 to 10/29/2015 for retroperitoneal [...] ex tremity, followed by Karena [facility] [phone](Confirmed) Active Venous ulcer of right leg(Confirmed) Active Social History Social History Type Response Tobacco Other: started [employer] at 20 years old, now about 5 cigarettes. Sex
--- OUTSIDE RECORDS SUMMARY | 2023-06-23 09:49 | XMS_ITS | Continuity of Care Document ---
Author Name Unknown Organization [facility] Address [address] [place] [id number]- Care Team Providers Care Needle Loom Weaver Name Role Phone Crystal Gordillo MD Primary Care Physician Encounter [facility] Date(s): 06/26/20 - 07/26/20 [facility] [address] [place] [id number]- [facility] Attending Physician: Nader Jansen Admitting Physician: AdmtrNader Referring Physician: AdmtrNader Allergies, Adverse Reactions, Alerts Substance Reaction Severity [...] ceftriaxone and send results to Dr Burnett.fax [phone], 08/23/16 15:40:34, Compound Start Date: 08/23/16 Status: [...] 09/29/20 14:06:00 EST, 06/01/20 14:06:00 EDT, Cream, [facility]/pharmacy #[id number], apply to right leg wounds daily, 1 application Topically Daily,x30 days, 170.18, cm, 06/01/20 13:05:00 EDT... 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 including admission to [facility] --> [facility] 09/18/2015 to 10/29/2015 for retroperitoneal abscess, MSSA bacteremia(Confirmed) Active ADHD (attention deficit hype ractivity disorder)(Confirmed) Active IDDM (insulin dependent diab etes mellitus)(Confirmed) Active Diabetic neuropathy(Confirmed) Active Overweight(Confirmed) Active Right LE venous ulcer, follo wed by Karena [facility] [phone](Confirmed) Active Venous ulcer of right leg(Confirmed) Active Social History Social History Type Response Smoking Status Current every day dennise doherty entered on: 10/30/15 Sex
--- OUTSIDE RECORDS SUMMARY | 2023-06-23 09:49 | XMS_ITS | Continuity of Care Document ---
Author Name Unknown Organization [facility] Address [address] [place] [id number]- Care Team Providers Care Salon Customer Experience Specialist Name Role Phone Kristen Boudreaux DO Primary Care Physician Encounter [facility] Date(s): 07/03/22 - 08/02/[address] [address] Attending Physician: Nader Jansen Admitting Physician: Admtr, [id number] Referring Physician: Admtr, [...] 05/16/22 14:00:00 EDT, Route to Pharmacy Electronically, [facility]/pharmacy #[id number], Partial fill upon patient request if the prescription is for... Start Date: 05/16/22 Status: Ordered amLODIPine 10 mg oral tablet 1 tablet, By Mouth, Daily, # 90 tablet, 1 Refills, Maintenance, 04/08/22 10:06:00 EDT, [facility]/pharmacy#[id number], 170, cm, 04/04/22 15:17:00 EDT, Height, 81.75, [...] 90 tablet, 3 Refills, 05/16/22 14:00:00 EDT, [facility]/pharmacy #[id number], 170.18, cm, 05/08/22 12:22:00 EDT, Height, [...] 04/26/22 14:29:00 EDT, Route to Pharmacy Electronically, [facility]/pharmacy #[id number], 170, cm, 04/12/22 15:12:00 EDT, Height, [...] CRUSH. /CHEW., # 30 capsule, 5 Refills, [facility]ORE 55214, 170.18, cm, 05/08/22 12:22:00 EDT, Height, 81.8, kg, 05/08/22 12:22:00 EDT, Dry Weight Start Date: 05/15/22 Status: Ordered famotidine 20 mg oral tablet 1, tablet, By Mouth, Daily, # 90 tablet, Refills 3, Tot. Refills 3, Maintenance, 05/16/22 14:01:00 EDT, Route to Pharmacy Electronically, [facility]/pharmacy #[id number], 170.18, cm, 05/08/22 12:22:00 EDT, Height, 81.8, kg, 05/08/22 12:22:00 EDT, Dry Weight Start Date: 05/16/22 Status: Ordered hydrALAZINE 25 mg oral tablet 50 mg, 2, tablet, By Mouth, 3 times a day, # 180 tablet, Refills 3, Tot. Refills 3, Maintenance, 05/23/22 15:52:00 EDT, [id number] Partial fill upon patientrequest if [...] 03/18/22 14:25:00 EDT, Route to Pharmacy Electronically, [facility]/pharmacy #[id number], Partial fill upon patient request if the prescription is for a schedule II opioid drug... Start Date: 03/18/22 Status: Ordered Methadone = 80 mg, By Mouth, Daily, [facility] 3 doses. Ro Confirmed [phone], 0 Refills, Maintenance, 03/21/22 11:55:00 EDT, ; Start Date: 03/21/22 Status: Ordered Multivitamin 1 tablet, By Mouth, Daily, 0 Refills, Maintenance, 03/21/22 2:31:00 EDT, ; Start Date: 03/21/22 Status: Ordered Pen [place], 29 G x 12.7 mm BD Ultra [...] recurrent, due to IVDU including admission to [facility] --> [facility] 09/18/2015 to 10/29/2015 for retroperitoneal [...] lower extremity, followed by Karena [facility] [phone] Confirmed Active Venous ulcer of right leg [...] Care Nurse Name: Tayler Harris RN Position: [facility] RN Member Role: Primary Care Nurse Name: Carline Cantu RN Position: [facility] RN Member Role: Primary Care Nurse Name: Katalina Jorge RN [facility] [...] Member Role: Lifetime Consulting Physician Address: Address: [address] [place], [place] [address] [place] [address]- Name: Lorene Billingsley RN Position: [facility] Onco RN Member Role: Primary Care Nurse Name: Kathy Nievse RN Position: [facility] ED RN W/OE and Tasks Member Role: Primary Care Nurse Name: Sophia Johnson Position: [facility] RN Member Role: Primary Care Nurse Name: Awais Brenner RN Position: [facility] RN [...] [facility] Resident Member Role: PCP Address: Address: [address] [place] [address] [place] [address]- Name: Neil Bobby RN Position: [facility] ED RN W/OE and Tasks Member Role: Primary Care Nurse Name: Joellen Pineda RN Position: [facility] RN Member Role: Primary Care Nurse Name: Litzy Marin RN Position: [facility] RN Member Role: Primary Care Nurse Name: Nohemi Grande RN Position: [facility] [employer]ics Systems Engineer Member Role: Primary Care Nurse Name: Yolanda Tyler RN Position: [facility] [employer] Systems Engineer Member Role: Primary Care Nurse Care Team Related Persons Name: TAWNY BUTLER Address: home [address] [place] [address]
--- OUTSIDE RECORDS SUMMARY | 2023-06-23 09:49 | XMS_ITS | Continuity of Care Document ---
Author Name Unknown Organization [facility] Address [address] [facility] [address] [place] [address]- Care Team Providers Care Superintendent Meter Tests Name Role Phone Kristen Boudreaux DO Primary Care Physician Encounter [facility] ACCT R [id number] Date(s): 08/04/22 - 10/03/22 [facility] [address] [facility] [address] [place] [address]- Attending Physician: Gaurav Luu MD Admitting Physician: Gaurav Luu MD Allergies, Adverse Reactions, Alerts Substance Reaction Severity Status Risperdal tongue swells Active Compazine difficulty breathing difficulty Active Immunizations Given and Recorded Vaccine Date Status Refusal Reason influenza virus vaccine, inactivated 09/14/22 Give n influenza virus vaccine, inactivated 09/19/15 Give n influenza virus vaccine, inactivated 07/03/09 Dany rded [id number] bivalent booster vax 07/17/22 Recorded pneumococcal 20-valent [...] 05/16/22 14:00:00 EDT, Route to Pharmacy Electronically, [facility]/pharmacy #[id number], Partial fill upon patient request if the prescription is for... Start Date: 05/16/22 Status: Ordered Aspirin Low Dose 81 mg oral delayed release tablet 1 tablet, By Mouth, Daily, # 90 tablet, 3 Refills, 05/16/22 14:00:00 EDT, [facility]/pharmacy #[id number], 170.18, cm, 05/08/22 12:22:00 EDT, Height, [...] 04/26/22 14:29:00 EDT, Route to Pharmacy Electronically, [facility]/pharmacy #[id number], 170, cm, 04/12/22 15:12:00 EDT, Height, [...] CRUSH. /CHEW., # 30 capsule, 5 Refills, [id number], 170.18, cm, 05/08/22 12:22:00 EDT, Height, 81.8, kg, 05/08/22 12:22:00 EDT, Dry Weight Start Date: 05/15/22 Status: Ordered famotidine 20 mg oral tablet 1, tablet, By Mouth, Daily, # 90 tablet, Refills 3, Tot. Refills 3, Maintenance, 05/16/22 14:01:00 EDT, Route to Pharmacy Electronically, [facility]/pharmacy #[id number], 170.18, cm, 05/08/22 12:22:00 EDT, Height, 81.8, kg, 05/08/22 12:22:00 EDT, Dry Weight Start Date: 05/16/22 Status: Ordered hydrALAZINE 25 mg oral tablet 50 mg, 2, tablet, By Mouth, 3 times a day, # 180 tablet, Refills 3, Tot. Refills 3, Maintenance, 05/23/22 15:52:00 EDT, Route to Pharmacy Electronically, [facility]/pharmacy #[id number], Partial fill upon patientrequest if the [...] 09/21/22 10:34:00 EST, Route to Pharmacy Electronically, [facility], Partial fill upon patient request if the... Start Date: 09/21/22 Status: Ordered lisinopril 20 mg oral tablet 20 mg, 1, tablet, By Mouth, Daily, Refill per PCP or Nephrology, # 30 tablet, Refills 0, Tot. Refills 0, Maintenance, 09/21/22 10:35:00 EST, Route to Pharmacy Electronically, [facility], Partial fill upon patient request if the prescript... Start Date: 09/21/22 Status: Ordered Methadone = 75 mg, By Mouth, Daily, [facility] 3 doses. Ro Confirmed [phone], 0 Refills, Maintenance, 03/21/22 11:55:00 EDT, ; Start Date: 03/21/22 Status: Ordered Pen Bohannon, 29 G x 12.7 mm BD Ultra [...] due to IVDU including admission to [facility] --> [facility] 09/18/2015 to 10/29/2015 [...] lower extremity, followed by Karena Olivas [facility] [phone] Confirmed Active Venous ulcer of right leg [...] Safety Implantable Status Assigning Authority Unknown Unknown [id number] Unknown 06/26/24 Unknown Unknown Active Unknown Patient Care team information Care Team Personnel Name: Maryam Fox RN Position: [facility] RN Member Role: Primary Care Nurse Name: Franchesca Ward RN Position: [facility] RN Member Role: Primary Care Nurse Name: Carolina Camacho RN Position: [facility] SN RN Member Role: Primary Care Nurse Name: Linda Hathaway Position: [facility] Outreach Member Role: Lifetime Consulting Physician Name: Delaney Huber RN Position: [facility] RN Member Role: Primary Care Nurse Name: Juanita Main RN Position: [facility] RN Member Role: Primary Care Nurse Name: China Sutherland RN Position: [facility] Outreach Member Role: Lifetime Consulting Physician Name: Tayler Harris RN Position: [facility] RN Member Role: Primary Care Nurse Name: Sophie Bejarano NP Position: [facility] Associate Professional Member Role: Lifetime Consulting Provider Address: Address: [address] [place], [place] [address] [address] Name: Carline Cantu RN Position: [facility] RN Member Role: Primary Care Nurse Name: Vasile Byers MD Position: [facility] Renal MD Member Role: Lifetime Consulting Physician Address: Address: [address] [place], [place] [address] [address] Name: Katalina Jorge RN Position: [facility] OB RN Member Role: Primary Care Nurse Name: Lorene Davenport RN Position: [facility] RN Member Role: Primary Care Nurse Name: Meryl Saini RN Position: [facility] SN RN Member Role: Primary Care Nurse Name: Annie Langston RN Position: [facility] RN Member Role: Primary Care Nurse Name: Guillermo Encinas DO Position: [facility] Renal MD Member Role: Lifetime Consulting Physician Address: Address: [address] [place], [place] [address]E [facility] [address] Name: Lorene Billingsley RN Position: [facility] Onco RN Member Role: Primary Care Nurse Name: Kathy Nieves RN Position: [facility] ED RN W/OE and Tasks Member Role: Primary Care Nurse Name: Sophia Johnson Position: [facility] RN Member Role: Primary Care Nurse Name: Awais Brenner RN Position: [facility] RN Member Role: Primary Care Nurse Name: Paradise Linder RN Position: [facility] RN Member Role: Primary Care Nurse Name: Pina Mcgill RN Position: [facility] RN Member Role: Primary Care Nurse Name: Yumiko Lindsay RN Position: [facility] RN Member Role: Primary Care Nurse Name: Vincent Thapa RN Position: [facility] RN Member Role: Primary Care Nurse Name: Kristen Boudreaux DO Position: [facility] Resident Member Role: PCP Address: Address: [address] [facility] [place] [address]- Name: Nicole Guzman RN Position: [facility] RN Member Role: Primary Care Nurse Name: Neil Bobby RN Position: [facility] ED RN W/OE and Tasks Member Role: Primary Care Nurse Name: Joellen Pineda RN Position: [facility] RN Member Role: Primary Care Nurse Name: Litzy Marin RN Position: [facility] RN Member Role: Primary Care Nurse Name: Crystal Robles RN Position: [facility] RN Member Role: Primary Care Nurse Name: Ruth Stevens LPN Position: [facility] RN Member Role: Primary Care Nurse Name: Nohemi Grande RN Position: [facility] Neuropsychiatrist Member Role: Primary Care Nurse Name: Yolanda Tyler RN Position: [facility] Neuro[facility]iatrist Member Role: Primary Care Nurse Care Team Related Persons Name: TAWNY BUTLER Address: home [address] [place] [address]
--- OUTSIDE RECORDS SUMMARY | 2023-06-23 09:49 | XMS_ITS | Continuity of Care Document ---
Author Name Unknown Organization [facility] ter Address [address] [place] [id number]- Care Team Providers Care [employer] Advisor Name Role Phone Kristen Boudreaux DO Primary Care Physician [place] [facility] [place] - 03/17/[address] [id number] Discharge Disposition: A-D/C Home Attending [...] influenza virus vaccine, inactivated 07/03/09 Dany rded [id number] bivalent booster vax 07/17/22 Recorded [id number] bivalent booster vax 07/17/22 Recorded pneumococcal 20-valent [...] capsule, 8 Refills, Maintenance, 11/25/22 8:27:00 EST, [id number], 170, cm, 10/09/22 16:43:00 EST, Height, 69.1, kg, 11/14/22 7:40:00 EST, Dry Weight Start Date: 11/25/22 Status: Ordered famotidine 20 mg oral tablet 1, tablet, By Mouth, Daily, # 90 tablet, Refills 0, Maintenance, 03/14/23 13:30:00 EDT, Route to Pharmacy Electronically, [facility] [id number], 170.1, cm, 03/14/23 9:45:00 EDT, Height, 68.4, kg, 03/14/23 9:45:00 EDT, Dry Weight Start Date: 03/14/23 Status: Ordered furosemide 40 mg oral tablet 3, tablet, By Mouth, 2 times a day, REFILL PER PCP OR NEPHROLOGY., # 180 tablet, Refills 2, Maintenance, 12/19/22 17:33:00 EDT, Route to Pharmacy Electronically, [id number], 170, cm, 12/19/22 10:06:00 EDT, Height, 71.6, [...] to IVDU including [place] [facility] [place] [facility] 09/18/2015 to 10/29/2015 for retroperitoneal abscess, MSSA [...] lower extremity, followed by Karena Olivas [facility] [phone] Confirmed Active Venous ulcer of right leg Confirmed Active Vital Signs Most recent to oldest [Reference Range]: 1 2 3 Height 170.1 cm (03/17/23 7:07 AM) 170.1 cm (03/14/23 9:45 AM) Weight 71 kg (03/17/23 7:07 AM) 68.4 kg (03/14/23 9:45 AM) Oxygen Saturation [94-100 %] 99 % (03/17/23 8:51 AM) 99 % (03/17/23 8:45 AM) 97 % (03/17/23 8:30 AM) Pulse Rate [55-90 bpm] 73 bpm (03/17/23 7:07 AM) Body Mass Index [18.5-24.99 kg/m2] 24.54 kg/m2 (03/17/23 7:07 AM) 23.64 kg/m2 (03/14/23 9:45 AM) Blood Pressure [90-138/55-84 mm Hg] 142/71mm Hg *H* (03/17/23 8:45 AM) 142/43mm Hg *H* (03/17/23 8:30 AM) 151/63mm Hg *H* (03/17/23 7:49 AM) Respiratory Rate [16-30 br/min] 17 br/min (03/17/23 8:45 AM) 12 br/min *L* (03/17/23 8:30 AM) 14 br/min *L* (03/17/23 7:49 AM) Temperature [96.8-100.4 DegF] 97.6 DegF (03/17/23 8:30 AM) 98.6 DegF (03/17/23 7:07 AM) Liters per Minute 2 L/min (03/17/23 7:49 AM) 2 L/min (03/17/23 7:45 AM) 2 L/min (03/17/23 7:44 AM) Mode of Delivery (Oxygen) Room air (03/17/23 8:51 AM) Room air (03/17/23 8:30 AM) Nasal cannula (03/17/23 7:49 AM) Blood pressure sites Arm, left (03/17/23 8:30 AM) Arm, left (03/17/23 7:07 AM) Temperature Route Temporal (03/17/23 8:30 AM) Temporal (03/17/23 7:07 AM) Dry Weight 71 kg (03/17/23 7:07 AM) 68.4 kg (03/14/23 9:45 AM) Weight Obtained Via Standing scale (03/17/23 7:07 AM) Patient/family stated (03/14/23 9:45 AM) Dry Weight Obtained Via Standing scale (03/17/23 7:07 AM) Patient/family stated (03/14/23 9:45 AM) Social History Social History Type Response [...] Safety Implantable Status Assigning Authority Unknown Unknown [id number] Unknown 07/25/23 Unknown Unknown Active Unknown Procedure Provider Procedure Date Device Type Site Insertion Hemodialysis Catheter Tyshawn Milian MD Unknown Chest Device Identifier Serial Number Lot or Batch Number Manufacturing Date Expiration Date Distinct Identification Code MRI Safety Implantable Status Assigning Authority Unknown Unknown [id number] Unknown 06/26/24 Unknown Unknown Active Unknown History and physical note * Event Display: History and Physical Hospital Authored Date: Note * Román VILLAVICENCIO Nereyda: PERFORM Event Display: Discharge/Transfer Note Hospital Authored Date: [id number] Nursing Discharge Note Entered On: 03/17/2023 8:59 EDT Performed On: 03/17/2023 8:52 EDT by Nereyda France RN Nursing Discharge Note 2 Discharge Time : 03/17/2023 8:55 EDT Discharge Level of Care at Discharge : Home/Half-Way/Foster Care Patient Left Unit Via : Wheelchair Patient Accompanied Off Unit with : Responsible adult DC Instructions Provided & Signed by Pt : Yes Patient Understands D/C Instructions : Yes Verbalized Understanding of D/C Plan By : Patient Patient Instructions Discharge Signed : Yes Did Pt have Specialty Bed or Wound Vac : No Nereyda France RN - 03/17/2023 8:52 EDT * Nereyda France RN: PERFORM Event Display: Patient Education/Instruction Authored Date: [id number] Surgery Adult Discharge Instructions [place] [id number] Name: MICHAEL BUTLER : 1975?? Visit: 03/17/2023 06:15?? Current Date: 03/17/2023 08:40 ?? Account: [id number]?? Surgery Discharge Instructions We would like to thank [...] and their families. Surveys are administered by [employer] ?? If further treatment with your primary care physician or another doctor is recommended, it is important for you to keep the appointment. Call your primary care physician or return to the Emergency Department immediately if your condition worsens, fails to improve, or new symptoms develop. If you need to find a doctor, you can call [facility] [employer] for a referral at [phone] or toll free at [phone]) or log in to [email or web address].. ?? You can view and manage your care through the patient portal or by using a health care allison of your choosing. [employer] is a website that allows you to securely view your medical information including your hospital discharge summary, office visit summaries, medications and follow-up visits. You can also request appointments, renew medications, and request access to your medical information using a health care allison of your choosing, or just ask a question. You are entitled to know the individuals who participated in your treatment. This information is available within your medical record and will be provided upon your request. You can enroll at [email or web address] or register d uring your next office visit. You have been discharged from [facility], Patient Care Unit: [facility]??. If you have any questions regarding these instructions after you leave, please call us and we will be happy to assist you. [facility] Your Care Team Attending Physician López Iqbal MD?? Discharging Providers López Iqbal MD Reason for Admission RETINAL DETACHMENT VITRECTOMY DS CS Primary Care Provider Kristen Boudreaux DO? Advance Directive Health Care Proxy on File Yes - Health Care Proxy What to do next Instructions From Your Doctor ?? Orders?? Daystay Protocol, ??03/17/23 8:25:00 EDT?? Instructions from your Care Team ?Avoid any heavy lifting and bending over. ?Keep eye shield on until follow up appointment. ?Use caution as depth perception may be off while wearing eye shield. ?Bring all eye drops with you to follow up appointment.?Tylenol for discomfort.? Scheduled Follow-Up Appointments 2022 11:15 AM EDT ?? With: Marcia Carter NP Where: [facility] [address] [facility] [address] [place] [address]- Status: Pending Friday 2:20 PM EDT ?? With: Jasmine Mesisna MD Where: [facility] Infectious Disease [address] [place] [address]- Status: Pending 2022 9:20 AM EDT ?? With: Mp Liu MD Where: [facility] Medicine [address] [place] [address]- Status: Pending You Need to Schedule the Following Appointments Follow Up with??López Iqbal MD When:??Within 1-2 day: call to discuss follow up visit Where: [address] [facility], [address] [facility], [place] [address]- Follow Up with??Ada Lema MD When:??Within 1 to 2 weeks Where: [address] [place] [address]- Discharge Medications MICHAEL BUTLER :1975 Visit Date:03/17/2023 Medications: Please continue your medications until treatment is completed or stopped by your provider. You may resume your daily prescription medications. Discuss any questions related to medications with your provider. What How Much When Why Instructions Next Dose Changed Clonidine (cloNIDine 0.1 mg oral tablet) 2 tab(s) Oral TAKE 2 TABLETS BY MOUTH EVERY MORNING, 2 TABLETS AT NOON, AND 2 TABLETS EVERY EVENING ONLY IF BP > 160 ?? Unchanged Acetaminophen (acetaminophen 325 mg oral capsule) 2 capsule Oral Every 8 hours as needed for as needed for pain Unchanged Aspirin (aspirin 162.5 mg oral capsule, extended release) 325 Milligram Oral Daily Unchanged Carvedilol (carvedilol 25 mg oral tablet) 1 tab(s) Oral Twice a day Unchanged Cefepime (cefepime 1 g intravenous injection) 1,000 Milligram IV Piggyback Friday, Friday and Friday to be given during dialysis ?? Unchanged Docusate (Colace sodium 100 mg oral capsule) 1 capsule Oral Twice a day as needed for for constipation Duration: 30 Days Unchanged Duloxetine (duloxetine 30 mg oral enteric coated capsule) 1 capsule Oral Daily DONT CRUSH. / CHEW. ?? Unchanged Durable Medical Equipment (Compression Stockings) See instructions Chronic venous hypertension with ulcer and inflammation involving right side Chronic venous hypertension with ulcer and inflammation involving left side Lymphedema Juxta Lite Circaid compression wraps bilateral 30-40 mm Hg ?? Unchanged Durable Medical Equipment (Left arm, above the elbow prosthetic) See instructions Dx: left arm above the elbow amputation ?? Unchanged Durable Medical Equipment (Wheelchair) See instructions Lymphedema of left lower extremity Lymphedema 189.0 ?? Unchanged Famotidine (famotidine 20 mg oral tablet) 1 tab(s) Oral Daily Unchanged Furosemide (furosemide 40 mg oral tablet) 3 tab(s) Oral Twice a day REFILL PER PCP OR NEPHROLOGY. ?? Unchanged Methadone (methadone 10 mg oral tablet) 60 Milligram Oral Daily liquid form. ?? Unchanged Ofloxacin Ophthalmic (ofloxacin 0.3% ophthalmic solution) PLEASE SEE ATTACHED FOR DETAILED DIRECTIONS ?? Unchanged PrednisoLONE Ophthalmic (prednisolone ophthalmic acetate 1% suspension) INSTILL ONE DROP INTO THE LEFT EYE 4 TIMES A DAY STARTING THE DAY AFTER SURGERY AND CONTINUING. ?? Unchanged sucroferric oxyhydroxide (Velphoro 2500 mg (500 mg elemental iron) oral tablet, chewable) 1 tab(s) Chew 3 times a day with meals Allergies (NKA means No Known Allergies) Compazine??(difficulty breathing, difficulty) Risperdal??(tongue swells) Education Materials Below is the list of Educational Leaflet Providered with your Discharge Instructions. Surgery Medical Daystay Surgical Overnight Discharge Instructions?? Valuables and Belongings I fully understand and agree that [facility] accepts no responsibility for all [...] patient Date for Pt to Sign Valuables/Belongings: 03/17/23 07:12:00 ?? Valuables & Belongings ?? Clothes Electronic devices Jewelry Monetary Items Personal devices Miscellaneous Medications (Valuables) Valuables at Bedside Pants, Shirt, Shoes, Undergarments Cell phone ?? Wallet Glasses ? Valuables Sent Home ? Valuables Sent to Security ? Other Discharge Information ? Pulmonary Rehab Status?? Pulmonary Rehab Discharge Status?? Respiratory Rate:??12 br/min??Low ? Common Emergency Awareness Tips IS [...] are strongly encouraged to quit. Please call [facility] [employer] at [phone] or [phone]) or log in to [email or web address] for referrals to smoking cessation programs. ?? The National Suicide Prevention Hotline is available 14/04 if you or someone you know needs to find a reason to keep living. By calling 9-772-024-[employer] (8232) you'll be connected to a skilled, trained counselor at a crisis center in your area. SURGERY DISCHARGE INSTRUCTIONS SIGNATURE PAGE MICHAEL BUTLER Location:[facility] Registration Date and Time:03/17/2023 06:15 EDT Primary Care Physician: Kristen Boudreaux DO, Attending Physician: López Iqbal MD, I CARRIE , have received the above patient education materials/instructions and have verbalized understanding. If ambulance or transport services are being used I further acknowledge being given a choice of service. ?? If you need to contact me, please call me at this number: . Patient/Harness And Bag Inspector Name: Patient/Harness And Bag Inspector Signature: Relationship to Patient: Witness Name/Signature: Date: * Nereyda France RN: PERFORM Event Display: Patient Education Leaflets Authored Date: [id number] Surgery Medical Daystay Surgical Overnight Discharge Instructions [...] Care Nurse Name: Carolina Camacho RN Position: [facility] SN RN Member Role: Primary Care Nurse Name: Linda Hathaway Position: [facility] Outreach Member Role: Lifetime Consulting Physician Name: Cynthia Hathaway RN Position: [facility] RN Member Role: Primary Care Nurse Name: Delaney Huber RN Position: [facility] RN Member Role: Primary Care Nurse Name: Juanita Main RN Position: [facility] RN Member Role: Primary Care Nurse Name: China Sutherland Position: [facility] Outreach Member Role: Lifetime Consulting Physician Name: Tayler Harris RN Position: [facility] RN Member Role: Primary Care Nurse Name: Sophie Bejarano NP Position: [facility] Associate Professional Member Role: Lifetime Consulting Provider Address: Address: [address] [place] [address] [address] [facility] [address] Name: Vasile Byers MD Position: [facility] Renal MD Member Role: Lifetime Consulting Physician Address: Address: [address] [place] [address] [address] [facility] [address] Name: Edgar Mascorro RN Position: [facility] RN Member Role: Primary Care Nurse Name: Katalina Jorge RN Position: [facility] OB RN Member Role: Primary Care Nurse Name: Sophia Adan LPN Position: [facility] RN Member Role: Primary Care Nurse Name: Lorene Davenport RN Position: [facility] RN Member Role: Primary Care Nurse Name: Meryl Saini RN Position: [facility] SN RN Member Role: Primary Care Nurse Name: Allison Montez RN Position: [facility] RN Member Role: Primary Care Nurse Name: Guillermo Encinas DO Position: [facility] Renal MD Member Role: Lifetime Consulting Physician Address: Address: [address] [place] [address] [address] [facility] [place] [address]- Name: Christiano Parish RN Position: [facility] RN Member Role: Primary Care Nurse Name: Lorene Billingsley RN Position: [facility] Onco RN Member Role: Primary Care Nurse Name: Kathy Nieves RN Position: [facility] EARLE RN W/OE and Tasks Member Role: Primary Care Nurse Name: Nita aGrcias RN Position: [facility] RN Member Role: Primary Care Nurse Name: Tyshawn Cook III, RN Position: [facility] RN Member Role: Primary Care Nurse Name: Mayuri England RN Position: [facility] RN Member Role: Primary Care Nurse Name: Sophia Johnson Position: [facility] RN Member Role: Primary Care Nurse Name: Paradise Linder RN Position: [facility] RN Member Role: Primary Care Nurse Name: Noemi Bustos RN Position: [facility] RN Member Role: Primary Care Nurse Name: Jennifer Song RN Position: [facility] RN Supv Member Role: Primary Care Nurse Name: Pina Mcgill RN Position: [facility] RN Member Role: Primary Care Nurse Name: Reina Franklin RN Position: [facility] RN Member Role: Primary Care Nurse Name: Yumiko Lindsay RN Position: [facility] RN Member Role: Primary Care Nurse Name: Vincent Thapa RN Position: [facility] RN Member Role: Primary Care Nurse Name: Kristen Boudreaux DO Position: [facility] Resident Member Role: PCP Address: Address: [address] [place] [address] [place] [address]- Name: Nicole Guzman RN Position: [facility] RN Member Role: Primary Care Nurse Name: Neil Bobby RN Position: [facility] ED RN W/OE and Tasks Member Role: Primary Care Nurse Name: Joellen Pineda RN Position: [facility] RN Member Role: Primary Care Nurse Name: Litzy Marin RN Position: [facility] RN Member Role: Primary Care Nurse Name: Crystal Robles RN Position: [facility] RN Member Role: Primary Care Nurse Name: Ruth Stevens LPN Position: [facility] RN Member Role: Primary Care Nurse Name: Nohemi Grande RN Position: [facility] [place] Member Role: Primary Care Nurse Name: Yolanda Tyler RN Position: [facility] Member Role: Primary Care Nurse Care Team Related Persons Name: TAWNY BUTLER Address: home [address] [place] [address]
--- OUTSIDE RECORDS SUMMARY | 2023-06-23 09:49 | XMS_ITS | Continuity of Care Document ---
Author Name Unknown Organization [facility] Address [address] [place] [address]- Care Team Providers Care Digital Marketing Executive Name Role Phone Kristen Boudreaux DO Primary Care Physician [phone] Encounter [facility] Date(s): 08/14/22 - 09/13/22 [facility] [address] [place], [place] [address] Attending Physician: AdmNader faith Admitting Physician: Admtr, [id number] Referring Physician: Admtr, Ar8 Allergies, Adverse Reactions, [...] 05/16/22 14:00:00 EDT, Route to Pharmacy Electronically, [facility]/pharmacy #[id number], Partial fill upon patient request if the prescription is for... Start Date: 05/16/22 Status: Ordered amLODIPine 10 mg oral tablet 1 tablet, By Mouth, Daily, # 90 tablet, 1 Refills, Maintenance, 04/08/22 10:06:00 EDT, [facility]/pharmacy#1130, 170, cm, 04/04/22 15:17:00 EDT, Height, 81.75, kg, 03/21/22 15:54:00 EDT, Dry Weight Start Date: 04/08/22 Status: Ordered Aspirin Low Dose 81 mg oral delayed release tablet 1 tablet, By Mouth, Daily, # 90 tablet, 3 Refills, 05/16/22 14:00:00 EDT, [facility]/pharmacy #1130, 170.18, cm, 05/08/22 12:22:00 [...] 04/26/22 14:29:00 EDT, Route to Pharmacy Electronically, [facility]/pharmacy #1130, 170, cm, 04/12/22 15:12:00 [...] CRUSH. /CHEW., # 30 capsule, 5 Refills, [facility] STORE [id number], 170.18, cm, 05/08/22 12:22:00 EDT, Height, 81.8, kg, 05/08/22 12:22:00 EDT, Dry Weight Start Date: 05/15/22 Status: Ordered famotidine 20 mg oral tablet 1, tablet, By Mouth, Daily, # 90 tablet, Refills 3, Tot. Refills 3, Maintenance, 05/16/22 14:01:00 EDT, Route to Pharmacy Electronically, [facility]/pharmacy #1130, 170.18, cm, 05/08/22 12:22:00 EDT, Height, 81.8, kg, 05/08/22 12:22:00 EDT, Dry Weight Start Date: 05/16/22 Status: Ordered hydrALAZINE 25 mg oral tablet 50 mg, 2, tablet, By Mouth, 3 times a day, # 180 tablet, Refills 3, Tot. Refills 3, Maintenance, 05/23/22 15:52:00 EDT, Route to Pharmacy Electronically, [facility]/pharmacy #1130, Partial fill upon patientrequest if the prescription is for a schedule II op... Start Date: 05/23/22 Stop Date: 09/20/22 Status: Ordered Insulin Lispro KwikPen 100 units/mL injectable solution 2-10 units, Subcutaneous Injection, 3 times a day before meals, Maintenance, 03/21/22 11:54:00 EDT,; Start Date: 03/21/22 Status: Ordered Methadone = 75 mg, By Mouth, Daily, [facility] & took [facility] 3 doses. Ro Confirmed [phone], 0 Refills, Maintenance, 03/21/22 11:55:00 EDT, ; Start Date: 03/21/22 Status: Ordered Pen [place], 29 G x 12.7 mm BD Ultra Fine See Instructions, # 100 each, Refills 5, Tot. Refills 5, Maintenance, use as directed for Type 2 Diabetes Mellitus, 05/16/22 14:00:00 EDT, Supply, 170.18, cm, 05/08/22 12:22:00 EDT, Height, 81.8, kg,05/08/22 12:22:00 EDT, Dry Weight Start Date: 05/16/22 Stop Date: 11/12/22 Status: Ordered sodium polystyrene sulfonate 15 g/60 [...] lower extremity, followed by Karena Olivas [facility] [id number] Confirmed Active Venous ulcer of right leg Confirmed Active Social History Social History Type Response Tobacco Other: started smoki ng at 20 years old, now about 5 cigarettes. Sex Patient Care team information Care Team Personnel Name: Maryam Fox RN Position: S RN Member Role: Primary Care Nurse Name: Franchesca Ward RN Position: [facility] RN Member Role: Primary Care Nurse Name: Carolina Camacho RN Position: [facility] SN RN Member Role: Primary Care Nurse Name: Linda Hathaway Position: [facility] Outreach Member Role: Lifetime Consulting Physician Name: Delaney Huber RN Position: [facility] RN Member Role: Primary Care Nurse Name: Juanita Main RN Position: [facility] RN Member Role: Primary Care Nurse Name: Tayler Harris RN Position: [facility] RN Member Role: Primary Care Nurse Name: Carline Cantu RN Position: [facility] RN Member Role: Primary Care Nurse Name: Vasile Byers MD Position: [facility] Renal MD Member Role: Lifetime Consulting Physician Address: Address: [address] [place] [address] [address] [facility] [place] [address]- Name: Katalina Jorge RN Position: [facility] OB RN Member Role: Primary Care Nurse Name: Lorene Davenport RN Position: [facility] RN Member Role: Primary Care Nurse Name: Meryl Saini RN Position: [facility] SN RN Member Role: Primary Care Nurse Name: Guillermo Encinas DO Position: [facility] Renal MD Member Role: Lifetime Consulting Physician Address: Address: [address] [place] [address] [address] [facility] [place] [address]- Name: Lorene Billingsley RN Position: [facility] Onco RN Member Role: Primary Care Nurse Name: Kathy Nieves RN Position: [facility] ED RN W/OE and Tasks Member Role: Primary Care Nurse Name: Sophia Johnson Position: [facility] RN Member Role: Primary Care Nurse Name: Awais Brenner RN Position: [facility] RN Member Role: Primary Care Nurse Name: Paradise Linder RN Position: [facility] RN Member Role: Primary Care Nurse Name: Pina Mcgill RN Position: [facility] RN Member Role: Primary Care Nurse Name: Yumiko Lindsay RN Position: [facility] RN Member Role: Primary Care Nurse Name: Vincent Thapa RN Position: [facility] RN Member Role: Primary Care Nurse Name: Kristen Boudreaux DO Position: [facility] Resident Member Role: PCP Address: Address: [address] [place] [address]- [place] Name: Neil Bobby RN Position: [facility] ED RN W/OE and Tasks Member Role: Primary Care Nurse Name: Joellen Pineda RN Position: [facility] RN Member Role: Primary Care Nurse Name: Litzy Marin RN Position: [facility] RN Member Role: Primary Care Nurse Name: Ruth Stevens LPN Position: [facility] RN Member Role: Primary Care Nurse Name: Nohemi Grande RN Position: [facility] Pedicurist Member Role: Primary Care Nurse Name: Yolanda Tyler RN Position: [facility] Pedicurist Member Role: Primary Care Nurse Care Team Related Persons Name: TAWNY BUTLER Address: [address] [address]
--- OUTSIDE RECORDS SUMMARY | 2023-06-23 09:50 | XMS_ITS | Continuity of Care Document ---
Author Name Unknown Organization [facility] Address [address] [place] [address]- Care Team Providers Care Cutter And Paster Press Clippings Name Role Phone Kristen Boudreaux DO Primary Care Physician Encounter [facility] [place] Date(s): 04/01/23 - 05/01/23 [facility] [address] [place] [id number] Attending Physician: Nader Jansen Admitting Physician: Nader Jansen Referring Physician: Nader Jansen Referring Physician: Eloy Hooker MD Allergies, Adverse Reactions, Alerts Substance Reaction [...] influenza virus vaccine, inactivated 07/03/09 Dany rded [id number] bivalent booster vax 07/17/22 Recorded [id number] bivalent booster vax 07/17/22 Recorded pneumococcal 20-valent [...] capsule, 8 Refills, Maintenance, 11/25/22 8:27:00 EST, [id number], 170, cm, 10/09/22 16:43:00 EST, Height, 69.1, kg, 11/14/22 7:40:00 EST, Dry Weight Start Date: 11/25/22 Status: Ordered famotidine 20 mg oral tablet 1, tablet, By Mouth, Daily, # 90 tablet, Refills 0, Maintenance, 03/14/23 13:30:00 EDT, Route to Pharmacy Electronically, [facility], 170.1, cm, 03/14/23 9:45:00 EDT, Height, 68.4, kg, 03/14/23 9:45:00 EDT, Dry Weight Start Date: 03/14/23 Status: Ordered furosemide 40 mg oral tablet 3, tablet, By Mouth, 2 times a day, REFILL PER PCP OR NEPHROLOGY., # 180 tablet, Refills 2, Maintenance, 12/19/22 17:33:00 EDT, Route to Pharmacy Electronically, [facility] STORE 83812, 170, cm, 12/19/22 10:06:00 EDT, Height, 71.6, [...] mL, 0 Refills, Maintenance, 04/09/23 10:56:00 EDT, [facility]/pharmacy #[id number], Partial fill upon patient [...] Venous ulcer, right lower extremity, followed by [facility] [phone] Confirmed Active Venous ulcer of right leg [...] Safety Implantable Status Assigning Authority Unknown Unknown [id number] Unknown 07/25/23 Unknown Unknown Active Unknown Procedure Provider Procedure Date Device Type Site Insertion Hemodialysis Catheter Tyshawn Milian MD Unknown Chest Device Identifier Serial Number Lot or Batch Number Manufacturing Date Expiration Date Distinct Identification Code MRI Safety Implantable Status Assigning Authority Unknown Unknown [id number] Unknown 06/26/24 Unknown Unknown Active Unknown Laboratory * Event Display: Non Lab Results Authored Date: [id number] Patient Care team information Care Team Personnel Name: Maryam Fox RN Position: S RN Member Role: Primary Care Nurse Name: Lavell VILLAVICENCIOJana Position: [facility] RN Member Role: Primary Care Nurse Name: Franchesca Ward RN Position: [facility] RN Member Role: Primary Care Nurse Name: Carolina Camacho RN Position: [facility] SN RN Member Role: Primary Care Nurse Name: Linda Hathaway Position: [facility] Outreach Member Role: Lifetime Consulting Physician Name: Cynthia Hathaway RN Position: [facility] RN Member Role: Primary Care Nurse Name: Delaney Huber RN Position: [facility] RN Member Role: Primary Care Nurse Name: Juanita Main RN Position: [facility] RN Member Role: Primary Care Nurse Name: China Sutherland Position: [facility] Outreach Member Role: Lifetime Consulting Physician Name: Tayler Harris RN Position: [facility] RN Member Role: Primary Care Nurse Name: Sophie Bejarano NP Position: [facility] Associate Professional Member Role: Lifetime Consulting Provider Address: Address: [address] [place], [place] [address] [address] Name: Vasile Byers MD Position: [facility] Renal MD Member Role: Lifetime Consulting Physician Address: Address: [address] [place] [address] [address]E [facility] [address] Name: Edgar Mascorro RN Position: [facility] RN Member Role: Primary Care Nurse Name: Katalina Joreg RN Position: [facility] OB RN Member Role: Primary Care Nurse Name: Sophia Adan LPN Position: [facility] RN Member Role: Primary Care Nurse Name: Lorene Davenport RN Position: [facility] RN Member Role: Primary Care Nurse Name: Meryl Saini RN Position: [facility] SN RN Member Role: Primary Care Nurse Name: Allison Montez RN Position: [facility] RN Member Role: Primary Care Nurse Name: Guillermo Encinas DO Position: [facility] Renal MD Member Role: Lifetime Consulting Physician Address: Address: [address] [place] [address] [address]E [facility] [address] Name: Christiano Parish RN Position: [facility] RN Member Role: Primary Care Nurse Name: Lorene Billingsley RN Position: [facility] Onco RN Member Role: Primary Care Nurse Name: Kathy Nieves RN Position: [facility] ED RN W/OE and Tasks Member Role: Primary Care Nurse Name: Nita Garcias RN Position: [facility] RN Member Role: Primary Care Nurse Name: Tyshawn Cook III, RN Position: [facility] RN Member Role: Primary Care Nurse Name: Mayuri England RN Position: [facility] RN Member Role: Primary Care Nurse Name: Sophia Johnson Position: [facility] RN Member Role: Primary Care Nurse Name: Paradise Linder RN Position: [facility] RN Member Role: Primary Care Nurse Name: Noemi Bustos RN Position: [facility] RN Member Role: Primary Care Nurse Name: Jennifer Song RN Position: [facility] RN Supv Member Role: Primary Care Nurse Name: iPna Mcgill RN Position: [facility] RN Member Role: Primary Care Nurse Name: Reina Franklin RN Position: [facility] RN Member Role: Primary Care Nurse Name: Yumiko Lindsay RN Position: [facility] RN Member Role: Primary Care Nurse Name: Vincent Thapa RN Position: [facility] RN Member Role: Primary Care Nurse Name: Kirsten Boudreaux DO Position: [facility] Resident Member Role: PCP Address: Address: [address] [place] [address] [place] [address]- Name: Nicole Guzman RN Position: [facility] RN Member Role: Primary Care Nurse Name: Neil Bobby RN Position: [facility] ED RN W/OE and Tasks Member Role: Primary Care Nurse Name: Joellen Pineda RN Position: [facility] RN Member Role: Primary Care Nurse Name: Litzy Marin RN Position: [facility] RN Member Role: Primary Care Nurse Name: Crystal Robles RN Position: [facility] RN Member Role: Primary Care Nurse Name: Ruth Stevens LPN Position: [facility] RN Member Role: Primary Care Nurse Name: Nohemi Grande RN Position: [facility] Hospital Teamcenter Solution Architect Member Role: Primary Care Nurse Name: Yolanda Tyler RN Position: [facility] Teamcenter Solution Architect Member Role: Primary Care Nurse Care Team Related Persons Name: TAWNY BUTLER Address: home [address] [place] [address]
--- OUTSIDE RECORDS SUMMARY | 2023-06-23 09:50 | XMS_ITS | Continuity of Care Document ---
Author Name Unknown Organization [facility] Address [address] [place] [address]- Care Team Providers Care Life Skills Specialist Name Role Phone Kristen Boudreaux DO Primary Care Physician [phone] Encounter [facility] [place] Date(s): 02/04/23 - 03/06/23 [facility] [address] [place] [address]- [place] Allergies, Adverse Reactions, Alerts Substance Reaction [...] Dany rded influenza virus vaccine, inactivated 07/03/09 Dayn rded [id number] bivalent booster vax 07/17/22 Recorded [id number] bivalent booster vax 07/17/22 Recorded pneumococcal 20-valent [...] 3 Refills, 05/16/22 14:00:00 EDT, [facility]/pharmacy #1130, 170.18, cm, 05/08/22 12:22:00 EDT, Height, 81.8, kg, 05/08/22 12:22:00 EDT, Dry Weight Start Date: 05/16/22 Status: Ordered BD PARMINDER 2 GEN PEN NDL 32G 4MM USE TO INJECT INSULIN 4 TIMES A DAY Start Date: 02/20/23 Status: Ordered BD PARMINDER 2 GEN PEN NDL [id number] USE TO INJECT INSULIN 4 TIMES A DAY Start Date: 02/20/23 Status: Ordered BD PARMINDER PEN NDL [id number] USE TO INJECT INSULIN FOUR TIMES A [...] EDT, Route to Pharmacy Electronically, [facility]/pharmacy #1130, 170, cm, 04/12/22 15:12:00 EDT, Height, 81.75, kg, 03/21/22 15:54:00 EDT, Start Date: 04/26/22 Status: Ordered Colace sodium 100 mg oral capsule 100 mg, 1, capsule, By Mouth, 2 times a day, PRN, # 60 capsule, Refills 0, Tot. Refills 0, Maintenance, for constipation, 12/19/22 14:25:00 EDT, Route to Pharmacy Electronically, [facility]/pharmacy #1130, Partial fill [...] 8 Refills, Maintenance, 11/25/22 8:27:00 EST, [facility] STORE 49625, 170, cm, 10/09/22 16:43:00 EST, Height, 69.1, [...] EDT, Route to Pharmacy Electronically, [facility]/pharmacy #1130, 170.18, cm, 05/08/22 12:22:00 EDT, Height, 81.8, kg, 05/08/22 12:22:00 EDT, Dry Weight Start Date: 05/16/22 Status: Ordered furosemide 40 mg oral tablet 3, tablet, By Mouth, 2 times a day, REFILL PER PCP OR NEPHROLOGY., # 180 tablet, Refills 2, Maintenance, 12/19/22 17:33:00 EDT, Route to Pharmacy Electronically, [facility] STORE 96564, 170, cm, 12/19/22 10:06:00 EDT, Height, 71.6, [...] 10/17/22 17:13:00 EST, [facility] [...] 17:13:00 EST, Route to Pharmacy Electronically, [facility]/pharmacy #1130, Partial fill [...] DIRECTIONS Start Date: 03/06/23 Status: Ordered Pen Socorro, 29 G x 12.7 mm BD Ultra [...] ulcer, right lower extremity, followed by [facility] [phone] Confirmed Active Venous ulcer of right leg [...] Safety Implantable Status Assigning Authority Unknown Unknown [id number] Unknown 07/25/23 Unknown Unknown Active Unknown Procedure Provider Procedure Date Device Type Site Insertion Hemodialysis Catheter Tyshawn Milian MD Unknown Chest Device Identifier Serial Number Lot or Batch Number Manufacturing Date Expiration Date Distinct Identification Code MRI Safety Implantable Status Assigning Authority Unknown Unknown [id number] Unknown 06/26/24 Unknown Unknown Active Unknown Patient Care team information Care Team Personnel Name: Maryam Fox RN Position: [facility] RN Member Role: Primary Care Nurse Name: Jana Monte RN Position: [facility] RN Member Role: Primary Care Nurse Name: Franchesca Ward RN Position: [facility] RN Member Role: Primary Care Nurse Name: Carolina Camacho RN Position: [facility] SN RN Member Role: Primary Care Nurse Name: Linda Hathaway Position: [facility] Outreach Member Role: Lifetime Consulting Physician Name: Cynthia Hathaway RN Position: [facility] RN Member Role: Primary Care Nurse Name: Delaney Huber RN Position: [facility] RN Member Role: Primary Care Nurse Name: Juanita Main RN Position: [facility] RN Member Role: Primary Care Nurse Name: China Sutherland Position: [facility] Outreach Member Role: Lifetime Consulting Physician Name: Tayler Harris RN Position: [facility] RN Member Role: Primary Care Nurse Name: Sophie Bejarano NP Position: [facility] Associate Professional Member Role: Lifetime Consulting Provider Address: Address: [address] [place] [address] [address]E [facility] [address] Name: Vasile Byers MD Position: [facility] Renal MD Member Role: Lifetime Consulting Physician Address: Address: [address] [place], [place] [address] [address] Name: Edgar Mascorro RN Position: [facility] RN Member Role: Primary Care Nurse Name: Katalina Jorge RN Position: [facility] OB RN Member Role: Primary Care Nurse Name: Sophia Adan LPN Position: [facility] RN Member Role: Primary Care Nurse Name: Lorene Davenport RN Position: [facility] ED RN W/OE and Tasks Member Role: Primary Care Nurse Name: Meryl Saini RN Position: [facility] SN RN Member Role: Primary Care Nurse Name: Annie Langston RN Position: [facility] RN Member Role: Primary Care Nurse Name: Allison Montez RN Position: [facility] RN Member Role: Primary Care Nurse Name: Guillermo Encinas DO Position: [facility] Renal MD Member Role: Lifetime Consulting Physician Address: Address: [address] [place], [place] [address] [address] Name: Christiano Parish RN Position: [facility] RN Member Role: Primary Care Nurse Name: Lorene Billingsley RN Position: [facility] Onco RN Member Role: Primary Care Nurse Name: Kathy Nieves RN Position: [facility] ED RN W/OE and Tasks Member Role: Primary Care Nurse Name: Nita Garcias RN Position: [facility] RN Member Role: Primary Care Nurse Name: Tyshawn Cook III, RN Position: [facility] RN Member Role: Primary Care Nurse Name: Mayuri England RN Position: S RN Member Role: Primary Care Nurse Name: Sophia Johnson Position: [facility] RN Member Role: Primary Care Nurse Name: Paradise Linder RN Position: [facility] RN Member Role: Primary Care Nurse Name: Noemi Bustos RN Position: [facility] RN Member Role: Primary Care Nurse Name: Jennifer Song RN Position: [facility] RN Supv Member Role: Primary Care Nurse Name: Pina Mcgill RN Position: [facility] RN Member Role: Primary Care Nurse Name: Reina Franklin RN Position: [facility] RN Member Role: Primary Care Nurse Name: Yumiko Lindsay RN Position: [facility] RN Member Role: Primary Care Nurse Name: Vincent Thapa RN Position: [facility] RN Member Role: Primary Care Nurse Name: Kristen Boudreaux DO Position: [facility] Resident Member Role: PCP Address: Address: [address] [facility] [place] [address]- Name: Nicole Guzman RN Position: [facility] RN Member Role: Primary Care Nurse Name: Neil Bobby RN Position: [facility] ED RN W/OE and Tasks Member Role: Primary Care Nurse Name: Joellen Pineda RN Position: [facility] RN Member Role: Primary Care Nurse Name: Litzy Marin RN Position: [facility] RN Member Role: Primary Care Nurse Name: Crystal Robles RN Position: [facility] RN Member Role: Primary Care Nurse Name: Ruth Stevens LPN Position: [facility] RN Member Role: Primary Care Nurse Name: Nohemi Grande RN Position: [facility] [employer] Supervisor Member Role: Primary Care Nurse Name: Yolanda Tyler RN Position: [facility] [employer] Supervisor Member Role: Primary Care Nurse Care Team Related Persons Name: TSERINGTAWNY JASON Address: home [address] [place] [address]
--- OUTSIDE RECORDS SUMMARY | 2023-06-23 09:50 | XMS_ITS | Continuity of Care Document ---
Author Name Unknown Organization [facility] Address [address] [place] [address]- Care Team Providers Care Machine Or Machinery Mechanic Name Role Phone Kristen Boudreaux DO Primary Care Physician Encounter [facility] [place](s): 03/26/23 - 04/25/23 [facility] [address] [place] [address]- [place] Allergies, Adverse Reactions, Alerts Substance Reaction [...] influenza virus vaccine, inactivated 07/03/09 Dany rded [id number] bivalent booster vax 07/17/22 Recorded [id number] bivalent booster vax 07/17/22 Recorded pneumococcal 20-valent [...] capsule, 8 Refills, Maintenance, 11/25/22 8:27:00 EST, [facility] 56405, 170, cm, 10/09/22 16:43:00 EST, Height, 69.1, kg, 11/14/22 7:40:00 EST, Dry Weight Start Date: 11/25/22 Status: Ordered famotidine 20 mg oral tablet 1, tablet, By Mouth, Daily, # 90 tablet, Refills 0, Maintenance, 03/14/23 13:30:00 EDT, Route to Pharmacy Electronically, [facility]ORE 54703, 170.1, cm, 03/14/23 9:45:00 EDT, Height, 68.4, kg, 03/14/23 9:45:00 EDT, Dry Weight Start Date: 03/14/23 Status: Ordered furosemide 40 mg oral tablet 3, tablet, By Mouth, 2 times a day, REFILL PER PCP OR NEPHROLOGY., # 180 tablet, Refills 2, Maintenance, 12/19/22 17:33:00 EDT, Route to Pharmacy Electronically, [facility] STORE 72302, 170, cm, 12/19/22 10:06:00 EDT, Height, 71.6, [...] mL, 0 Refills, Maintenance, 04/09/23 10:56:00 EDT, [facility]/pharmacy #1130, Partial fill upon patient [...] recurrent, due to IVDU including admission to [facility] [place] --> [facility] 09/18/2015 to 10/29/2015 for retroperitoneal [...] lower extremity, followed by [facility] [phone] Confirmed Active Venous ulcer of right leg [...] Safety Implantable Status Assigning Authority Unknown Unknown [id number] Unknown 07/25/23 Unknown Unknown Active Unknown Procedure Provider Procedure Date Device Type Site Insertion Hemodialysis Catheter Tyshawn Milian MD Unknown Chest Device Identifier Serial Number Lot or Batch Number Manufacturing Date Expiration Date Distinct Identification Code MRI Safety Implantable Status Assigning Authority Unknown Unknown [id number] Unknown 06/26/24 Unknown Unknown Active Unknown Patient Care team information Care Team Personnel Name: Maryam Fox RN Position: [facility] RN Member Role: Primary Care Nurse Name: Jana Monte RN Position: [facility] RN Member Role: Primary Care Nurse Name: Franchesca Ward RN Position: [facility] RN Member Role: Primary Care Nurse Name: Carolina Camacho RN Position: [facility] RN Member Role: Primary Care Nurse Name: Linda Hathaway Position: [facility] Outreach Member Role: Lifetime Consulting Physician Name: Cynthia Hathaway RN Position: [facility] RN Member Role: Primary Care Nurse Name: Delaney Huber RN Position: [facility] RN Member Role: Primary Care Nurse Name: Juanita Main RN Position: [facility] RN Member Role: Primary Care Nurse Name: China Sutherland Position: [facility] Outreach Member Role: Lifetime Consulting Physician Name: Tayler Harris RN Position: [facility] RN Member Role: Primary Care Nurse Name: Sophie Bejarano NP Position: [facility] Associate Professional Member Role: Lifetime Consulting Provider Address: Address: [address] [place] [address] [address]E [facility] [place] [address]- Name: Vasile Byers MD Position: [facility] Renal MD Member Role: Lifetime Consulting Physician Address: Address: [address] [place], [place] [address] [place] [address]- Name: Edgar Mascorro RN Position: [facility] RN Member Role: Primary Care Nurse Name: Katalina Jorge RN Position: [facility] OB RN Member Role: Primary Care Nurse Name: Sophia Adan LPN Position: [facility] RN Member Role: Primary Care Nurse Name: Lorene Davenport RN Position: [facility] RN Member Role: Primary Care Nurse Name: Meryl Saini RN Position: [facility] SN RN Member Role: Primary Care Nurse Name: Allison Montez RN Position: [facility] RN Member Role: Primary Care Nurse Name: Guillermo Encinas DO Position: [facility] Renal MD Member Role: Lifetime Consulting Physician Address: Address: [address] [place], [place] [address]E [facility] [place] [place] [address]- Name: Christiano Parish RN Position: [facility] RN Member Role: Primary Care Nurse Name: Lorene Billingsley RN Position: [facility] Onco RN Member Role: Primary Care Nurse Name: Kathy Nieves RN Position: [facility] EARLE RN W/OE and Tasks Member Role: Primary Care Nurse Name: Nita Garcias RN Position: [facility] RN Member Role: Primary Care Nurse Name: Tyshawn Cook III, RN Position: [facility] RN Member Role: Primary Care Nurse Name: Mayuri England RN Position: [facility] RN Member Role: Primary Care Nurse Name: Sophia Johnson Position: [facility] RN Member Role: Primary Care Nurse Name: Paradise Linder RN Position: [facility] RN Member Role: Primary Care Nurse Name: Noemi Bustos RN Position: [facility] RN Member Role: Primary Care Nurse Name: Jennifer Song RN Position: [facility] RN Supv Member Role: Primary Care Nurse Name: Pina Mcgill RN Position: [facility] RN Member Role: Primary Care Nurse Name: Reina Franklin RN Position: [facility] RN Member Role: Primary Care Nurse Name: Yumiko Lindsay RN Position: [facility] RN Member Role: Primary Care Nurse Name: Vincent Thapa RN Position: [facility] RN Member Role: Primary Care Nurse Name: Kristen Boudreaux DO Position: [facility] Resident Member Role: PCP Address: Address: [address] [place] [address] Adult [place], [place] [address] Name: Nicole Guzman RN Position: [facility] RN Member Role: Primary Care Nurse Name: Neil Bobby RN Position: [facility] ED RN W/OE and Tasks Member Role: Primary Care Nurse Name: Joellen Pineda RN Position: [facility] RN Member Role: Primary Care Nurse Name: Litzy Marin RN Position: [facility] RN Member Role: Primary Care Nurse Name: Crystal Robles RN Position: [facility] RN Member Role: Primary Care Nurse Name: Ruth Stevens LPN Position: [facility] RN Member Role: Primary Care Nurse Name: Nohemi Grande RN Position: [facility] [employer] Member Role: Primary Care Nurse Name: Yolanda Tyler RN Position: [facility] [employer] Member Role: Primary Care Nurse Care Team Related Persons Name: TAWNY BUTLER Address: home [address] [place] [address]
--- OUTSIDE RECORDS SUMMARY | 2023-06-23 09:50 | XMS_ITS | Continuity of Care Document ---
Author Name Unknown Organization [facility] Address [address] [place] [address]- Care Team Providers Care Buffer Nickel Name Role Phone Kristen Boudreaux DO Primary Care Physician [phone] [place] [facility] [place](s): 06/05/22 - 07/05/22 [facility] [address] [place], [place] [address] Attending Physician: Admtr, Ar8 Admitting Physician: Admtr, Ar8 Referring Physician: Admtr, [...] 05/16/22 14:00:00 EDT, Route to Pharmacy Electronically, [facility]/pharmacy #[id number], Partial fill upon patient request if the prescription is for... Start Date: 05/16/22 Status: Ordered amLODIPine 10 mg oral tablet 1 tablet, By Mouth, Daily, # 90 tablet, 1 Refills, Maintenance, 04/08/22 10:06:00 EDT, [facility]/pharmacy#1130, 170, cm, 04/04/22 15:17:00 EDT, Height, [...] 90 tablet, 3 Refills, 05/16/22 14:00:00 EDT, [facility]/pharmacy #1130, 170.18, cm, 05/08/22 12:22:00 EDT, [...] 04/26/22 14:29:00 EDT, Route to Pharmacy Electronically, [facility]/pharmacy #1130, 170, cm, 04/12/22 15:12:00 EDT, [...] CRUSH. /CHEW., # 30 capsule, 5 Refills, [facility] STORE [id number], 170.18, cm, 05/08/22 12:22:00 EDT, Height, 81.8, kg, 05/08/22 12:22:00 EDT, Dry Weight Start Date: 05/15/22 Status: Ordered famotidine 20 mg oral tablet 1, tablet, By Mouth, Daily, # 90 tablet, Refills 3, Tot. Refills 3, Maintenance, 05/16/22 14:01:00 EDT, Route to Pharmacy Electronically, [facility]/pharmacy #1130, 170.18, cm, 05/08/22 12:22:00 EDT, Height, 81.8, kg, 05/08/22 12:22:00 EDT, Dry Weight Start Date: 05/16/22 Status: Ordered hydrALAZINE 25 mg oral tablet 50 mg, 2, tablet, By Mouth, 3 times a day, # 180 tablet, Refills 3, Tot. Refills 3, Maintenance, 05/23/22 15:52:00 EDT, Route to Pharmacy Electronically, [facility]/pharmacy #1130, Partial fill upon patientrequest if [...] 03/18/22 14:25:00 EDT, Route to Pharmacy Electronically, [facility]/pharmacy #1130, Partial fill upon patient request if the prescription is for a schedule II opioid drug... Start Date: 03/18/22 Status: Ordered Methadone = 80 mg, By Mouth, Daily, last received from [facility] 03/19/22 & took home 3 doses. Ro Confirmed [phone], 0 Refills, Maintenance, 03/21/22 11:55:00 EDT, ; Start Date: 03/21/22 Status: Ordered Multivitamin 1 tablet, By Mouth, Daily, 0 Refills, Maintenance, 03/21/22 2:31:00 EDT, ; Start Date: 03/21/22 Status: Ordered Pen [place], 29 G x 12.7 mm BD Ultra [...] lower extremity, followed by Karena [facility]ivas [facility] [phone] Confirmed Active Venous ulcer of right leg Confirmed Active Social History Social History Type Response Tobacco Other: started smoki ng at 20 years old, now about 5 cigarettes. Sex Patient Care team information Personnel Name: Kristen Boudreaux DO Address: Address: [address] [place] [address] [place] [address]-
--- OUTSIDE RECORDS SUMMARY | 2023-06-23 09:50 | XMS_ITS | Continuity of Care Document ---
Author Name Unknown Organization [facility] Address [address] [place] [address]- Care Team Providers Care Lens Coating Technician Name Role Phone Kristen Boudreaux DO Primary Care Physician Encounter [facility] [place] Date(s): 05/01/22 - 05/31/22 [facility] [address] [place], [place] [address] Attending Physician: AdmNader faith Admitting Physician: Admtr, [...] 05/16/22 14:00:00 EDT, Route to Pharmacy Electronically, [facility]/pharmacy #[id number], Partial fill upon patient request if the prescription is for... Start Date: 05/16/22 Status: Ordered amLODIPine 10 mg oral tablet 1 tablet, By Mouth, Daily, # 90 tablet, 1 Refills, Maintenance, 04/08/22 10:06:00 EDT, [facility]/pharmacy#1130, 170, cm, 04/04/22 15:17:00 EDT, Height, 81.75, [...] tablet, 3 Refills, 05/16/22 14:00:00 EDT, [facility]/pharmacy #1130, 170.18, cm, 05/08/22 12:22:00 EDT, Height, [...] 14:29:00 EDT, Route to Pharmacy Electronically, [facility]/pharmacy #1130, 170, cm, 04/12/22 15:12:00 EDT, Height, [...] CRUSH. /CHEW., # 30 capsule, 5 Refills, [facility] 48863, 170.18, cm, 05/08/22 12:22:00 EDT, Height, 81.8, kg, 05/08/22 12:22:00 EDT, Dry Weight Start Date: 05/15/22 Status: Ordered famotidine 20 mg oral tablet 1, tablet, By Mouth, Daily, # 90 tablet, Refills 3, Tot. Refills 3, Maintenance, 05/16/22 14:01:00 EDT, Route to Pharmacy Electronically, [facility]/pharmacy #1130, 170.18, cm, 05/08/22 12:22:00 EDT, Height, 81.8, kg, 05/08/22 12:22:00 EDT, Dry Weight Start Date: 05/16/22 Status: Ordered hydrALAZINE 25 mg oral tablet 50 mg, 2, tablet, By Mouth, 3 times a day, # 180 tablet, Refills 3, Tot. Refills 3, Maintenance, 05/23/22 15:52:00 EDT, [facility] Partial fill upon patientrequest if the [...] 03/18/22 14:25:00 EDT, Route to Pharmacy Electronically, [facility]/pharmacy #1130, Partial fill upon patient request if the prescription is for a schedule II opioid drug... Start Date: 03/18/22 Status: Ordered Methadone = 80 mg, By Mouth, Daily, last received from [facility] 03/19/22 & took home 3 doses. Ro Confirmed [phone], 0 Refills, Maintenance, 03/21/22 11:55:00 EDT, ; Start Date: 03/21/22 Status: Ordered Multivitamin 1 tablet, By Mouth, Daily, 0 Refills, Maintenance, 03/21/22 2:31:00 EDT, ; Start Date: 03/21/22 Status: Ordered Nicotine 2 mg gum 1 each = 2 mg, Chew, Every 2 hours, PRN for smoking cessation, # 50 each, 0 Refills, Acute 06/01/2210:14:00 EDT, 05/01/22 10:12:00 EDT, Gum, [facility]/pharmacy #1130, Partial fill upon patient request if the prescription is for a schedule II opioid drug.,... Start Date: 05/01/22 Stop Date: 06/01/22 Status: Ordered Pen [place], 29 G x 12.7 mm BD Ultra [...] 3 Refills, Maintenance, 05/06/22 13:08:00 EDT, Tablet, [facility]/pharmacy #1130, Partial fill upon patient request if the prescription is for a schedule II opioid drug., 170.18, cm, 05/06/22 10:27:00 EDT, [facility]... Start Date: 05/06/22 Status: Ordered Wheelchair See Instructions, # 1 each, Maintenance, Lymphedema 189.0, 04/12/22 17:43:00 EDT, Supply Start Date: 04/12/22 Status: Ordered Problem List Condition Effective Dates Status Health Status Inform ant Abscesses, recurrent, due to IVDU including admission to [facility] --> [facility] 09/18/2015 to 10/29/2015 for [...] right lower ex tremity, followed by Karena [facility] [phone](Confirmed) Active Venous ulcer of right leg(Confirmed) Active Social History Social History Type Response Tobacco Other: started smoki ng at 20 years old, now about 5 cigarettes. Sex Care Team Personnel Name: Kristen Boudreaux DO Address: [address] [place] [address] [place] [address]-
--- OUTSIDE RECORDS SUMMARY | 2023-06-23 09:50 | XMS_ITS | Continuity of Care Document ---
Author Name Unknown Organization [facility] Address [address] [place] [address]- Care Team Providers Care Production Painter Name Role Phone Kristen Boudreaux DO Primary Care Physician En[place] [facility] [place] Date(s): 03/31/22 - 04/30/[address] [address]- Allergies, Adverse Reactions, Alerts Substance Reaction Severity [...] 04/12/22 17:42:00 EDT, Route to Pharmacy Electronically, [facility]/pharmacy #[id number], Partial fill upon patient request if the prescription is for... Start Date: 04/12/22 Status: Ordered amLODIPine 10 mg oral tablet 1 tablet, By Mouth, Daily, # 90 tablet, 1 Refills, Maintenance, 04/08/22 10:06:00 EDT, [facility]/pharmacy#1130, 170, cm, 04/04/22 15:17:00 EDT, Height, [...] Mouth, Daily, # 30 tablet, 0 Refills, [facility] STORE 70947, 170, cm, 04/04/22 15:17:00 EDT,Height, 81.75, kg, [...] 04/26/22 14:29:00 EDT, Route to Pharmacy Electronically, [facility]/pharmacy #1130, 170, cm, 04/12/22 15:12:00 EDT, [...] Refills, Maintenance, 04/24/22 16:25:00 EDT, [facility], Partial fill upon patient request if the prescription is for a schedule II opioid drug., 170,... Start Date: 04/24/22 Status: Ordered famotidine 20 mg oral tablet 1, tablet, By Mouth, Daily, # 90 tablet, Refills 0, Tot. Refills 0, Maintenance, 04/08/22 10:12:00 EDT, Route to Pharmacy Electronically, [facility]/pharmacy #1130, 170, cm, 04/04/22 15:17:00 EDT, Height, 81.75, kg, 03/21/22 15:54:00 EDT, Dry Weight Start Date: 04/08/22 Status: Ordered hydrALAZINE 25 mg oral tablet 2, tablet, By Mouth, 3 times a day, for 30 days, # 180 tablet, Refills 0, Physician Stop, Route to Pharmacy Electronically, [facility] STORE 80297, 170, cm, 04/04/22 15:17:00 EDT, Height, 81.75, [...] 4 Refills, Maintenance, 04/04/22 16:32:00 EDT, Cream, [facility]/pharmacy #1130, Partial fill upon patient request if the prescription is for a schedule II opioid drug., 1 application Topically 3 times a day,... Start Date: 04/04/22 Status: Ordered lisinopril 20 mg oral tablet 20 mg, 1, tablet, By Mouth, Daily, # 30 tablet, Refills 6, Tot. Refills 6, Maintenance, 03/18/22 14:25:00 EDT, Route to Pharmacy Electronically, [facility]/pharmacy #1130, Partial fill upon patient request if the prescription is for a schedule II opioid drug... Start Date: 03/18/22 Status: Ordered Methadone = 80 mg, By Mouth, Daily, last received from [facility] 03/19/22 & took home 3 doses. Ro Confirmed [phone], 0 Refills, Maintenance, 03/21/22 11:55:00 EDT, ; Start Date: 03/21/22 Status: Ordered Multivitamin 1 tablet, By Mouth, Daily, 0 Refills, Maintenance, 03/21/22 2:31:00 EDT, ; Start Date: 03/21/22 Status: Ordered Pen [place], 29 G x 12.7 mm BD Ultra [...] recurrent, due to IVDU including [place] [facility] [place] [facility] 09/18/[place] to [...] ex tremity, followed by [facility]a [facility] [phone](Confirmed) Active Venous ulcer of right leg(Confirmed) Active Social History Social History Type Response Tobacco Other: started smoki ng at 20 years old, now about 5 cigarettes. Sex
--- OUTSIDE RECORDS SUMMARY | 2023-06-23 09:50 | XMS_ITS | Continuity of Care Document ---
Author Name Unknown Organization [facility] Address [address] [place] [address]- Care Team Providers Care Manager Card Name Role Phone Kristen Boudreaux DO Primary Care Physician [phone] Encounter [facility] Date(s): 03/11/23 - 04/10/23 [facility] [address] [place], [place] [address] Attending Physician: Admtr, Nader Admitting Physician: Admtr, Ar8 Referring Physician: Admtr, [...] influenza virus vaccine, inactivated 07/03/09 Dany rded [id number] bivalent booster vax 07/17/22 Recorded [id number] bivalent booster vax 07/17/22 Recorded pneumococcal 20-valent [...] capsule, 8 Refills, Maintenance, 11/25/22 8:27:00 EST, [facility] 10263, 170, cm, 10/09/22 16:43:00 EST, Height, 69.1, kg, 11/14/22 7:40:00 EST, Dry Weight Start Date: 11/25/22 Status: Ordered famotidine 20 mg oral tablet 1, tablet, By Mouth, Daily, # 90 tablet, Refills 0, Maintenance, 03/14/23 13:30:00 EDT, Route to Pharmacy Electronically, [facility] 21729, 170.1, cm, 03/14/23 9:45:00 EDT, Height, 68.4, kg, 03/14/23 9:45:00 EDT, Dry Weight Start Date: 03/14/23 Status: Ordered furosemide 40 mg oral tablet 3, tablet, By Mouth, 2 times a day, REFILL PER PCP OR NEPHROLOGY., # 180 tablet, Refills 2, Maintenance, 12/19/22 17:33:00 EDT, Route to Pharmacy Electronically, [facility] STORE 95590, 170, cm, 12/19/22 10:06:00 EDT, Height, 71.6, [...] 0 Refills, Maintenance, 04/09/23 10:56:00 EDT, [facility]/pharmacy #1130, Partial fill upon patient [...] ulcer, right lower extremity, followed by Karena [facility] [phone] Confirmed Active Venous ulcer of right leg [...] Safety Implantable Status Assigning Authority Unknown Unknown [id number] Unknown 07/25/23 Unknown Unknown Active Unknown Procedure Provider Procedure Date Device Type Site Insertion Hemodialysis Catheter Tyshawn Milian MD Unknown Chest Device Identifier Serial Number Lot or Batch Number Manufacturing Date Expiration Date Distinct Identification Code MRI Safety Implantable Status Assigning Authority Unknown Unknown [id number] Unknown 06/26/24 Unknown Unknown Active Unknown Patient Care team information Care Team Personnel Name: Maryam Fox RN Position: S RN Member Role: Primary Care Nurse Name: Jana Monte RN Position: S RN Member Role: Primary Care Nurse Name: Franchesca Ward RN Position: [facility] RN Member Role: Primary Care Nurse Name: Carolina Camacho RN Position: [facility] SN RN Member Role: Primary Care Nurse Name: Linda Hathaway Position: [facility] Outreach Member Role: Lifetime Consulting Physician Name: Cynthia Hathaway RN Position: [facility] RN Member Role: Primary Care Nurse Name: Delaney Huber RN Position: [facility] RN Member Role: Primary Care Nurse Name: Juanita Main RN Position: [facility] RN Member Role: Primary Care Nurse Name: China Sutherland Position: [facility] Outreach Member Role: Lifetime Consulting Physician Name: Tayler Harris RN Position: [facility] RN Member Role: Primary Care Nurse Name: Sophie Bejarano NP Position: [facility] Associate Professional Member Role: Lifetime Consulting Provider Address: Address: [address] [place] [address] [address] [address] Name: Vasile Byers MD Position: [facility] Renal MD Member Role: Lifetime Consulting Physician Address: Address: [address] [place] [address] [address] [address] Name: Edgar Mascorro RN Position: [facility] RN Member Role: Primary Care Nurse Name: Katalina Jorge RN Position: [facility] OB RN Member Role: Primary Care Nurse Name: Sophia Adan LPN Position: [facility] RN Member Role: Primary Care Nurse Name: Lorene Davenport RN Position: [facility] RN Member Role: Primary Care Nurse Name: Meryl Saini RN Position: [facility] SN RN Member Role: Primary Care Nurse Name: Allison Montez RN Position: [facility] RN Member Role: Primary Care Nurse Name: Guillermo Encinas DO Position: [facility] Renal MD Member Role: Lifetime Consulting Physician Address: Address: [address] [place] [address] [address] [place] [address]- Name: Christiano Parish RN Position: [facility] RN Member Role: Primary Care Nurse Name: Lorene Billingsley RN Position: [facility] Onco RN Member Role: Primary Care Nurse Name: Kathy Nieves RN Position: [facility] ED RN W/OE and Tasks Member Role: Primary Care Nurse Name: Nita Garcias RN Position: [facility] RN Member Role: Primary Care Nurse Name: Tyshawn Cook III, RN Position: [facility] RN Member Role: Primary Care Nurse Name: Mayuri England RN Position: [facility] RN Member Role: Primary Care Nurse Name: Sophia Johnson Position: [facility] RN Member Role: Primary Care Nurse Name: Paradise Linder RN Position: [facility] RN Member Role: Primary Care Nurse Name: Noemi Bustos RN Position: [facility] RN Member Role: Primary Care Nurse Name: Jennifer Song RN Position: [facility] RN Supv Member Role: Primary Care Nurse Name: Pina Mcgill RN Position: [facility] RN Member Role: Primary Care Nurse Name: Reina Franklin RN Position: [facility] RN Member Role: Primary Care Nurse Name: Yumiko Lindsay RN Position: [facility] RN Member Role: Primary Care Nurse Name: Vincent Thapa RN Position: [facility] RN Member Role: Primary Care Nurse Name: Kristen Boudreaux DO Position: [facility] Resident Member Role: PCP Address: Address: [address] [place] [address] [place] [address]- Name: Nicole Guzman RN Position: [facility] RN Member Role: Primary Care Nurse Name: Neil Bobby RN Position: [facility] ED RN W/OE and Tasks Member Role: Primary Care Nurse Name: Joellen Pineda RN Position: [facility] RN Member Role: Primary Care Nurse Name: Litzy Marin RN Position: [facility] RN Member Role: Primary Care Nurse Name: Crystal Robles RN Position: [facility] RN Member Role: Primary Care Nurse Name: Ruth Stevens LPN Position: [facility] RN Member Role: Primary Care Nurse Name: Nohemi Grande RN Position: [facility] Head Athletic Trainer Member Role: Primary Care Nurse Name: Yolanda Tyler RN Position: [facility] Head Athletic Trainer Member Role: Primary Care Nurse Care Team Related Persons Name: TAWNY BUTLER Address: home [address] [place] [address]
--- OUTSIDE RECORDS SUMMARY | 2023-06-23 09:50 | XMS_ITS | Continuity of Care Document ---
Author Name Unknown Organization [facility] Address [address] [place] [address]- Care Team Providers Care Inventory Auditor Name Role Phone Kristen Boudreaux DO Primary Care Physician [phone] Encounter [facility] Date(s): 03/18/23 - 04/17/23 [facility] [address] [place], [place] [address] Allergies, Adverse Reactions, Alerts Substance [...] influenza virus vaccine, inactivated 07/03/09 Dany rded [id number] bivalent booster vax 07/17/22 Recorded [id number] bivalent booster vax 07/17/22 Recorded pneumococcal 20-valent [...] capsule, 8 Refills, Maintenance, 11/25/22 8:27:00 EST, [facility] 40531, 170, cm, 10/09/22 16:43:00 EST, Height, 69.1, kg, 11/14/22 7:40:00 EST, Dry Weight Start Date: 11/25/22 Status: Ordered famotidine 20 mg oral tablet 1, tablet, By Mouth, Daily, # 90 tablet, Refills 0, Maintenance, 03/14/23 13:30:00 EDT, Route to Pharmacy Electronically, [facility] 89353, 170.1, cm, 03/14/23 9:45:00 EDT, Height, 68.4, kg, 03/14/23 9:45:00 EDT, Dry Weight Start Date: 03/14/23 Status: Ordered furosemide 40 mg oral tablet 3, tablet, By Mouth, 2 times a day, REFILL PER PCP OR NEPHROLOGY., # 180 tablet, Refills 2, Maintenance, 12/19/22 17:33:00 EDT, Route to Pharmacy Electronically, [facility] STORE 53867, 170, cm, 12/19/22 10:06:00 EDT, Height, 71.6, [...] mL, 0 Refills, Maintenance, 04/09/23 10:56:00 EDT, [facility]/pharmacy #1130, Partial fill upon patient [...] due to IVDU including admission to [facility] [...] ulcer, right lower extremity, followed by Karena [facility] [phone] Confirmed Active Venous ulcer of right leg [...] Safety Implantable Status Assigning Authority Unknown Unknown [id number] Unknown 07/25/23 Unknown Unknown Active Unknown Procedure Provider Procedure Date Device Type Site Insertion Hemodialysis Catheter Tyshawn Milian MD Unknown Chest Device Identifier Serial Number Lot or Batch Number Manufacturing Date Expiration Date Distinct Identification Code MRI Safety Implantable Status Assigning Authority Unknown Unknown [id number] Unknown 06/26/24 Unknown Unknown Active Unknown [...] Care Nurse Name: Delaney Huber RN Position: [facility] RN Member [...] Member Role: Lifetime Consulting Provider Address: Address: [address] [place] [address] [address] [facility] [address] Name: Vasile Byers MD Position: [facility] Renal MD Member Role: Lifetime Consulting Physician Address: Address: [address] [place] [address] [address] [address] Name: Edgar Mascorro RN Position: [facility] [...] Member Role: Lifetime Consulting Physician Address: Address: [address] [place] [address] [address] [address] Name: Christiano Parish RN Position: [facility] RN Member Role: Primary Care Nurse Name: Lorene Billingsley RN Position: [facility] Onco RN Member Role: Primary Care Nurse Name: Kathy Nieves RN Position: [facility] RN W/OE and Tasks Member [...] HOSPITAL Resident Member Role: PCP Address: Address: [address] [place] [address] [place] [address]- Name: Nicole Guzman RN Position: [facility] [...] Care Nurse Name: Nohemi Grande RN Position: [facility] Property Insurance Agent Member Role: Primary Care Nurse Name: Yolanda Tyler RN Position: [facility] Property Insurance Agent Member Role: Primary Care Nurse Care Team Related Persons Name: CARRIETAMERAAN Address: home [address] [place] [address]
--- OUTSIDE RECORDS SUMMARY | 2023-06-23 09:50 | XMS_ITS | Patient Health Record ---
Author Name Unknown Organization [facility] Address [address], [place] [id number] Care Team Providers Care Junior Automation Engineer Name Role Phone [facility], Medical Services Primary Care Provider Kris Rondon Unavailable REASON FOR REFERRAL No Information MEDICATIONS Medication SIG (Take, Route, Frequency, Duration) Notes Start Date End Date Status metFORMIN 1000 mg 1 tab(s) orally 2 times a day for 30 day(s) Active Narcan 4 mg/0.1 mL 4 mg intranasally on ce for 30 days Active Augmentin 875 mg-125 mg 1 tab(s) orally every 12 hours for 7 day(s) 08/04/2020 Active mupirocin topical 2% 1 allison applied topically 3 times a day for 10 days 12/10/2019 Active metformin 500 mg 1 tab(s) orally 2 times a day for 30 day(s) 06/18/2019 Active doxycycline hyclate 100 mg 1 cap(s) orally 2 times a day for 14 days Active Lantus Solostar Pen 100 units/mL 55 units subcutaneously daily for 30 days Active nicotine 14 mg/24 hr 1 PATCH transdermally once a day for 30 days 05/22/2018 Not-Takin g Lantus pen needles use one daily with Lantus pen daily 20 unit Unknown nicotine 2 mg 2 GUM chewed every 2 hours for 30 days 05/22/2018 Not-Taking methadone 10 mg 1 tab(s) orally ever y 8 hours 70 mg 05/22/18 Active HumaLOG 100 units/mL 0 subcutaneously 20 units/sliding Scale Active IMMUNIZATIONS Vaccine Route Administration Date Status Comme nts PPSV 23 IM Intramuscular 04/02/2019 Administered Hepatitis A IM Intramuscular 06/18/2019 Administered ND 5 [id number] Hepatitis B (20 or more) IM Intramuscular 06/18/2019 Administered ND [id number] SOCIAL HISTORY Tobacco Use: Social History Observation Description Date Details (start date - stop date) Current Smoker NA - NA Sex Assigned At : Social History Observation Description Sex Assigned At Unknown Tobacco Use Assessment MU Question Answer Notes What is your current smoking status? current smo ker How often do you smoke? every day How many cigarettes a day do you smoke? 6-10 How soon after you wake up do you smoke your fir st cigarette? after 60 minutes Are you interested in quitting? 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 Problem Nicotine dependence, cigarettes, uncomplicated (F17.210) Active confirmed Tobacco user (657060222) Problem Major depressive disorder, recurrent, unspecified (F33.9) Active confirmed Recurrent major depression (30433215) Problem Anxiety disorder, unspecified (F41.9) Active confirmed Anxiety disorde r (926480613) Problem 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) Active confirmed 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 2 diabetes mellitus (43402260926071) PLAN OF TREATMENT Pending Test Test Name Order Date Blood Sugar/finger stick 05/22/2018 Blood Sugar/finger stick 04/02/2019 Depression Screen PHQ9 Annual Depression screen 05/22/2018 MICROALBUMIN, RANDOM URINE (W/CREATININE ) 07/14/2020 HIV 1/2 ANTIGEN/ANTIBODY,FOURTH GENERATI ON W/RFL 05/22/2018 LIPID PANEL 07/14/2020 LIPID PANEL 05/22/2018 COMPREHENSIVE METABOLIC PANEL-[facility] 06/23 COMPREHENSIVE METABOLIC PANEL-[facility] 04/24 CBC (H/H, RBC, INDICES, WBC, PLT) 2017 RPR (DX) W/REFL TITER AND CONFIRMATORY T ESTING 05/22/2018 QUANTIFERON(R)-TB GOLD 05/22/2018 HEMOGLOBIN A1c 05/22/2018 HEMOGLOBIN A1c 07/14/2020 HEPATITIS B CORE AB TOTAL 05/22/2018 HEPATITIS B SURFACE ANTIGEN W/REFL CONFI RM 05/22/2018 HEPATITIS C AB W/REFL TO HCV RNA, QN, PC R 05/22/2018 HEPATITIS A AB, TOTAL W/REFL IGM 018 CHLAMYDIA/N. GONORRHOEAE RNA, TMA 2017 HEPATITIS B SURFACE AB IMMUNITY, QN 03/22 HEPATITIS B SURFACE AB IMMUNITY, QN 04/24 Insurance Providers Payer Name Payer Address Payer Phone Subscriber Number Group Number Insured Name Patient Relationship to Insured Coverage Start Date Coverage End Date [facility] Healthy [address] [place] [address] [place] [phone] [id number] Hany Parmar Self - patient is the insured 8 MEDICAL (GENERAL) HISTORY Medical History History ICD Code Diabtes Diabetic Neuropathy/Nerve pain depression add opioid use disorder obeity - used to be 300lb at time DM dx Decreased function of L hand folllowing skin graft Surgical History Surgery Date(Month/Year) R wrist wound - deep cut by shattered glass - had surgical repair - no tendon or vascular compromise Skin graft L arm 2015 Hospitalization History Reason Date(Month/Year) [facility] Admission open left ulna r frx, myositis, osteomyelitis, I/D in OR suspected HHS. + MSSA. LAE amputation
--- OUTSIDE RECORDS SUMMARY | 2023-06-23 09:50 | XMS_ITS | Continuity of Care Document ---
Author Name Unknown Organization [facility] ter Address [address] [place] [address]- Care Team Providers Care Odd Bundle Worker Name Role Phone Kristen Boudreaux DO Primary Care Physician [phone] Encounter [facility] Date(s): 11/14/22 - 11/14/[address] [address] Discharge Disposition: A-D/C Home Attending Physician: [...] influenza virus vaccine, inactivated 07/03/09 Dany rded [id number] bivalent booster vax 07/17/22 Recorded pneumococcal 20-valent [...] tablet, 3 Refills, 05/16/22 14:00:00 EDT, [facility]/pharmacy #[id number], 170.18, cm, 05/08/22 12:22:00 EDT, Height, 81.8, kg, 05/08/22 12:22:00 EDT, Dry Weight Start Date: 05/16/22 Status: Ordered cloNIDine 0.1 mg oral tablet 0.2 mg, 2, tablet, By Mouth, 3 times a day, # 270 tablet, Refills 1, Tot. Refills 1, Maintenance, 04/26/22 14:29:00 EDT, [id number] 170, cm, 04/12/22 15:12:00 EDT, [...] /CHEW., # 30 capsule, 5 Refills, [facility] [id number], 170.18, cm, 05/08/22 12:22:00 EDT, Height, 81.8, kg, 05/08/22 12:22:00 EDT, Dry Weight Start Date: 05/15/22 Status: Ordered famotidine 20 mg oral tablet 1, tablet, By Mouth, Daily, # 90 tablet, Refills 3, Tot. Refills 3, Maintenance, 05/16/22 14:01:00 EDT, Route to Pharmacy Electronically, [facility]/pharmacy #[id number], 170.18, cm, 05/08/22 12:22:00 EDT, Height, 81.8, kg, 05/08/22 12:22:00 EDT, Dry Weight Start Date: 05/16/22 Status: Ordered hydrALAZINE 25 mg oral tablet 50 mg, 2, tablet, By Mouth, 3 times a day, # 180 tablet, Refills 3, Tot. Refills 3, Maintenance, 10/17/22 17:13:00 EST, Route to Pharmacy Electronically, [facility]/pharmacy #[id number], Partial fill upon patientrequest if the prescription is for a schedule II op... Start Date: 10/17/22 Stop Date: 02/14/23 Status: Ordered Lasix 40 mg oral tablet 120 mg, 3, tablet, By Mouth, 2 times a day, Refill per PCP or Nephrology, # 180 tablet, Refills 1, Tot. Refills 1, Maintenance, 10/25/22 17:02:00 EST, Route to Pharmacy Electronically, [facility]/pharmacy #[id number], Partial fill upon patient request if the presc... Start Date: 10/25/22 Status: Ordered lisinopril 20 mg oral tablet 20 mg, 1, tablet, By Mouth, Daily, Refill per PCP or Nephrology, # 30 tablet, Refills 6, Tot. Refills 6, Maintenance, 10/17/22 17:13:00 EST, Route to Pharmacy Electronically, [facility]/pharmacy #[id number], Partial fill upon patient request if the prescription is... Start Date: 10/17/22 Stop Date: 05/15/23 Status: Ordered Methadone = 70 mg, By Mouth, Daily, last received from [facility] 03/19/22 & took home 3 doses. Ro Confirmed [phone], 0 Refills, Maintenance, 03/21/22 11:55:00 EDT, ; Start Date: 03/21/22 Status: Ordered oxyCODONE 5 mg oral tablet 5 mg, 1, tablet, By Mouth, Every 6 hours, PRN, for 3 days, # 12 tablet, Refills 0, Tot. Refills 0, Acute 11/17/22 13:31:00 EST, for pain, 11/14/22 13:31:00 EST, Print Requisition, Partial fill upon patient request if the prescription is for a schedule... Start Date: 11/14/22 Stop Date: 11/17/22 Status: Ordered Pen [place], 29 G x 12.7 mm BD Ultra [...] recurrent, due to IVDU including admission to [facility] --> [facility] 09/18/2015 to 10/29/2015 [...] lower extremity, followed by Karena Olivas [facility] [phone] Confirmed Active Venous ulcer of right leg Confirmed Active Vital Signs Most recent to oldest [Reference Range]: 1 2 3 Weight 69.1 kg (11/14/22 7:40 AM) Oxygen Saturation [94-100 %] 97 % (11/14/22 1:45 PM) 100 % (11/14/22 1:30 PM) 97 % (11/14/22 9:05 AM) Pulse Rate [55-90 bpm] 70 bpm (11/14/22 7:40 AM) Blood Pressure [90-138/55-84 mm Hg] 151/69mm Hg *H* (11/14/22 1:45 PM) 156/69mm Hg *H* (11/14/22 1:30 PM) 216/87mm Hg *H* (11/14/22 9:05 AM) Respiratory Rate [16-30 br/min] 21 br/min (11/14/22 1:45 PM) 12 br/min *L* (11/14/22 1:30 PM) 16 br/min (11/14/22 9:05 AM) Temperature [96.8-100.4 DegF] 97.7 DegF (11/14/22 1:30 PM) 98.1 DegF (11/14/22 7:40 AM) Mode of Delivery (Oxygen) Room air (11/14/22 1:30 PM) Room air (11/14/22 9:05 AM) Room air (11/14/22 9:00 AM) Blood pressure sites Leg, right (11/14/22 9:05 AM) Leg, right (11/14/22 9:00 AM) Arm, left (11/14/22 7:40 AM) Temperature Route Temporal (11/14/22 7:40 AM) Dry Weight 69.1 kg (11/14/22 7:40 AM) Weight Obtained Via Standing scale (11/14/22 7:40 AM) Dry Weight Obtained Via Standing scale (11/14/22 7:40 AM) Social History Social History Type Response Tobacco Other: started [employer] at 20 years old, now about 5 cigarettes. Sex Implantable Device List Procedure Provider Procedure Date Device Type Site Insertion Hemodialysis Catheter Tyshawn Milian MD Unknown Chest Device Identifier Serial Number Lot or Batch Number Manufacturing Date Expiration Date Distinct Identification Code MRI Safety Implantable Status Assigning Authority Unknown Unknown [id number] Unknown 06/26/24 Unknown Unknown Active Unknown Note * Beth Chiu RN: PERFORM Event Display: Patient Education/Instruction Authored Date: [id number] Inpatient [place] [address] Name: MICHAEL BUTLER : 1975 Visit: 11/14/2022 07:12:00 Current Date: 11/14/2022 13:58 Account: [id number] Inpatient Adult Discharge Instructions We would like [...] and their families. Surveys are administered by [employer], [employer]. ?? If further treatment with your primary care physician or another doctor is recommended, it is important for you to keep the appointment. Call your primary care physician or return to the Emergency Department immediately if your condition worsens, fails to improve, or new symptoms develop. If you need to find a doctor, you can call [facility] for a referral at [phone] or toll free at [phone] or log in to [email or web address] ?? You can view and manage your care through the patient portal or by using a health care allison of your choosing. [employer] is a website that allows you to securely view your medical information including your hospital discharge summary, office visit summaries, medications and follow-up visits. You can also request appointments, renew medications, and request access to your medical information using a health care allison of your choosing, or just ask a question. You can enroll at [email or web address] or register during your next office visit. You have been discharged from [facility], Patient Care Unit: [facility]. If you have any questions regarding these instructions after you leave, please call us and we will be happy to assist you. [facility] Your Care Team Attending Physician Tamy VILLATORO, Shaan Burnett Consulting Providers Morgan Adan MD Discharging Providers Tamy VILLATORO, Shaan Burnett Reason for Admission ESRDDS CS Tests Performed Below is a partial list of the tests performed during your hospitalization. You may have had other tests and procedures not included in this list. Please discuss all test results with your provider. GLUCOSE POC CARTRIDGE HEMATOCRIT POC CARTRIDGE HEMOGLOBIN POC CARTRIDGE POTASSIUM POC CARTRIDGE SODIUM POC CARTRIDGE Primary Care Provider Kristen Boudreaux DO Advance Directive Health Care Proxy on File Yes - Health Care Proxy Discharge Vitals Temperature: 97.7 DegF Weight: 69.1 kg Pulse Rate: 70 bpm ?? Respiratory Rate: 21 br/min ?? Systolic Blood Pressure:??151 mm Hg??High ?? Diastolic Blood Pressure: 69 mm Hg ?? Oxygen Saturation: 97 % ?? Studies Pending All tests and labs ordered during this hospital stay have been completed unless listed below. Please discuss all pending results with your provider listed above in these instructions. ?? No incomplete studies found What to do next Instructions From Your Doctor Discharge Orders Instructions from your Care Team See additional discharge instruction sheets Scheduled Follow-Up Appointments 2022 10:30 AM EDT ?? Where: Transplant [facility] [address] [facility] [address] [place] [address]- Friday 10:30 AM EDT ?? Where: [facility] [address] [place] [address]- You Need to Schedule the Following Appointments Follow Up with??Shaan Morelos When?? Why: Call for follow up appt Where: [address] [place], [place] [address] [place] [address]- Business (1) Follow Up with??Kristen Boudreaux When??In 0 days Discharge Medications MICHAEL BUTLER :1975 Visit Date:11/14/2022 Medications: Please continue your medications until treatment is completed or stopped by your provider. Medications not listed below should be discontinued. Discuss any questions related to medications with your provider. What How Much When Why Instructions Next Dose New Oxycodone (oxyCODONE 5 mg oral tablet) 1 tab(s) Oral Every 6 hours as needed for for pain Duration: 3 Days Printed Prescription anytime Unchanged Acetaminophen (acetaminophen 325 mg oral tablet) 2 tab(s) Oral 3 times a day as needed for as needed Lymphedema of left lower extremity anytime Unchanged Aspirin (Aspirin Low Dose 81 mg oral delayed release tablet) 1 tab(s) Oral Daily may resume tomorrow per Dr Morelos Unchanged Carvedilol (Coreg 25 mg oral tablet) [...] Hg ?? Unchanged Durable Medical Equipment (Pen [place], 29 G x 12.7 mm BD Ultra [...] 70 Milligram [facility] 3 doses. Ro Confirmed [phone] ?? Test Results Below is a partial list of the most recent Laboratory test results done prior to this discharge. You may have had other tests and procedures not included in this list. Please discuss all test resultswith your provider. GLUCOSE POC CARTRIDGE (11/14/2022) ???Glucose (POC) POC Cartridge - 154 HEMATOCRIT POC CARTRIDGE (11/14/2022) ???Hematocrit (POC) POC Cartridge - 35 % HEMOGLOBIN POC CARTRIDGE (11/14/2022) ???Hemoglobin (POC) POC Cartridge - 11.9 Gm/dL POTASSIUM POC CARTRIDGE (11/14/2022) ???Potassium (POC) POC Cartridge - 5.3 mmol/L SODIUM POC CARTRIDGE (11/14/2022) ???Sodium (POC) POC Cartridge - 139 mmol/L Allergies (NKA means No Known Allergies) Compazine??(difficulty breathing, difficulty) Risperdal??(tongue swells) Problems Active Problems??(21) Abscesses, recurrent, due to IVDU including admission to [facility] --> [facility] 09/18/2015 to 10/29/2015 for re?? [...] right lower extremity, followed by Karena Olivas A [phone]?? Education Materials Below is the list of Educational Leaflet Providered with your Discharge Instructions. Surgery Medical Daystay Surgical Overnight Discharge Instructions?? Valuables and Belongings I fully understand and agree that [facility] accepts no responsibility for all [...] patient Date for Pt to Sign Valuables/Belongings: 11/14/22 07:40:00 ?? Valuables & Belongings ?? Clothes Electronic devices Jewelry Monetary Items Personal devices Miscellaneous Medications (Valuables) Valuables at Bedside Jacket, Pants, Shirt, Shoes, Undergarments Cell phone ?? Credit cards, Wallet Glasses ? Valuables Sent Home ? Valuables Sent to Security ? Other Discharge Information ? Pulmonary Rehab Status?? Pulmonary Rehab Discharge Status?? Respiratory Rate: 21 br/min ? Common Emergency Awareness Tips IS [...] are strongly encouraged to quit. Please call [facility] at [phone] or [phone] or log in to [email or web address] for referrals to smoking cessation programs. ?? The National Suicide Prevention Hotline is available 14/04 if you or someone you know needs to find a reason to keep living. By calling 0-567-334-Acronis (6198) you'll be connected to a skilled, trained counselor at a crisis center in your area. INPATIENT DISCHARGE INSTRUCTIONS SIGNATURE ROLA MICHAEL BUTLER Location:[facility] Registration Date and Time:11/14/2022 07:12 EST Primary Care Physician: Kristen Boudreaux DO, I MCIHAEL BUTLER, have received the above patient education materials/instructions and have verbalized understanding. If ambulance or transport services are being used I further acknowledge being given a choice of service. ?? If you need to contact me, please call me at this number: . Patient/Bathhouse Keeper Name: Patient/Bathhouse Keeper Signature: Relationship to Patient: Witness Name/Signature: Date: * Beth Chiu RN: PERFORM, SIGN, VERIFY Event Display: Patient Education Handout Authored Date: [id number] * Beth Chiu RN: PERFORM Event Display: Patient Education Leaflets Authored Date: [id number] Surgery Medical Daystay Surgical Overnight Discharge Instructions [...] Team Personnel Name: Maryam Fox RN Position: [facility] RN Member Role: Primary Care Nurse Name: Franchesca Ward RN Position: [facility] RN Member Role: Primary Care Nurse Name: Carolina Camacho RN Position: [facility] SN RN Member Role: Primary Care Nurse Name: Linda Hathaway Position: [facility] Outreach Member Role: Lifetime Consulting Physician Name: Delaney Huber RN Position: [facility] RN Member Role: Primary Care Nurse Name: Juanita Main RN Position: [facility] RN Member Role: Primary Care Nurse Name: China Sutherland RN Position: [facility] Outreach Member Role: Lifetime Consulting Physician Name: Tayler Harris RN Position: [facility] RN Member Role: Primary Care Nurse Name: Sophie Bejarano NP Position: [facility] Associate Professional Member Role: Lifetime Consulting Provider Address: Address: [address] [place], [place] [address] [address] Name: Vasile Byers MD Position: [facility] Renal MD Member Role: Lifetime Consulting Physician Address: Address: [address] [place], [place] [address]E [facility] [address] Name: Katalina Jorge RN Position: [facility] OB RN Member Role: Primary Care Nurse Name: Lorene Davenport RN Position: [facility] RN Member Role: Primary Care Nurse Name: Meryl Saini RN Position: [facility] SN RN Member Role: Primary Care Nurse Name: Annie Langston RN Position: [facility] RN Member Role: Primary Care Nurse Name: Guillermo Encinas DO Position: [facility] Renal MD Member Role: Lifetime Consulting Physician Address: Address: [address] [place], [place] [address] [address] Name: Lorene Billingsley RN Position: [facility] Onco RN Member Role: Primary Care Nurse Name: Kathy Nieves RN Position: [facility] ED RN W/OE and Tasks Member Role: Primary Care Nurse Name: Sophia Johnson Position: [facility] RN Member Role: Primary Care Nurse Name: Paradise Linder RN Position: [facility] RN Member Role: Primary Care Nurse Name: Pina Mcgill RN Position: [facility] RN Member Role: Primary Care Nurse Name: Vincent Thapa RN Position: [facility] RN Member Role: Primary Care Nurse Name: Kristen Boudreaux DO Position: [facility] Resident Member Role: PCP Address: Address: [address] [facility] [place] [address]- Name: Nicole Guzman RN Position: [facility] RN Member Role: Primary Care Nurse Name: Neil Bobby RN Position: [facility] ED RN W/OE and Tasks Member Role: Primary Care Nurse Name: Joellen Pineda RN Position: [facility] RN Member Role: Primary Care Nurse Name: Litzy Marin RN Position: [facility] RN Member Role: Primary Care Nurse Name: Crystal Robles RN Position: [facility] RN Member Role: Primary Care Nurse Name: Ruth Stevens LPN Position: [facility] RN Member Role: Primary Care Nurse Name: Nohemi Grande RN Position: [facility] Service Parts Driver Member Role: Primary Care Nurse Name: Yolanda Tyler RN Position: [facility] [employer] Driver Member Role: Primary Care Nurse Care Team Related Persons Name: TAWNY BUTLER Address: home [address] [place] [address]
--- OUTSIDE RECORDS SUMMARY | 2023-06-23 09:50 | XMS_ITS | Continuity of Care Document ---
Author Name Unknown Organization [facility] Address [address] [place] [address]- Care Team Providers Care Change Control Analyst Name Role Phone Kristen Boudreaux DO Primary Care Physician [phone] [id number]): [facility]16[facility] Care [address] [place] [id number] Attending Physician: Gail Moody MD Admitting Physician: [...] influenza virus vaccine, inactivated 07/03/09 Dany rded [id number] bivalent booster vax 07/17/22 Recorded [id number] bivalent booster vax 07/17/22 Recorded pneumococcal 20-valent [...] capsule, 8 Refills, Maintenance, 11/25/22 8:27:00 EST, [id number], 170, cm, 10/09/22 16:43:00 EST, Height, 69.1, kg, 11/14/22 7:40:00 EST, Dry Weight Start Date: 11/25/22 Status: Ordered famotidine 20 mg oral tablet 1, tablet, By Mouth, Daily, # 90 tablet, Refills 0, Maintenance, 03/14/23 13:30:00 EDT, Route to Pharmacy Electronically, [id number], 170.1, cm, 03/14/23 9:45:00 EDT, Height, 68.4, kg, 03/14/23 9:45:00 EDT, Dry Weight Start Date: 03/14/23 Status: Ordered furosemide 40 mg oral tablet 3, tablet, By Mouth, 2 times a day, REFILL PER PCP OR NEPHROLOGY., # 180 tablet, Refills 2, Maintenance, 12/19/22 17:33:00 EDT, Route to Pharmacy Electronically, [facility]ORE [id number], 170, cm, 12/19/22 10:06:00 EDT, Height, 71.6, [...] mL, 0 Refills, Maintenance, 04/09/23 10:56:00 EDT, [facility]/pharmacy #[id number], Partial fill upon patient [...] recurrent, due to IVDU including admission to [facility] --> [facility] 09/18/2015 to [...] lower extremity, followed by Karena Olivas [facility] [phone] Confirmed Active Venous ulcer of right leg [...] Safety Implantable Status Assigning Authority Unknown Unknown [id number] Unknown 07/25/23 Unknown Unknown Active Unknown Procedure Provider Procedure Date Device Type Site Insertion Hemodialysis Catheter Tyshawn Milian MD Unknown Chest Device Identifier Serial Number Lot or Batch Number Manufacturing Date Expiration Date Distinct Identification Code MRI Safety Implantable Status Assigning Authority Unknown Unknown [id number] Unknown 06/26/24 Unknown Unknown Active Unknown Patient Care team information Care Team Personnel Name: Maryam Fox RN Position: S RN Member Role: Primary Care Nurse Name: Jana Monte RN Position: [facility] RN Member Role: Primary Care Nurse Name: Franchesca Ward RN Position: S RN Member Role: Primary Care Nurse Name: Carolina Camacho RN Position: [facility] SN RN Member Role: Primary Care Nurse Name: Linda Hathaway Position: [facility] Outreach Member Role: Lifetime Consulting Physician Name: Cynthia Hathaway RN Position: [facility] RN Member Role: Primary Care Nurse Name: Delaney Huber RN Position: [facility] RN Member Role: Primary Care Nurse Name: Juanita Main RN Position: [facility] RN Member Role: Primary Care Nurse Name: China Sutherland Position: [facility] Outreach Member Role: Lifetime Consulting Physician Name: Tayler Harris RN Position: [facility] RN Member Role: Primary Care Nurse Name: Sophie Bejarano NP Position: [facility] Associate Professional Member Role: Lifetime Consulting Provider Address: Address: [address] [place] [address] [address] [facility] [address] Name: Vasile Byers MD Position: [facility] Renal MD Member Role: Lifetime Consulting Physician Address: Address: [address] [place] [address] [address] [address] Name: Edgar Mascorro RN Position: [facility] RN Member Role: Primary Care Nurse Name: Katalina Jorge RN Position: [facility] OB RN Member Role: Primary Care Nurse Name: Sophia Adan LPN Position: [facility] RN Member Role: Primary Care Nurse Name: Lorene Davenport RN Position: [facility] RN Member Role: Primary Care Nurse Name: Meryl Saini RN Position: [facility] ED RN W/OE and Tasks Member Role: Primary Care Nurse Name: Allison Montez RN Position: [facility] RN Member Role: Primary Care Nurse Name: Guillermo Encinas DO Position: [facility] Renal MD Member Role: Lifetime Consulting Physician Address: Address: [address] [place] [address] [address] [facility] [place] [address]- Name: Christiano Parish RN Position: [facility] RN Member Role: Primary Care Nurse Name: Lorene Billingsley RN Position: [facility] Onco RN Member Role: Primary Care Nurse Name: Kathy Nieves RN Position: [facility] ED RN W/OE and Tasks Member Role: Primary Care Nurse Name: Nita Garcias RN Position: [facility] RN Member Role: Primary Care Nurse Name: Tyshawn Cook III, RN Position: [facility] RN Member Role: Primary Care Nurse Name: Mayuri England RN Position: [facility] RN Member Role: Primary Care Nurse Name: Sophia Johnson Position: [facility] RN Member Role: Primary Care Nurse Name: Paradise Linder RN Position: [facility] RN Member Role: Primary Care Nurse Name: Noemi Bustos RN Position: [facility] RN Member Role: Primary Care Nurse Name: Jennifer Song RN Position: [facility] RN Supv Member Role: Primary Care Nurse Name: Pina Mcgill RN Position: [facility] RN Member Role: Primary Care Nurse Name: Reina Franklin RN Position: [facility] RN Member Role: Primary Care Nurse Name: Yumiko Lindsay RN Position: [facility] RN Member Role: Primary Care Nurse Name: Vincent Thapa RN Position: [facility] RN Member Role: Primary Care Nurse Name: Kristen Boudreaux DO Position: [facility] Resident Member Role: PCP Address: Address: [address] [place] [address] [place], [place] [address] Name: Nicole Guzman RN Position: [facility] RN Member Role: Primary Care Nurse Name: Neil Bobby RN Position: [facility] RN Member Role: Primary Care Nurse Name: Joellen Pineda RN Position: [facility] RN Member Role: Primary Care Nurse Name: Crystal Robles RN Position: [facility] RN Member Role: Primary Care Nurse Name: Ruth Stevens LPN Position: [facility] RN Member Role: Primary Care Nurse Name: Nohemi Grande RN Position: [facility] Social Work Job Titles Member Role: Primary Care Nurse Name: Yolanda Tyler RN Position: [facility] Social Work Job Titles Member Role: Primary Care Nurse Care Team Related Persons Name: TAWNY BUTLER Address: home [address] [place] [address]
[2023-06-23] MEDS: Tetracaine HCl/PF 0.5% Oph Sol 4 ML DROPS 1 DROP EYE-LEFT (10:27)
[2023-06-23] MEDS: Ketorolac Tromethamine 0.5% Op 5 ML DROPS 1 DROP EYE-LEFT ×3 (10:27→10:39)
[2023-06-23] MEDS: Tropicamide 1 % Ophth Sol 3 ML BTL 1 DROP EYE-LEFT ×3 (10:27→10:39)
[2023-06-23] MEDS: Cyclopentolate 1 % Ophth Sol 2 ML DRPBTL 1 DROP EYE-LEFT ×3 (10:28→10:40)
[2023-06-23] MEDS: 0.9 % Sodium Chloride 500 ML 50 ML IV (10:28)
[2023-06-23] MEDS: Phenylephrine HCL 2.5% Oph SoL 2 ML BOTTLE 1 DROP EYE-LEFT ×3 (10:28→10:39)
[2023-06-23 10:40] VITALS: BP 147/79; PULSE 82; RESP 18; TEMP 36.7; O2SAT 96
--- NOTE | 2023-06-23 10:43 | PC.NURSE ---
patient does not take any medications for diabetes at home. poc not required per policy.
--- NOTE | 2023-06-23 11:29 | P.PCNO_ITS ---
Ophthalmology Procedure Procedure Date of Service: 06/23/23 Ophthalmology Lenses: LLOYD [id number] (18) Procedure Notes: PREOPERATIVE DIAGNOSIS: Decreased visual acuity left eye secondary to cataract POSTOPERATIVE DIAGNOSIS: Same PROCEDURE: Left cataract extraction with intraocular lens insertion and Synichialysis SURGEON: Ash De La Paz M.D. ANESTHESIA: Topical/MAC ESTIMATED BLOOD LOSS: None COMPLICATIONS: None After obtaining informed consent, the patient was brought to the operation room suite and placed in the supine position. After adequate sedation per anesthesia, topical drops of Tetracaine were given to the left eye. The eye was then prepped and draped in the usual sterile fashion. The operating room microscope was then positioned over the operative eye and a lid speculum placed. A paracentesis was created. Viscoelastic was then instilled into the anterior chamber. A three plane incision was then created temporally, utilizing a 2.85 mm keratome.An air bubble was placed in the anterior chamber followed bt vision blue Capsulotomy forceps were then utilized to create a circular tear capsulotomy. Hydrodissection and hydrodelineation were carried out until adequate mobilization of the nucleus occurred. Phacoemulsification was then utilized to remove the dense central nucl eus followed by removal of the cortical material utilizing the automated aspiration irrigation unit. Viscoat elastic was instilled into the posterior capsular bag followed by placement of a posterior chamber intraocular lens without difficulty. The residual Viscoat elastic was then removed utilizing the automated IA machine. The wound was check and found to be watertight. The patient tolerated the procedure well and the lid speculum was removed. Intracameral injection of Vigamox 0.1 mL followed by a subtenon injection of Kenalog-40 0.2 mL were administered. The patient will be seen in the a.m.
[2023-06-23 12:02] VITALS: BP 148/75; PULSE 87; RESP 16; TEMP 37.3; O2SAT 96
== END 2023-06-23 12:18 | disposition home or self-care (01) ==
PROVIDERS: Visit Provider Ophthalmology
PROC: (CPT 66985; principal; 2023-06-23 11:40)
DX: H25.12 Age-related nuclear cataract, left eye (principal); H54.7 Unspecified visual loss; H21.502 Unspecified adhesions of iris, left eye; H44.23 Degenerative myopia, bilateral; Z83.511 Family history of glaucoma; E11.3391 Type 2 diabetes mellitus with moderate nonproliferative diabetic retinopathy without macular edema, right eye; E11.22 Type 2 diabetes mellitus with diabetic chronic kidney disease; I13.2 Hypertensive heart and chronic kidney disease with heart failure and with stage 5 chronic kidney disease, or end stage renal disease; I50.89 Other heart failure; N18.6 End stage renal disease; Z99.2 Dependence on renal dialysis; F11.20 Opioid dependence, uncomplicated; Z79.82 Long term (current) use of aspirin; Z79.899 Other long term (current) drug therapy; Z88.8 Allergy status to other drugs, medicaments and biological substances; Z87.891 Personal history of nicotine dependence
CPT/HCPCS: 66982; J2250; J3010; J3301; V2632

== ENCOUNTER → 2023-07-07 06:05 | Day surgery (SDC) | payer OTHER, SELFPAY ==
[2023-06-18 10:40] VITALS: BMI 22.9
--- NOTE | 2023-07-04 10:04 | MHC.SHP ---
Pre-Procedural Eval Section A Date of Service: 07/04/23 The patient is an INPATIENT: No Changes since office visit: No Cold of Flu in the past 2 weeks, No New Medical Problems, No Changes in Medication and No Patient answered all questions The History & Physical has been completed within 30 days and I have reviewed it.: Yes Section B Chief Complaint: Age-related nuclear cataract, right eye Allergies: Allergies Allergy/AdvReac Type Severity Reaction Status Date / Time prochlorperazine Allergy Difficulty Verified 06/23/23 10:52 [From Compazine] Breathing risperidone [From Risperdal] Allergy Swelling Verified 06/23/23 10:52 Plan Diagnosis/Plan: Unchanged I have reviewed the history and physical and performed a pertinent physical examination on my patient. No changes have occurred unless specified. Time Spent With Patient Time: Total time managing care of this patient today ____ minutes.
--- NOTE | 2023-07-04 10:23 | HO.ANESPROP2 ---
Documented by User: Cammy Wayne NP 07/04/23 10:28 HPI - Anesthesia Eval Consult details Narrative: 47yo M for Right Cataract Extraction IOL Insertion Medically optimized Left eye with MAC: Fent 50, Midaz 2 ESRD on HD Methadone daily - Hx substance abuse PMFSH Past Medical History Medical History Complication of AV dialysis fistula Back pain Hx of transfusion of packed red blood cells GERD (gastroesophageal reflux disease) Numbness Retroperitoneal abscess Venous ulcer of right leg Proliferative diabetic retinopathy Polysubstance dependence including opioid drug with daily use Overweight Lymphedema HTN (hypertension) ESRD (end stage renal disease) Diabetic neuropathy Diabetes Cocaine use disorder Chronic kidney disease Uriostegui's cyst Anemia Above-elbow amputation of left upper extremity ADHD (attention deficit hyperactivity disorder) Abscess Family History Family history of problems with anesthesia: No Surgical History Surgical History S/P debridement History of skin graft Status post amputation of left upper extremity above elbow Hx of laser photocoagulation of retina History of esophagogastroduodenoscopy (EGD) H/O colonoscopy History of Problems with Anesthesia: No Social History Social History Are you a primary laboratory animal caretaker to a significant other at home: No Do you presently have visiting nurse or other home services: No Patient Tobacco Use Status: Current someday Tobacco user Tobacco use type: Cigarette Cigarettes Per Day: 5 Use of substances other than those prescribed or required for medical reasons: No Have you been hit, kicked, punched, or otherwise hurt by someone within the past year? If so, by whom?: No Are you DNR?: No Advance Directives: No Advance Directives Information Provided: Yes Advance Directives on File: No Recently lost weight without trying: No Eating poorly because of decreased appetite: No Nutrition Risks: No Nutritional Risk Poor oral hygiene: Yes (no teeth, does not use dentures) Meds Allergies Allergy/AdvReac Type Severity Reaction Status Date / Time prochlorperazine Allergy Difficulty Verified 06/23/23 10:52 [From Compazine] Breathing risperidone [From Risperdal] Allergy Swelling Verified 06/23/23 10:52 Home Medications Medication Instructions Recorded Confirmed Last Taken Type acetaminophen 325 mg tablet 650 mg PO TID PRN fever 06/18/23 06/18/23 Unknown History aspirin 162.5 mg capsule,extended 325 mg PO DAILY 06/18/23 06/18/23 06/23/23 History release 24 hr duloxetine 30 mg capsule,delayed 30 mg PO DAILY 06/18/23 06/18/23 Unknown History release famotidine 20 mg tablet 20 mg PO DAILY 06/18/23 06/18/23 Unknown History furosemide 40 mg tablet 120 mg PO BID 06/18/23 06/18/23 Unknown History methadone 10 mg tablet 45 mg PO DAILY 06/18/23 07/07/23 07/07/23 History sucroferric oxyhydroxide 500 mg 500 mg PO TID 06/18/23 06/18/23 Unknown History chewable tablet (Velphoro) Exam Exam Date and Time: July 04, 2023 1023 Height,Weight and Vital Signs: Height 5 ft 7 in Weight 66.224 kg Assessment and Plan Assessment Anesthesia Assessment: Chart Reviewed Final Anesthetic Review Family History of Problems with Anesthesia: No History of Problems with Anesthesia: No Documented by User: Heena Leiva MD 07/07/23 07:19 [facility] Past Medical History Medical History Complication of AV dialysis fistula Back pain Hx of transfusion of packed red blood cells GERD (gastroesophageal reflux disease) Numbness Retroperitoneal abscess Venous ulcer of right leg Proliferative diabetic retinopathy Polysubstance dependence including opioid drug with daily use Overweight Lymphedema HTN (hypertension) ESRD (end stage renal disease) Diabetic neuropathy Diabetes Cocaine use disorder Chronic kidney disease Uriostegui's cyst Anemia Above-elbow amputation of left upper extremity ADHD (attention deficit hyperactivity disorder) Abscess Surgical History Surgical History S/P debridement History of skin graft Status post amputation of left upper extremity above elbow Hx of laser photocoagulation of retina History of esophagogastroduodenoscopy (EGD) H/O colonoscopy Social History Social History Are you a primary laboratory animal caretaker to a significant other at home: No Do you presently have visiting nurse or other home services: No Patient Tobacco Use Status: Current someday Tobacco user Tobacco use type: Cigarette Cigarettes Per Day: 5 Use of substances other than those prescribed or required for medical reasons: No Have you been hit, kicked, punched, or otherwise hurt by someone within the past year? If so, by whom?: No Are you DNR?: No Advance Directives: No Advance Directives Information Provided: Yes Advance Directives on File: No Recently lost weight without trying: No Eating poorly because of decreased appetite: No Nutrition Risks: No Nutritional Risk Poor oral hygiene: Yes (no teeth, does not use dentures) Meds Allergies Allergy/AdvReac Type Severity Reaction Status Date / Time prochlorperazine Allergy Difficulty Verified 06/23/23 10:52 [From Compazine] Breathing risperidone [From Risperdal] Allergy Swelling Verified 06/23/23 10:52 Home Medications Medication Instructions Recorded Confirmed Last Taken Type acetaminophen 325 mg tablet 650 mg PO TID PRN fever 06/18/23 06/18/23 Unknown History aspirin 162.5 mg capsule,extended 325 mg PO DAILY 06/18/23 06/18/23 06/23/23 History release 24 hr duloxetine 30 mg capsule,delayed 30 mg PO DAILY 06/18/23 06/18/23 Unknown History release famotidine 20 mg tablet 20 mg PO DAILY 06/18/23 06/18/23 Unknown History furosemide 40 mg tablet 120 mg PO BID 06/18/23 06/18/23 Unknown History methadone 10 mg tablet 45 mg PO DAILY 06/18/23 07/07/23 07/07/23 History sucroferric oxyhydroxide 500 mg 500 mg PO TID 06/18/23 06/18/23 Unknown History chewable tablet (Velphoro) Exam Airway Mallampati Class: II (edentulous) TM Dist: >3cm Neck ROM: Full Heart: rrr Lungs: cta Assessment and Plan Assessment Anesthesia Assessment: Anesthesia Plan Discussed Final Anesthetic Review NPO: Yes ASA Class: III Final Preanesthetic Review: No Changes in Pt Med Stat, Meds/Allgs Chart Reviewed and Consent Obtained/Reviewed Patient Risk: Intermediate Procedure Risk: Intermediate Anesthetic Plan Anesthetic Plan: MAC: Disposition: Standard PACU
--- OUTSIDE RECORDS SUMMARY | 2023-07-07 06:10 | XMS_ITS | Continuity of Care Document ---
Author Name Unknown Organization [facility] Address [address] [place] [id number]- Care Team Providers Care Quality Assurance Technician Name Role Phone Kristen Boudreaux DO Primary Care Physician Encounter [facility] Date(s): 06/17/23 - 06/24/23 [facility] [address] [place], [place] [address] Attending Physician: Tim VILLATORO, Gaurav Cardenas Referring Physician: Ash De La Paz MD Allergies, Adverse Reactions, Alerts Substance Reaction [...] influenza virus vaccine, inactivated 07/03/09 Dany rded [id number] bivalent booster vax 07/17/22 Recorded [id number] bivalent booster vax 07/17/22 Recorded pneumococcal 20-valent [...] capsule, 8 Refills, Maintenance, 11/25/22 8:27:00 EST, [id number], 170, cm, 10/09/22 16:43:00 EST, Height, 69.1, kg, 11/14/22 7:40:00 EST, Dry Weight Start Date: 11/25/22 Status: Ordered famotidine 20 mg oral tablet 1, tablet, By Mouth, Daily, # 90 tablet, Refills 0, Maintenance, 03/14/23 13:30:00 EDT, Route to Pharmacy Electronically, [facility] [address], 170.1, cm, 03/14/23 9:45:00 EDT, Height, 68.4, kg, 03/14/23 9:45:00 EDT, Dry Weight Start Date: 03/14/23 Status: Ordered furosemide 40 mg oral tablet 3, tablet, By Mouth, 2 times a day, REFILL PER PCP OR NEPHROLOGY., # 180 tablet, Refills 2, Maintenance, 12/19/22 17:33:00 EDT, Route to Pharmacy Electronically, [facility] [address]255, 170, cm, 12/19/22 10:06:00 EDT, Height, 71.6, [...] 0 Refills, Maintenance, 04/09/23 10:56:00 EDT, [facility]/pharmacy #[id number], Partial fill upon patient request if [...] lower extremity, followed by Karena Olivas [facility] [phone] Confirmed Active Venous ulcer of right leg Confirmed Active Vital Signs Most recent to oldest [Reference Range]: 1 Height 170.1 cm (06/17/23 8:56 AM) Weight 76.0 kg (06/17/23 8:56 AM) Oxygen Saturation [94-100 %] 100 % (06/17/23 8:56 AM) Pulse Rate [55-90 bpm] 92 bpm *H* (06/17/23 8:56 AM) Body Mass Index [18.5-24.99 kg/m2] 26.27 kg/m2 *H* (06/17/23 8:56 AM) Blood Pressure [90-138/55-84 mm Hg] 152/ 95mm Hg *H* (06/17/23 8:56 AM) Respiratory Rate [16-30 br/min] 16 br/mi n (06/17/23 8:56 AM) Mode of Delivery (Oxygen) Room air (06/17/23 8:56 AM) Blood pressure sites Arm, right (06/17/23 8:56 AM) Weight Obtained Via Standing scale (06/17/23 8:56 AM) Social History Social History Type Response [...] Safety Implantable Status Assigning Authority Unknown Unknown [id number] Unknown 07/25/23 Unknown Unknown Active Unknown Procedure Provider Procedure Date Device Type Site Insertion Hemodialysis Catheter Tyshawn Milian MD Unknown Chest Device Identifier Serial Number Lot or Batch Number Manufacturing Date Expiration Date Distinct Identification Code MRI Safety Implantable Status Assigning Authority Unknown Unknown [id number] Unknown 06/26/24 Unknown Unknown Active Unknown Patient Care team information Care Team Personnel Name: Maryam Fox RN [facility] RN Member Role: Primary Care Nurse Name: Jana Monte RN Position[facility] RN Member Role: Primary Care Nurse Name: Franchesca Ward RN Position: [facility] RN Member Role: Primary Care Nurse Name: Carolina Camacho RN Position: [facility] SN RN Member Role: Primary Care Nurse Name: Linda Hathaway Position: [facility] Outreach Member Role: Lifetime Consulting Physician Name: Cynthia Hathaway RN Position[facility] RN Member Role: Primary Care Nurse Name: Delaney Huber RN Position: [facility] RN Member Role: Primary Care Nurse Name: Juanita Main RN Position: [facility] RN Member Role: Primary Care Nurse Name: China Sutherland Position: [facility] Outreach Member Role: Lifetime Consulting Physician Name: Tayler Harris RN Position[facility] RN Member Role: Primary Care Nurse Name: Sophie Bejarano NP Position: [facility] Associate Professional Member Role: Lifetime Consulting Provider Address: Address: [address] [place], [place] [address] [place] [address]- Name: Vasile Byers MD Position[facility] Renal MD Member Role: Lifetime Consulting Physician Address: Address: [address] [place], [place] [address] [place], [place] [address] Name: Edgar Mascorro RN Position[facility] RN Member Role: Primary Care Nurse Name: Katalina Jorge RN Position: [facility] OB RN Member Role: Primary Care Nurse Name: Sophia Adan LPN Position: [facility] RN Member Role: Primary Care Nurse Name: Lorene Davenport RN Position: [facility] RN Member Role: Primary Care Nurse Name: Meryl Saini RN Position: [facility] ED RN W/OE and Tasks Member Role: Primary Care Nurse Name: Allison Montez RN Position: [facility] RN Member Role: Primary Care Nurse Name: Guillermo Encinas DO Position: [facility] Renal MD Member Role: Lifetime Consulting Physician Address: Address: [address] [place], [place] [address] [place] [address]- Name: Christiano Parish RN Position: [facility] RN Member Role: Primary Care Nurse Name: Lorene Billingsley RN Position: [facility] Onco RN Member Role: Primary Care Nurse Name: Kathy Nieves RN Position: [facility] ED RN W/OE and Tasks Member Role: Primary Care Nurse Name: Nita Garcias RN Position: [facility] RN Member Role: Primary Care Nurse Name: Tyshawn Cook III, RN Position: [facility] RN Member Role: Primary Care Nurse Name: Mayuri England RN Position: [facility] RN Member Role: Primary Care Nurse Name: Sophia Johnson Position: [facility] RN Member Role: Primary Care Nurse Name: Paradise Linder RN Position: [facility] RN Member Role: Primary Care Nurse Name: Noemi Bustos RN Position: [facility] RN Member Role: Primary Care Nurse Name: Jennifer Song RN Position: [facility] RN Supv Member Role: Primary Care Nurse Name: Pina Mcgill RN Position: [facility] RN Member Role: Primary Care Nurse Name: Reina Franklin RN Position: [facility] RN Member Role: Primary Care Nurse Name: Yumiko Lindsay RN Position: [facility] RN Member Role: Primary Care Nurse Name: Vincent Thapa RN Position: [facility] RN Member Role: Primary Care Nurse Name: Kristen Boudreaux DO Position: [facility] Resident Member Role: PCP Address: Address: [address] [place] [address]- [place] Name: Nicole Guzman RN Position: [facility] RN Member Role: Primary Care Nurse Name: Neil Bobby RN Position: [facility] RN Member Role: Primary Care Nurse Name: Joellen Pineda RN Position: [facility] RN Member Role: Primary Care Nurse Name: Crystal Robles RN Position: [facility] RN Member Role: Primary Care Nurse Name: Ruth Stevens LPN Position: [facility] RN Member Role: Primary Care Nurse Name: Nohemi Grande RN Position: [facility] Stable Hand Member Role: Primary Care Nurse Name: Yolanda Tyler RN Position: [facility] Stable Hand Member Role: Primary Care Nurse Care Team Related Persons Name: TAWNY BUTLER Address: [address] [address]
--- OUTSIDE RECORDS SUMMARY | 2023-07-07 06:11 | XMS_ITS | Patient Health Record ---
Author Name Unknown Organization [facility] Address [address], [place] [id number] Care Team Providers Care Educational Assistant Name Role Phone [facility], Medical Services Primary Care Provider Kris [...] A IM Intramuscular 06/18/2019 Administered ND 5 [id number] Hepatitis B (20 or more) IM Intramuscular 06/18/2019 Administered ND [id number] SOCIAL HISTORY Tobacco Use: Social History Observation [...] dependence, uncomplicated (F11.20) Active confirmed Opioid dependence (75011259) Problem Type 2 diabetes mellitus without complications (E11.9) Active confirmed Type II diabete s mellitus without complication (338577178) 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 Problem Nicotine dependence, cigarettes, uncomplicated (F17.210) Active confirmed Tobacco user (780885577) Problem Major depressive disorder, recurrent, unspecified (F33.9) Active confirmed Recurrent major depression (93720356) Problem Anxiety disorder, unspecified (F41.9) Active confirmed Anxiety disorde r (157476598) Problem 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) Active confirmed 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 2 diabetes mellitus (24097293088473) PLAN OF TREATMENT Pending Test Test Name Order Date Blood Sugar/finger stick 05/22/2018 Blood Sugar/finger stick 04/02/2019 Depression Screen PHQ9 Annual Depression screen 05/22/2018 MICROALBUMIN, RANDOM URINE (W/CREATININE ) 07/14/2020 HIV 1/2 ANTIGEN/ANTIBODY,FOURTH GENERATI ON W/RFL 05/22/2018 LIPID PANEL 05/22/2018 LIPID PANEL 07/14/2020 COMPREHENSIVE METABOLIC PANEL-[facility] 06/23 COMPREHENSIVE METABOLIC PANEL-[facility] [...] Insured Coverage Start Date Coverage End Date [facility] [employer] [address] [place] [address] [id number] Hany Parmar Self - patient is the [...]
[2023-07-07 06:22] VITALS: BP 171/98; PULSE 90; RESP 18; TEMP 36.6; O2SAT 98
[2023-07-07 06:26] VITALS: BMI 25.5
[2023-07-07] MEDS: Tetracaine HCl/PF 0.5% Oph Sol 4 ML DROPS 1 DROP EYE-RIGHT (06:39)
[2023-07-07] MEDS: Cyclopentolate 1 % Ophth Sol 2 ML DRPBTL 1 DROP EYE-RIGHT ×3 (06:40→06:46)
[2023-07-07] MEDS: Phenylephrine HCL 2.5% Oph SoL 2 ML BOTTLE 1 DROP EYE-RIGHT ×3 (06:40→06:45)
[2023-07-07] MEDS: Ketorolac Tromethamine 0.5% Op 5 ML DROPS 1 DROP EYE-RIGHT ×3 (06:40→06:45)
[2023-07-07] MEDS: Tropicamide 1 % Ophth Sol 3 ML BTL 1 DROP EYE-RIGHT ×3 (06:40→06:46)
[2023-07-07] MEDS: 0.9 % Sodium Chloride 500 ML 50 ML IV (06:49)
[2023-07-07 07:48] LABS: Glucose, Whole Blood 84 mg/dL (60-115)
--- NOTE | 2023-07-07 08:25 | PC.NURSE ---
lab draw for lytes late, then hemolyzed when called 0810, lab had already notified arborer for redraw, recall lab by this RN, short staffed, updated pt who is frustrated, given emotional support and understanding and warm blanket, tiger connect to Dr. Leiva - ramos wants results. drawn 08. to run stat.
[2023-07-07 08:48] LABS: Anion Gap 19 (12-20); Carbon Dioxide 16 mmol/L (22-29); Chloride 110 mmol/L (96-108); Potassium 6.6 mmol/L (3.3-5.1); Sodium 138 mmol/L (135-145)
--- NOTE | 2023-07-07 09:15 | PC.NURSE ---
0854 high critical potasium 6.6 received by telephone by Do Erwin RN and notified Dr. Jackson. 0856 Dr. Jackson talking to pt and risks reviewed. case cancelled, pt agreeable and cooperative with IV removal, dsd applied no oozing. phone and sweatshirt returned to pt. ambulatory asymptomatic
== END ==
PROVIDERS: Nurse Practitioner; Visit Provider Ophthalmology
DX: H25.11 Age-related nuclear cataract, right eye (principal); Z53.09 Procedure and treatment not carried out because of other contraindication
CPT/HCPCS: 36415; 80051; 82947; J0461; J3301

== ENCOUNTER 2023-08-25 06:15 | Day surgery (SDC) | payer OTHER, SELFPAY ==
[2023-08-19 08:13] VITALS: BMI 22.9
--- NOTE | 2023-08-22 07:41 | MHC.SHP ---
Pre-Procedural Eval Section A Date of Service: 08/22/23 The patient is an INPATIENT: No Changes since office visit: No Cold of Flu in the past 2 weeks, No New Medical Problems, No Changes in Medication and No Patient answered all questions The History & Physical has been completed within 30 days and I have reviewed it.: Yes Section B Chief Complaint: Age-related nuclear cataract, right eye Allergies: Allergies Allergy/AdvReac Type Severity Reaction Status Date / Time prochlorperazine Allergy Difficulty Verified 06/23/23 10:52 [From Compazine] Breathing risperidone [From Risperdal] Allergy Swelling Verified 06/23/23 10:52 Plan Diagnosis/Plan: Unchanged I have reviewed the history and physical and performed a pertinent physical examination on my patient. No changes have occurred unless specified. Time Spent With Patient Time: Total time managing care of this patient today ____ minutes.
--- NOTE | 2023-08-22 09:36 | P.CONAN_ITS ---
Documented by User: Cammy Wayne NP 08/22/23 09:38 HPI - Anesthesia Eval Consult details Narrative: 47yo M for Right Cataract Extraction IOL Insertion Medically cleared Previously cx'd d/t critcally high K s/p Left eye 06/2023: Fent 50, Midaz 2 PMFSH Past Medical History Medical History Complication of AV dialysis fistula Back pain Hx of transfusion of packed red blood cells GERD (gastroesophageal reflux disease) Numbness Retroperitoneal abscess Venous ulcer of right leg Proliferative diabetic retinopathy Polysubstance dependence including opioid drug with daily use Overweight Lymphedema HTN (hypertension) ESRD (end stage renal disease) Diabetic neuropathy Diabetes Cocaine use disorder Chronic kidney disease Uriostegui's cyst Anemia Above-elbow amputation of left upper extremity ADHD (attention deficit hyperactivity disorder) Abscess Family History Family history of problems with anesthesia: No Surgical History Surgical History Hx of cataract extraction S/P debridement History of skin graft Status post amputation of left upper extremity above elbow Hx of laser photocoagulation of retina History of esophagogastroduodenoscopy (EGD) H/O colonoscopy History of Problems with Anesthesia: No Social History Social History Are you a primary urgent care nurse practitioner to a significant other at home: No Do you presently have visiting nurse or other home services: No Patient Tobacco Use Status: Current someday Tobacco user Tobacco use type: Cigarette Cigarettes Per Day: 5 Use of substances other than those prescribed or required for medical reasons: No Have you been hit, kicked, punched, or otherwise hurt by someone within the past year? If so, by whom?: No Are you DNR?: No Advance Directives: No Advance Directives Information Provided: Yes Advance Directives on File: No Recently lost weight without trying: No Eating poorly because of decreased appetite: No Nutrition Risks: No Nutritional Risk Poor oral hygiene: Yes Meds Allergies Allergy/AdvReac Type Severity Reaction Status Date / Time prochlorperazine Allergy Difficulty Verified 06/23/23 10:52 [From Compazine] Breathing risperidone [From Risperdal] Allergy Swelling Verified 06/23/23 10:52 Home Medications Medication Instructions Recorded Confirmed Last Taken Type acetaminophen 325 mg tablet 650 mg PO TID PRN fever 06/18/23 06/18/23 Unknown History aspirin 162.5 mg capsule,extended 325 mg PO DAILY 06/18/23 06/18/23 06/23/23 History release 24 hr duloxetine 30 mg capsule,delayed 30 mg PO DAILY 06/18/23 06/18/23 Unknown History release famotidine 20 mg tablet 20 mg PO DAILY 06/18/23 06/18/23 Unknown History furosemide 40 mg tablet 120 mg PO BID 06/18/23 06/18/23 Unknown History methadone 10 mg tablet 45 mg PO DAILY 06/18/23 07/07/23 07/07/23 History sucroferric oxyhydroxide 500 mg 500 mg PO TID 06/18/23 06/18/23 Unknown History chewable tablet (Velphoro) Exam Height,Weight and Vital Signs: Height 5 ft 7 in Weight 66.22 kg Assessment and Plan Assessment Anesthesia Assessment: Chart Reviewed Final Anesthetic Review Family History of Problems with Anesthesia: No History of Problems with Anesthesia: No Documented by User: Darlin Bolanos MD 08/25/23 08:10 HPI - Anesthesia Eval Consult details Narrative: 47yo M for Right Cataract Extraction IOL Insertion Medically cleared Previously cx'd 07/07/23 d/t critically high K 6.6 . Repeat K+ today 4.6 s/p Left eye 06/2023: Fent 50, Midaz 2 PMFSH Past Medical History Medical History Complication of AV dialysis fistula Back pain Hx of transfusion of packed red blood cells GERD (gastroesophageal reflux disease) Numbness Retroperitoneal abscess Venous ulcer of right leg Proliferative diabetic retinopathy Polysubstance dependence including opioid drug with daily use Overweight Lymphedema HTN (hypertension) ESRD (end stage renal disease) Diabetic neuropathy Diabetes Cocaine use disorder Chronic kidney disease Uriostegui's cyst Anemia Above-elbow amputation of left upper extremity ADHD (attention deficit hyperactivity disorder) Abscess Surgical History Surgical History Hx of cataract extraction S/P debridement History of skin graft Status post amputation of left upper extremity above elbow Hx of laser photocoagulation of retina History of esophagogastroduodenoscopy (EGD) H/O colonoscopy Social History Social History Are you a primary urgent care nurse practitioner to a significant other at home: No Do you presently have visiting nurse or other home services: No Patient Tobacco Use Status: Current someday Tobacco user Tobacco use type: Cigarette Cigarettes Per Day: 5 Use of substances other than those prescribed or required for medical reasons: No Have you been hit, kicked, punched, or otherwise hurt by someone within the past year? If so, by whom?: No Are you DNR?: No Advance Directives: No Advance Directives Information Provided: Yes Advance Directives on File: No Recently lost weight without trying: No Eating poorly because of decreased appetite: No Nutrition Risks: No Nutritional Risk Poor oral hygiene: Yes Meds Allergies Allergy/AdvReac Type Severity Reaction Status Date / Time prochlorperazine Allergy Difficulty Verified 06/23/23 10:52 [From Compazine] Breathing risperidone [From Risperdal] Allergy Swelling Verified 06/23/23 10:52 Home Medications Medication Instructions Recorded Confirmed Last Taken Type acetaminophen 325 mg tablet 650 mg PO TID PRN fever 06/18/23 06/18/23 Unknown History aspirin 162.5 mg capsule,extended 325 mg PO DAILY 06/18/23 06/18/23 06/23/23 History release 24 hr duloxetine 30 mg capsule,delayed 30 mg PO DAILY 06/18/23 06/18/23 Unknown History release famotidine 20 mg tablet 20 mg PO DAILY 06/18/23 06/18/23 Unknown History furosemide 40 mg tablet 120 mg PO BID 06/18/23 06/18/23 Unknown History methadone 10 mg tablet 45 mg PO DAILY 06/18/23 07/07/23 07/07/23 History sucroferric oxyhydroxide 500 mg 500 mg PO TID 06/18/23 06/18/23 Unknown History chewable tablet (Velphoro) Exam Height,Weight and Vital Signs: Height 5 ft 7 in Weight 66.22 kg Vital Signs Temp Pulse Resp BP Pulse Ox O2 Del Method 08/25/23 07:23 98.1 F 80 18 141/79 H 100 Room Air Pertinent Lab Results Pertinent Lab Results: Lab Results 08/25/23 08/25/23 Range/Units 07:03 07:06 Sodium 141 (135-145) mmol/L Potassium 4.6 D (3.3-5.1) mmol/L Chloride 106 (96-108) mmol/L Carbon Dioxide 25 (22-29) mmol/L Anion Gap 15 (12-20) POC Glucose 125 H (60-115) mg/dL Airway Mallampati Class: II TM Dist: >3cm Loose/Missing/Broken Teeth: Yes (Edentulous) Heart: RRR Lungs: Occasional wheeze Assessment and Plan Assessment Anesthesia Assessment: Anesthesia Plan Discussed Final Anesthetic Review NPO: Yes ASA Class: III Final Preanesthetic Review: No Changes in Pt Med Stat, Meds/Allgs Chart Reviewed, Consent Obtained/Reviewed and Anes Risks/Benef Reviewed Patient Risk: Intermediate Procedure Risk: Low Assessment/Block/Sedation in SS: Assess/Block/Sedation-SS Anesthetic Plan Anesthetic Plan: MAC: Disposition: Standard PACU
--- OUTSIDE RECORDS SUMMARY | 2023-08-25 06:17 | XMS_ITS | Continuity of Care Document ---
Author Name Unknown Organization [facility] Address [address] [place] [address]- Care Team Providers Care Facilities Operations Technician Name Role Phone Kristen Boudreaux DO Primary Care Physician [phone] [place] [facility] [place] [facility] [place]/23 [facility] [address] [place] [address]- Attending Physician: Alberto Monroy MD Admitting Physician: [...] influenza virus vaccine, inactivated 07/03/09 Dany rded [id number] bivalent booster vax 07/17/22 Recorded [id number] bivalent booster vax 07/17/22 Recorded pneumococcal 20-valent [...] capsule, 8 Refills, Maintenance, 11/25/22 8:27:00 EST, [id number], 170, cm, 10/09/22 16:43:00 EST, Height, 69.1, kg, 11/14/22 7:40:00 EST, Dry Weight Start Date: 11/25/22 Status: Ordered famotidine 20 mg oral tablet 1, tablet, By Mouth, Daily, # 90 tablet, Refills 0, Maintenance, 03/14/23 13:30:00 EDT, Route to Pharmacy Electronically, [facility], 170.1, cm, 03/14/23 9:45:00 EDT, Height, 68.4, kg, 03/14/23 9:45:00 EDT, Dry Weight Start Date: 03/14/23 Status: Ordered furosemide 40 mg oral tablet 3, tablet, By Mouth, 2 times a day, REFILL PER PCP OR NEPHROLOGY., # 180 tablet, Refills 2, Maintenance, 12/19/22 17:33:00 EDT, Route to Pharmacy Electronically, [facility], 170, cm, 12/19/22 10:06:00 EDT, Height, 71.6, [...] mL, 0 Refills, Maintenance, 04/09/23 10:56:00 EDT, [facility]/pharmacy #[id number], Partial fill upon patient request [...] due to [place]DU [place] [facility] [place] [facility] [...] ulcer, right lower extremity, followed by [facility]a [place] [facility] [phone] Confirmed Active Venous ulcer of right leg [...] Safety Implantable Status Assigning Authority Unknown Unknown [id number] Unknown 07/25/23 Unknown Unknown Active Unknown Procedure Provider Procedure Date Device Type Site Insertion Hemodialysis Catheter Tyshawn Milian MD Unknown Chest Device Identifier Serial Number Lot or Batch Number Manufacturing Date Expiration Date Distinct Identification Code MRI Safety Implantable Status Assigning Authority Unknown Unknown [id number] Unknown 06/26/24 Unknown Unknown Active Unknown [...] Member Role: Lifetime Consulting Provider Address: Address: [address] [place] [address] [address] [address] Name: Vasile Byers MD Position: [facility] Renal MD Member Role: Lifetime Consulting Physician Address: Address: [address] [place] [address] [address] [address] Name: Katalina Jorge RN Position: [facility] [...] Member Role: Lifetime Consulting Physician Address: Address: [address] [place] [address] [address] [place] [address]- Name: Christiano Parish RN Position: [facility] [...] HOSPITAL Resident Member Role: PCP Address: Address: [address] [place] [address]- Name: Neil Bobby RN Position: [facility] RN Member Role: Primary Care Nurse Name: Joellen Pineda RN Position: [facility] RN Member Role: Primary Care Nurse Name: Crystal Robles RN Position: [facility] RN Member Role: Primary Care Nurse Name: Ruth Stevens LPN Position: [facility] RN Member Role: Primary Care Nurse Name: Nohemi Grande RN Position: [facility] Heat Treat Worker Member Role: Primary Care Nurse Name: Yolanda Tyler RN Position: [facility] Heat Treat Worker Member Role: Primary Care Nurse Care Team Related Persons Name: TAWNY BUTLER Address: home [address] [place] [address]
--- OUTSIDE RECORDS SUMMARY | 2023-08-25 06:17 | XMS_ITS | Continuity of Care Document ---
Author Name Unknown Organization [facility] Address [address] [place] [address]- Care Team Providers Care Courtesy Bus Driver Name Role Phone Kristen Boudreaux DO Primary Care Physician Encounter [facility] [place] Date(s): 06/14/23 - 07/17/23 [facility] [address] [place], [place] [address] Attending Physician: Gaurav Dumont MD Allergies, Adverse Reactions, Alerts Substance Reaction [...] influenza virus vaccine, inactivated 07/03/09 Dany rded [id number] bivalent booster vax 07/17/22 Recorded [id number] bivalent booster vax 07/17/22 Recorded pneumococcal 20-valent [...] capsule, 8 Refills, Maintenance, 11/25/22 8:27:00 EST, [facility], 170, cm, 10/09/22 16:43:00 EST, Height, 69.1, kg, 11/14/22 7:40:00 EST, Dry Weight Start Date: 11/25/22 Status: Ordered famotidine 20 mg oral tablet 1, tablet, By Mouth, Daily, # 90 tablet, Refills 0, Maintenance, 03/14/23 13:30:00 EDT, Route to Pharmacy Electronically, [facility], 170.1, cm, 03/14/23 9:45:00 EDT, Height, 68.4, kg, 03/14/23 9:45:00 EDT, Dry Weight Start Date: 03/14/23 Status: Ordered furosemide 40 mg oral tablet 3, tablet, By Mouth, 2 times a day, REFILL PER PCP OR NEPHROLOGY., # 180 tablet, Refills 2, Maintenance, 12/19/22 17:33:00 EDT, Route to Pharmacy Electronically, [facility], 170, cm, 12/19/22 10:06:00 EDT, Height, 71.6, [...] 0 Refills, Maintenance, 04/09/23 10:56:00 EDT, [facility]/pharmacy #[id number], Partial fill [...] due to IVDU including admission to [facility] [place] [facility] 09/18/2015 to [...] lower extremity, followed by [facility] [phone] Confirmed Active Venous ulcer of right leg [...] Safety Implantable Status Assigning Authority Unknown Unknown [id number] Unknown 07/25/23 Unknown Unknown Active Unknown Procedure Provider Procedure Date Device Type Site Insertion Hemodialysis Catheter Tyshawn Milian MD Unknown Chest Device Identifier Serial Number Lot or Batch Number Manufacturing Date Expiration Date Distinct Identification Code MRI Safety Implantable Status Assigning Authority Unknown Unknown [id number] Unknown 06/26/24 Unknown Unknown Active Unknown Patient Care team information Care Team Personnel Name: Maryam Fox RN Position: [facility] RN Member Role: Primary Care Nurse Name: Jana Monte RN Position: S RN Member Role: Primary Care Nurse Name: Franchesca Ward RN Position: S RN Member Role: Primary Care Nurse Name: Carolina Camacho RN Position: [facility] RN Member Role: Primary Care Nurse Name: Linda Hathaway Position: [facility] Outreach Member Role: Lifetime Consulting Physician Name: Cynthia Hathaway RN Position: S RN Member Role: Primary Care Nurse Name: Delaney Huber RN Position: [facility] RN Member Role: Primary Care Nurse Name: Juanita Main RN Position: [facility] RN Member Role: Primary Care Nurse Name: China Sutherland Position: [facility] Outreach Member Role: Lifetime Consulting Physician Name: Tayler Harris RN Position: [facility] RN Member Role: Primary Care Nurse Name: Sophie Bejarano NP Position: [facility] Associate Professional Member Role: Lifetime Consulting Provider Address: Address: [address] [place] [address] [address] [address] Name: Vasile Byers MD Position: [facility] Renal MD Member Role: Lifetime Consulting Physician Address: Address: [address] [place] [address] [address] [address] Name: Katalina Jorge RN Position: [facility] OB RN Member Role: Primary Care Nurse Name: Sophia Adan LPN Position: [facility] RN Member Role: Primary Care Nurse Name: Lorene Davenport RN Position: [facility] ED RN W/OE and Tasks Member Role: Primary Care Nurse Name: Meryl Saini RN Position: [facility] ED RN W/OE and Tasks Member Role: Primary Care Nurse Name: Allison Montez RN Position: [facility] RN Member Role: Primary Care Nurse Name: Guillermo Encinas DO Position: [facility] Renal MD Member Role: Lifetime Consulting Physician Address: Address: [address] [place] [address] [address] [place] [address] Name: Christiano Parish RN Position: [facility] RN Member Role: Primary Care Nurse Name: Lorene Billingsley RN Position: [facility] Onco RN Member Role: Primary Care Nurse Name: Kathy Nieves RN Position: [facility] ED RN W/OE and Tasks Member Role: Primary Care Nurse Name: Nita Garcias RN Position: [facility] RN Member Role: Primary Care Nurse Name: Tyshanw Cook III, RN Position: [facility] RN Member Role: Primary Care Nurse Name: Mayuri England RN Position: [facility] RN Member Role: Primary Care Nurse Name: Sophia Johnson Position: [facility] RN Member Role: Primary Care Nurse Name: Paradise Linder RN Position: [facility] RN Member Role: Primary Care Nurse Name: Noemi Bustos RN Position: [facility] RN Member Role: Primary Care Nurse Name: Jennfier Song RN Position: [facility] RN Supv Member Role: Primary Care Nurse Name: Pina Mcgill RN Position: [facility] RN Member Role: Primary Care Nurse Name: Reina Franklin RN Position: [facility] RN Member Role: Primary Care Nurse Name: Yumiko Lindsay RN Position: [facility] RN Member Role: Primary Care Nurse Name: Vincent Thapa RN Position: [facility] RN Member Role: Primary Care Nurse Name: Kristen Boudreaux DO Position: [facility] Resident Member Role: PCP Address: Address: [address] [place] [address]- Name: Neil Bobby RN Position: [facility] RN Member Role: Primary Care Nurse Name: Joellen Pineda RN Position: [facility] RN Member Role: Primary Care Nurse Name: Crystal Robles RN Position: [facility] RN Member Role: Primary Care Nurse Name: Ruth Stevens LPN Position: [facility] RN Member Role: Primary Care Nurse Name: Nohemi Grande RN Position: [facility] Street Department Dispatcher Member Role: Primary Care Nurse Name: Yolanda Tyler RN Position: [facility] Street Department Dispatcher Member Role: Primary Care Nurse Care Team Related Persons Name: CARRIETAWNY Address: home [address] [place] [address]
--- OUTSIDE RECORDS SUMMARY | 2023-08-25 06:18 | XMS_ITS | Continuity of Care Document ---
Author Name Unknown Organization [facility] Address [address] [place] [address]- Care Team Providers Care Mold Stripper Name Role Phone Kristen Boudreaux DO Primary Care Physician Encounter [facility] Date(s): 05/13/23 - 07/17/23 [facility] [address], [place] [address] Attending Physician: Gaurav Dumont MD Admitting Physician: Gaurav Dumont MD Referring Physician: Ash De La Paz MD [...] influenza virus vaccine, inactivated 07/03/09 Dany rded [id number] bivalent booster vax 07/17/22 Recorded [id number] bivalent booster vax 07/17/22 Recorded pneumococcal 20-valent [...] capsule, 8 Refills, Maintenance, 11/25/22 8:27:00 EST, [facility] [id number], 170, cm, 10/09/22 16:43:00 EST, Height, 69.1, kg, 11/14/22 7:40:00 EST, Dry Weight Start Date: 11/25/22 Status: Ordered famotidine 20 mg oral tablet 1, tablet, By Mouth, Daily, # 90 tablet, Refills 0, Maintenance, 03/14/23 13:30:00 EDT, Route to Pharmacy Electronically, [facility] [id number], 170.1, cm, 03/14/23 9:45:00 EDT, Height, 68.4, kg, 03/14/23 9:45:00 EDT, Dry Weight Start Date: 03/14/23 Status: Ordered furosemide 40 mg oral tablet 3, tablet, By Mouth, 2 times a day, REFILL PER PCP OR NEPHROLOGY., # 180 tablet, Refills 2, Maintenance, 12/19/22 17:33:00 EDT, Route to Pharmacy Electronically, [facility] ST[facility] [id number], 170, cm, 12/19/22 10:06:00 EDT, Height, 71.6, [...] ulcer, right lower extremity, followed by Karena [facility] [phone] Confirmed Active Venous ulcer of right leg [...] Safety Implantable Status Assigning Authority Unknown Unknown [id number] Unknown 07/25/23 Unknown Unknown Active Unknown Procedure Provider Procedure Date Device Type Site Insertion Hemodialysis Catheter Tyshawn Milian MD Unknown Chest Device Identifier Serial Number Lot or Batch Number Manufacturing Date Expiration Date Distinct Identification Code MRI Safety Implantable Status Assigning Authority Unknown Unknown [id number] Unknown 06/26/24 Unknown Unknown Active Unknown Patient Care team information Care Team Personnel Name: Maryam Fox RN Position: S RN Member Role: Primary Care Nurse Name: Jana Monte RN Position: S RN Member Role: Primary Care Nurse Name: Franchesca Ward RN Position: S RN Member Role: Primary Care Nurse Name: Carolina Camacho RN Position: [facility] SN RN Member Role: Primary Care Nurse Name: Linda Hathaway Position: [facility] Outreach Member Role: Lifetime Consulting Physician Name: Cynthia Hathaway RN Position: [facility] RN Member Role: Primary Care Nurse Name: Delaney Huber RN Position: [facility] RN Member Role: Primary Care Nurse Name: Juanita Main RN Position: [facility] RN Member Role: Primary Care Nurse Name: China Sutherland Position: [facility] Outreach Member Role: Lifetime Consulting Physician Name: Tayler Harris RN Position: [facility] RN Member Role: Primary Care Nurse Name: Darci MANUFACTURING PRODUCTION TECHNICIANSophie Position: [facility] Associate Professional Member Role: Lifetime Consulting Provider Address: Address: [address] [place], [place] [address] [address] Name: Vasile Byers MD Position: [facility] Renal MD Member Role: Lifetime Consulting Physician Address: Address: [address] [place], [place] [address]E [facility] [address] Name: Katalina Jorge RN Position: [facility] OB RN Member Role: Primary Care Nurse Name: Sophia Adan LPN Position: [facility] RN Member Role: Primary Care Nurse Name: Lorene Davenport RN Position: [facility] ED RN W/OE and Tasks Member Role: Primary Care Nurse Name: Meryl Saini RN Position: [facility] ED RN W/OE and Tasks Member Role: Primary Care Nurse Name: Allison Montez RN Position: [facility] RN Member Role: Primary Care Nurse Name: Guillermo Encinas DO Position: [facility] Renal MD Member Role: Lifetime Consulting Physician Address: Address: [address] [place] [address] [address] [facility] [address] Name: Christiano Parish RN Position: [facility] RN Member Role: Primary Care Nurse Name: Lorene Billingsley RN Position: [facility] Onco RN Member Role: Primary Care Nurse Name: Kathy Nieves RN Position: [facility] ED RN W/OE and Tasks Member Role: Primary Care Nurse Name: Nita Garcias RN Position: [facility] RN Member Role: Primary Care Nurse Name: Tyshawn Cook III, RN Position: [facility] RN Member Role: Primary Care Nurse Name: Mayuri England RN Position: [facility] RN Member Role: Primary Care Nurse Name: Sophia Johnson Position: [facility] RN Member Role: Primary Care Nurse Name: Paradise Linder RN Position: [facility] RN Member Role: Primary Care Nurse Name: Noemi Bustos RN Position: [facility] RN Member Role: Primary Care Nurse Name: Jennifer Song RN Position: [facility] RN Supv Member Role: Primary Care Nurse Name: Pina Mcgill RN Position: [facility] RN Member Role: Primary Care Nurse Name: Reina Franklin RN Position: [facility] RN Member Role: Primary Care Nurse Name: Yumiko Lindsay RN Position: [facility] RN Member Role: Primary Care Nurse Name: Vincent Thapa RN Position: [facility] RN Member Role: Primary Care Nurse Name: Kristen Boudreaux DO Position: [facility] Resident Member Role: PCP Address: Address: [address] [place] [address]- Name: Neil Bobby RN Position: [facility] RN Member Role: Primary Care Nurse Name: Joellen Pineda RN Position: [facility] RN Member Role: Primary Care Nurse Name: Crystal Robles RN Position: [facility] RN Member Role: Primary Care Nurse Name: Ruth Stevens LPN Position: [facility] RN Member Role: Primary Care Nurse Name: Nohemi Grande RN Position: [facility] Senior Computer Specialist Member Role: Primary Care Nurse Name: Yolanda Tyler RN Position: [facility] Senior Computer Specialist Member Role: Primary Care Nurse Care Team Related Persons Name: TAWNY BUTLER Address: home [address] [place] [address]
--- OUTSIDE RECORDS SUMMARY | 2023-08-25 06:19 | XMS_ITS | Continuity of Care Document ---
Author Name Unknown Organization [facility] Address [address] [place] [address]- Care Team Providers Care Liner Roll Changer Name Role Phone Kristen Boudreaux DO Primary Care Physician Encounter [facility] Date(s): 06/17/23 - 07/17/23 Pre [facility] [address] [place], [place] [address] Attending Physician: Admtr, [id number] Admitting Physician: Admtr, Ar8 Referring Physician: Admtr, [...] influenza virus vaccine, inactivated 07/03/09 Dany rded [id number] bivalent booster vax 07/17/22 Recorded [id number] bivalent booster vax 07/17/22 Recorded pneumococcal 20-valent [...] capsule, 8 Refills, Maintenance, 11/25/22 8:27:00 EST, [facility] 08338, 170, cm, 10/09/22 16:43:00 EST, Height, 69.1, kg, 11/14/22 7:40:00 EST, Dry Weight Start Date: 11/25/22 Status: Ordered famotidine 20 mg oral tablet 1, tablet, By Mouth, Daily, # 90 tablet, Refills 0, Maintenance, 03/14/23 13:30:00 EDT, Route to Pharmacy Electronically, [facility] 33484, 170.1, cm, 03/14/23 9:45:00 EDT, Height, 68.4, kg, 03/14/23 9:45:00 EDT, Dry Weight Start Date: 03/14/23 Status: Ordered furosemide 40 mg oral tablet 3, tablet, By Mouth, 2 times a day, REFILL PER PCP OR NEPHROLOGY., # 180 tablet, Refills 2, Maintenance, 12/19/22 17:33:00 EDT, Route to Pharmacy Electronically, [facility] STORE 24593, 170, cm, 12/19/22 10:06:00 EDT, Height, 71.6, [...] recurrent, due to IVDU including admission to [facility] --> [facility] 09/18/2015 to 10/29/2015 for retroperitoneal [...] ulcer, right lower extremity, followed by Karena [facility]NA [phone] Confirmed Active Venous ulcer of right leg [...] Safety Implantable Status Assigning Authority Unknown Unknown [id number] Unknown 07/25/23 Unknown Unknown Active Unknown Procedure Provider Procedure Date Device Type Site Insertion Hemodialysis Catheter Tyshawn Milian MD Unknown Chest Device Identifier Serial Number Lot or Batch Number Manufacturing Date Expiration Date Distinct Identification Code MRI Safety Implantable Status Assigning Authority Unknown Unknown [id number] Unknown 06/26/24 Unknown Unknown Active Unknown Patient Care team information Care Team Personnel Name: Maryam Fox RN Position: [facility] RN Member Role: Primary Care Nurse Name: Jana Monte RN Position: S RN Member Role: Primary Care Nurse Name: Franchesca Ward RN Position: S RN Member Role: Primary Care Nurse Name: Carolina Camacho RN Position: [facility] SN RN Member Role: Primary Care Nurse Name: Linda Hathaway Position: [facility] Outreach Member Role: Lifetime Consulting Physician Name: Cynthia Hathaway RN Position: [facility] RN Member Role: Primary Care Nurse Name: Delaney Huber RN Position: [facility] RN Member Role: Primary Care Nurse Name: Juanita Main RN Position: [facility] RN Member Role: Primary Care Nurse Name: China Sutherland Position: [facility] Outreach Member Role: Lifetime Consulting Physician Name: Tayler Harris RN Position: [facility] RN Member Role: Primary Care Nurse Name: Sophie Bejarano NP Position: [facility] Associate Professional Member Role: Lifetime Consulting Provider Address: Address: [address] [place], [place] [address]E [facility] [address] Name: Vasile Byers MD Position: [facility] Renal MD Member Role: Lifetime Consulting Physician Address: Address: [address] [place], [place] [address]E [facility] [address] Name: Katalina Jorge RN Position: [facility] OB RN Member Role: Primary Care Nurse Name: Sophia Adan LPN Position: [facility] RN Member Role: Primary Care Nurse Name: Lorene Davenport RN Position: [facility] ED RN W/OE and Tasks Member Role: Primary Care Nurse Name: Meryl Saini RN Position: [facility] ED RN W/OE and Tasks Member Role: Primary Care Nurse Name: Allison Montez RN Position: [facility] RN Member Role: Primary Care Nurse Name: Guillermo Encinas DO Position: [facility] Renal MD Member Role: Lifetime Consulting Physician Address: Address: [address] [place], [place] [address]E [facility] [address] Name: Christiano Parish RN Position: [facility] RN Member Role: Primary Care Nurse Name: Lorene Billingsley RN Position: [facility] Onco RN Member Role: Primary Care Nurse Name: Kathy Nieves RN Position: [facility] ED RN W/OE and Tasks Member Role: Primary Care Nurse Name: Nita Garcias RN Position: [facility] RN Member Role: Primary Care Nurse Name: Tyshawn Cook III, RN Position: [facility] RN Member Role: Primary Care Nurse Name: Mayuri England RN Position: [facility] RN Member Role: Primary Care Nurse Name: Sophia Johnson Position: [facility] RN Member Role: Primary Care Nurse Name: Paradise Linder RN Position: [facility] RN Member Role: Primary Care Nurse Name: Noemi Bustos RN Position: [facility] RN Member Role: Primary Care Nurse Name: Jennifer Song RN Position: [facility] RN Supv Member Role: Primary Care Nurse Name: Pina Mcgill RN Position: [facility] RN Member Role: Primary Care Nurse Name: Reina Franklin RN Position: [facility] RN Member Role: Primary Care Nurse Name: Yumiko Lindsay RN Position: [facility] RN Member Role: Primary Care Nurse Name: Vincent Thapa RN Position: [facility] RN Member Role: Primary Care Nurse Name: Kristen Boudreaux DO Position: [facility] Resident Member Role: PCP Address: Address: [address] [place] [address] [place] [address]- Name: Neil Bobby RN Position: [facility] RN Member Role: Primary Care Nurse Name: Joellen Pineda RN Position: [facility] RN Member Role: Primary Care Nurse Name: Crystal Robles RN Position: [facility] RN Member Role: Primary Care Nurse Name: Ruth Stevens LPN Position: [facility] RN Member Role: Primary Care Nurse Name: Nohemi Grande RN Position: [facility] Forensic Document Examiner Member Role: Primary Care Nurse Name: Yolanda Tyler RN Position: [facility] Forensic Document Examiner Member Role: Primary Care Nurse Care Team Related Persons Name: TSERINGTAWNY JASON Address: home [address] [place] [address]
--- OUTSIDE RECORDS SUMMARY | 2023-08-25 06:19 | XMS_ITS | Continuity of Care Document ---
Author Name Unknown Organization [facility] Address [address] [place] [address]- Care Team Providers Care Dental Equipment Mechanic Name Role Phone Kristen Boudreaux DO Primary Care Physician Encounter [facility] Date(s): 08/05/23 - 08/12/23 Pre [facility] [address] [place], [place] [address] Attending Physician: Gaurav Dumont MD Referring Physician: Ash [...] influenza virus vaccine, inactivated 07/03/09 Dany rded [id number] bivalent booster vax 07/17/22 Recorded [id number] bivalent booster vax 07/17/22 Recorded pneumococcal 20-valent [...] opioid drug. Start Date: 02/20/23 Status: Ordered duloxetine 30 mg oral enteric coated capsule 1 capsule, By Mouth, Daily, DONT CRUSH. /CHEW., # 30 capsule, 8 Refills, Maintenance, 11/25/22 8:27:00 EST, [facility] 21666, 170, cm, 10/09/22 16:43:00 EST, Height, 69.1, kg, 11/14/22 7:40:00 EST, Dry Weight Start Date: 11/25/22 Status: Ordered famotidine 20 mg oral tablet 1, tablet, By Mouth, Daily, # 90 tablet, Refills 0, Maintenance, 03/14/23 13:30:00 EDT, Route to Pharmacy Electronically, [facility] 81874, 170.1, cm, 03/14/23 9:45:00 EDT, Height, 68.4, kg, 03/14/23 9:45:00 EDT, Dry Weight Start Date: 03/14/23 Status: Ordered furosemide 40 mg oral tablet 3, tablet, By Mouth, 2 times a day, REFILL PER PCP OR NEPHROLOGY., # 180 tablet, Refills 2, Maintenance, 12/19/22 17:33:00 EDT, Route to Pharmacy Electronically, [facility] 24969, 170, cm, 12/19/22 10:06:00 EDT, Height, 71.6, kg, 12/19/22 10:06:00 EDT,... Start Date: 12/19/22 Status: Ordered Left prosthetic arm Left prosthetic arm, See Instructions, # 1 each, Refills 0, Tot. 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 Start Date: 02/20/23 Status: Ordered sevelamer carbonate 800 mg oral tablet TAKE 1 TABLET BY MOUTH THREE TIMES A DAY WITH MEALS Start Date: 08/05/23 Status: Ordered Problem List Condition Confirmation Course Effective Dates Status H ealth Status Informant Abscesses, recurrent, due to IVDU including admission to [facility] --> [facility] 09/18/2015 to [...] ulcer, right lower extremity, followed by Karena [facility]NA [phone] Confirmed Active Venous ulcer of right leg Confirmed Active Vital Signs Most recent to oldest [Reference Range]: 1 Height 170.1 cm (08/05/23 2:40 PM) Weight 74.3 kg (08/05/23 2:40 PM) Oxygen Saturation [94-100 %] 100 % (08/05/23 2:40 PM) Pulse Rate [55-90 bpm] 101 bpm *H* (08/05/23 2:40 PM) Body Mass Index [18.5-24.99 kg/m2] 25.68 kg/m2 *H* (08/05/23 2:40 PM) Blood Pressure [90-138/55-84 mm Hg] 152/ 97mm Hg *H* (08/05/23 2:40 PM) Respiratory Rate [16-30 br/min] 14 br/mi n *L* (08/05/23 2:40 PM) Mode of Delivery (Oxygen) Room air (08/05/23 2:40 PM) Blood pressure sites Arm, right (08/05/23 2:40 PM) Dry Weight 74.3 kg (08/05/23 2:40 PM) Weight Obtained Via Standing scale (08/05/23 2:40 PM) Dry Weight Obtained Via Standing scale (08/05/23 2:40 PM) Social History Social History Type Response Smoking Status Former smoker, quit more than 30 days ago; Other: quit 2 years ago; entered on: 08/05/23 Sex Male Implantable Device List Procedure Provider Procedure Date Device Type Site Removal Hemodialysis Catheter Bill White MD 12/19/22 Unknown Arm Right Device Identifier Serial Number Lot or Batch Number Manufacturing Date Expiration Date Distinct Identification Code MRI Safety Implantable Status Assigning Authority Unknown Unknown [id number] Unknown 07/25/23 Unknown Unknown Active Unknown Procedure Provider Procedure Date Device Type Site Insertion Hemodialysis Catheter Tyshawn Milian MD Unknown Chest Device Identifier Serial Number Lot or Batch Number Manufacturing Date Expiration Date Distinct Identification Code MRI Safety Implantable Status Assigning Authority Unknown Unknown [id number] Unknown 06/26/24 Unknown Unknown Active Unknown Patient Care team information Care Team Personnel Name: Maryam Fox RN Position: [facility] RN Member Role: Primary Care Nurse Name: Jana Monte RN Position: [facility] RN Member Role: Primary Care Nurse Name: Franchesca Ward RN Position: [facility] RN Member Role: Primary Care Nurse Name: Carolina Camacho RN Position: [facility] RN Member Role: Primary Care Nurse Name: Linda Hathaway Position: [facility] Outreach Member Role: Lifetime Consulting Physician Name: Cynthia Hathaway RN Position: [facility] RN Member Role: Primary Care Nurse Name: Delaney Huber RN Position: [facility] RN Member Role: Primary Care Nurse Name: Juanita Main RN Position: [facility] RN Member Role: Primary Care Nurse Name: China Sutherland Position: S Outreach Member Role: Lifetime Consulting Physician Name: Tayler Harris RN Position: [facility] RN Member Role: Primary Care Nurse Name: Sophie Bejarano NP Position: [facility] Associate Professional Member Role: Lifetime Consulting Provider Address: Address: [facility] [address] [facility] [place] [address]- Name: Vasile Byers MD Position: [facility] Renal MD Member Role: Lifetime Consulting Physician Address: Address: [address] [facility] [place] [address]- Name: Katalina Jorge RN Position: [facility] OB RN Member Role: Primary Care Nurse Name: Sophia Adan LPN Position: [facility] RN Member Role: Primary Care Nurse Name: Lorene Davenport RN Position: [facility] RN Member Role: Primary Care Nurse Name: Meryl Saini RN Position: [facility] ED RN W/OE and Tasks Member Role: Primary Care Nurse Name: Allison Montez RN Position: [facility] RN Member Role: Primary Care Nurse Name: Guillermo Encinas DO Position: [facility] Renal MD Member Role: Lifetime Consulting Physician Address: Address: [address] [place] [address] [address] [facility] [address] Name: Christiano Parish RN Position: [facility] RN Member Role: Primary Care Nurse Name: Lorene Billingsley RN Position: [facility] Onco RN Member Role: Primary Care Nurse Name: Kathy Nieves RN Position: [facility] ED RN W/OE and Tasks Member Role: Primary Care Nurse Name: Nita Garcias RN Position: [facility] RN Member Role: Primary Care Nurse Name: Tyshawn Cook III, RN Position: [facility] RN Member Role: Primary Care Nurse Name: Mayuri England RN Position: [facility] RN Member Role: Primary Care Nurse Name: Sophia Johnson Position: [facility] RN Member Role: Primary Care Nurse Name: Paradise Linder RN Position: [facility] RN Member Role: Primary Care Nurse Name: Noemi Bustos RN Position: [facility] RN Member Role: Primary Care Nurse Name: Jennifer Song RN Position: [facility] RN Supv Member Role: Primary Care Nurse Name: Pina Mcgill RN Position: [facility] RN Member Role: Primary Care Nurse Name: Reina Franklin RN Position: [facility] RN Member Role: Primary Care Nurse Name: Yumiko Lindsay RN Position: [facility] RN Member Role: Primary Care Nurse Name: Vincent Thapa RN Position: [facility] RN Member Role: Primary Care Nurse Name: Kristen Boudreaux DO Position: [facility] Resident Member Role: PCP Address: Address: [address] [place] [address] [place] [address]- Name: Neil Bobby RN Position: [facility] RN Member Role: Primary Care Nurse Name: Joellen Pineda RN Position: [facility] RN Member Role: Primary Care Nurse Name: Crystal Robles RN Position: [facility] RN Member Role: Primary Care Nurse Name: Ruth Stevens LPN Position: [facility] RN Member Role: Primary Care Nurse Name: Nohemi Grande RN Position: [facility] Server Security Administrator Member Role: Primary Care Nurse Name: Yolanda Tyler RN Position: [facility] Server Security Administrator Member Role: Primary Care Nurse Care Team Related Persons Name: TAWNY BUTLER Address: home [address] [place] [address]
--- OUTSIDE RECORDS SUMMARY | 2023-08-25 06:21 | XMS_ITS | Patient Health Record ---
Author Name Unknown Organization [facility] Address [address], [place] [id number] Care Team Providers Care Blindstitch Lining Feller Name Role Phone [facility], Medical Services Primary Care Provider Kris Rondon Unavailable [phone] REASON FOR REFERRAL No Information MEDICATIONS Medication [...] A IM Intramuscular 06/18/2019 Administered [place] 5 [id number] Hepatitis B (20 or more) IM Intramuscular 06/18/2019 Administered ND [id number] SOCIAL HISTORY Tobacco Use: Social History Observation [...] dependence, uncomplicated (F11.20) Active confirmed Opioid dependence (98180899) Problem Type 2 diabetes mellitus without complications (E11.9) Active confirmed Type II diabete s mellitus without complication (551990599) 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 Problem Nicotine dependence, cigarettes, uncomplicated (F17.210) Active confirmed Tobacco user (384518131) Problem Major depressive disorder, recurrent, unspecified (F33.9) Active confirmed Recurrent major depression (59672476) Problem Anxiety disorder, unspecified (F41.9) Active confirmed Anxiety disorde r (762031985) Problem 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
[2023-08-25] MEDS: Tetracaine HCl/PF 0.5% Oph Sol 4 ML DROPS 1 DROP EYE-RIGHT (06:47)
[2023-08-25] MEDS: Tropicamide 1 % Ophth Sol 3 ML BTL 1 DROP EYE-RIGHT ×3 (06:47→06:55)
[2023-08-25] MEDS: Phenylephrine HCL 2.5% Oph SoL 2 ML BOTTLE 1 DROP EYE-RIGHT ×3 (06:47→06:55)
[2023-08-25] MEDS: Cyclopentolate 1 % Ophth Sol 2 ML DRPBTL 1 DROP EYE-RIGHT ×3 (06:47→06:55)
[2023-08-25] MEDS: Ketorolac Tromethamine 0.5% Op 5 ML DROPS 1 DROP EYE-RIGHT ×3 (06:47→06:55)
[2023-08-25] MEDS: 0.9 % Sodium Chloride 500 ML 50 ML IV (06:52)
--- NOTE | 2023-08-25 06:57 | PC.NURSE ---
attempt for IV by brittany hernandez rn. attempt and insertion by yolanda yates rn
[2023-08-25 07:10] LABS: Glucose, Whole Blood 125 mg/dL (60-115)
[2023-08-25 07:23] VITALS: BP 141/79; PULSE 80; RESP 18; TEMP 36.7; O2SAT 100
[2023-08-25 07:26] LABS: Anion Gap 15 (12-20); Carbon Dioxide 25 mmol/L (22-29); Chloride 106 mmol/L (96-108); Potassium 4.6 mmol/L (3.3-5.1); Sodium 141 mmol/L (135-145)
--- NOTE | 2023-08-25 08:24 | HO.PNOPHT ---
Ophthalmology Procedure Procedure Date of Service: 08/25/23 Ophthalmology Viscoelastic: Healon Duet Dual Pack Pro Ophthalmology Lenses: TECNIS [id number] (18.5) Procedure Notes: PREOPERATIVE DIAGNOSIS: Decreased visual acuity right eye secondary to cataract POSTOPERATIVE DIAGNOSIS: Same PROCEDURE: Right cataract extraction with intraocular lens insertion SURGEON: Ash De La Paz M.D. ANESTHESIA: Topical/MAC ESTIMATED BLOOD LOSS: None COMPLICATIONS: None After obtaining informed consent, the patient was brought to the operating room suite and placed in the supine position. After adequate sedation per anesthesia, topical drops of Tetracaine were given to the right eye. The eye was then prepped and draped in the usual sterile fashion. The operating room microscope was then positioned over the operative eye and a lid speculum placed. A paracentesis was created. Viscoelastic was then instilled into the anterior chamber. A three plane incision was then created temporally, utilizing a 2.85 mm keratome. Capsulotomy forceps were then utilized to create a circular tear capsulotomy. Hydrodissection and hydrodelineation were carried out until adequate mobilization of the nucleus occurred. Phacoemulsification was then utilized to remove the dense central nucleus followed by removal of the cortical material utilizing the automated aspiration irrigation unit. Viscoelastic was instilled into the posterior capsular bag followed by placement of a posterior chamber intraocular lens without difficulty. The residual Viscoelastic was then removed utilizing the automated IA machine. The wound was checked and found to be watertight. The patient tolerated the procedure well and the lid speculum was removed. Intracameral injection of Vigamox 0.1 mL followed by a subtenon injection of Kenalog-40 0.2 mL were administered. The patient will be seen in the a.m.
[2023-08-25 08:59] VITALS: BP 106/72; PULSE 76; RESP 18; TEMP 36.2; O2SAT 98
== END 2023-08-25 09:02 | disposition home or self-care (01) ==
PROVIDERS: Nurse Practitioner; Visit Provider Ophthalmology
PROC: (CPT 66985; principal; 2023-08-25 08:00)
DX: H25.11 Age-related nuclear cataract, right eye (principal); H54.7 Unspecified visual loss; H44.23 Degenerative myopia, bilateral; E11.22 Type 2 diabetes mellitus with diabetic chronic kidney disease; E11.3391 Type 2 diabetes mellitus with moderate nonproliferative diabetic retinopathy without macular edema, right eye; I12.9 Hypertensive chronic kidney disease with stage 1 through stage 4 chronic kidney disease, or unspecified chronic kidney disease; N18.6 End stage renal disease; Z89.222 Acquired absence of left upper limb above elbow; Z79.899 Other long term (current) drug therapy; Z79.82 Long term (current) use of aspirin; Z88.8 Allergy status to other drugs, medicaments and biological substances; F11.20 Opioid dependence, uncomplicated; F17.210 Nicotine dependence, cigarettes, uncomplicated
CPT/HCPCS: 66984; 36415; 80051; 82947; J2250; J3010; J3301; V2632